=== PATIENT | female | born 1965 | race Caucasian/White ===

== ENCOUNTER 2019-09-25 13:43 | Outpatient (CLI) | payer OTHER, SELFPAY ==
--- NOTE | ~2019-09-25 | XR_ITS ---
EXAMINATION: XR chest 2V 09/25/2019 14:07 INDICATION: Chest pain PROCEDURE: 2 view chest COMPARISON: 12/23/2015 FINDINGS: The lungs are clear. The cardiomediastinal silhouette is within normal limits. There are no pleural effusions. There is no pneumothorax suspected. IMPRESSION: 1: NO ACUTE CARDIOPULMONARY DISEASE. Reviewed, dictated and finalized at location A.
== END 2019-09-25 13:44 | disposition home or self-care (01) ==
PROVIDERS: PCP Family Medicine; Visit Provider Family Medicine
DX: R07.9 Chest pain, unspecified (principal)
CPT/HCPCS: 71046

== ENCOUNTER 2019-10-08 12:46 | Outpatient (CLI) | payer OTHER, SELFPAY ==
--- NOTE | ~2019-10-08 | CT_ITS ---
EXAMINATION: CT chest wo con EXAM DATE: 10/08/2019 13:09 INDICATION: Right anterior chest pain under right breast. TECHNIQUE: Spiral CT of the chest without contrast. Axial, coronal and sagittal images were reviewe d. Coronal maximum intensity pixel images of chest reviewed. The dose-length product (DLP) for this examination was 345.56 mGy-cm. The exposure was tailored according to patient size (auto mA exposur e control), and iterative reconstruction (ASIR) was used as additional dose reduction technique. The re is no prior study for comparison. Correlation was made with chest x-ray 09/25/2019. FINDINGS: The lungs are clear. There are no pleural or pericardial effusions. Tracheobronchial t ree is patent. There is no mediastinal, hilar or axillary lymphadenopathy. There is no pneumothor ax. Heart normal in size. There is mild coronary arterial calcification, arterial sclerosis. Sma ll liver cyst. There is a 5 mm sclerotic focus in T7 and a 3 mm sclerotic focus in T8. Vague 4 mm sc lerotic focus in the left humeral head. Probably bone islands, but can't totally exclude osteoblastic disease. No acute rib fractures identified. IMPRESSION: 1. No acute cardiac pulmonary findings. 2. Several small bone sclerotic foci most likely bone islands in absence of known primary malignancy . Can't totally exclude osteoblastic disease. Could obtain bone scan or 3-six-month follow-up chest C T. Reviewed, dictated and finalized at location A. IMPRESSION: 1. No acute cardiac pulmonary findings. 2. Several small bone sclerotic foci most likely bone islands in absence of kn own primary malignancy. Can't totally exclude osteoblastic disease. Could obtai n bone scan or 3-six-month follow-up chest CT.
== END 2019-10-08 12:47 | disposition home or self-care (01) ==
PROVIDERS: PCP Family Medicine; Visit Provider Nurse Practitioner Family
DX: R07.9 Chest pain, unspecified (principal); M89.9 Disorder of bone, unspecified
CPT/HCPCS: 71250

== ENCOUNTER 2019-11-13 09:05 | Emergency (ER) | payer OTHER, SELFPAY ==
[2019-11-13] VITALS (18 sets, daily range): BP systolic 114–160; BP diastolic 71–99; PULSE 79–107; RESP 20; TEMP 36.8; O2SAT 99–100
--- NOTE | ~2019-11-13 | XR_ITS ---
EXAMINATION: XR chest 1V portable INDICATION: Weakness and vomiting TECHNIQUE: Portable AP chest at 0928 hours COMPARISON: 09/25/2019 FINDINGS: The lungs are free of acute opacities. There is no pleural effusion or pneumothorax. The ca rdiomediastinal silhouette is normal. The visualized osseous structures are unremarkable. IMPRESSION: 1. No acute cardiopulmonary abnormality. Reviewed, dictated and finalized at location A.
--- NOTE | ~2019-11-13 | CT_ITS ---
EXAMINATION: CT brain wo con DATE: 11/13/2019 10:03 INDICATION: Headache. TECHNIQUE: Computed tomography (CT) of the head was performed without intravenous contrast. The mA wa s adjusted according to patient size. Iterative reconstruction technique was employed. The dose-lengt h product was 605.33 mGy-cm. COMPARISON: Head CT 03/28/2017 FINDINGS: There is an old infarct in the left frontal lobe. There are scattered areas of low attenuat ion in the cerebral white matter. There is no intracranial hemorrhage, acute infarction, or abnormal intracranial mass lesion. The ventricles are normal in size. The paranasal sinuses are clear. The orb its are normal. There is a left-sided cochlear implant. IMPRESSION: 1. 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 2. Stable mild nonspecific cerebral white matter disease, which likely represents chronic small vesse l ischemic disease. Reviewed, dictated and finalized at location A. IMPRESSION: 1. 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 2. Stable mild nonspecific cerebral white matter disease, which likely represen ts chronic small vessel ischemic disease.
--- NOTE | 2019-11-13 09:23 | ED.NAVMDI ---
HPI - Nausea/Vomiting/Diarrhea General Chief complaint: Nausea/Vomiting/Diarrhea Stated complaint: sick Time Seen by Provider: 11/13/19 09:06 Source: patient Mode of arrival: ambulatory Limitations: other (hard of hearing) History of Present Illness HPI Narrative: This patient is a 54 year old female with history migraine headaches who presents for evaluation of headache, nausea and vomiting. She states starting on Tuesday she developed diffuse headache. She take hydrocodone for her headaches but she states her pain medication made her headache worse this time. She has not taken her medications in 2 days. She reports nausea , vomiting and diarrhea for 3 days. She denies fever or chills. She also has diffuse abdominal pain. She denies cough or shortness of breath. MD elicited complaint: nausea, vomiting and abdominal pain Pertinent past history: other (migrained) Onset (ago): day(s) (3) Associated nausea: Yes Associated abdominal pain: Yes Location of pain: diffuse Associated symptoms: nausea/vomiting and weakness Related Data Home Medications Medication Instructions Recorded Confirmed alprazolam 1 mg tablet 1 mg PO TID PRN 04/23/19 aspirin 81 mg chewable tablet 81 mg PO DAILY 04/23/19 atorvastatin 80 mg tablet 80 mg PO DAILY 04/23/19 cetirizine 10 mg tablet 10 mg PO DAILY 04/23/19 clopidogrel 75 mg tablet 75 mg PO DAILY 04/23/19 hydrocodone 5 mg-acetaminophen 325 1 tablet PO Q8H PRN 04/23/19 mg tablet metoprolol tartrate 25 mg tablet 25 mg PO BID tablet 04/23/19 pantoprazole 40 mg tablet,delayed 40 mg PO QAM 04/23/19 release Allergies Allergy/AdvReac Type Severity Reaction Status Date / Time fluoxetine Allergy Unknown Unknown Verified 11/13/19 09:14 [id number] Antimigraine Allergy Unknown Unknown Verified 11/13/19 09:14 Agents morphine Allergy Unknown Verified 11/13/19 09:14 ibuprofen AdvReac Intermediate ON BLOOD Verified 02/24/19 08:13 THINNERS tramadol AdvReac Intermediate VOMITING 4 Verified 02/24/19 08:13 DAYS Yppfhkm-Olg-Rkm Reductase AdvReac Unknown makes me Verified 02/24/19 08:13 Inhibitor feel like I'm having a heart attack Review of Systems Review of Systems: All systems reviewed & are unremarkable except as noted in HPI and below Constitutional: Constitutional: Denies chills, Reports fatigue, Denies fever(s) and Reports weakness Eyes: Eyes: Reports no additional eye complaints ENT: Reports nasal congestion Cardiovascular: Cardiovascular: Denies chest pain Respiratory: Respiratory: Denies cough and Denies dyspnea Gastrointestinal: Gastrointestinal: Reports abdominal pain, Reports diarrhea, Reports nausea and Reports vomiting Neurologic: Denies dizziness, Denies focal weakness, Denies numbness and Denies weakness PMFSH Past Medical History Medical History Anxiety Arthritis CAD (coronary artery disease) Cataract Depression GERD (gastroesophageal reflux disease) Hyperlipidemia Hypertension Migraines Uterine fibroid Surgical History Surgical History H/O cardiac catheterization H/O section H/O right wrist surgery H/O: hysterectomy Partial History of bladder suspension procedure Social History Social History (Updated 04/23/19 @ 15:16 by Britt Carrizales) Smoking status: Former smoker Smoking end date: 12/29/11 Exam Narrative: Exam Narrative: GENERAL: Well-appearing, well-nourished, and in no acute distress. HEAD: Normocephalic, atraumatic EYES: PERRLA and EOMI, conjunctiva clear without discharge NOSE: Nares clear, no rhinorrhea or epistaxis THROAT:Mucous membranes moist, Oropharynx normal without erythema, exudate, peritonsillar swelling or fluctuance NECK: Supple, without lymphadenopathy or mass RESPIRATORY: No respiratory distress, Airway patent, Respirations non-labored, Clear
[2019-11-13 09:33] LABS: Basophils Absolute Auto 0.1 K/mm3 (0.0-0.1); Eosinophils Absolute Auto 0.1 K/mm3 (0-0.3); Eosinophils Percent Auto 1.7 % (0-4.4); Hematocrit 49.4 % (37.0-47.0); Hemoglobin 16.3 g/dL (12.0-15.0); Immature Granulocyte Absolute 0.03 K/mm3 (0.00-0.031); Immature Granulocyte Percent A 0.4 % (0-0.5); Lymphocytes Absolute Auto 2.41 K/mm3 (0.9-3.2); Lymphocytes Percent Auto 28.7 % (18.3-44.2); Mean Corpuscular Volume 90.8 fl (80-100); Mean Platelet Volume 9.6 fl (7.4-10.4); Monocytes Absolute Auto 0.6 K/mm3 (0.1-0.6); Monocytes Percent Auto 7.4 % (2.6-8.5); Neutrophils Absolute Auto 5.1 K/mm3 (1.3-6.7); Neutrophils Percent Auto 60.8 % (45.5-73.1); Platelet Count Result 317 k/mm3 (150-375); Red Blood Count 5.44 M/mm3 (4.2-5.4); White Blood Count 8.4 K/mm3 (4.5-10.0)
[2019-11-13] MEDS: SODIUM CHLORIDE 0.9% IV 1,000 ML 999 ML IV CONT (09:33)
[2019-11-13] MEDS: METOCLOPRAMIDE HCL INJ 10 MG/2 ML VIAL IV PUSH (09:33)
[2019-11-13 09:45] LABS: Alanine Aminotransferase 39 U/L (4-35); Albumin Level 4.7 g/dL (3.5-5.1); Alkaline Phosphatase 61 U/L (38-126); Aspartate Amino Transferase 33 U/L (14-36); Bilirubin,Total 1.1 mg/dL (0.2-1.3); Blood Urea Nitrogen 13 mg/dL (7-17); Calcium 9.5 mg/dL (8.4-10.2); Carbon Dioxide 29 mmol/L (22-30); Chloride 102 mmol/L (98-107); Estimated CRCL calculation 86 ml/min; Estimated Glomerular Filt Rate > 60; Glucose 140 mg/dL (65-105); Lipase 41 U/L (23-300); Potassium 3.3 mmol/L (3.4-5.0); Sodium 139 mmol/L (137-145)
[2019-11-13 10:00] LABS: Add Urine Microscopic? YES; Appearance Urine Clear (Clear); Bilirubin Urine Negative (Negative); Blood Urine 2+ (Negative); Color Urine Yellow (Yellow); Glucose Urine UA Negative (Negative); Ketones Urine 1+ mg/dL (Negative); Leukocyte Esterase Ur Negative LEU/UL (Negative); Mucus Urine Heavy /lpf; Nitrate Urine Negative (Negative); Protein Urine 1+ mg/dL (Negative); Specific Grav Ur 1.028 (1.001-1.035)
[2019-11-13] MEDS: POTASSIUM CHLORIDE 20 MEQ TABLET PO (10:31)
[2019-11-13] MEDS: LACTATED RINGERS 1,000 ML 999 ML IV CONT (10:31)
--- NOTE | 2019-11-13 11:50 | PC.NURSE ---
Tolerating crackers and white soda without emesis.
== END 2019-11-13 11:51 | disposition home or self-care (01) ==
PROVIDERS: Emergency Provider General Practice; PCP Family Medicine
DX: R11.2 Nausea with vomiting, unspecified (principal); E86.0 Dehydration; R51 Headache; F41.9 Anxiety disorder, unspecified; M19.90 Unspecified osteoarthritis, unspecified site; I25.10 Atherosclerotic heart disease of native coronary artery without angina pectoris; F32.9 Major depressive disorder, single episode, unspecified; K21.9 Gastro-esophageal reflux disease without esophagitis; E78.5 Hyperlipidemia, unspecified; I10 Essential (primary) hypertension
CPT/HCPCS: 36415; 51701; 70450; 71045; 80053; 81001; 83690; 85025; 96361; 96374; 96375; 99284; A9270; J0131; J1200; J2765; J7030; J7120

== ENCOUNTER 2020-02-15 15:24 | Outpatient (CLI) | payer OTHER, SELFPAY ==
--- NOTE | ~2020-02-15 | XR_ITS ---
XR cervical spine 4-5V 02/15/2020 15:53 Indication: Cervicalgia. Procedure: 4 view cervical spine Comparison: CT dated 11/08/2018. Findings: Normal cervical alignment. Vertebral body heights are maintained. There is mild disc narrow ing at C5-6 and C6-7. No prevertebral soft tissue abnormality. There is mild multilevel uncinate and facet hypertrophy. Lung apices are normal. Odontoid process within normal limits. Lung apices are nor mal. Impression: 1: Mild cervical spondylosis. Reviewed, dictated and finalized at location B. Impression: 1: Mild cervical spondylosis.
== END 2020-02-15 15:25 | disposition home or self-care (01) ==
PROVIDERS: PCP Family Medicine; Visit Provider Psychiatry & Neurology Neurology
DX: M47.892 Other spondylosis, cervical region (principal)
CPT/HCPCS: 72050

== ENCOUNTER 2020-03-17 10:12 | Outpatient (CLI) | payer OTHER, SELFPAY ==
--- NOTE | ~2020-03-17 | XR_ITS ---
EXAMINATION: XR knee LT min 4V DATE: 03/17/2020 11:24 INDICATION: Left knee pain. TECHNIQUE: 4 views of left knee were obtained. COMPARISON: None. FINDINGS: Bone alignment is normal. No fracture. There is mild tricompartmental osteoarthritis. No kn ee joint effusion. IMPRESSION: 1. Mild left knee osteoarthritis. Reviewed, dictated and finalized at location A.
--- NOTE | ~2020-03-17 | CT_ITS ---
EXAMINATION: CT chest wo con DATE: 03/17/2020 11:06 INDICATION: ABN CT FINDINGS TECHNIQUE: Computed tomography (CT) of the chest was performed without intravenous contrast. Addition al 3D reconstructions utilizing coronal maximum intensity projection (MIP) were performed. Automated exposure control and iterative reconstruction technique were employed. The dose-length product was 26 4.03 mGy-cm. COMPARISON: Chest CT dated 10/08/[address] abdomen and pelvis dated 02/16/2019 FINDINGS: No significant interval change in mild linear discoid atelectasis/scarring at the inferior lingula an d adjacent anterobasilar segment of the left lower lobe. No pneumonia, suspicious pulmonary nodules, pulmonary edema or pleural effusion. Heart size is normal. No pericardial effusion. Atherosclerotic c oronary artery calcification or more likely stenting along the proximal left anterior descending juan diego nary artery. Correlate with clinical history. No pathologically enlarged thoracic lymphadenopathy. Di ffuse hepatic steatosis with focal sparing along the gallbladder fossa. There are a few scattered sma ll low-attenuation hepatic cysts the largest measuring 2 cm maximal diameter in the right hepatic lob e. No interval change in a few small likely bone islands at T6, T7, T8 and at the left humeral head. The lesions at T7 and T8 further are unchanged since 02/16/2019. IMPRESSION: 1. No interval change in a few small likely bone islands at the left humeral head and thoracic spine. 2. No acute cardiopulmonary disease. Reviewed, dictated and finalized at location A. IMPRESSION: 1. No interval change in a few small likely bone islands at the left humeral he ad and thoracic spine. 2. No acute cardiopulmonary disease.
== END 2020-03-17 10:13 | disposition home or self-care (01) ==
PROVIDERS: PCP Family Medicine; Visit Provider Nurse Practitioner Family
DX: R93.89 Abnormal findings on diagnostic imaging of other specified body structures (principal); M17.12 Unilateral primary osteoarthritis, left knee
CPT/HCPCS: 71250; 73564

== ENCOUNTER 2020-04-15 14:56 | Emergency (ER) | payer OTHER, SELFPAY ==
--- NOTE | ~2020-04-15 | XR_ITS ---
EXAMINATION: XR forearm LT 2V DATE: 04/15/2020 18:14 INDICATION: Left forearm injury with swelling and bruising TECHNIQUE: AP an lateral views of the left forearm were obtained. COMPARISON: none FINDINGS: Alignment is normal. No fracture. Mild osteoarthritis at the left elbow and triscaphe joints. Tiny li saige degenerative ossicle at the dorsal aspect of the first metatarsophalangeal joint. Soft tissues a re unremarkable. No left elbow joint effusion. IMPRESSION: 1. No acute osseous abnormality. Reviewed, dictated and finalized at location H. 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
--- NOTE | ~2020-04-15 | US_ITS ---
EXAMINATION: US venous doppler [facility] DATE: 04/15/2020 17:55 INDICATION: Left lower limb pain and swelling TECHNIQUE: Grayscale ultrasound images without and with compression and Doppler ultrasound images of the left lower extremity veins were obtained. COMPARISON: 04/08/2017 FINDINGS: The visualized portions of left common femoral vein, profunda (deep) femoral vein, femoral vein, popl iteal vein, peroneal veins, posterior tibial veins, gastrocnemius vein and greater saphenous vein out flow remain patent. IMPRESSION: 1. No deep venous thrombosis in the left lower limb. Reviewed, dictated and finalized at location H. 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
[2020-04-15 15:03] VITALS: BP 160/107; PULSE 74; RESP 18; TEMP 36.7; O2SAT 100
--- NOTE | 2020-04-15 18:40 | ED.GENADULT ---
HPI - General Adult General Chief complaint: Extremity Problem,Nontraumatic Stated complaint: left leg swelling Time Seen by Provider: 04/15/20 17:33 Source: patient Mode of arrival: ambulatory Limitations: no limitations History of Present Illness HPI narrative: Patient presents with chief complaint of increased swelling to the left leg over the past 2 to 3 days. Patient states she saw her primary care who told her to come to the emergency department to rule out DVT. Patient takes Plavix and states that she has not skipped doses. Patient states that she also dropped her showerhead on her left arm and has significant bruising and swelling to the area. Patient denies any other injuries or concerns. Related Data Home Medications Medication Instructions Recorded Confirmed alprazolam 1 mg tablet 1 mg PO TID PRN 04/23/19 aspirin 81 mg chewable tablet 81 mg PO DAILY 04/23/19 atorvastatin 80 mg tablet 80 mg PO DAILY 04/23/19 cetirizine 10 mg tablet 10 mg PO DAILY 04/23/19 clopidogrel 75 mg tablet 75 mg PO DAILY 04/23/19 hydrocodone 5 mg-acetaminophen 325 1 tablet PO Q8H PRN 04/23/19 mg tablet metoprolol tartrate 25 mg tablet 25 mg PO BID tablet 04/23/19 pantoprazole 40 mg tablet,delayed 40 mg PO QAM 04/23/19 release Allergies Allergy/AdvReac Type Severity Reaction Status Date / Time fluoxetine Allergy Unknown Unknown Verified 11/13/19 09:14 [id number]-[id number] Antimigraine Allergy Unknown Unknown Verified 11/13/19 09:14 Agents morphine Allergy Unknown Verified 11/13/19 09:14 ibuprofen AdvReac Intermediate ON BLOOD Verified 02/24/19 08:13 THINNERS tramadol AdvReac Intermediate VOMITING 4 Verified 02/24/19 08:13 DAYS Wprqtsy-Vuw-Nck Reductase AdvReac Unknown makes me Verified 02/24/19 08:13 Inhibitor feel like I'm having a heart attack Review of Systems Review of Systems: Narrative: CONSTITUTIONAL: Denies fever, chills, or sweats. EYES: Denies visual changes, redness, or discharge. ENT: Denies rhinorrhea, congestion, sore throat, or otalgia. CARDIOVASCULAR: Denies chest pain, palpitations, or edema. RESPIRATORY: Denies cough or dyspnea. GASTROINTESTINAL: Denies abdominal pain, nausea, vomiting, or diarrhea. GENITOURINARY: Denies dysuria or hematuria. SKIN: Ecchymosis to left forearm denies rash or itching. MUSCULOSKELETAL: Reports left forearm and leg swelling and discomfort NEUROLOGIC: Denies headache, numbness, dizziness, or weakness. PSYCHIATRIC: Denies anxiety or depression. [facility] Past Medical History Medical History (Updated 04/15/20 @ 18:45 by Mark Sanchez PA-C) Anxiety Arthritis CAD (coronary artery disease) Cataract Depression GERD (gastroesophageal reflux disease) Hyperlipidemia Hypertension Migraines Uterine fibroid Surgical History Surgical History H/O cardiac catheterization H/O section H/O right wrist surgery H/O: hysterectomy Partial History of bladder suspension procedure Social History Social History (Updated 04/23/19 @ 15:16 by Britt Carrizales) Smoking status: Former smoker Smoking end date: 12/29/11 Exam Narrative: Exam Narrative: GENERAL: Well-appearing, well-nourished, and in no acute distress. HEAD: Normocephalic, atraumatic. EYES: PERRLA and EOMI. CHEST: Clear to auscultation. No respiratory distress. No wheezes rales or rhonchi HEART: Regular rate and rhythm. EXTREMITIES: Normal range of motion. Minimal edema noted to left leg in comparison to the right. Patient reports calf tenderness with palpation. Homans' sign negative. There is no erythema, ecchymosis to left leg or calf. SKIN: Ecchymosis to left forearm with swelling.. Warm, dry, no rash. NEURO: No focal deficits. Alert and oriented x3. PSYCH: Normal mood and affect. Course Vital Signs Vital signs: Vital Signs Temperature 98.1 F 04/15/20 15:03 Pulse Rate 74 04/15/20 15:03 Respirator
[2020-04-15 19:10] VITALS: BP 156/86; PULSE 75; RESP 18; O2SAT 100
== END 2020-04-15 19:11 | disposition home or self-care (01) ==
PROVIDERS: Emergency Provider Emergency Medicine; PCP Family Medicine
DX: R60.0 Localized edema (principal); S50.12XA Contusion of left forearm, initial encounter; M19.90 Unspecified osteoarthritis, unspecified site; I25.10 Atherosclerotic heart disease of native coronary artery without angina pectoris; F41.9 Anxiety disorder, unspecified; F32.9 Major depressive disorder, single episode, unspecified; K21.9 Gastro-esophageal reflux disease without esophagitis; E78.5 Hyperlipidemia, unspecified; I10 Essential (primary) hypertension; Z79.82 Long term (current) use of aspirin; Z79.02 Long term (current) use of antithrombotics/antiplatelets; W20.8XXA Other cause of strike by thrown, projected or falling object, initial encounter
CPT/HCPCS: 73090; 93971; 99284

== ENCOUNTER 2020-06-03 08:49 | Outpatient (CLI) | payer OTHER, SELFPAY ==
--- NOTE | ~2020-06-03 | CT_ITS ---
EXAMINATION: CTA brain EXAM DATE: 06/03/2020 09:26 INDICATION: Migraine headaches. Cochlear implant. TECHNIQUE: Noncontrast head CT. Spiral CT angiogram cerebral arteries performed with intravenous in jection of 100 mL Omnipaque 350. Axial, coronal and sagittal images reviewed. Additional reformatted images created on dedicated 3-D workstation. The dose-length product (DLP) for this examination was 924.39 mGy-cm. The exposure was tailored according to patient size, and iterative reconstruction ( ASIR) was used as additional dose reduction technique. Comparison is made to prior examination from . FINDINGS: There is 0% carotid siphon stenosis bilaterally. The right vertebral artery is dominant. There is no distal carotid or vertebral basilar arterial dissection or fibromuscular dysplasia. Ther e are no cerebral artery aneurysms. There is symmetric cerebral artery arborization. The sagittal, tr ansverse and sigmoid sinuses enhance normally, no venous sinus thrombosis. Internal cerebral veins al so enhance normally. There is moderate-sized old left frontal lobe infarction. Surgical changes from left cochlear implant , mastoidectomy. There is no acute intraparenchymal hemorrhage. No evidence of intraparenchymal brai n mass lesion. No evidence of acute infarction. There is no mass effect or midline shift. There is n o obstructive hydrocephalus suspected. There are no extra-axial collections. There are no calvarial acute fractures. IMPRESSION: 1. No acute intracranial findings or cerebral artery aneurysm. 2. Left frontal lobe old moderate infarction. 3. Left cochlear implant. Reviewed, dictated and finalized at location A. 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
[2020-06-03 09:15] LABS: Estimated Glomerular Filt Rate > 60
== END 2020-06-03 08:50 | disposition home or self-care (01) ==
PROVIDERS: PCP Family Medicine; Visit Provider Psychiatry & Neurology Neurology
DX: G43.909 Migraine, unspecified, not intractable, without status migrainosus (principal); Z86.73 Personal history of transient ischemic attack (TIA), and cerebral infarction without residual deficits; Z96.21 Cochlear implant status
CPT/HCPCS: 70496; Q9967

== ENCOUNTER 2020-08-31 10:33 | Emergency (ER) | payer OTHER, SELFPAY ==
--- NOTE | ~2020-08-31 | CT_ITS ---
EXAMINATION: CT abdomen pelvis w con DATE: 08/31/2020 12:03 INDICATION: Generalized abdominal pain. Nausea and vomiting TECHNIQUE: Computed tomography (CT) of the abdomen and pelvis was performed with 100 cc Omnipaque 350 intravenous contrast. Automated exposure control and iterative reconstruction technique were employe d. Exam dose: 604.96 mGy-cm total exam DLP. COMPARISON: 02/24/2019 CT abdomen pelvis FINDINGS: No infiltrate or consolidation is evident at the lung bases. Cardiomegaly. No pericardial o r pleural effusion. Scattered hepatic cysts, measuring up to approximately 1.4 cm maximal dimension. The gallbladder is present. No bile duct dilatation. Normal splenic size. No pancreatic mass lesion, calcification or ductal dilatation. Normal morphology of the adrenal glands. Several small renal cysts are noted. No urinary tract calculus or hydroureteronephrosis. Normal caliber of the abdominal aorta. No intraperitoneal or retroperitoneal or pelvic mass lesion or adenopathy or ascites. Diverticulosis of left and right colon; no CT evidence of diverticulitis. Normal appendix. No evidence of appendicitis. No bowel obstruction, bowel wall thickening, pneumatosis or intraperitoneal free air. Small fat-containing umbilical hernia. Included skeletal structures are unremarkable. IMPRESSION: Hepatic and renal cysts Diverticulosis of left and right colon; no CT evidence of diverticulitis Normal appendix No bowel obstruction or free air Reviewed, dictated and finalized at Location A. Reviewed, dictated and finalized at location A.
[2020-08-31 10:39] VITALS: BP 115/73; PULSE 82; RESP 20; TEMP 36.6; O2SAT 100
[2020-08-31] MEDS: LACTATED RINGERS 1,000 ML 999 ML IV CONT (11:14)
[2020-08-31] MEDS: PANTOPRAZOLE SODIUM IV 40 MG VIAL IV PUSH (11:14)
[2020-08-31 11:22] LABS: Basophils Absolute Auto 0.1 K/mm3 (0.0-0.1); Eosinophils Absolute Auto 0.2 K/mm3 (0-0.3); Eosinophils Percent Auto 1.8 % (0-4.4); Hematocrit 44.9 % (37.0-47.0); Hemoglobin 15.1 g/dL (12.0-15.0); Immature Granulocyte Absolute 0.02 K/mm3 (0.00-0.031); Immature Granulocyte Percent A 0.2 % (0-0.5); Lymphocytes Percent Auto 28.2 % (18.3-44.2); Mean Corpuscular HGB Conc 33.6 g/dl (32-36); Mean Corpuscular Hemoglobin 29.3 pg (26-34); Mean Platelet Volume 9.7 fl (7.4-10.4); Monocytes Absolute Auto 0.7 K/mm3 (0.1-0.6); Monocytes Percent Auto 8.1 % (2.6-8.5); Neutrophils Absolute Auto 5.4 K/mm3 (1.3-6.7); Neutrophils Percent Auto 60.7 % (45.5-73.1); Platelet Count Result 338 k/mm3 (150-375); Red Blood Count 5.16 M/mm3 (4.2-5.4); Red Cell Distribution Width 13.9 % (11.5-14.5); White Blood Count 8.9 K/mm3 (4.5-10.0)
[2020-08-31 11:27] LABS: Add Urine Microscopic? YES; Amorphous Sediment Urine Few; Appearance Urine Cloudy (Clear); Bacteria Urine Trace /hpf; Bilirubin Urine Negative (Negative); Blood Urine 1+ (Negative); Color Urine Amber (Yellow); Glucose Urine UA Negative (Negative); Hyaline Casts Urine 15-19 /lpf; Ketones Urine 1+ mg/dL (Negative); Leukocyte Esterase Ur 1+ LEU/UL (Negative); Mucus Urine Heavy /lpf; Nitrate Urine Negative (Negative); Protein Urine 2+ mg/dL (Negative); Specific Grav Ur 1.027 (1.001-1.035); Squamous Epithelial Cell Urine Occasional /hpf (Few); WBC Urine 16-20 /hpf
[2020-08-31 11:34] LABS: Alanine Aminotransferase 35 U/L (4-35); Albumin Level 4.5 g/dL (3.5-5.1); Alkaline Phosphatase 72 U/L (38-126); Anion Gap 9 mmol/L (8-16); Aspartate Amino Transferase 33 U/L (14-36); Bilirubin,Total 0.9 mg/dL (0.2-1.3); Blood Urea Nitrogen 14 mg/dL (7-17); Calcium 9.4 mg/dL (8.4-10.2); Carbon Dioxide 26 mmol/L (22-30); Chloride 106 mmol/L (98-107); Estimated CRCL calculation 72 ml/min; Estimated Glomerular Filt Rate > 60; Glucose 91 mg/dL (65-105); Lipase 47 U/L (23-300); Potassium 3.5 mmol/L (3.4-5.0); Sodium 141 mmol/L (137-145)
[2020-08-31] MEDS: ONDANSETRON INJ 4 MG/2 ML VIAL IV PUSH (12:51)
[2020-08-31 13:09] VITALS: BP 140/86; PULSE 64; RESP 13; O2SAT 100
--- NOTE | 2020-08-31 14:21 | ED.GENADULT ---
HPI - General Adult General Chief complaint: Abdominal Pain Stated complaint: n/v, headache Time Seen by Provider: 08/31/20 10:44 Source: patient Mode of arrival: ambulatory Limitations: no limitations History of Present Illness HPI narrative: Patient is a 55-year-old female who presents to emergency department for evaluation of vomiting for the last 3 days off and on patient notes mild discomfort of the abdomen patient notes she had initially had headache thought she may be getting one of her migraines but that resolved patient on arrival does not appear uncomfortable or in distress patient has not taken anything for her symptoms Related Data Home Medications Medication Instructions Recorded Confirmed alprazolam 1 mg tablet 1 mg PO TID PRN 04/23/19 aspirin 81 mg chewable tablet 81 mg PO DAILY 04/23/19 atorvastatin 80 mg tablet 80 mg PO DAILY 04/23/19 cetirizine 10 mg tablet 10 mg PO DAILY 04/23/19 clopidogrel 75 mg tablet 75 mg PO DAILY 04/23/19 hydrocodone 5 mg-acetaminophen 325 1 tablet PO Q8H PRN 04/23/19 mg tablet metoprolol tartrate 25 mg tablet 25 mg PO BID tablet 04/23/19 pantoprazole 40 mg tablet,delayed 40 mg PO QAM 04/23/19 release Allergies Allergy/AdvReac Type Severity Reaction Status Date / Time fluoxetine Allergy Unknown Unknown Verified 08/31/20 10:41 [id number] Antimigraine Allergy Unknown Unknown Verified 08/31/20 10:41 Agents morphine Allergy Unknown Verified 08/31/20 10:41 ibuprofen AdvReac Intermediate ON BLOOD Verified 08/31/20 10:41 THINNERS tramadol AdvReac Intermediate VOMITING 4 Verified 08/31/20 10:41 DAYS Melncjn-Mrw-Nsc Reductase AdvReac Unknown makes me Verified 08/31/20 10:41 Inhibitor feel like I'm having a heart attack Review of Systems Review of Systems: All systems reviewed & are unremarkable except as noted in HPI and below PMFSH Past Medical History Medical History (Updated 08/31/20 @ 14:24 by Ronni Cameron PA-C) Anxiety Arthritis CAD (coronary artery disease) Cataract Depression GERD (gastroesophageal reflux disease) Hyperlipidemia Hypertension Migraines Uterine fibroid Surgical History Surgical History H/O cardiac catheterization H/O section H/O right wrist surgery H/O: hysterectomy Partial History of bladder suspension procedure Social History Social History Smoking status: Former smoker Smoking end date: 12/29/11 Gender identity (if verbalized by the patient): Female Exam Narrative: Exam Narrative: GENERAL: Well-appearing, well-nourished, and in no acute distress. HEAD: Normocephalic, atraumatic. EYES: PERRLA and EOMI. ENT: Nares clear, no rhinorrhea or epistaxis. Mucous membranes moist. CHEST: Clear to auscultation. No respiratory distress. No wheezes rales or rhonchi HEART: Regular rate and rhythm. No murmur heard. Normal peripheral pulses. ABDOMEN: Soft, tenderness throughout the abdomen without rebound or guarding, nondistended EXTREMITIES: Normal range of motion. No edema. SKIN: Warm, dry, no rash. NEURO: No focal deficits. Alert and oriented x3. PSYCH: Normal mood and affect. Course Course Emergency Course: Patient in the room in no distress aware of case findings treatment plan and diagnosis. Patient hydrated given medications felt appropriate for outpatient reevaluation tolerating p.o. intake provided with reasons to return ABCs and vital signs intact and stable Vital Signs Vital signs: Vital Signs Temperature 97.9 F 08/31/20 10:39 Pulse Rate 82 08/31/20 10:39 Respiratory Rate 20 08/31/20 10:39 Blood Pressure 115/73 08/31/20 10:39 Pulse Oximetry 100 08/31/20 10:39 Temperature 97.9 F 08/31/20 10:39 Pulse Rate 64 08/31/20 13:09 Respiratory Rate 13 08/31/20 13:09 Blood Pressure 140/86 08/31/20 13:09 Pulse Oximetry 10
[2020-08-31] MEDS: METOCLOPRAMIDE HCL INJ 10 MG/2 ML VIAL IV PUSH (14:23)
[2020-08-31] MEDS: KETOROLAC 15 MG/ML VIAL (*BKC) 10 MG IV PUSH (14:23)
[2020-08-31 14:37] VITALS: BP 142/89; PULSE 70; RESP 12; O2SAT 97
[2020-08-31 14:55] VITALS: BP 135/83; PULSE 72; RESP 18; O2SAT 99
== END 2020-08-31 14:56 | disposition home or self-care (01) ==
PROVIDERS: Emergency Provider Family Medicine; PCP Family Medicine
DX: N39.0 Urinary tract infection, site not specified (principal); R11.10 Vomiting, unspecified; M19.90 Unspecified osteoarthritis, unspecified site; I25.10 Atherosclerotic heart disease of native coronary artery without angina pectoris; K21.9 Gastro-esophageal reflux disease without esophagitis; E78.5 Hyperlipidemia, unspecified; I10 Essential (primary) hypertension; F41.9 Anxiety disorder, unspecified; F32.9 Major depressive disorder, single episode, unspecified; Z79.82 Long term (current) use of aspirin; Z87.891 Personal history of nicotine dependence; K57.90 Diverticulosis of intestine, part unspecified, without perforation or abscess without bleeding; K76.89 Other specified diseases of liver; N28.1 Cyst of kidney, acquired
CPT/HCPCS: 36415; 74177; 80053; 81001; 83690; 85025; 87086; 87088; 96361; 96365; 96375; 99284; C9113; J0131; J0696; J1885; J2405; J2765; J7120; Q9967

== ENCOUNTER 2020-09-29 17:22 | Emergency (ER) | payer OTHER, SELFPAY ==
[2020-09-29 17:54] VITALS: BP 130/85; PULSE 104; RESP 16; TEMP 36.5; O2SAT 100
[2020-09-29 18:12] LABS: Basophils Absolute Auto 0.1 K/mm3 (0.0-0.1); Eosinophils Absolute Auto 0.1 K/mm3 (0-0.3); Eosinophils Percent Auto 1.4 % (0-4.4); Hematocrit 45.2 % (37.0-47.0); Hemoglobin 15.1 g/dL (12.0-15.0); Immature Granulocyte Absolute 0.02 K/mm3 (0.00-0.031); Immature Granulocyte Percent A 0.2 % (0-0.5); Lymphocytes Absolute Auto 2.41 K/mm3 (0.9-3.2); Lymphocytes Percent Auto 27.3 % (18.3-44.2); Mean Corpuscular HGB Conc 33.4 g/dl (32-36); Mean Corpuscular Volume 89.7 fl (80-100); Mean Platelet Volume 9.1 fl (7.4-10.4); Monocytes Absolute Auto 0.7 K/mm3 (0.1-0.6); Monocytes Percent Auto 8.2 % (2.6-8.5); Neutrophils Absolute Auto 5.5 K/mm3 (1.3-6.7); Neutrophils Percent Auto 61.9 % (45.5-73.1); Platelet Count Result 325 k/mm3 (150-375); Red Blood Count 5.04 M/mm3 (4.2-5.4); Red Cell Distribution Width 14.7 % (11.5-14.5); White Blood Count 8.8 K/mm3 (4.5-10.0)
[2020-09-29 18:22] LABS: Alanine Aminotransferase 29 U/L (4-35); Albumin Level 4.5 g/dL (3.5-5.1); Alkaline Phosphatase 75 U/L (38-126); Anion Gap 8 mmol/L (8-16); Aspartate Amino Transferase 34 U/L (14-36); Bilirubin,Total 0.7 mg/dL (0.2-1.3); Blood Urea Nitrogen 12 mg/dL (7-17); Calcium 9.6 mg/dL (8.4-10.2); Carbon Dioxide 29 mmol/L (22-30); Chloride 105 mmol/L (98-107); Estimated CRCL calculation 83 ml/min; Estimated Glomerular Filt Rate > 60; Glucose 97 mg/dL (65-105); Lipase 53 U/L (23-300); Potassium 3.3 mmol/L (3.4-5.0); Sodium 142 mmol/L (137-145)
--- NOTE | 2020-09-29 18:31 | ECG_ITS ---
Measurements Intervals [place] Rate: 73 P: 52 DE: 136 QRS: 4 QRSD: 93 T: 31 QT: 399 QTc: 440 Interpretive Statements SINUS RHYTHM BASELINE WANDER- I, II, AVR, AVL, AVF, V1-V6 BORDERLINE ECG Electronically Signed On 09-29-2020 20:44:13 CDT by Piyush Shanks D.O.
--- NOTE | 2020-09-29 18:31 | ED.NAVMDI ---
HPI - Nausea/Vomiting/Diarrhea General Chief complaint: Nausea/Vomiting/Diarrhea <Urmila Castillo MD - Last Filed: 09/30/20 21:12> Stated complaint: N/V since yesterday <Urmila Castillo MD - Last Filed: 09/30/20 21:12> Time Seen by Provider: 09/29/20 18:02 <Urmila Castillo MD - Last Filed: 09/30/20 21:12> Source: patient <Urmila Castillo MD - Last Filed: 09/30/20 21:12> Mode of arrival: ambulatory <Urmila Castillo MD - Last Filed: 09/30/20 21:12> Limitations: no limitations <Urmila Castillo MD - Last Filed: 09/30/20 21:12> History of Present Illness HPI Narrative: This is a 55 year old female who presents for evaluation of nausea and vomiting. She states 2 days ago she had diarrhea, and she developed nausea and vomiting yesterday. She has been unable to keep any thing down. She reports abdominal discomfort. She denies fever or chills. She was evaluated for similar symptoms 1 month ago and no acute problem was found. She also reports history of migraine headaches in which she takes hydrocodone 10 mg . She threw up her pain medication today. <Urmila Castillo MD - Last Filed: 09/30/20 21:12> Related Data Home medications: Home Medications Medication Instructions Recorded Confirmed alprazolam 1 mg tablet 1 mg PO TID PRN 04/23/19 aspirin 81 mg chewable tablet 81 mg PO DAILY 04/23/19 atorvastatin 80 mg tablet 80 mg PO DAILY 04/23/19 cetirizine 10 mg tablet 10 mg PO DAILY 04/23/19 clopidogrel 75 mg tablet 75 mg PO DAILY 04/23/19 hydrocodone 5 mg-acetaminophen 325 1 tablet PO Q8H PRN 04/23/19 mg tablet metoprolol tartrate 25 mg tablet 25 mg PO BID tablet 04/23/19 pantoprazole 40 mg tablet,delayed 40 mg PO QAM 04/23/19 release <Urmila Castillo MD - Last Filed: 09/30/20 21:12> Allergies/Adverse reactions: Allergies Allergy/AdvReac Type Severity Reaction Status Date / Time fluoxetine Allergy Unknown Unknown Verified 08/31/20 10:41 [id number] Antimigraine Allergy Unknown Unknown Verified 08/31/20 10:41 Agents morphine Allergy Unknown Verified 08/31/20 10:41 ibuprofen AdvReac Intermediate ON BLOOD Verified 08/31/20 10:41 THINNERS tramadol AdvReac Intermediate VOMITING 4 Verified 08/31/20 10:41 DAYS Xjazdlo-Onq-Lgn Reductase AdvReac Unknown makes me Verified 08/31/20 10:41 Inhibitor feel like I'm having a heart attack <Urmila Castillo MD - Last Filed: 09/30/20 21:12> Review of Systems Review of Systems: All systems reviewed & are unremarkable except as noted in HPI and below <Urmila Castillo MD - Last Filed: 09/30/20 21:12> Constitutional: Constitutional: Denies chills and Denies fever(s) <Urmila Castillo MD - Last Filed: 09/30/20 21:12> Eyes: Eyes: Denies change in vision <Urmila Castillo MD - Last Filed: 09/30/20 21:12> Cardiovascular: Cardiovascular: Denies chest pain <Urmila Castillo MD - Last Filed: 09/30/20 21:12> Respiratory: Respiratory: Denies cough and Denies dyspnea <Urmila Castillo MD - Last Filed: 09/30/20 21:12> Gastrointestinal: Gastrointestinal: Reports abdominal pain, Reports diarrhea, Reports nausea and Reports vomiting <Urmila Castillo MD - Last Filed: 09/30/20 21:12> [facility] Past Medical History Medical History: Medical History (Updated 09/30/20 @ 00:00 by Background Daemon) Anxiety Arthritis CAD (coronary artery disease) Cataract Depression GERD (gastroesophageal reflux disease) Hyperlipidemia Hypertension Migraines Uterine fibroid <Urmila Castillo MD - Last Filed: 09/30/20 21:12> Surgical History Surgical History: Surgical History H/O cardiac catheterization H/O section H/O right wrist surgery H/O: hysterectomy Partial History of bladder suspension procedure <Urmila Castillo MD - Last Filed: 09/30/20 21:12> Social History Social History:
[2020-09-29 19:13] VITALS: BP 131/102; PULSE 110; RESP 20; TEMP 36.6; O2SAT 98
--- NOTE | 2020-09-29 19:32 | PC.NURSE ---
assumed care of pt at this time
[2020-09-29 20:02] LABS: Add Urine Microscopic? YES; Appearance Urine Cloudy (Clear); Bilirubin Urine Negative (Negative); Blood Urine Negative (Negative); Color Urine Yellow (Yellow); Glucose Urine UA Negative (Negative); Ketones Urine Trace mg/dL (Negative); Leukocyte Esterase Ur Trace LEU/UL (Negative); Mucus Urine Few /lpf; Nitrate Urine Negative (Negative); Protein Urine 2+ mg/dL (Negative); Specific Grav Ur 1.025 (1.001-1.035); Squamous Epithelial Cell Urine Moderate /hpf (Few); Urobilinogen Urine Negative mg/dL (<2.0)
[2020-09-29] MEDS: LACTATED RINGERS 1,000 ML 999 ML IV CONT (20:03)
[2020-09-29] MEDS: METOCLOPRAMIDE HCL INJ 10 MG/2 ML VIAL IV PUSH (20:05)
[2020-09-29] MEDS: diphenhydrAMINE HCl INJ 50 MG/ML VIAL 25 MG IV PUSH (20:05)
[2020-09-29] MEDS: ONDANSETRON INJ 4 MG/2 ML VIAL 8 MG IV PUSH (20:46)
[2020-09-29 20:52] VITALS: BP 136/96; PULSE 98; RESP 16; O2SAT 97
[2020-09-29 23:08] VITALS: BP 104/72; PULSE 80; RESP 26; TEMP 36.9; O2SAT 99
== END 2020-09-29 23:10 | disposition home or self-care (01) ==
PROVIDERS: Emergency Medicine; Emergency Provider Emergency Medicine; PCP Family Medicine
DX: R11.2 Nausea with vomiting, unspecified (principal); I25.10 Atherosclerotic heart disease of native coronary artery without angina pectoris; K21.9 Gastro-esophageal reflux disease without esophagitis; E78.5 Hyperlipidemia, unspecified; I10 Essential (primary) hypertension; M19.90 Unspecified osteoarthritis, unspecified site; F41.9 Anxiety disorder, unspecified; F32.9 Major depressive disorder, single episode, unspecified; Z87.891 Personal history of nicotine dependence; R94.31 Abnormal electrocardiogram [ECG] [EKG]
CPT/HCPCS: 36415; 80053; 81001; 83690; 85025; 93005; 96361; 96374; 96375; 96376; 99284; J1200; J2405; J2765; J7120

== ENCOUNTER 2021-02-27 15:33 | Emergency (ER) | payer OTHER, SELFPAY ==
--- NOTE | ~2021-02-27 | CT_ITS ---
EXAMINATION: CT brain wo con INDICATION: Headache COMPARISON: 06/03/2020 TECHNIQUE: Standard unenhanced head CT. The dose-length product (DLP) was 605.33 mGy-cm. The mA was a djusted according to patient size. Iterative reconstruction technique was employed. FINDINGS: There is no intracranial hemorrhage, acute infarction, or abnormal mass lesion. No chronic infarction is noted in the left frontal lobe. The ventricles are normal. There is no abnormal mass ef fect or midline shift. The cárdenas-white matter differentiation is normal. The basal cisterns are patent . The orbits are normal. There is a left cochlear implant. The paranasal sinuses, mastoids and calvar ium are normal. IMPRESSION: 1. Old left frontal lobe infarct without acute intracranial abnormality. Reviewed, dictated and finalized at location A.
[2021-02-27 16:27] VITALS: BP 145/103; PULSE 91; RESP 14; TEMP 36.9; O2SAT 100
[2021-02-27 16:43] VITALS: BP 135/94; PULSE 87; RESP 18; O2SAT 100
--- NOTE | 2021-02-27 16:43 | ED.NEUROSD ---
HPI - Neuro Symptoms/Deficit General Chief Complaint: Neuro Symptoms/Deficit Stated Complaint: FACIAL SPASMS X2 MONTHS Time Seen by Provider: 02/27/21 16:40 Source: patient Mode of arrival: ambulatory Limitations: no limitations History of Present Illness HPI Narrative: Patient is a 55-year-old female with a history of hypertension, hyperlipidemia, deafness with cochlear implant, facial spasm treated with Botox, who presents for evaluation of right-sided facial spasm. Patient reports intermittent facial spasm over the past 2 months. She states that it has occurred despite the Botox therapy provided by her intelligent systems engineer. Patient also follows with neurologist, Dr. Paz, states that she went to the clinic today to be evaluated for breakthrough muscle spasm, and was told to come to the emergency department. Patient reports some tingling in her right face, bilateral hands. She denies any unilateral weakness or numbness. No difficulty with speech or drooling. No expressive aphasia. No significant headache or significant neck pain. No fever or chills. Related Data Home Medications Medication Instructions Recorded Confirmed alprazolam 1 mg tablet 1 mg PO TID PRN 04/23/19 aspirin 81 mg chewable tablet 81 mg PO DAILY 04/23/19 atorvastatin 80 mg tablet 80 mg PO DAILY 04/23/19 cetirizine 10 mg tablet 10 mg PO DAILY 04/23/19 clopidogrel 75 mg tablet 75 mg PO DAILY 04/23/19 metoprolol tartrate 25 mg tablet 25 mg PO BID tablet 04/23/19 pantoprazole 40 mg tablet,delayed 40 mg PO QAM 04/23/19 release Allergies Allergy/AdvReac Type Severity Reaction Status Date / Time fluoxetine Allergy Unknown Unknown Verified 08/31/20 10:41 [id number] Antimigraine Allergy Unknown Unknown Verified 08/31/20 10:41 Agents morphine Allergy Unknown Verified 08/31/20 10:41 ibuprofen AdvReac Intermediate ON BLOOD Verified 08/31/20 10:41 THINNERS tramadol AdvReac Intermediate VOMITING 4 Verified 08/31/20 10:41 DAYS Nnzbiws-Qfo-Hbq Reductase AdvReac Unknown makes me Verified 08/31/20 10:41 Inhibitor feel like I'm having a heart attack Review of Systems Review of Systems: CONSTITUTIONAL: Denies fever, chills, or sweats. EYES: Denies visual changes, redness, or discharge. ENT: Denies rhinorrhea, congestion, sore throat, or otalgia. CARDIOVASCULAR: Denies chest pain, palpitations, or edema. RESPIRATORY: Denies cough or dyspnea. GASTROINTESTINAL: Denies abdominal pain, nausea, vomiting, or diarrhea. GENITOURINARY: Denies dysuria or hematuria. SKIN: Denies rash or itching. MUSCULOSKELETAL: Denies back pain, joint pain, or myalgia. NEUROLOGIC: Denies headache, numbness, or weakness. Reports right-sided facial spasm. [facility] Past Medical History Medical History Anxiety Arthritis CAD (coronary artery disease) Cataract Depression GERD (gastroesophageal reflux disease) Hyperlipidemia Hypertension Migraines Uterine fibroid Surgical History Surgical History H/O cardiac catheterization H/O section H/O right wrist surgery H/O: hysterectomy Partial History of bladder suspension procedure Social History Social History Smoking status: Former smoker Smoking end date: 12/29/11 Gender identity (if verbalized by the patient): Female Exam Narrative: GENERAL: Awake, alert, conversant HEAD: Normocephalic, atraumatic. EYES: PERRLA and EOMI. ENT: Nares clear, no rhinorrhea or epistaxis. Mucous membranes moist. Left cochlear implant. NECK: Supple. CHEST: No respiratory distress, breathing even and non labored HEART: Regular rate, sinus rhythm ABDOMEN:Non distended, non tender EXTREMITIES: Normal range of motion. No edema. SKIN: Warm, dry, no rash. NEURO:No focal deficits. Alert and oriented x3. Finger to nose intact bilaterall
--- NOTE | 2021-02-27 17:10 | ECG_ITS ---
Measurements Intervals [place] Rate: 80 P: 42 [place]: 178 QRS: -11 QRSD: 82 T: 34 QT: 366 QTc: 423 Interpretive Statements SINUS RHYTHM LOW QRS VOLTAGE IN PRECORDIAL LEADS CANNOT RULE OUT SEPTAL INFARCT, AGE INDETERMINATE CONSIDER INFERIOR INFARCT, AGE INDETERMINATE BASELINE ARTIFACT- I, II, AVR, AVL, AVF ABNORMAL ECG Electronically Signed On 02-27-2021 19:13:42 CDT by Piyush Shanks D.O.
[2021-02-27 17:36] LABS: Basophils Absolute Auto 0.1 K/mm3 (0.0-0.1); Basophils Percent Auto 1.2 % (0.2-1.2); Eosinophils Absolute Auto 0.2 K/mm3 (0-0.3); Eosinophils Percent Auto 1.9 % (0-4.4); Hematocrit 43.7 % (37.0-47.0); Hemoglobin 14.5 g/dL (12.0-15.0); Immature Granulocyte Absolute 0.02 K/mm3 (0.00-0.031); Immature Granulocyte Percent A 0.2 % (0-0.5); Lymphocytes Absolute Auto 1.56 K/mm3 (0.9-3.2); Lymphocytes Percent Auto 18.4 % (18.3-44.2); Mean Corpuscular HGB Conc 33.2 g/dl (32-36); Mean Corpuscular Hemoglobin 30.1 pg (26-34); Mean Corpuscular Volume 90.9 fl (80-100); Mean Platelet Volume 9.8 fl (7.4-10.4); Monocytes Absolute Auto 0.6 K/mm3 (0.1-0.6); Monocytes Percent Auto 6.6 % (2.6-8.5); Neutrophils Absolute Auto 6.1 K/mm3 (1.3-6.7); Neutrophils Percent Auto 71.7 % (45.5-73.1); Platelet Count Result 304 k/mm3 (150-375); Red Blood Count 4.81 M/mm3 (4.2-5.4); Red Cell Distribution Width 13.6 % (11.5-14.5); White Blood Count 8.5 K/mm3 (4.5-10.0)
[2021-02-27] MEDS: SODIUM CHLORIDE 0.9% IV 1,000 ML 999 ML IV CONT (18:08)
[2021-02-27 18:31] LABS: Anion Gap 7 mmol/L (8-16); Blood Urea Nitrogen 9 mg/dL (7-17); Calcium 9.2 mg/dL (8.4-10.2); Carbon Dioxide 28 mmol/L (22-30); Chloride 104 mmol/L (98-107); Estimated CRCL calculation 82 ml/min; Estimated Glomerular Filt Rate > 60; Glucose 99 mg/dL (65-110); Potassium 3.7 mmol/L (3.4-5.0); Sodium 139 mmol/L (137-145)
[2021-02-27 19:05] VITALS: BP 138/90; PULSE 78; RESP 18; O2SAT 99
== END 2021-02-27 19:08 | disposition home or self-care (01) ==
PROVIDERS: Emergency Provider Emergency Medicine; PCP Family Medicine
DX: G51.31 Clonic hemifacial spasm, right (principal); I25.10 Atherosclerotic heart disease of native coronary artery without angina pectoris; I10 Essential (primary) hypertension; E78.5 Hyperlipidemia, unspecified; H91.92 Unspecified hearing loss, left ear; M19.90 Unspecified osteoarthritis, unspecified site; K21.9 Gastro-esophageal reflux disease without esophagitis; F41.9 Anxiety disorder, unspecified; F32.A Depression, unspecified; Z96.21 Cochlear implant status; Z79.82 Long term (current) use of aspirin; Z87.891 Personal history of nicotine dependence; R94.31 Abnormal electrocardiogram [ECG] [EKG]
CPT/HCPCS: 36415; 70450; 80048; 85025; 85055; 93005; 96360; 99284; J7030

== ENCOUNTER 2022-01-22 13:21 | Emergency (ER) | payer OTHER, SELFPAY ==
[2022-01-22 13:46] VITALS: BP 148/89; PULSE 109; RESP 20; TEMP 36.4; O2SAT 98
[2022-01-22 16:29] VITALS: BP 169/78; PULSE 85; RESP 18; O2SAT 98
[2022-01-22 17:40] VITALS: BP 127/89; PULSE 96; RESP 18; O2SAT 98
[2022-01-22] MEDS: CYCLOBENZAPRINE HCL 10 MG TABLET PO (17:44)
[2022-01-22 17:52] LABS: Anion Gap 8 mmol/L (8-16); Blood Urea Nitrogen 14 mg/dL (7-17); Calcium 8.8 mg/dL (8.4-10.2); Carbon Dioxide 29 mmol/L (22-30); Chloride 103 mmol/L (98-107); Estimated CRCL calculation 71 ml/min; Estimated Glomerular Filt Rate > 60; Glucose 102 mg/dL (65-110); Magnesium 2.2 mg/dL (1.6-2.3); Potassium 3.7 mmol/L (3.4-5.0); Sodium 140 mmol/L (137-145)
--- NOTE | 2022-01-22 18:24 | ED.GENADULT ---
HPI - General Adult General Chief complaint: Unspecified Stated complaint: muscle spasms Time Seen by Provider: 01/22/22 16:28 History of Present Illness HPI narrative: Patient is a 56-year-old female who presents ER with muscle spasms of the right cheek. Reports she has history of facial spasms and she receives Botox injections. She reports the Botox injections are becoming increasingly less effective. She has never tried muscle relaxers. Unsure if she has any electrolyte abnormalities. No pain but just has spasming that causes her to some closer eye on the right side. Was referred here by her neurologist. Related Data Home Medications Medication Instructions Recorded Confirmed alprazolam 1 mg tablet 1 mg PO TID PRN Anxiety 04/23/19 10/27/21 aspirin 81 mg chewable tablet 81 mg PO DAILY 04/23/19 10/27/21 atorvastatin 80 mg tablet (Lipitor) 80 mg PO DAILY 04/23/19 10/27/21 cetirizine 10 mg tablet 10 mg PO DAILY 04/23/19 10/27/21 clopidogrel 75 mg tablet 75 mg PO DAILY 04/23/19 10/27/21 metoprolol tartrate 25 mg tablet 25 mg PO BID 04/23/19 10/27/21 Allergies Allergy/AdvReac Type Severity Reaction Status Date / Time fluoxetine Allergy Unknown Unknown Verified 01/22/22 16:30 [id number]-[id number] Antimigraine Allergy Unknown Unknown Verified 01/22/22 16:30 Agents morphine Allergy Unknown Verified 01/22/22 16:30 ibuprofen AdvReac Intermediate ON BLOOD Verified 01/22/22 16:30 THINNERS tramadol AdvReac Intermediate VOMITING 4 Verified 01/22/22 16:30 DAYS Ptldyea-CIR-NyF Reductase AdvReac Unknown makes me Verified 01/22/22 16:30 Inhibitor feel like [Nqulujm-Mmj-Kvy Reductase I'm having Inhibitor] a heart attack Review of Systems Review of Systems: All systems reviewed & are unremarkable except as noted in HPI and below Musculoskeletal: Musculoskeletal: Reports muscle cramps and Denies muscle weakness Integumentary/Breasts: Skin/Breast: Denies erythema and Denies rash Neurologic: Denies headache(s), Denies focal weakness, Denies numbness and Denies tingling PMFSH Past Medical History Medical History Anxiety Arthritis CAD (coronary artery disease) Cataract Depression GERD (gastroesophageal reflux disease) Hyperlipidemia Hypertension Migraines Uterine fibroid Surgical History Surgical History H/O cardiac catheterization H/O section H/O right wrist surgery H/O: hysterectomy Partial History of bladder suspension procedure Social History Social History (Updated 10/27/21 @ 14:12 by Marsha Bains MA) Smoking status: Former smoker Smoking end date: 12/29/11 Alcohol intake: never Substance use: never Substance use type: does not use Gender identity (if verbalized by the patient): Female Exam Narrative: GENERAL: Well-appearing, well-nourished, and in no acute distress. HEAD: Normocephalic, atraumatic. CHEST: Clear to auscultation. No respiratory distress. HEART: Regular rate and rhythm. Normal peripheral pulses.. EXTREMITIES: Normal range of motion. No edema. SKIN: Warm, dry, no rash. NEURO: No focal deficits. Intermittent twitching of the right cheek. It is not rhythmic. and oriented x3. PSYCH: Normal mood and affect. Course Course Emergency Course: Patient resting comfortably with fewer spasms since having Flexeril. Discharged with same medications. Recommend follow-up with her neurologist. Vital Signs Vital signs: Vital Signs Temperature 97.6 F 01/22/22 13:46 Pulse Rate 109 H 01/22/22 13:46 Respiratory Rate 20 01/22/22 13:46 Blood Pressure 148/89 H 01/22/22 13:46 Pulse Oximetry 98 01/22/22 13:46 Oxygen Delivery Room Air 01/22/22 13:46 Temperature 97.6 F 01/22/22 13:46 Pulse Rate 96 01/22/22 17:40 Respiratory Rate 18 01/22/22 17:40 Blood Pressure 127/89 01/22/22 17:40 Pulse Oximetry 98 01/22/22 17:
[2022-01-22 18:35] VITALS: BP 136/86; PULSE 83; RESP 16; O2SAT 99
== END 2022-01-22 18:42 | disposition home or self-care (01) ==
PROVIDERS: Emergency Provider Emergency Medicine; PCP Family Medicine
DX: G51.31 Clonic hemifacial spasm, right (principal); I25.10 Atherosclerotic heart disease of native coronary artery without angina pectoris; E78.5 Hyperlipidemia, unspecified; I10 Essential (primary) hypertension; K21.9 Gastro-esophageal reflux disease without esophagitis; M19.90 Unspecified osteoarthritis, unspecified site; F32.A Depression, unspecified; F41.9 Anxiety disorder, unspecified; Z79.82 Long term (current) use of aspirin; Z90.711 Acquired absence of uterus with remaining cervical stump; Z87.891 Personal history of nicotine dependence
CPT/HCPCS: 36415; 80048; 83735; 99283; A9270

== ENCOUNTER 2022-02-22 12:45 | Outpatient (CLI) | payer OTHER, SELFPAY ==
--- NOTE | ~2022-02-22 | CT_ITS ---
EXAMINATION: CT brain wo con DATE: 02/22/2022 13:06 INDICATION: TECHNIQUE: Computed tomography (CT) of the head was performed without intravenous contrast. The dose- length product was 605.33 mGy-cm. Automated exposure control and iterative reconstruction technique w ere employed. COMPARISON: CT dated 02/27/2021 FINDINGS: There is a chronic left frontal lobe infarction. No ventriculomegaly or midline shift. Ther e is a left cochlear implant creating streak artifact limiting evaluation of the left parietal lobe. Basilar cisterns are patent. Paranasal sinuses are pneumatized. No depressed skull fractures. No acut e hemorrhage, infarction or mass. There are scattered mild periventricular and subcortical white matilde er changes, most likely related to small vessel ischemic disease (microangiopathy). IMPRESSION: 1. No acute intracranial abnormality. 2: Chronic left frontal lobe infarction. Reviewed, dictated and finalized at location B.
== END 2022-02-22 12:46 | disposition home or self-care (01) ==
PROVIDERS: PCP Family Medicine; Visit Provider Psychiatry & Neurology Neurology
DX: G51.39 Clonic hemifacial spasm, unspecified (principal); Z86.73 Personal history of transient ischemic attack (TIA), and cerebral infarction without residual deficits
CPT/HCPCS: 70450

== ENCOUNTER 2022-07-26 12:32 | Emergency (ER) | payer OTHER, SELFPAY ==
[2022-07-26 12:38] VITALS: BP 133/100; PULSE 97; RESP 16; TEMP 36.9; O2SAT 96
--- NOTE | 2022-07-26 14:12 | ED.SKABFB ---
HPI - Skin/Abscess/Foreign Bdy General Chief complaint: Skin/Abscess/Foreign Body Stated complaint: external hemorrhoid Time Seen by Provider: 07/26/22 13:32 History of Present Illness HPI narrative: This is a 57-year-old female with past medical history of hemorrhoids, GERD and anxiety who presents to the emergency department with a painful hemorrhoid. The patient states she had a hard bowel movement 2 to 3 days ago, and since then has had a painful hemorrhoid. She denies associated abdominal pain, nausea, vomiting, fevers or chills. Related Data Home Medications Medication Instructions Recorded Confirmed alprazolam 1 mg tablet 1 mg PO TID PRN Anxiety 04/23/19 10/27/21 aspirin 81 mg chewable tablet 81 mg PO DAILY 04/23/19 10/27/21 atorvastatin 80 mg tablet (Lipitor) 80 mg PO DAILY 04/23/19 10/27/21 cetirizine 10 mg tablet 10 mg PO DAILY 04/23/19 10/27/21 clopidogrel 75 mg tablet 75 mg PO DAILY 04/23/19 10/27/21 metoprolol tartrate 25 mg tablet 25 mg PO BID 04/23/19 10/27/21 Allergies Allergy/AdvReac Type Severity Reaction Status Date / Time fluoxetine Allergy Unknown Unknown Verified 07/26/22 13:01 [id number]-[id number] Antimigraine Allergy Unknown Unknown Verified 07/26/22 13:01 Agents morphine Allergy Unknown Verified 07/26/22 13:01 ibuprofen AdvReac Intermediate ON BLOOD Verified 07/26/22 13:01 THINNERS tramadol AdvReac Intermediate VOMITING 4 Verified 07/26/22 13:01 DAYS Llnpxoo-PHN-OuX Reductase AdvReac Unknown makes me Verified 07/26/22 13:01 Inhibitor feel like [Vzowycg-Ejw-Gof Reductase I'm having Inhibitor] a heart attack Review of Systems Review of Systems: CONSTITUTIONAL: Denies fever, chills, or sweats. GASTROINTESTINAL: Rectal pain denies abdominal pain, nausea, vomiting, or diarrhea. GENITOURINARY: Denies dysuria or hematuria. SKIN: Denies rash or itching. MUSCULOSKELETAL: Denies back pain, joint pain, or myalgia. [facility] Past Medical History Medical History Anxiety Arthritis CAD (coronary artery disease) Cataract Depression GERD (gastroesophageal reflux disease) Hyperlipidemia Hypertension Migraines Uterine fibroid Surgical History Surgical History H/O cardiac catheterization H/O section H/O right wrist surgery H/O: hysterectomy Partial History of bladder suspension procedure Social History Social History Smoking status: Former smoker Smoking end date: 12/29/11 Alcohol intake: never Substance use: never Substance use type: does not use Living arrangements: with family Gender identity (if verbalized by the patient): Female Exam Narrative: GENERAL: Well-developed, well-nourished, and in no acute distress. HEAD: Normocephalic, atraumatic. EYES: PERRLA and EOMI. CHEST: Clear to auscultation. No respiratory distress. No wheezes rales or rhonchi HEART: Regular rate and rhythm. No murmur heard. Normal peripheral pulses. ABDOMEN: Soft, nontender, nondistended, normal active bowel sounds. RECTAL: (Exam chaperoned by female nurse Lacy) there is a external hemorrhoid at 10:00 without erythema or induration, no noted thrombosis or tear EXTREMITIES: Normal range of motion. No edema. SKIN: Warm, dry, no rash. NEURO: No focal deficits. Alert and oriented x3. PSYCH: Normal mood and affect. Course Course Emergency Course: 14:20 - Exam not concerning for thrombosed hemorrhoid or rectal abscess. Will discharge with topical pain medication and steroids. Discussed return and emergency precautions including signs/symptoms of thrombosed hemorrhoid and rectabl abscess. The patient voiced understanding and is comfortable with the plan. All questions answered to her satisfaction. Vital Signs Vital signs: Vital Signs Temperature 98.4 F 07/26/22 12:38 Pulse Rate 97
[2022-07-26] MEDS: LIDOCAINE HCL 2% JELLY 5 ML TUBE 1 APPLIC MUCOUS MEM (14:23)
[2022-07-26 14:30] VITALS: BP 144/92; PULSE 77; RESP 16; TEMP 36.7; O2SAT 100
== END 2022-07-26 14:30 | disposition home or self-care (01) ==
PROVIDERS: Emergency Provider Preventive Medicine Aerospace Medicine; PCP Family Medicine
DX: K64.4 Residual hemorrhoidal skin tags (principal); F41.9 Anxiety disorder, unspecified; M19.90 Unspecified osteoarthritis, unspecified site; I25.10 Atherosclerotic heart disease of native coronary artery without angina pectoris; F32.9 Major depressive disorder, single episode, unspecified; K21.9 Gastro-esophageal reflux disease without esophagitis; I10 Essential (primary) hypertension
CPT/HCPCS: 99283

== ENCOUNTER 2022-08-23 19:08 | Emergency (ER) | payer OTHER, SELFPAY ==
--- NOTE | ~2022-08-23 | XR_ITS ---
EXAMINATION: XR wrist RT min 3V INDICATION: Right wrist pain and swelling, initial encounter TECHNIQUE: Four views of the right wrist are obtained. COMPARISON: None available FINDINGS: There is an acute, traumatic, closed, comminuted distal neck fracture of the fifth metacarp al. Soft tissue swelling surrounds the fracture. Plate and screw stabilization is present in a healed distal radius fracture. 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 IMPRESSION: 1. Acute comminuted distal neck fracture of the fifth metacarpal. Reviewed, dictated and finalized at location F.
[2022-08-23 21:30] VITALS: BP 135/101; PULSE 104; RESP 16; TEMP 36.9; O2SAT 100
[2022-08-23 22:23] VITALS: BP 155/95; PULSE 101; RESP 18; O2SAT 98
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
[2022-08-24 00:44] VITALS: BP 137/90; PULSE 96; RESP 18; O2SAT 94
[2022-08-24] MEDS: HYDROcodone/acetaminophen (*CRX) 5-325 MG TABLET 1 TAB PO (00:56)
== END 2022-08-24 03:25 | disposition home or self-care (01) ==
PROVIDERS: Emergency Provider Physician Assistant; PCP Family Medicine
DX: S62.336A Displaced fracture of neck of fifth metacarpal bone, right hand, initial encounter for closed fracture (principal); I25.10 Atherosclerotic heart disease of native coronary artery without angina pectoris; E78.5 Hyperlipidemia, unspecified; M19.90 Unspecified osteoarthritis, unspecified site; K21.9 Gastro-esophageal reflux disease without esophagitis; H26.9 Unspecified cataract; F41.9 Anxiety disorder, unspecified; F32.A Depression, unspecified; Z90.711 Acquired absence of uterus with remaining cervical stump; Z87.891 Personal history of nicotine dependence; Z79.82 Long term (current) use of aspirin; Y04.8XXA Assault by other bodily force, initial encounter
CPT/HCPCS: 29125; 73110; 99284; A9270

== ENCOUNTER 2023-03-23 15:03 | Emergency (ER) | payer OTHER, SELFPAY ==
[2023-03-23] VITALS (7 sets, daily range): BP systolic 104–130; BP diastolic 71–89; PULSE 86–95; RESP 14–24; TEMP 36.3; O2SAT 97–100
--- NOTE | ~2023-03-23 | CT_ITS ---
EXAMINATION: CT abdomen pelvis w con DATE: 03/23/2023 19:34 INDICATION: abdominal pain TECHNIQUE: Computed tomography (CT) of the abdomen and pelvis was performed with 100 mL Omnipaque-350 intravenous contrast. Automated exposure control and iterative reconstruction technique were employe d. The dose-length product was 688.40 mGy-cm. COMPARISON: 08/31/2020. FINDINGS: Lower thorax: Minimal bibasilar scar/atelectasis Liver: Multiple cysts and lesions that are too small to characterize but most likely represent cysts or hemangiomas. Biliary/Gallbladder: Gallbladder is normal. No bile duct dilation. Pancreas: No mass or duct dilation. Spleen: Normal. Adrenals:No mass. Kidneys: No suspicious mass, obstructing stone, or hydronephrosis. Bilateral hypodensities, too small to characterize but most likely represent cysts. GI tract: Mild distal esophageal and gastric wall edema. Diverticulosis. Inflamed mid sigmoid diverti culum with adjacent sigmoid wall thickening. No small or large bowel dilation. Normal appendix. Mesentery/Peritoneum: No ascites, mass, or free air. Retroperitoneum: No mass. Atherosclerotic abdominal aortic and/or arterial calcifications. Pelvis: No bladder wall thickening. Absent uterus.. Soft Tissues: Soft tissues and body wall unremarkable. Bones: No acute osseous finding. IMPRESSION: Mild esophagitis/gastritis. Acute uncomplicated sigmoid diverticulitis. Reviewed, dictated and finalized at location K.
[2023-03-23 15:22] LABS: Basophils Absolute Auto 0.1 K/mm3 (0.0-0.1); Basophils Percent Auto 0.6 % (0.2-1.2); Eosinophils Absolute Auto 0.1 K/mm3 (0-0.3); Hematocrit 44.3 % (37.0-47.0); Hemoglobin 14.2 g/dL (12.0-15.0); Immature Granulocyte Absolute 0.05 K/mm3 (0.00-0.031); Immature Granulocyte Percent A 0.4 % (0-0.5); Lymphocytes Absolute Auto 2.94 K/mm3 (0.9-3.2); Lymphocytes Percent Auto 20.6 % (18.3-44.2); Mean Corpuscular HGB Conc 32.1 g/dl (32-36); Mean Corpuscular Hemoglobin 29.3 pg (26-34); Mean Corpuscular Volume 91.3 fl (80-100); Mean Platelet Volume 9.4 fl (7.4-10.4); Monocytes Absolute Auto 1.5 K/mm3 (0.1-0.6); Monocytes Percent Auto 10.2 % (2.6-8.5); Neutrophils Absolute Auto 9.6 K/mm3 (1.3-6.7); Neutrophils Percent Auto 67.2 % (45.5-73.1); Platelet Count Result 328 k/mm3 (150-375); Red Blood Count 4.85 M/mm3 (4.2-5.4); White Blood Count 14.3 K/mm3 (4.5-10.0)
[2023-03-23 15:32] LABS: Alanine Aminotransferase 41 U/L (6-35); Albumin Level 4.4 g/dL (3.5-5.1); Alkaline Phosphatase 59 U/L (38-126); Anion Gap 5 mmol/L (8-16); Aspartate Amino Transferase 32 U/L (14-36); Bilirubin,Total 0.9 mg/dL (0.2-1.3); Blood Urea Nitrogen 8 mg/dL (7-17); Calcium 9.4 mg/dL (8.4-10.2); Carbon Dioxide 28 mmol/L (22-30); Chloride 103 mmol/L (98-107); Estimated CRCL calculation 74 ml/min; Estimated Glomerular Filt Rate > 60; Glucose 102 mg/dL (65-110); Lipase 28 U/L (23-300); Potassium 3.7 mmol/L (3.4-5.0); Sodium 136 mmol/L (137-145)
[2023-03-23 15:46] LABS: Appearance Urine Clear (Clear); Bacteria Urine None Seen /hpf; Bilirubin Urine Negative (Negative); Blood Urine Negative (Negative); Color Urine Dark Yellow (Yellow); Glucose Urine UA Negative (Negative); Ketones Urine Negative (Negative); Leukocyte Esterase Ur 1+ LEU/UL (Negative); Need Manual Microscopic Reviewed; Nitrate Urine Negative (Negative); Non Pathogenic Casts 0-2; Protein Urine Negative (Negative); RBC Urine 0-2 /hpf (0-2); Squamous Epithelial Cell Urine None seen /hpf (Few); WBC Urine 0-5 /hpf; pH Urine 7.5 (5.0-9.0)
[2023-03-23 15:48] LABS: Add Urine Microscopic? YES
--- NOTE | 2023-03-23 18:54 | ED.ABDPAIN ---
HPI - Abdominal Pain General Chief Complaint: Abdominal Pain Stated Complaint: stomach hurts Time Seen by Provider: 03/23/23 17:13 History of Present Illness HPI narrative: 57-year-old female history of diverticulitis presented to the emergency department for evaluation of left lower quadrant and suprapubic abdominal pain. Patient reports the pain has been ongoing for the last 3 days. Patient does have a prior history of diverticulitis. Related Data Home Medications Medication Instructions Recorded Confirmed alprazolam 1 mg tablet 1 mg PO TID PRN Anxiety 04/23/19 03/23/23 aspirin 81 mg chewable tablet 81 mg PO DAILY 04/23/19 03/23/23 atorvastatin 80 mg tablet (Lipitor) 80 mg PO DAILY 04/23/19 03/23/23 cetirizine 10 mg tablet 10 mg PO DAILY 04/23/19 03/23/23 clopidogrel 75 mg tablet 75 mg PO DAILY 04/23/19 03/23/23 metoprolol tartrate 25 mg tablet 25 mg PO BID 04/23/19 03/23/23 losartan 100 mg tablet 100 mg PO DAILY 09/08/22 03/23/23 Allergies Allergy/AdvReac Type Severity Reaction Status Date / Time fluoxetine Allergy Unknown Unknown Verified 03/23/23 14:24 [id number] Antimigraine Allergy Unknown Unknown Verified 03/23/23 14:24 Agents morphine Allergy Unknown Verified 03/23/23 14:24 Sulfa (Sulfonamide Allergy Hives Verified 03/23/23 14:24 Antibiotics) ibuprofen AdvReac Intermediate ON BLOOD Verified 03/23/23 14:24 THINNERS tramadol AdvReac Intermediate VOMITING 4 Verified 03/23/23 14:24 DAYS Qvylxjc-SUN-HlW Reductase AdvReac Unknown makes me Verified 03/23/23 14:24 Inhibitor feel like [Cgdkbfn-Nzy-Piu Reductase I'm having Inhibitor] a heart attack Review of Systems Review of Systems: All systems reviewed & are unremarkable except as noted in HPI and below PMFSH Past Medical History Medical History Anxiety Arthritis CAD (coronary artery disease) Cataract Depression GERD (gastroesophageal reflux disease) Hyperlipidemia Hypertension Migraines Uterine fibroid Surgical History Surgical History H/O cardiac catheterization H/O section H/O right wrist surgery H/O: hysterectomy Partial History of bladder suspension procedure Social History Social History Smoking status: Former smoker Tobacco type: cigarettes Smoking end date: 12/29/11 Alcohol intake: current Alcohol use details: wine cooler sometimes Substance use: never Substance use type: does not use Lack of Transportation: No Lack of Food: Never True Current Housing: I Have Housing Concerned About Future Housing: No Difficulty Paying Gas/Electric Bills: No Difficulty Paying for Meds: No Currently Unemployed: No Education: High School Diploma/GED Difficulty w/ Childcare or Family Care: No Living arrangements: with family Gender identity (if verbalized by the patient): Female Exam Narrative: APPEARANCE: Well appearing, no pain, no distress, well-nourished. HEAD: normocephalic, atraumatic. EYES: PERRLA/EOMI, conjunctivae clear. NOSE: Normal no drainage NECK: Supple. No adenopathy, no masses. RESPIRATORY: Airway patent, respirations nonlabored. Clear to auscultation bilaterally, no rales, rhonchi, wheezing. CARDIOVASCULAR: Regular rate and rhythm without murmurs rubs or gallops. ABDOMINAL: Left lower quadrant tenderness to palpation MUSCULOSKELETAL: Moves all extremities. Strength/ROM intact, No edema, No calf tenderness. NEURO: Alert. Cranial nerves II through XII intact. Grossly intact SKIN: Warm, dry. Normal Color Course Course Emergency Course: 57-year-old female presented the ED for evaluation of left lower quadrant and suprapubic abdominal pain. CT was concerning for uncomplicated sigmoid diverticulitis. No evidence of abscess or perforation. Patient is afebrile but does have a l
[2023-03-23] MEDS: AMOXICILLIN/CLAVULANATE K 875-125 MG TAB 1 TABLET PO (19:56)
[2023-03-23] MEDS: ONDANSETRON INJ 4 MG/2 ML VIAL IV PUSH (19:56)
== END 2023-03-23 20:10 | disposition home or self-care (01) ==
PROVIDERS: Emergency Medicine; Emergency Provider Emergency Medicine; PCP Family Medicine
DX: K57.32 Diverticulitis of large intestine without perforation or abscess without bleeding (principal); I25.10 Atherosclerotic heart disease of native coronary artery without angina pectoris; I10 Essential (primary) hypertension; E78.5 Hyperlipidemia, unspecified; K21.9 Gastro-esophageal reflux disease without esophagitis; F41.9 Anxiety disorder, unspecified; F32.A Depression, unspecified; Z87.891 Personal history of nicotine dependence; Z90.711 Acquired absence of uterus with remaining cervical stump; Z79.82 Long term (current) use of aspirin; K20.90 Esophagitis, unspecified without bleeding; K29.70 Gastritis, unspecified, without bleeding
CPT/HCPCS: 36415; 74177; 80053; 81001; 81025; 83690; 85025; 96374; 99284; A9270; J2405; Q9967

== ENCOUNTER 2023-07-05 13:42 | Emergency (ER) | payer OTHER, SELFPAY ==
--- NOTE | ~2023-07-05 | XR_ITS ---
EXAMINATION: XR ribs RT 2V INDICATION: Right-sided rib pain TECHNIQUE: 3 views of the right ribs were obtained. COMPARISON: 11/13/2019 FINDINGS: No displaced rib fracture is identified. The visualized lungs are clear. The heart size is normal. No pleural effusion or pneumothorax. IMPRESSION: 1. No acute cardiopulmonary abnormality or evidence of displaced rib fracture. Reviewed, dictated and finalized at location L. [employer]
[2023-07-05 13:52] VITALS: BP 123/108; PULSE 96; RESP 16; TEMP 37.2; O2SAT 99
--- NOTE | 2023-07-05 15:44 | ED.BACK ---
HPI - Back Pain/Injury General Chief Complaint: Back Pain/Injury Stated Complaint: Rib FX Time Seen by Provider: 07/05/23 15:16 History of Present Illness HPI Narrative: 58-year-old female presenting to the emergency department for evaluation for bruising and some right-sided rib pain that has been ongoing for the last week. Patient reports last week she was trying to find her house cat and she was franticly throwing the furniture. Patient does have bruising to bilateral forearms and did have tenderness to right lateral ribs. Patient denies any other pain or injury. Patient denies any anterior chest pain or shortness of breath. Related Data Home Medications Medication Instructions Recorded Confirmed alprazolam 1 mg tablet 1 mg PO TID PRN Anxiety 04/23/19 03/23/23 aspirin 81 mg chewable tablet 81 mg PO DAILY 04/23/19 03/23/23 atorvastatin 80 mg tablet (Lipitor) 80 mg PO DAILY 04/23/19 03/23/23 cetirizine 10 mg tablet 10 mg PO DAILY 04/23/19 03/23/23 clopidogrel 75 mg tablet 75 mg PO DAILY 04/23/19 03/23/23 metoprolol tartrate 25 mg tablet 25 mg PO BID 04/23/19 03/23/23 losartan 100 mg tablet 100 mg PO DAILY 09/08/22 03/23/23 Allergies Allergy/AdvReac Type Severity Reaction Status Date / Time fluoxetine Allergy Unknown Unknown Verified 07/05/23 15:09 [id number] Antimigraine Allergy Unknown Unknown Verified 07/05/23 15:09 Agents morphine Allergy Unknown Verified 07/05/23 15:09 Sulfa (Sulfonamide Allergy Hives Verified 07/05/23 15:09 Antibiotics) ibuprofen AdvReac Intermediate ON BLOOD Verified 07/05/23 15:09 THINNERS tramadol AdvReac Intermediate VOMITING 4 Verified 07/05/23 15:09 DAYS Wlkufpw-SPY-OqD Reductase AdvReac Unknown makes me Verified 07/05/23 15:09 Inhibitor feel like [Dzzucoc-Olu-Iad Reductase I'm having Inhibitor] a heart attack Review of Systems Review of Systems: All systems reviewed & are unremarkable except as noted in HPI and below PMFSH Past Medical History Medical History Anxiety Arthritis CAD (coronary artery disease) Cataract Depression GERD (gastroesophageal reflux disease) Hyperlipidemia Hypertension Migraines Uterine fibroid Surgical History Surgical History H/O cardiac catheterization H/O section H/O right wrist surgery H/O: hysterectomy Partial History of bladder suspension procedure Social History Social History Smoking status: Former smoker Tobacco type: cigarettes Smoking end date: 12/29/11 Alcohol intake: current Alcohol use details: wine cooler sometimes Substance use: never Substance use type: does not use Lack of Transportation: No Lack of Food: Never True Current Housing: I Have Housing Concerned About Future Housing: No Difficulty Paying Gas/Electric Bills: No Difficulty Paying for Meds: No Currently Unemployed: No Education: High School Diploma/GED Difficulty w/ Childcare or Family Care: No Living arrangements: with family Gender identity (if verbalized by the patient): Female Exam Narrative: APPEARANCE: Well appearing, no pain, no distress, well-nourished. HEAD: normocephalic, atraumatic. EYES: PERRLA/EOMI, conjunctivae clear. NOSE: Normal no drainage EARS:TMS clear with good light reflex. THROAT: Pharynx clear, no exudate. NECK: Supple. No adenopathy, no masses. RESPIRATORY: Airway patent, respirations nonlabored. Clear to auscultation bilaterally, no rales, rhonchi, wheezing. CARDIOVASCULAR: Regular rate and rhythm without murmurs rubs or gallops. ABDOMINAL: Soft, nontender, nondistended, normal bowel sounds MUSCULOSKELETAL: Right-sided chest wall tenderness without crepitus or ecchymosis NEURO: Alert. Cranial nerves II through XII intact. Good gait. Good coordination SKIN: Ecchymosis to bilateral arms
== END 2023-07-05 16:04 | disposition home or self-care (01) ==
PROVIDERS: Emergency Provider Emergency Medicine; PCP Family Medicine
DX: S29.011A Strain of muscle and tendon of front wall of thorax, initial encounter (principal); R07.81 Pleurodynia; Z87.891 Personal history of nicotine dependence; F41.9 Anxiety disorder, unspecified; M19.90 Unspecified osteoarthritis, unspecified site; I25.10 Atherosclerotic heart disease of native coronary artery without angina pectoris; F32.A Depression, unspecified; K21.9 Gastro-esophageal reflux disease without esophagitis; E78.5 Hyperlipidemia, unspecified; I10 Essential (primary) hypertension; X50.0XXA Overexertion from strenuous movement or load, initial encounter
CPT/HCPCS: 71100; 99283

== ENCOUNTER 2023-11-08 14:38 | Emergency (ER) | payer OTHER, SELFPAY ==
[2023-11-08 14:53] VITALS: BP 129/92; PULSE 91; RESP 16; TEMP 37; O2SAT 98
--- NOTE | 2023-11-08 14:55 | ED.SKABFB ---
HPI - Skin/Abscess/Foreign Bdy General Chief complaint: Skin/Abscess/Foreign Body Stated complaint: bite Time Seen by Provider: 11/08/23 14:55 Focused HPI: This is a 58-year-old female that presents to the emergency department for a possible bug bite. Reports she woke up about a week ago with an area of redness and swelling lateral to her right eye. The area is mildly itchy. She thought maybe she was bitten by something. The area has persisted to be red and a little swollen which prompted her to be seen. Denies any visual changes or problems with her eye. GENERAL: Well-appearing, well-nourished, and in no acute distress. HEAD: Normocephalic, atraumatic. CHEST: Clear to auscultation. ?No respiratory distress. HEART: Regular rate and rhythm.? NEURO: ?Alert and oriented x3. Patient screened in triage and initial orders placed.? ?Additional care and disposition to be based upon?diagnostic testing and treatment. Related Data Home Medications Medication Instructions Recorded Confirmed alprazolam 1 mg tablet 1 mg PO TID PRN Anxiety 04/23/19 03/23/23 aspirin 81 mg chewable tablet 81 mg PO DAILY 04/23/19 03/23/23 atorvastatin 80 mg tablet (Lipitor) 80 mg PO DAILY 04/23/19 03/23/23 cetirizine 10 mg tablet 10 mg PO DAILY 04/23/19 03/23/23 clopidogrel 75 mg tablet 75 mg PO DAILY 04/23/19 03/23/23 metoprolol tartrate 25 mg tablet 25 mg PO BID 04/23/19 03/23/23 losartan 100 mg tablet 100 mg PO DAILY 09/08/22 03/23/23 Allergies Allergy/AdvReac Type Severity Reaction Status Date / Time fluoxetine Allergy Unknown Unknown Verified 07/05/23 15:09 [id number] Antimigraine Allergy Unknown Unknown Verified 07/05/23 15:09 Agents morphine Allergy Unknown Verified 07/05/23 15:09 Sulfa (Sulfonamide Allergy Hives Verified 07/05/23 15:09 Antibiotics) ibuprofen AdvReac Intermediate ON BLOOD Verified 07/05/23 15:09 THINNERS tramadol AdvReac Intermediate VOMITING 4 Verified 07/05/23 15:09 DAYS Xbgenbp-ALM-MiY Reductase AdvReac Unknown makes me Verified 07/05/23 15:09 Inhibitor feel like [Wmpgymo-Spc-Ylk Reductase I'm having Inhibitor] a heart attack Review of Systems Review of Systems: CONSTITUTIONAL: Denies fever EYES: Denies visual changes, redness, or discharge. SKIN: Reports redness and itching. All systems reviewed & are unremarkable except as noted in HPI and below PMFSH Past Medical History Medical History Anxiety Arthritis CAD (coronary artery disease) Cataract Depression GERD (gastroesophageal reflux disease) Hyperlipidemia Hypertension Migraines Uterine fibroid Surgical History Surgical History H/O cardiac catheterization H/O section H/O right wrist surgery H/O: hysterectomy Partial History of bladder suspension procedure Social History Social History Smoking status: Former smoker Tobacco type: cigarettes Smoking end date: 12/29/11 Alcohol intake: current Alcohol use details: wine cooler sometimes Substance use: never Substance use type: does not use Lack of Transportation: No Lack of Food: Never True Current Housing: I Have Housing Concerned About Future Housing: No Difficulty Paying Gas/Electric Bills: No Difficulty Paying for Meds: No Currently Unemployed: No Education: High School Diploma/GED Difficulty w/ Childcare or Family Care: No Living arrangements: with family Gender identity (if verbalized by the patient): Female Exam Narrative: GENERAL: Well-appearing, well-nourished, and in no acute distress. HEAD: Normocephalic, atraumatic. Small area of redness and swelling to the right temporal region, no fluctuance, nontender EYES: EOMI. No conjunctival injection or redness of the eyelid. No abnormal drainage. EXTREMITIES: Normal range of motion. No
== END 2023-11-08 15:37 | disposition home or self-care (01) ==
LOC: ANHED 15:10
PROVIDERS: Emergency Provider Physician Assistant; PCP Family Medicine
DX: S00.86XA Insect bite (nonvenomous) of other part of head, initial encounter (principal); Z79.82 Long term (current) use of aspirin; F41.8 Other specified anxiety disorders; I25.10 Atherosclerotic heart disease of native coronary artery without angina pectoris; K21.9 Gastro-esophageal reflux disease without esophagitis; E78.5 Hyperlipidemia, unspecified; I10 Essential (primary) hypertension; Z87.891 Personal history of nicotine dependence
CPT/HCPCS: 99283

== ENCOUNTER 2024-03-01 15:54 | Emergency (ER) | payer OTHER, SELFPAY ==
--- NOTE | ~2024-03-01 | CT_ITS ---
EXAMINATION: CT cervical spine wo con DATE: 03/01/2024 19:09 INDICATION: Left neck pain. TECHNIQUE: Computed tomography (CT) of the cervical spine was performed without intravenous contrast. Automated exposure control and iterative reconstruction technique were employed. The dose-length pro duct was 298.60 mGy-cm. COMPARISON: None FINDINGS: There is a left-sided cochlear implant. There is cervical kyphosis and 6 degrees levocurvat ure. Vertebral body heights are normal. There is mildly decreased disc height at C4-C5, moderately de creased disc height at C5-C6, and mildly decreased disc height at C6-C7. The following disc levels ar e specifically discussed: C2-C3: There is mild bilateral uncovertebral joint osteoarthritis. There is mild bilateral facet join t osteoarthritis. There is no neural foraminal stenosis. There is no central canal stenosis. C3-C4: There is mild bilateral uncovertebral joint osteoarthritis. There is mild bilateral facet join t osteoarthritis. There is no neural foraminal stenosis. There is no central canal stenosis. C4-C5: There is no uncovertebral joint osteoarthritis. There is no facet joint osteoarthritis. There is no neural foraminal stenosis. There is no central canal stenosis. C5-C6: There is severe bilateral uncovertebral joint osteoarthritis. There is mild bilateral facet crystal int osteoarthritis. There is mild bilateral neural foraminal stenosis. There is mild central canal st enosis. C6-C7: There is mild bilateral uncovertebral joint osteoarthritis. There is no facet joint osteoarthr itis. There is no neural foraminal stenosis. There is mild central canal stenosis. C7-T1: There is no uncovertebral joint osteoarthritis. There is mild bilateral facet joint osteoarthr itis. There is no neural foraminal stenosis. There is no central canal stenosis. IMPRESSION: 1. Moderate cervical spondylosis. Reviewed, dictated and finalized at location A.
[2024-03-01 16:04] VITALS: BP 134/82; PULSE 85; RESP 16; TEMP 36.8; O2SAT 97
--- NOTE | 2024-03-01 18:44 | ED.NECK ---
HPI - Neck Pain/Injury General Chief Complaint: Neck Pain/Injury <JB Smith Last Filed: 03/01/24 18:50> Stated Complaint: neck pain x2 days <JB Smith Last Filed: 03/01/24 18:50> Time Seen by Provider: 03/01/24 18:44 <JB Smith Last Filed: 03/01/24 18:50> Focused HPI: Patient is a 58 y/o female who presents to the ED with c/o L sided neck pain. Patient reports having pain in her L sided neck for the past 2 days. States she woke up with the pain. Reports intermittent spasms in the neck. Worse with movement. Has tried heat/ice. Has not taken anything else for pain. Reports pain intermittent radiates into arm. Reports intermittent tingling down to her L elbow. Denies numbness. Denies weakness of arm. Denies CP, SOB. Denies direct injury. GENERAL: Well-appearing, well-nourished, and in no acute distress. HEAD: Normocephalic, atraumatic. NECK: No midline spinal tenderness. TTP throughout L sided paraspinal musculature with palpable muscle tension. CHEST: Clear to auscultation. ?No respiratory distress. HEART: Regular rate and rhythm.? NEURO: ?Alert and oriented x3. Patient screened in triage and initial orders placed.? ?Additional care and disposition to be based upon?diagnostic testing and treatment. <JB Smith Last Filed: 03/01/24 18:50> Source: patient <JB Smith Last Filed: 03/01/24 18:50> Mode of arrival: ambulatory <JB Smith Last Filed: 03/01/24 18:50> Limitations: no limitations <JB Smith Last Filed: 03/01/24 18:50> Related Data Home Medications: Home Medications Medication Instructions Recorded Confirmed alprazolam 1 mg tablet 1 mg PO TID PRN Anxiety 04/23/19 03/23/23 aspirin 81 mg chewable tablet 81 mg PO DAILY 04/23/19 03/23/23 atorvastatin 80 mg tablet (Lipitor) 80 mg PO DAILY 04/23/19 03/23/23 cetirizine 10 mg tablet 10 mg PO DAILY 04/23/19 03/23/23 clopidogrel 75 mg tablet 75 mg PO DAILY 04/23/19 03/23/23 metoprolol tartrate 25 mg tablet 25 mg PO BID 04/23/19 03/23/23 losartan 100 mg tablet 100 mg PO DAILY 09/08/22 03/23/23 <Elyssa Vale PA-C - Last Filed: 03/01/24 18:50> Allergies/Adverse Reactions: Allergies Allergy/AdvReac Type Severity Reaction Status Date / Time fluoxetine Allergy Unknown Unknown Verified 03/01/24 15:55 [id number] Antimigraine Allergy Unknown Unknown Verified 03/01/24 15:55 Agents morphine Allergy Unknown Verified 03/01/24 15:55 Sulfa (Sulfonamide Allergy Hives Verified 03/01/24 15:55 Antibiotics) ibuprofen AdvReac Intermediate ON BLOOD Verified 03/01/24 15:55 THINNERS tramadol AdvReac Intermediate VOMITING 4 Verified 03/01/24 15:55 DAYS Llsvbgn-IAC-MoI Reductase AdvReac Unknown makes me Verified 03/01/24 15:55 Inhibitor feel like [Dmcgkto-Sko-Ofi Reductase I'm having Inhibitor] a heart attack <JB Smith Last Filed: 03/01/24 18:50> Review of Systems Review of Systems: All systems as dictated in HPI <Wiley Causey PA-C - Last Filed: 03/02/24 03:39> [facility] Past Medical History Medical History: Medical History Anxiety Arthritis CAD (coronary artery disease) Cataract Depression GERD (gastroesophageal reflux disease) Hyperlipidemia Hypertension Migraines Uterine fibroid <JB Smith Last Filed: 03/01/24 18:50> Surgical History Surgical History: Surgical History H/O cardiac catheterization H/O section H/O right wrist surgery H/O: hysterectomy Partial History of bladder suspension procedure <Elyssa Vale PA-C - Last Filed: 03/01/24 18:50> Social History Social History: Social History Smoking statu
[2024-03-01] MEDS: HYDROcodone/acetaminophen (*CRX) 5-325 MG TABLET 1 TAB PO (18:51)
[2024-03-01] MEDS: methylPREDNISolone SOD SUCC 125 MG VIAL IM (18:51)
[2024-03-01] MEDS: CYCLOBENZAPRINE HCL 5 MG TABLET PO (18:52)
[2024-03-01 20:37] VITALS: BP 173/95; PULSE 89; RESP 18; O2SAT 100
[2024-03-01 23:12] VITALS: BP 138/78; PULSE 72; RESP 18; TEMP 36.7; O2SAT 100
== END 2024-03-01 22:56 | disposition home or self-care (01) ==
LOC: ANHED 22:43
PROVIDERS: Emergency Provider Physician Assistant; PCP Nurse Practitioner Family
DX: S16.1XXA Strain of muscle, fascia and tendon at neck level, initial encounter (principal); I25.10 Atherosclerotic heart disease of native coronary artery without angina pectoris; I10 Essential (primary) hypertension; E78.5 Hyperlipidemia, unspecified; M19.90 Unspecified osteoarthritis, unspecified site; K21.9 Gastro-esophageal reflux disease without esophagitis; Z87.891 Personal history of nicotine dependence; Z90.711 Acquired absence of uterus with remaining cervical stump; M47.812 Spondylosis without myelopathy or radiculopathy, cervical region; Z79.899 Other long term (current) drug therapy; Z79.82 Long term (current) use of aspirin; Z79.02 Long term (current) use of antithrombotics/antiplatelets; X58.XXXA Exposure to other specified factors, initial encounter
CPT/HCPCS: 72125; 96372; 99284; A9270; J2919

== ENCOUNTER 2024-06-19 12:49 | Outpatient (CLI) | payer OTHER, SELFPAY ==
--- NOTE | 2024-06-19 14:45 | NEURO_ITS ---
Impression: # Complains of left upper extremity pain. ? # Normal Nerve Conduction Study. # No Carpal Tunnel Syndrome or ulnar neuropathy. ? # Normal needle/EMG exam. Nerve Conduction Studies Anti Sensory Summary Table ?Stim Site NR Peak (ms) P-T Amp (?V) Site1 Site2 Delta-P (ms) Dist (cm) Ion (m/s) Left Median Anti Sensory (2-3nd Digit) Wrist ? 2.4 59.7 Wrist 2-3nd Digit 2.4 14.0 58 Wrist ? 2.5 56.1 Wrist 2-3nd Digit 2.4 14.0 58 Left Radial Anti Sensory (Base 1st Digit) Wrist ? 2.2 33.3 Wrist Base 1st Digit 2.2 0.0 Left Ulnar Anti Sensory (5th Digit) Wrist ? 2.1 56.9 Wrist 5th Digit 2.1 14.0 67 Motor Summary Table ?Stim Site NR Onset (ms) O-P Amp (mV) Site1 Site2 Delta-0 (ms) Dist (cm) Ion (m/s) Left Median Motor (Abd Poll Brev) Wrist ? 2.9 1.4 Elbow Wrist 3.7 26.0 70 Elbow ? 6.6 2.8 Left Ulnar Motor (Abd Dig Minimi) Wrist ? 2.3 3.8 A Elbow Wrist 4.4 30.0 68 A Elbow ? 6.7 3.5 F Wave Studies ?NR F-Lat (ms) L-R F-Lat (ms) Left Median (Mrkrs) (Abd Poll Brev) ? 25.02 Left Ulnar (Mrkrs) (Abd Dig Min) ? 25.33 EMG ?Side Muscle Nerve Root Ins Act Fibs Amp Dur Recrt Comment Left 1stDorInt Ulnar C8-T1 Nml Nml Nml Nml Nml Left Ext Indicis Radial (Post Int) C7-8 Nml Nml Nml Nml Nml Left Ext Digitorum Radial (Post Int) C7-8 Nml Nml Nml Nml Nml Left BrachioRad Radial C5-6 Nml Nml Nml Nml Nml Left PronatorTeres Median C6-7 Nml Nml Nml Nml Nml Left Abd Poll Brev Median C8-T1 Nml Nml Nml Nml Nml Left ABD Dig Min Ulnar C8-T1 Nml Nml Nml Nml Nml MTDD
--- OUTSIDE RECORDS SUMMARY | 2024-06-21 18:24 | XMS_ITS | Data Portability ---
Author Organization [place] - [facility] Crude Area, Main Office Address [address] [place] [address] Assessment Encounter Date Assessment Date Assessment LastModified by Organization Details LastModified Time 03/21/2024 03/21/2024 58yo patient presents today with left hand pain, swelling, numbness, and tingling that has been going on for a few months. She states that she hit her arm on a cart and it has been painful since then. The main source of her pain is at the base of the thumb. She has pain with gripping objects. She also experiences numbness and tingling in the ring and small fingers when she wakes up in the morning. She has not tried any treatments. She rates her pain 5/10. Review of systems on patient questionnaire Imaging: Xrays reviewd of the left wrist and hand show no acute bony abnormality or fracture. Mild degenerative osteoarthritic changes at the base of the CMC. Physical exam: Pain with palpitation around the base of the thumb. Negative CMC grind. Good drip pumper strength. Negative phalens. Negative tinels at wrist and elbow. Sensation intact throughout We discussed that she is likely experiencing cubital tunnel and some arthritic pain in the thumb. She should try to keep the arm straight when she sleeps at night, and that braces for this are available online. For the thumb we can provide her with a thumb spica for immobilization if she is doing a lot. She should start taking anti-inflammatori es over the counter consistently. We can see her back as needed if she does not see improvement. [email or web address] Not available 03/22/2024 09:38:55 04/24/2024 04/24/2024 The patient has what sounds like cubital tunnel syndrome left elbow and possibly some mild medial epicondylitis. 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 We talked about treatment options for all the above she can not take oral anti-inflammatory medication due to the fact that she is on blood thinners. I did offer her shots of cortisone for her elbow and thumb she declined she states she has too much anxiety does not think she would handle that well. She did want to try a round of oral prednisone. We also talked about getting a nerve conduction velocity EMG study, she states she had 1 about 10 years ago or more and was told that time she had cubital tunnel syndrome we will see if this has progressed and see where it stands now. Once that study is done she will see Dr. Reilly for follow up results to talk about possible options including possible surgical release. She voiced understanding agrees above plan she will continue with current conservative measures and call for any further problems difficulties or questions. [email or web address] Not available 04/24/2024 14:23:31 Plan of Treatment Reminders Order Date Submit Date Provider Last Modified By Organization Details Last Modified Time Details Appointments Any 5 2024 02:05P Charissa Reilly MD Not available Not available Not available Lab None recorded. Referral None recorded. Procedures None recorded. Surgeries None recorded. Imaging XR, hand, 3 or more view 2023 024 [email or web address] [facility], [address], [place], [address], 03/22/2024 09:31:33 electromy ogram + nerve conductio n study 2023 024 [facility] ([facility]), [address], [place], [address], 06/20/2024 10:34:28 Medication Orders prednison e 10 mg tablets in a dose pack 2023 024 [email or web address] [id number], [address] [place], [address], 04/24/2024 14:25:44 Patient TargetsNo targets recorded. Patient InstructionsNo instructions recorded. Reason for Referral None Reported. Results Created Date Observation Date Name Description Value Unit Range Abnormal Flag Note LastModifiedBy Organization Detail LastModifiedTime 03/16/20 24 03/17/2024 UA WITH CULTU RE REFLE X specific gravity 1.009 1.005- 1.030 normal Not Available [facility] ([facility]) [address], [place], [address], 03/18/2024 07:07:45 03/16/2003/17/2024 UA WITH CULTU RE REFLE X pH 5.5 5.0-7. 5 normal Not Available [facility] ([facility]) [address], [place], [address], 03/18/2024 07:07:45 03/16/2003/17/2024 UA WITH CULTU RE REFLE X urine-color YELLOW yellow Not Available [facility] ([facility]) [address], [place], [address], 03/18/2024 07:07:45 03/16/2003/17/2024 UA WITH CULTU RE REFLE X appearance CLEAR clear Not Available [facility] ([facility]) [address], [place], [address], 03/18/2024 07:07:45 03/16/20 24 03/17/2024 UA WITH CULTU RE REFLE X WBC esterase 2+ negati ve abnormal Not Available [facility] ([facility]) [address], [place], [address], 03/18/2024 07:07:45 03/16/2003/17/2024 UA WITH CULTU RE REFLE X protein NEGATI VE negati ve/tra ce Not Available [facility] ([facility]) [address] [place], [address], 03/18/2024 07:07:45 03/16/20 24 03/17/2024 UA WITH CULTU RE REFLE X glucose NEGATI VE negati ve Not Available [facility] ([facility]) [address] [facility] [address], [place], [address], 03/18/2024 07:07:45 03/16/2003/17/2024 UA WITH CULTU RE REFLE X ketones NEGATI VE negati ve Not Available [facility] ([facility]) [address], [place], [address], 03/18/2024 07:07:45 03/16/2003/17/2024 UA WITH CULTU RE REFLE X occult blood NEGATI VE negati ve Not Available [facility] ([facility]) [address], [place], [address], 03/18/2024 07:07:45 03/16/2003/17/2024 UA WITH CULTU RE REFLE X bilirubin NEGATI VE negati ve Not Available [facility] ([facility]) [address], [place], [address], 03/18/2024 07:07:45 03/16/2003/17/2024 UA WITH CULTU RE REFLE X urobilinogen ,semi-qn 0.2 mg/dL 0.2-1. 0 normal Not Available [facility] ([facility]) [address], [place], [address], 03/18/2024 07:07:45 03/16/20 24 03/17/2024 UA WITH CULTU RE REFLE X nitrite, urine NEGATI VE negati ve Not Available [facility] ([facility]) [address], [place], [address], 03/18/2024 07:07:45 03/16/2003/17/2024 UA WITH CULTU RE REFLE X microscopic examination SEE BELOW: Micro scopi c was indic ated and was perfo rmed. Not Available [facility] ([facility]) [address], [place], [address], 03/18/2024 07:07:45 10/18/20 24 03/17/2024 UA WITH CULTU RE REFLE X WBC >30 /hpf 0 - 5 abnormal Not Available [facility] ([facility]) [address], [place], [address], 03/18/2024 07:07:45 03/16/20 24 03/17/2024 UA WITH CULTU RE REFLE X RBC 0-2 /hpf 0 - 2 Not Available [facility] ([facility]) [address], [place], [address], 03/18/2024 07:07:45 03/16/2003/17/2024 UA WITH CULTU RE REFLE X epithelial cells (non renal) 0-10 /hpf 0 - 10 Not Available [facility] ([facility]) [address], [place], [address], 03/18/2024 07:07:45 03/16/20 24 03/17/2024 UA WITH CULTU RE REFLE X epithelial cells (renal) 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 Not Available [facility] ([facility]) [address], [place], [address], 03/18/2024 07:07:45 03/16/20 24 03/17/2024 UA WITH CULTU RE REFLE X casts NONE SEEN /lpf none seen Not Available [facility] ([facility]) [address] [facility] [address], [place], [address], 03/18/2024 07:07:45 03/16/2003/17/2024 UA WITH CULTU RE REFLE X cast type 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 Not Available [facility] ([facility]) [address] [facility] [address], [place], [address], 03/18/2024 07:07:45 03/16/20 24 03/17/2024 UA WITH CULTU RE REFLE X crystals 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 Not Available [facility] ([facility]) [address], [place], [address], 03/18/2024 07:07:45 03/16/20 24 03/17/2024 UA WITH CULTU RE REFLE X crystal type 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 Not Available [facility] ([facility]) [address] [facility] [address], [place], [address], 03/18/2024 07:07:45 03/16/20 24 03/17/2024 UA WITH CULTU RE REFLE X mucus threads 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 Not Available [facility] ([facility]) [address] [facility] [address], [place], [address], 03/18/2024 07:07:45 03/16/2003/17/2024 UA WITH CULTU RE REFLE X bacteria NONE SEEN none seen/f ew Not Available [facility] ([facility]) [address], [place], [address], 03/18/2024 07:07:45 03/16/20 24 03/17/2024 UA WITH CULTU RE REFLE X yeast 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 Not Available [facility] ([facility]) [address] [facility] [address], [place], [address], 03/18/2024 07:07:45 03/16/20 24 03/17/2024 UA WITH CULTU RE REFLE X trichomonas 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 Not Available [facility] ([facility]) [address] [place], [address], 03/18/2024 07:07:45 03/16/2003/18/2024 UA WITH CULTU RE REFLE X urine culture, routine FINAL REPORT Not Available [facility] ([facility]) [address] [facility] [address], [place], [address], 03/18/2024 07:07:45 03/16/20 24 03/18/2024 UA WITH CULTU RE REFLE X result 1 COMMEN T Mixed uroge nital kyaw 25,00 0-50, 000 colon y formi ng units per mL Not Available [facility] ([facility]) [address], [place], [address], 03/18/2024 07:07:45 03/16/20 24 03/16/2024 urina lysis , dipst ick Leukocytes (reference range: negative angelique/??l) Small Not Available [address], [place], [address], 03/16/2024 14:09:25 03/16/2003/16/2024 urina lysis , dipst ick Nitrite (reference rage: negative mg/dl) negati ve Not Available [address], [place], [address], 03/16/2024 14:09:25 03/16/20 24 03/16/2024 urina lysis , dipst ick Urobilinogen (reference range: 0.2-1 mg/dl) 0.2 Not Available [address], [place], [address], 03/16/2024 14:09:25 03/16/20 24 03/16/2024 urina lysis , dipst ick Protein (reference range: negative mg/dl) Negati ve Not Available [address], [place], [address], 03/16/2024 14:09:25 03/16/20 24 03/16/2024 urina lysis , dipst ick pH (reference range: 5-7) 6.0 Not Available [address], [place], [address], 03/16/2024 14:09:25 03/16/2003/16/2024 urina lysis , dipst ick Blood (reference range: negative Richard/??l) Non-He molyze d: Trace Not Available [address], [place], [address], 03/16/2024 14:09:25 03/16/2003/16/2024 urina lysis , dipst ick Specific [place] (reference range: 1.005-1.030) 1.015 Not Available [address], [place], [address], 03/16/2024 14:09:25 03/16/2003/16/2024 urina lysis , dipst ick Ketone (reference range: negative mg/dl) Negati ve Not Available [address], [place], [address], 03/16/2024 14:09:25 03/16/2003/16/2024 urina lysis , dipst ick Bilirubin (reference range: negative mg/dl) Negati ve Not Available [address], [place], [address], 03/16/2024 14:09:25 03/16/2003/16/2024 urina lysis , dipst ick Glucose (reference range: negative mg/dl) Negati ve Not Available [address], [place], [address], 03/16/2024 14:09:25 03/16/20 24 03/16/2024 urina lysis , dipst ick Appearance Slight ly Cloudy Not Available [facility] [address], [place], [address], 03/16/2024 14:09:25 03/16/20 24 03/16/2024 urina lysis , dipst ick Color Yellow Not Available [facility] [address], [place], [address], 03/16/2024 14:09:25 03/21/20 XR, hand, 3 or more view No observ ation record ed. [email or web address] [facility] [place] [address], [place], [address], 03/22/2024 09:31:32 06/20/19 25 06/19/2024 elect romyo gram + nerve condu ction study No observ ation record ed. [email or web address] [facility] [address], [place], [address], 06/20/2024 13:44:23 06/20/19 25 06/20/2024 MAMMO , scree tonio, digit al, bilat eral No observ ation record ed. [email or web address] Rodas [facility] [address] [facility], [place], [address], 06/21/2024 09:48:38 Result Notes None recorded. Problems Name Problem SNOMED Code Status Onset Date Resolution Date Notes Provider Name and Address Organization Details Recorded Time Difficul ty passing urine 602236301 Active Not Available [facility] 3 12:08:48 Rupture of left Achilles tendon 75590802433 052595 Completed 201911/07/2019 Not Available [facility] 3 07:42:20 Plantar fasciiti s of left foot 58983629563 223739 Active 2019 Not Available [facility] 3 12:08:48 Plantar fasciiti s of right foot 20470220978 483955 Completed 201912/05/2019 Not Available [facility] 3 07:42:20 Neoplasm of skin of eyelid 154274978 Active Not Available [facility] 3 12:08:48 Lumbar radiculo josé miguel 927687757 Active Not Available [facility] 3 12:08:48 Hypercho lesterol emia 21820859 Active 2019 Not Available [facility] 3 12:08:48 External hordeolu m 6271635 Completed resolved Not Available [facility] 3 07:42:20 Seborrhe ic dermatit is of scalp 032612523 Active Not Available [facility] 3 12:08:48 Dry eyes 770929180 Active Not Available [facility] 3 12:08:48 Pain in throat 099703812 Active Not Available [facility] 3 12:08:48 Heartbur n 33307065 Active 2019 Not Available [facility] 3 12:08:48 Swelling of eyelid 505603206 Completed resolved Not Available [facility] 3 07:42:21 Anxiety disorder 341904710 Active 2019 Not Available [facility] 3 12:08:48 Recurren t urinary tract infectio n 058382011 Active Not Available [facility] 3 12:08:48 Anxiety state 113271423 Completed resolved Not Available [facility] 3 07:42:21 Menopaus al flushing 541070726 Active Not Available [facility] 3 12:08:48 Elbow joint pain 576613878 Completed resolved Not Available [facility] 3 07:42:21 Plantar fasciiti s 195511785 Completed 201912/05/2019 Not Available [facility] 3 07:42:21 Abdomina l pain 53100050 Completed resolved Not Available [facility] 3 07:42:21 Cerebrov ascular accident 894584053 Active Not Available [facility] 3 12:08:48 Seasonal allergic conjunct ivitis 026317945 Completed resolved Not Available [facility] 3 07:42:21 Gastroes ophageal reflux disease 636502025 Active Not Available [facility] 3 12:08:48 Fluid level behind tympanic membrane Completed resolved Not Available [facility] 3 07:42:22 Headache 25773690 Active Not Available [facility] 3 12:08:48 Sprain of ligament of elbow 455606068 Active Not Available [facility] 3 12:08:48 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 568752419 Active Not Available [facility] 3 12:08:48 Malaise and fatigue 592439903 Active Not Available [facility] 3 12:08:49 Vaginal discharg e 535735995 Completed resolved Not Available [facility] 3 07:42:22 Chronic low back pain 442644817 Active Not Available [facility] 3 12:08:49 Excessiv e growth of facial hair 445479304 Active Not Available [facility] 3 12:08:49 Left Achilles tendinit is 46614735851 9102 Active 2019 Not Available [facility] 3 12:08:49 Left Achilles tendinit is 90524404749 9102 Completed 201912/05/2019 Not Available [facility] 3 07:42:22 Right Achilles tendinit is 47245117382 9102 Active 2020 Not Available [facility] 3 12:08:49 Blood in urine 29084555 Completed resolved Not Available [facility] 3 07:42:23 Depressi ve disorder 75204263 Active Not Available [facility] 3 12:08:49 Ulnar neuropat hy 700574249 Active Not Available [facility] 3 12:08:49 Disorder of endocrin e system 485998902 Active Not Available [facility] 3 12:08:49 Sinusiti s 61356749 Completed resolved Not Available [facility] 3 07:42:23 Arthriti s 7943725 Active Not Available [facility] 3 12:08:49 Migraine 77978105 Active Not Available [facility] 3 12:08:49 Hyperten sive disorder 11589375 Active Not Available [facility] 3 12:08:49 Osteoart hritis 883893166 Active Not Available [facility] 3 12:08:49 Animal bite wound 349907794 Completed resolved Not Available [facility] 3 07:42:24 Cat scratch injury 870242886 Completed resolved Not Available [facility] 3 07:42:24 Pharyngi tis 485963738 Completed resolved Not Available [facility] 3 07:42:24 Obesity 493758702 Active 2019 Not Available [facility] 3 12:08:49 Carotid bruit 152661870 Active Not Available [facility] 3 12:08:49 Cervical disc disorder 781027556 Active Not Available [facility] 3 12:08:49 Acute urinary tract infectio n 611296783 Completed resolved Not Available [facility] 3 07:42:24 Hypokale olivia 45692887 Completed resolved Not Available [facility] 3 07:42:25 Arthriti s of hand 100822358 Active Not Available [facility] 3 12:08:49 Swelling of upper arm 835151254 Completed resolved Not Available [facility] 3 07:42:25 Shoulder pain 02784954 Completed resolved Not Available [facility] 3 07:42:25 Anxiety 34397140 Active Not Available [facility] 3 12:08:49 Dysuria 85495142 Active Not Available [facility] 3 12:08:49 Coronary arterios clerosis 01926418 Active Not Available [facility] 3 12:08:49 Upper respirat ory infectio n 67292840 Completed resolved Not Available [facility] 3 07:42:26 Hyperlip idemia 37045948 Active Not Available [facility] 3 12:08:49 Heart disease 57263827 Active 2019 Not Available [facility] 3 12:08:49 Allergic rhinitis 89848146 Active Not Available [facility] 3 12:08:49 Carotid artery stenosis 90657689 Active Not Available [facility] 3 12:08:49 Swelling 35773020 Completed resolved Not Available [facility] 3 07:42:26 Nasal congesti on 31129533 Active Not Available [facility] 3 12:08:49 Urinary tract infectio us disease 69823768 Completed resolved Not Available [facility] 3 07:42:27 Eustachi an tube disorder 25444254 Active Not Available [facility] 3 12:08:49 Candidia sis of vagina 02770050 Completed resolved Not Available [facility] 3 07:42:27 Pain in elbow 84277513 Active Not Available [facility] 3 12:08:49 Urgent desire to urinate 41492184 Completed resolved Not Available [facility] 3 07:42:27 Spinal stenosis 53127201 Active Not Available [facility] 3 12:08:49 Serous otitis media 34840630 Completed resolved Not Available [facility] 3 07:42:28 Dystroph ia unguium 13416873 Active 2020 Not Available [facility] 3 12:08:49 Bilatera l hearing loss 31728893 Active Not Available [facility] 3 12:08:49 Hemorrho ids 87923807 Active 2022 Not Available [facility] 3 12:08:49 Fracture of metacarp al bone 689506642 Active 2022 Not Available [facility] 3 12:08:48 Essentia l hyperten sohail 93580509 Active 2022 Not Available [facility] 3 12:08:49 Hypergly cemia 35946572 Active 2022 Not Available [facility] 3 12:08:49 Vitamin D deficien cy 35456816 Active 2022 Not Available [facility] 3 12:08:49 Liver enzymes level above referenc e range 452333209 Active 2022 Not Available [facility] 3 12:08:49 Seasonal allergy 577219506 Active 2022 Not Available [facility] 3 12:08:49 Closed fracture of neck of fifth metacarp al bone of right hand 22142151850 455115 Active 2022 Not Available [facility] 3 12:08:48 Increase d liver function 53827169 Active 2022 Not Available [facility] 3 12:08:49 Skin lesion 62534228 Active 2022 Not Available [facility] 3 12:08:49 Divertic ulitis 946362533 Active 2022 Not Available [facility] 3 12:08:49 Acute conjunct ivitis 29474006 Active 2023 Amber Schwab MD [address], [address] , [facility] 4 15:37:24 Bronchit is 10447616 Active 2023 Amber Schwab MD [address], [address], [address] , [facility] 4 16:25:30 Rib pain 960580325 Active 2023 Amber Schwab MD [address] [address], [place], [address] , [facility] 4 17:55:53 Prediabe conor 036212235 Active 2023 Amber Schwab MD [address] [address], [place], [address] , [facility] 4 16:34:59 Pain of left hand 76929054581 9103 Active 2023 THOMAS Truong null, [facility] 4 14:59:41 Ulnar nerve entrapme nt at elbow 877290456 Active 2023 Adelaida girard, [facility] 4 14:16:03 Ulnar nerve entrapme nt at elbow 497370645 Active 2023 Adelaida girard, [facility] 4 14:16:36 Medial epicondy litis of left elbow joint 97896419759 9107 Active 2023 MABEL Christianson [address], [place], [address] , [facility] 4 14:24:04 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 06519952 Active 2023 MABEL Christianson [address], [place], [address] , [facility] 4 14:24:22 Notes:allergies, back/neck p roblems, coronary artery disease, ear problems, stroke, use of blood thinners Problem Notes None recorded. Procedures Surgical History Date Name Laterality Status Provider Name and Address Organization Details Recorded Time 3 Most Recent Mammogram completed Lyubov Zapata LPN [facility] 07/12/2023 15:40:32 6 colonoscopy completed Amber Schwab MD [address], [place], [address], [facility] 10/02/2023 08:58:00 Imaging Results Imaging Date Name Status LastModified by Organization Details LastModified Time 03/21/2024 XR, hand, 3 or more view completed [email or web address] [facility] Shawn Salazar [address], [place], [address], 03/22/2024 09:31:32 06/19/2024 electromyogram + nerve conduction study completed [place] [address], [place], [address], 06/20/2024 13:44:23 06/20/2024 MAMMO, screening, digital, bilateral active llalor [facility] [address] [facility], [place], [address], 06/21/2024 09:48:38 Procedure Notes None recorded. Medical Equipment None Reported. Allergies Allergen ID Allergen Name Allergen Category Reaction Reaction Severity Criticality Documentation Date Start Date Code Code System Note Provider Name and Address Organization Details Recorded Time 92503 Substance with sulfonami de structure and antibacte rial mechanism of action (substanc e) medicatio n hives moderate Not available 07/28/2022 17815 8003 SNOMED Not Available [facility] 3 07:48:37 81084 Product containin g 3-hydroxy -3-methyl glutaryl- coenzyme A reductase inhibitor (product) medicatio n Not available Not available Not available 07/28/2022 49952 009 SNOMED Not Available [facility] 3 07:48:37 66218 Prozac medicatio n vomiting Not available Not available 07/28/2022 79628 RxNorm Not Available [facility] 3 07:48:37 12778 Non-stero idal anti-infl ammatory agent (product) medicatio n lighthead edness severe Not available 07/28/2022 34712 005 SNOMED Not Available [facility] 3 07:48:37 24056 morphine medicatio n Not available Not available Not available 07/28/2022 7052 RxNorm Not Available [facility] 3 07:48:37 57942 tramadol medicatio n Not available Not available Not available 08/25/2022 36566 RxNorm Amber Schwab MD [address] [place] [address], [place], [address] , [facility] 3 10:03:27 Medications Name Sig Start Date Stop Date Status Note LastModified by Organization Details LastModified Time carisopro dol 350 mg tablet active Not Available Not Available No t Available celecoxib 200 mg capsule Take 1 capsule twice a day by oral route as needed. 08/25 completed Not Available Not Available Not Available fluoxetin e 40 mg capsule Take 1 capsule every day by oral route for 30 days. 03/19 completed made pt. sick Not Available Not Available Not Available cyclobenz aprine 10 mg tablet TAKE 1 TABLET BY MOUTH EVERY DAY AT BEDTIME NEEDED FOR MUSCLE SPASM active Not Available Not Available No t Available amoxicill in 500 mg capsule TAKE 1 TABLET(S ) TWICE A DAY BY ORAL ROUTE FOR 14 DAYS. 10/15 completed Not Available Not Available Not Available atorvasta tin 40 mg tablet Take 1 tablet by oral route for 90 days. active Not Available Not Available No t Available hydrocodo ne 7.5 mg-ibupro fen 200 mg tablet 12/07 completed Not Available Not Available Not Available atorvasta tin 80 mg tablet TAKE 1 TABLET BY MOUTH EVERY DAY 12/06 completed Not Available Not Available Not Available azelastin e 0.05 % eye drops 03/20 completed Not Available Not Available Not Available nystatin 100,000 unit/mL oral suspensio n Take 10 mL 4 times a day by oral route as directed for 10 days. active Not Available Not Available No t Available acetamino phen 325 mg tablet TAKE 1 TABLET BY MOUTH EVERY 4 HOURS NEEDED FOR FEVER OR PAIN 10/12 completed Not Available Not Available Not Available prednison e 10 mg tablet PLEASE SEE ATTACHED FOR DETAILED DIRECTIO NS active Not Available Not Available No t Available doxycycli ne hyclate 100 mg capsule Take 1 capsule twice a day by oral route for 10 days. active Not Available Not Available No t Available paroxetin e 10 mg tablet 01/30 completed Not Available Not Available Not Available cetirizin e 10 mg tablet TAKE 1 TABLET BY MOUTH EVERY DAY 10/12 completed Not Available Not Available Not Available azithromy rocio 250 mg tablet active Not Available Not Available No t Available aspirin 325 mg tablet Take 1 tablet every day by oral route. 08/20 completed Not Available Not Available Not Available ibuprofen 800 mg tablet 12/07 completed Not Available Not Available Not Available alprazola m 1 mg tablet TAKE 1/2 TABLET BY MOUTH TWICE DAILY AND 2 TABLETS BY MOUTH AT BEDTIME 12/06 completed Not Available Not Available Not Available Lidocaine Viscous 2 % mucosal solution Take 15 mL every 3 hours by oral route as needed. active Not Available Not Available No t Available tizanidin e 4 mg tablet TAKE 1 TABLET BY MOUTH EVERY 8 HOURS NEEDED FOR 30 DAYS. active Not Available Not Available No t Available fluconazo le 150 mg tablet Take 1 tablet every day by oral route for 3 days. active Not Available Not Available No t Available clarithro mycin 500 mg tablet 06/10 completed Not Available Not Available Not Available hydrocodo ne 5 mg-acetam inophen 325 mg tablet TAKE 1 TABLET BY MOUTH EVERY 6 HOURS NEEDED FOR PAIN 03/20 completed Not Available Not Available Not Available Celestone Soluspan 6 mg/mL suspensio n for injection Take 1 mL by injectio n route. 08/20 completed Not Available Not Available Not Available ondansetr on HCl 8 mg tablet Take 1 tablet every 8 hours by oral route as needed. 10/12 completed Not Available Not Available Not Available phenazopy ridine 200 mg tablet TAKE 1 TABLET BY MOUTH 3 TIMES A DAY NEEDED FOR PAIN 10/12 completed Not Available Not Available Not Available metronida zole 0.75 % (37.5 mg/5 gram) vaginal gel INSERT 1 APPLICAT ORFUL EVERY DAY BY VAGINAL ROUTE AT BEDTIME FOR 5 DAYS. 09/30 completed Not Available Not Available Not Available ondansetr on HCl 4 mg tablet TAKE 1 TO 2 TABLETS BY MOUTH EVERY 8 HOURS NEEDED FOR NAUSEA 09/30 completed Not Available Not Available Not Available prednison e 20 mg tablet 3 po qday x 3 days then 2 po qday x 3 days then 1 po qday x 3 days then 1/2 tab po qday x 3 days then stop active Not Available Not Available No t Available metronida zole 250 mg tablet 03/22 completed Not Available Not Available Not Available Rocephin 1 gram solution for injection 08/20 completed Not Available Not Available Not Available cromolyn 4 % eye drops INSTILL 1 DROP INTO AFFECTED EYE(S) BY OPHTHALM IC ROUTE 4 TIMES PER DAY NEEDED active Not Available Not Available No t Available topiramat e 25 mg tablet 1 po qhs x 7 days then 1 po bid x 7 days then 1 po qAM and 2 po qhs x 7 days then 2 po bid there after 10/12 completed Not Available Not Available Not Available acetamino phen 300 mg-codein e 30 mg tablet TAKE 1 TABLET BY MOUTH EVERY 6 HOURS NEEDED 12/06 completed Not Available Not Available Not Available clopidogr el 75 mg tablet TAKE 1 TABLET BY MOUTH EVERY DAY active Not Available Not Available No t Available ciproflox acin 250 mg tablet Take 1 tablet every 12 hours by oral route for 7 days. active Not Available Not Available No t Available ciproflox acin 500 mg tablet Take 1 tablet every 12 hours by oral route for 7 days. active Not Available Not Available No t Available sulfameth oxazole 800 mg-trimet hoprim 160 mg tablet Take 1 tablet every 12 hours by oral route for 7 days. 08/21 completed Not Available Not Available Not Available hydrocodo ne 10 mg-acetam inophen 325 mg tablet TAKE 1 TABLET BY MOUTH EVERY 12 HOURS NEEDED FOR PAIN (SCALE RATED 7 10) 10/12 completed Not Available Not Available Not Available peg-elect rolyte solution 420 gram oral solution USE DIRECTED 09/07 completed Not Available Not Available Not Available aspirin 81 mg tablet,de layed release TAKE 1 TABLET BY MOUTH EVERY DAY active Not Available Not Available No t Available tramadol 50 mg tablet TAKE 1 TABLET 3 TIMES A DAY NEEDED 10/05 completed Not Available Not Available Not Available amoxicill in 500 mg tablet Take 1 tablet twice a day by oral route for 14 days. 10/15 completed Not Available Not Available Not Available ondansetr on 8 mg disintegr ating tablet TAKE 1 TABLET BY MOUTH EVERY 8 HOURS NEEDED FOR NAUSEA 03/20 completed Not Available Not Available Not Available lidocaine -prilocai ne 2.5 %-2.5 % topical cream 09/07 completed Not Available Not Available Not Available prednison e 10 mg tablets in a dose pack Take 1 tab by mouth, 3 times a day for 3 daysTake 1 tab by mouth 2 times a day for 2 daysTake 1 tab by mouth once a day for 1 day 2024 active Not Available Not Available Not Avai lable alprazola m 0.5 mg tablet TAKE 1 TABLET BY MOUTH TWICE A DAY AND 2 AT BEDTIME active Not Available Not Available No t Available amoxicill in 875 mg tablet TAKE 1 TABLET NOW THEN 1 TABLET BY MOUTH TWICE DAILY UNTIL GONE 09/22 completed Not Available Not Available Not Available alprazola m 0.25 mg tablet Take 1 tablet 3 times a day by oral route for 30 days. 03/21 completed Not Available Not Available Not Available famotidin e 20 mg tablet TAKE 1 TABLET BY MOUTH TWICE A DAY 10/12 completed Not Available Not Available Not Available dicyclomi ne 20 mg tablet TAKE 1 TABLET BY MOUTH FOUR TIMES A DAY NEEDED active Not Available Not Available No t Available amitripty line 10 mg tablet 09/07 completed Not Available Not Available Not Available phenazopy ridine 100 mg tablet Take 1 tablet 3 times a day by oral route as directed for 2 days. 10/12 completed Not Available Not Available Not Available benzonata te 100 mg capsule Take 2 capsule( s) 3 TIMES A DAY by oral route. as needed for cough active Not Available Not Available No t Available triamcino lone acetonide 40 mg/mL suspensio n for injection 1 ml IM x 1 03/20 completed Not Available Not Available Not Available hydrocodo ne 7.5 mg-acetam inophen 325 mg tablet TAKE 1 TABLET BY MOUTH EVERY 4 TO 6 HOURS NEEDED FOR PAIN 09/30 completed Not Available Not Available Not Available cephalexi n 500 mg capsule 500 MG ORALLY EVERY 6 HOURS FOR 5 DAYS 12/06 completed Not Available Not Available Not Available paroxetin e 20 mg tablet 01/30 completed Not Available Not Available Not Available pantopraz ole 40 mg tablet,de layed release TAKE 1 TABLET BY MOUTH EVERY DAY active Not Available Not Available No t Available erythromy rocio 5 mg/gram (0.5 %) eye ointment INSTILL INTO BOTH EYES 4 TIMES DAILY 03/20 completed Not Available Not Available Not Available neomycin- polymyxin -dexameth 3.5 mg/mL-10, 000 unit/mL-0 .1% eye drops INSTILL 1 DROP INTO AFFECTED EYE(S) BY OPHTHALM IC ROUTE EVERY 4 HOURS WHILE AWAKE X 7 DAYS 03/20 completed Not Available Not Available Not Available nitrofura ntoin macrocrys brenda 100 mg capsule Take 1 capsule twice a day by oral route for 7 days. active Not Available Not Available No t Available triamcino lone acetonide 0.1 % topical ointment APPLY TO AFFECTED AREA TWICE A DAY NEEDED 10/12 completed Not Available Not Available Not Available nystatin 100,000 unit/gram topical cream APPLY TO AFFECTED AREA TWICE A DAY NEEDED 09/22 completed Not Available Not Available Not Available butalbita l 50 mg-acetam inophen 325 mg-caffei ne 40 mg-codein e 30 mg cap active Not Available Not Available Not Available prednison e 50 mg tablet TAKE 1 TABLET BY MOUTH EVERY DAY FOR 5 DAYS 04/11 completed Not Available Not Available Not Available divalproe x ER 500 mg tablet,ex tended release [address] ROXY VARGAS ED Not Available Not Available Not Available carbamaze pine 100 mg chewable tablet 09/30 completed Not Available Not Available Not Available promethaz ine 25 mg tablet TAKE 1 TABLET BY MOUTH EVERY 6 - 8 HOURS NEEDED FOR NAUSEA 03/20 completed Not Available Not Available Not Available polymyxin B sulfate 10,000 unit-trim ethoprim 1 mg/mL eye drops INSTILL 1 DROP INTO AFFECTED EYE(S) BY OPHTHALM IC ROUTE EVERY 6 HOURS x 7 days active Not Available Not Available No t Available brimonidi ne 0.2 % eye drops INSTILL 1 (ONE) DROP INTO LEFT EYE 3 TIMES DAILY 03/20 completed Not Available Not Available Not Available benztropi ne 1 mg tablet PLEASE SEE ATTACHED FOR DETAILED DIRECTIO NS active Not Available Not Available No t Available nitroglyc alma 400 mcg/spray transling ual SPRAY 1 SPRAY ONTO OR UNDER THE TONGUE AT THE FIRST SIGN OF ATTACK NO MORE THAN 3 SPRAYS IN 15 MIN 03/19 completed Not Available Not Available Not Available nitroglyc alma 0.4 mg sublingua l tablet PLACE 1 TABLET UNDER THE TONGUE EVERY 5 MINUTES NEEDED FOR CHEST PAIN. active Not Available Not Available No t Available gabapenti n 300 mg capsule 1 po qhs 01/27 completed Not Available Not Available Not Available buspirone 7.5 mg tablet 01/30 completed Not Available Not Available Not Available Banophen 25 mg capsule TAKE 1 CAPSULE BY MOUTH EVERY 6 HOURS NEEDED FOR ITCHING 03/19 completed Not Available Not Available Not Available Xylocaine with Epinephri ne 1 %-1:100,0 00 injection solution 2 ml injected at base of skin tags 09/22 completed Not Available Not Available Not Available aspirin 81 mg chewable tablet Chew 1 tablet every day by oral route. 01/30 completed Not Available Not Available Not Available diclofena c sodium 75 mg tablet,de layed release TAKE 1 TABLET BY MOUTH TWICE A DAY NEEDED 08/25 completed Not Available Not Available Not Available monteluka st 10 mg tablet TAKE 1 TABLET BY MOUTH DAILY 03/22 completed Not Available Not Available Not Available furosemid e 20 mg tablet TAKE 1 TABLET DAILY NEEDED FOR SWELLING active Not Available Not Available No t Available gabapenti n 100 mg capsule Take 1 capsule 3 times a day by oral route. active Not Available Not Available No t Available ergocalci ferol (vitamin D2) 1,250 mcg (50,000 unit) capsule TAKE 1 CAPSULE EVERY WEEK BY ORAL ROUTE. active Not Available Not Available No t Available azelastin e 137 mcg (0.1 %) nasal spray 04/15 completed Not Available Not Available Not Available diazepam 10 mg tablet TAKE 1 TABLET BY MOUTH 30 60 MINUTES BEFORE PROCEDUR E active Not Available Not Available No t Available triamcino lone acetonide 0.1 % lotion APPLY A THIN LAYER TO THE AFFECTED AREA(S) OF SCALP BY TOPICAL ROUTE AT NIGHT active Not Available Not Available No t Available ibuprofen 600 mg tablet Take 1 tablet every 8 hours by oral route as needed for 15 days. 07/28 completed With food. Not Available Not Available Not Available levofloxa rocio 500 mg tablet 03/22 completed Not Available Not Available Not Available Anusol-HC 25 mg rectal supposito ry INSERT 1 SUPPOSIT ORY PER RECTUM 2 - 3 TIMES DAILY NEEDED FOR 7 DAYS 10/12 completed Not Available Not Available Not Available scopolami ne 1 mg over 3 days transderm al patch APPLY 1 PATCH BEHIND THE EAR FOR 3 DAYS 09/30 completed Not Available Not Available Not Available methylpre dnisolone 4 mg tablets in a dose pack TAKE 6 TABLETS ON DAY 1 DIRECTED ON PACKAGE AND DECREASE BY 1 TAB EACH DAY FOR A TOTAL OF 6 DAYS 01/27 completed Not Available Not Available Not Available albuterol sulfate HFA 90 mcg/actua tion aerosol inhaler INHALE 2 PUFFS BY MOUTH EVERY 4 HOURS 03/20 completed Not Available Not Available Not Available ondansetr on 4 mg disintegr ating tablet TAKE 1 TABLET BY MOUTH EVERY 8 HOURS NEEDED FOR NAUSEA AND VOMITING 03/20 completed Not Available Not Available Not Available cefdinir 300 mg capsule active Not Available Not Available Not Available losartan 100 mg tablet TAKE 1 TABLET BY MOUTH EVERY DAY active Not Available Not Available No t Available fluoxetin e 20 mg capsule Take 1 capsule every day by oral route. 01/30 completed Not Available Not Available Not Available fluticaso ne propionat e 50 mcg/actua tion nasal spray,dolly pension USE 2 SPRAYS IN EACH NOSTRIL ONCE DAILY active Not Available Not Available No t Available sertralin e 50 mg tablet 01/30 completed Not Available Not Available Not Available doxycycli ne hyclate 100 mg tablet 01/30 completed Not Available Not Available Not Available loratadin e 10 mg tablet Take 1 tablet every day by oral route for 90 days. 10/12 completed Not Available Not Available Not Available amoxicill in 875 mg-potass ium clavulana te 125 mg tablet TAKE 1 TABLET BY MOUTH EVERY 12 HOURS WITH MEALS FOR 10 DAYS 12/06 completed Not Available Not Available Not Available buspirone 15 mg tablet 01/30 completed Not Available Not Available Not Available tobramyci n 0.3 %-dexamet hasone 0.1 % eye drops,dolly pension 10/12 completed Not Available Not Available Not Available Botox 100 unit injection 09/30 completed Not Available Not Available Not Available neomycin 3.5 mg/g-poly myxin B 10,000 unit/g-de xameth 0.1 % eye oint INSTILL INTO RIGHT EYE 4 TIMES DAILY 03/21 completed Not Available Not Available Not Available escitalop jenifer 10 mg tablet TAKE 1 TABLET BY MOUTH EVERY DAY WITH FOOD 05/06 completed Not Available Not Available Not Available ezetimibe 10 mg tablet TAKE 1 TABLET BY MOUTH EVERY DAY active Not Available Not Available No t Available cyclobenz aprine 5 mg tablet TAKE 1 TABLET(S ) BY MOUTH AT BEDTIME FOR 15 DAYS. active Not Available Not Available No t Available Restasis 0.05 % eye drops in a dropperet te 03/19 completed Not Available Not Available Not Available Vigamox 0.5 % eye drops INSTILL 1 DROP INTO AFFECTED EYE(S) BY OPHTHALM IC ROUTE 3 TIMES PER DAY 08/20 completed Not Available Not Available Not Available rosuvasta tin 40 mg tablet TAKE 1 TABLET BY MOUTH EVERY DAY active Not Available Not Available No t Available epinastin e 0.05 % eye drops INSTILL 1 DROP INTO BOTH EYES TWICE A DAY 09/30 completed Not Available Not Available Not Available metoprolo l tartrate 25 mg tablet TAKE 1 TABLET BY MOUTH TWICE A DAY active Not Available Not Available No t Available nitrofura ntoin monohydra te/macroc rystals 100 mg capsule TAKE 1 CAPSULE BY MOUTH EVERY 12 HOURS FOR 5 DAYS 03/21 completed Not Available Not Available Not Available levalbute rol HFA 45 mcg/actua tion aerosol inhaler 2 PUFFS EVERY 4 HOURS NEEDED COUGH active Not Available Not Available No t Available Iron (ferrous sulfate) 2013 active 1 tab daily Not Available Not Available Not Available multivita min 1 tab daily 06/22 completed Not Available Not Available Not Available hydrocodo ne 5 mg-acetam inophen 300 mg tablet Take 1 -2 tablet(s ) EVERY 6 HOURS by oral route IF NEEDED. active Not Available Not Available No t Available olopatadi ne 0.2 % eye drops INSTILL 1 DROP INTO BOTH EYES ONCE DAILY 09/30 completed Not Available Not Available Not Available peg 3350-elec trolytes 236 gram-22.7 4 gram-6.74 gram-5.86 gram solution USE DIRECTED 09/07 completed Not Available Not Available Not Available Butalbita l Compound with Codeine 30 mg-50 mg-325 mg-40 mg capsule Take 1 capsule every 4 hours by oral route as needed for 15 days. active Not Available Not Available No t Available prasugrel HCl 10 mg tablet TAKE 1 TABLET BY MOUTH DAILY 03/19 completed Not Available Not Available Not Available ketorolac 30 mg/mL injection solution 1 ml IM x 1 04/15 completed [id number] Not Available Not Available Not Available Vagifem [address] 1 TABLET VAGINALL Y EVERY OTHER DAY FOR 2 WEEKS, THEN CONTINUE USING 1-2/WEEK THEREAFT ER 09/30 completed Not Available Not Available Not Available butalbita l-acetami nophen-ca ffeine 50 mg-300 mg-40 mg capsule Take 1 capsule every day by oral route as needed. active Not Available Not Available No t Available Xeomin 50 unit intramusc ular solution active Not Available Not Available Not Available Monistat 3 4 % (200 mg)-2 %(9 gram)vagi nal pack,pref il appl and cream insert by vaginal route qhs x 3 days active Not Available Not Available No t Available Afluria 7730-4298 45 mcg (15 mcg x 3)/0.5 mL intramusc ular suspensio n TO BE ADMINIST ERED BY PHARMACI ST FOR IMMUNIZA TION active Not Available Not Available No t Available Afluria 8409-9310 (PF) 45 mcg (15 mcg x 3)/0.5 mL IM syringe TO BE ADMINIST ERED BY PHARMACI ST FOR IMMUNIZA TION active Not Available Not Available No t Available Fluarix Quad [id number] (PF) 60 mcg (15 mcg x 4)/0.5 mL IM syringe TO BE ADMINIST ERED BY PHARMACI ST FOR IMMUNIZA TION 06/22 completed Not Available Not Available Not Available Flucelvax Quad (PF) 60 mcg (15 mcg x 4)/0.5 mL IM syringe TO BE ADMINIST ERED BY PHARMACI ST FOR IMMUNIZA TION 10/12 completed Not Available Not Available Not Available Shingrix (PF) 50 mcg/0.5 mL intramusc ular suspensio n, kit TO BE ADMINIST ERED BY PHARMACI ST FOR IMMUNIZA TION 10/12 completed Not Available Not Available Not Available Aimovig Autoinjec tor 140 mg sc qmonth 04/12 completed Not Available Not Available Not Available Fluzone Quad (P F) 60 mcg(15 mcgx4)/0. 5 mL intramusc ular syringe TO BE ADMINIST ERED BY PHARMACI ST FOR IMMUNIZA TION 03/19 completed Not Available Not Available Not Available Emgality Pen 120 mg/mL subcutane ous pen injector INJECT 1 ML SUBCUTAN EOUSLY ONCE MONTHLY DIRECTED active Not Available Not Available No t Available Aimovig Autoinjec tor 140 mg/mL subcutane ous auto-inje ctor Inject 140 mg every month by subcutan eous route. 04/12 completed Not Available Not Available Not Available Flucelvax Quad (PF) 60 mcg (15 mcg x 4)/0.5 mL IM syringe TO BE ADMINIST ERED BY PHARMACI ST FOR IMMUNIZA TION 10/12 completed Not Available Not Available Not Available [facility] 75 mg disintegr ating tablet DISSOLVE 1 TABLET BY MOUTH EVERY DAY NEEDED FOR MIGRAINE active Not Available Not Available No t Available Afluria Qd (36 mos up)(PF)60 mcg (15 mcg x4)/0.5 mL IM syringe PHARMACY ADMINIST ERED 10/12 completed Not Available Not Available Not Available BinaxNOW COVID-19 Ag Self Test kit REFER TO MANUFACT URER INSTRUCT IONS INCLUDED IN PACKAGIN G 10/05 completed Not Available Not Available Not Available Vitals Date Recorded Body height Body mass index (BMI) Body weight Body temperature Heart rate Oxygen saturation Oxygen saturation in Arterial blood by Pulse oximetry Provider Name and Address Organization Details Last Updated DateTime 4 165.1 cm 31.1 kg/m2 24393.7 7 g 97.3 [degF] 89 /min 97 % 97 % Rosa Molina RN [facility] 4 16:18:21 Date Recorded Systolic blood pressure Diastolic blood pressure Provider Name and Address Organization Details Last Updated DateTime 08/31/2023 138 mm[Hg] 88 mm[Hg] Amber Schwab MD [address] [facility] [address], [place], [address], [facility] [employer] [facility] 08/31/2023 16:28:48 Date Recorded Body height Body mass index (BMI) Body weight Body temperature Heart rate Oxygen saturation Oxygen saturation in Arterial blood by Pulse oximetry Systolic blood pressure Diastolic blood pressure Provider Name and Address Organization Details Last Updated DateTime 4 165.1 cm 31 kg/m2 77464.1 8 g 98.2 [degF] 76 /min 98 % 98 % 120 mm[Hg] 80 mm[Hg] Rosa Molina RN [facility] 4 14:53:55 Date Recorded Body height Body mass index (BMI) Body weight Provider Name and Address Organization Details Last Updated DateTime 03/21/2024 165.1 cm 30 kg/m2 34561.63 g Cynthia Santizo, Jennifer [facility] 03/21/2024 14:55:24 Date Recorded Body height Provider Name an d Address Organization Details Last Updated DateTime 04/24/2024 165.1 cm Adelaida Morales [facility] 04/24/2024 14:02:26 Social History Question Answer Notes LastModified by Organizat ion Details LastModified Time Tobacco Smoking Status Never Smoker Shanita Baugh [facility], [facility] 08/10/2022 12:03:29 What Is Your Level Of Alcohol Consumption? Occasional [email or web address] Information not available 03/21/2024 What Was The Date Of Your Most Recent Tobacco Screening? 03/21/2024 [email or web address] Information not available 03/21/2024 Sex: Unknown Functional Status None recorded. Mental Status None recorded. Family History Relationship Description Onset Age of this Age Resolved Age Notes LastModified by Organization Details LastModified Time Maternal Grandmother Diabetes mellitus [email or web address] Not available 07/28 12:03:16 Notes:kenelog Medical History Condition Response HIGH CHOLESTEROL / HYPERLIPIDEMIA Y STROKE/TIA Y CORONARY ARTERY DISEASE (CAD) Y ARTHRITIS Y USE OF BLOOD THINNERS Y HEART DISEASE/HEART PROBLEMS N HYPERTENSION Y Gynecological History Statement/Question Response Most Recent Mammogram 04/05/2023 Obstetrics History GPAL:G 0 P 0 0 0 0 Immunizations Vaccine Type Date Status Note Provider Nam e and Address Organization Details Recorded Time SARS-COV-2 (COVID-19) vaccine, UNSPECIFIED 3 completed Rosa Molina RN null, [facility] 04/04/2023 12:17:16 influenza, unspecified formulation 3 completed Rosa Molina RN null, [facility] 04/04/2023 12:17:38 Tdap 3 completed Joanie Parnell LPN null, [facility] 05/12/2023 16:19:10 COVID-19, mRNA, LNP-S, bivalent, PF, 30 mcg/0.3 mL dose 3 completed Not Available [facility] 07/28/2022 07:48:27 Influenza, MDCK, quadrivalent, PF 2 completed Not Available [facility] 07/28/2022 07:48:27 Influenza, split virus, quadrivalent, preservative 6 completed Not Available [facility] 07/28/2022 07:48:27 Influenza, split virus, trivalent, preservative 5 completed Not Available [facility] 07/28/2022 07:48:27 meningococcal MCV4P 7 completed Not Available [facility] 07/28/2022 07:48:27 meningococcal MCV4P 7 completed Not Available [facility] 07/28/2022 07:48:27 Influenza, split virus, trivalent, preservative 4 completed Not Available [facility] 07/28/2022 07:48:28 Tdap 3 completed Not Available [facility] 07/28/2022 07:48:28 Past Encounters Encounter ID Performer Location Encounter Start Date Encounter Closed Date Diagnosis/Indication Diagnosis SNOMED-CT Code Diagnosis ICD10 Code Diagnosis Note [id number] [facility] [place] [address] [place] [address] [address] [facility] [place] [address] 10/08/2020 00:00:00 10/09/2020 09:27:41 [id number] [facility] [place] [address] [place] [address] [address] [place] [facility] [place] [address] 11/05/2020 00:00:00 11/25/2020 17:07:31 [id number] [facility] [place] [address] [place] [address] [address] [place] [address] 02/12/2021 00:00:00 02/12/2021 18:53:06 [id number] [facility] [place] [address] [facility] 140 [place] [address] 03/10/2021 00:00:00 03/10/2021 14:26:13 [id number] [facility] [place] [address] [facility] [place] [address] 03/12/2021 00:00:00 03/12/2021 12:11:04 [id number] [facility] [place] [address] [place] [address] 04/09/2021 00:00:00 04/09/2021 15:08:00 [id number] [facility] [place] [address] [place] [address] 04/27/2021 00:00:00 04/27/2021 22:03:44 [id number] [facility] [place] [address] [place] [address] 06/10/2021 00:00:00 06/28/2021 21:38:10 [id number] [facility] [place] [address] [place] [address] 09/22/2021 00:00:00 09/22/2021 14:35:50 [id number] [facility] [place] [address] [facility] [address] [place] [address] 10/20/2021 00:00:00 10/20/2021 18:02:16 [id number] [facility] [place] [address] [facility] [address] [place] [address] 12/22/2021 00:00:00 12/25/2021 10:53:01 [id number] _ATHENA_M IGRATION_ DEFAULT_1 _1 , 01/04/2022 00:00:00 01/07/2022 09:57:01 [id number] _ATHENA_M IGRATION_ DEFAULT_1 _1 , 01/11/2022 00:00:00 01/20/2022 10:08:08 [id number] [facility] [place] [address] [place] [address] 01/27/2022 00:00:00 01/27/2022 15:30:32 [id number] [facility] [place] [address] [place] [address] 03/15/2022 00:00:00 03/29/2022 11:15:13 [id number] [facility] [place] [address] [place] [address] 04/12/2022 00:00:00 04/27/2022 21:02:39 [id number] [facility] [place] [address] [place] [address] 07/05/2022 00:00:00 07/25/2022 15:52:44 [id number] Watson kumari MD [facility] General Surgery [address] [place] [address] 08/10/2022 10:36:30 08/10/2022 14:07:13 Hemorrhoids 11976647 K64.9 [id number] MABEL Carrillo [facility] [place] [address] [place] [address] 10/05/2022 11:27:03 10/05/2022 14:14:08 Closed fracture of neck of fifth metacarpal bone of right hand 2017077007 6417369 S62.336D [id number] Amber Schwab MD [facility] [place] [address] [facility] [address] [place] [address] 10/04/2022 15:54:23 10/04/2022 17:15:42 Essential hypertension 73091349 I10 Hyperglycemia 85957821 R 73.9 Liver enzy mes level above reference range 729873545 R74.01 Vitamin D deficiency 347 74137 E55.9 Seasonal allergy 9847097 04 J30.2 [id number] SHANNON Shine [facility] [place] [address] [facility] [address] [place] [address] 12/17/2022 14:45:52 12/17/2022 14:53:31 [id number] Amber Schwab MD [facility] [place] [address] [facility] [address] [place] [address] 01/04/2023 14:42:32 01/04/2023 15:23:18 Seasonal allergy 951331296 J30.2 Increased liver function 93416564 R94.5 improvingr epeat labs in 4 weeks Essential hypertension 98086506 I10 stablecont inue current meds [id number] SHANNON Shine [facility] [place] [address] [facility] [address] [place] [address] 02/04/2023 14:32:14 02/04/2023 15:33:29 [id number] Amber Schwab MD [facility] [place] [address] [facility] [address] [place] [address] 05/12/2023 15:39:18 05/12/2023 16:13:42 [id number] Amber Schwab MD [facility] [place] [address] [facility] [address] [place] [address] 07/11/2023 14:34:35 07/11/2023 15:08:35 Adult health examination 902648444 Z00.00 Mammogram 04/21 normal repeat in 04/22DEXA age 60Shingrix in 2019 and 2020Covid booster 03/2023Tda p 03/2023Flu 03/2023s/p hysterecto my, no pap neededper patient colonoscop y age 50, repeat age 60, will get records for reviewchec k fasting labs Essential hypertension 95380264 I10 stablecont inue current meds Hyperglycemia 04428833 R 73.9 Hyperlipidemia 32737530 E78.5 Z79.899 Vitamin D deficiency 347 49204 E55.9 [id number] Amber Schawb MD [facility] [place] [address] [facility] [address] [place] [address] 08/31/2023 16:13:12 08/31/2023 16:38:18 Prediabetes 006500187 R73.03 a1c was 6.3, has made lifestyle changeswil l recheck a1c in 3 months, plan metformin if no improvemen t Anxiety 65513045 F41.9 stable, no refill needed for alprazolam today [id number] SHANNON Ambriz [facility] [place] [address] [place], [place] [address] 12/07/2023 14:42:39 12/07/2023 15:31:13 Anxiety 73489774 F41.9 patient is doing well, no longer takes alprazolam .Denies SI/HI. [id number] Aris Gaspard, PUBLICITY PERSON-C [facility] [place] [address] [place] [address] 03/16/2024 14:09:00 03/16/2024 14:28:33 [id number] Aimee Gaona NP [facility] [place] [address] [place] [address] 03/21/2024 14:38:54 03/21/2024 15:29:38 Pain of left hand 9192402439 89298 M79.002 [id number] MABEL Christianson [facility] [place] 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 [id number] Mario Kat [id number] Delia Kat 12/07/[address] [facility] [id number] Mario Kat [id number] Delia Al Kat 03/16/[address] [facility] [id number] Mario Kat [id number] Delia Al RamirezKat 03/21/[address] [facility] [id number] Mario Kat [id number] Delia Al RamirezKat 04/24/[address] [facility] [id number] Mario Kat [id number] Delia Kat Notes Date Note Type Note Provider Name and Address Organization Details Recorded Time 08/31/2023 text/html labs showed a1c 6.3, she has been exercising and cutting out sugar. She has lost 2 pounds from her last appt. Amber Schwab MD [address] [facility], [facility] [address], [place], [address], [employer] 08/31/2023 16:38:51 12/07/2023 text/html Patient is a 58 year old female that presents to the office to discuss controlled substance policy to refill Alprazolam. Patient reports she stopped taking this medication and therefor does not need it refilled. Patient denies all medical concerns at this time including chest pain and shortness of breath, nausea vomiting and diarrhea. SHANNON Ambriz [address] [facility], [facility] [address], [place], [address], [employer] 02/06/2024 15:41:21 04/24/2024 text/html Patient returns she is 58 years of age she has pain at the left basilar thumb joint as well as a chronic history of some numbness and tingling in the ulnar nerve distribution. She was seen here about a month ago by another provider, she was told to keep her arm straight when she sleeps at night and was also given a thumb spica brace to help put the joint at rest. Unfortunately she is on blood thinners chronically can not take oral anti-inflammatory medication so treatment options are somewhat limited. We did talk today about possibly doing a shot of cortisone however she states she has high anxiety and can not tolerate that she is afraid she may faint. She states if she sits with her elbow flexed for too long of a time this will cause her 4th and 5th fingers to go to sleep then she has to shake her hand to wake it up. She has been trying to sleep at night with her elbow straight but still tends to wake up with her arm bent. She also has pain in the basilar thumb joint particularly if she tries to do anything heavy with gripping or grasping. 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 She comes in today for follow up and further evaluation. MABEL Christianson [address] [facility], [facility] [address], [place], [address], [facility] [place] 04/24/2024 14:25:38 OBGyn Episode No OBEpisode recorded.
== END 2024-06-19 12:50 | disposition home or self-care (01) ==
PROVIDERS: PCP Nurse Practitioner Family; Visit Provider Physician Assistant Surgical
DX: G56.22 Lesion of ulnar nerve, left upper limb (principal)
CPT/HCPCS: 95886; 95909

== ENCOUNTER 2025-02-23 16:04 | Emergency (ER) | payer OTHER, SELFPAY ==
--- NOTE | ~2025-02-23 | XR_ITS ---
EXAMINATION: XR finger 1st LT min 2V, 02/23/2025 17:41 CDT HISTORY: Trauma COMPARISON: No comparisons available. Findings: No acute fracture or malalignment. No significant degenerative changes. Soft tissues unremarkable. Impression: No acute fracture or malalignment. Reviewed, dictated and finalized at location P. Impression: No acute fracture or malalignment.
[2025-02-23 16:06] VITALS: BP 148/88; PULSE 65; RESP 18; TEMP 36.4; O2SAT 99
--- NOTE | 2025-02-23 17:25 | ED.GENADULT ---
HPI - General Adult General Chief complaint: Unspecified Stated complaint: left thumb pain, its killing me Time Seen by Provider: 02/23/25 17:23 Source: patient Mode of arrival: ambulatory Limitations: no limitations History of Present Illness HPI narrative: Left thumb pain at the base at the palmar side started yesterday. No specific trauma. Patient been doing a lot of cleaning and lifting and pushing at home over the last few days. She denies any fever, chills, nausea, vomiting. Worse with movement, better without movement Related Data Home Medications ?Medication ?Instructions ?Recorded ?Confirmed ?Last Taken ?Type alprazolam 1 mg tablet 1 mg PO TID PRN Anxiety 04/23/19 03/23/23 Unknown History aspirin 81 mg chewable tablet 81 mg PO DAILY 04/23/19 03/23/23 Unknown History atorvastatin 80 mg tablet (Lipitor) 80 mg PO DAILY 04/23/19 03/23/23 Unknown History cetirizine 10 mg tablet 10 mg PO DAILY 04/23/19 03/23/23 Unknown History clopidogrel 75 mg tablet 75 mg PO DAILY 04/23/19 03/23/23 Unknown History metoprolol tartrate 25 mg tablet 25 mg PO BID 04/23/19 03/23/23 Unknown History losartan 100 mg tablet 100 mg PO DAILY 09/08/22 03/23/23 Unknown History Allergies Allergy/AdvReac Type Severity Reaction Status Date / Time fluoxetine Allergy Unknown Unknown Verified 03/01/24 15:55 [id number]-2-QT6 Antimigraine Allergy Unknown Unknown Verified 03/01/24 15:55 Agents morphine Allergy Unknown Verified 03/01/24 15:55 Sulfa (Sulfonamide Allergy Hives Verified 03/01/24 15:55 Antibiotics) ibuprofen AdvReac Intermediate ON BLOOD Verified 03/01/24 15:55 THINNERS tramadol AdvReac Intermediate VOMITING 4 Verified 03/01/24 15:55 DAYS Kazpaqf-BMJ-XmO Reductase AdvReac Unknown makes me Verified 03/01/24 15:55 Inhibitor (Czobvcg-Hay-Wgo feel like Reductase Inhibitor) I'm having a heart attack Review of Systems Review of Systems: All systems reviewed & are unremarkable except as noted in HPI and below PMFSH Past Medical History Medical History Arthritis Depression Anxiety Migraines Uterine fibroid GERD (gastroesophageal reflux disease) Hypertension CAD (coronary artery disease) Hyperlipidemia Cataract Surgical History Surgical History H/O right wrist surgery H/O section History of bladder suspension procedure H/O cardiac catheterization H/O: hysterectomy Partial Social History Social History Smoking status: Former smoker Tobacco type: cigarettes Smoking end date: 12/29/11 Alcohol intake: current Alcohol use details: wine cooler sometimes Substance use: never Substance use type: does not use Lack of Transportation: No Lack of Food: Never True Current Housing: I Have Housing Concerned About Future Housing: No Difficulty Paying Gas/Electric Bills: No Difficulty Paying for Meds: No Currently Unemployed: No Education: High School Diploma/GED Difficulty w/ Childcare or Family Care: No Living arrangements: with family Gender identity (if verbalized by the patient): Female Exam Narrative: General appearance: Well-developed, well-nourished Skin: Normal color Chest and respiratory: Airway patent, no respiratory distress, no accessory muscle use Heart: Regular rate/rhythm Vascular: Normal peripheral pulses, normal capillary refill. Musculoskeletal: Mild diffuse tenderness at the base of the left thumb at the palmar side, no bruises, no swelling, no rash Neurologic: Alert and oriented ?3 Course Course Emergency Course: Left thumb been nontraumatic pain, differential diagnosis sprain, strain, less likely fracture, less likely arthritis X-ray of the left thumb showed no acute osseous abnormality Vital Signs Vital signs: Vital Signs Temperature 36.4 C 02/23/25 16:06 Pulse Rate 65 02/23/25 16:06 Respiratory Rate 18 02/23/25 16:06 Blood Pressure 148/88 H 02/23/25 16:06 Pulse Oximetry 99 02/23/25 16:06 Oxygen Delivery Room Air 02/23/25 16:06 Temperature 36.4 C 02/23/25 16:06 Pulse Rate 65 02/23/25 16:06 Respiratory Rate 18 02/23/25 16:06 Blood Pressure 148/88 H 02/23/25 16:06 Pulse Oximetry 99 02/23/25 16:06 Oxygen Delivery Room Air 02/23/25 16:06 Medical Decision Making Vital Signs Vital Signs: Vital Signs Temperature 36.4 C 02/23/25 16:06 Pulse Rate 65 02/23/25 16:06 Respiratory Rate 18 02/23/25 16:06 Blood Pressure 148/88 H 02/23/25 16:06 Pulse Oximetry 99 02/23/25 16:06 Oxygen Delivery Room Air 02/23/25 16:06 Temperature 36.4 C 02/23/25 16:06 Pulse Rate 65 02/23/25 16:06 Respiratory Rate 18 02/23/25 16:06 Blood Pressure 148/88 H 02/23/25 16:06 Pulse Oximetry 99 02/23/25 16:06 Oxygen Delivery Room Air 02/23/25 16:06 Imaging Data Radiologist's impression: Impressions Finger X-Ray 02/23/25 17:51 Impression: No acute fracture or malalignment. Critical Care Time Critical Care Time Critical Care Time: No Discharge Plan Discharge Clinical Impression: Pain of left thumb Patient Disposition: Home Condition: Stable Instructions: Finger Sprain (ED) Additional Instructions: Return if symptoms are worsening , call your family physician for appointment, take T as as needed for aches and pain, continue home medications. Keep hand elevated Take Tylenol, ibuprofen as needed Patient Language: Andorran Prescriptions: No Action alprazolam 1 mg tablet 1 mg PO TID PRN (Reason: Anxiety) aspirin 81 mg tablet,chewable 81 mg PO DAILY atorvastatin [Lipitor] 80 mg tablet 80 mg PO DAILY cetirizine 10 mg tablet 10 mg PO DAILY clopidogrel 75 mg tablet 75 mg PO DAILY metoprolol tartrate 25 mg tablet 25 mg PO BID estradiol [Yuvafem] 10 mcg tablet 10 mcg vaginal .see comments 14 Days Qty: 30 6RF Rx Instructions: place 1 tablet vaginally every other day for 2 weeks, then continue using 1-2/week thereafter losartan 100 mg tablet 100 mg PO DAILY lidocaine HCl-hydrocortison ac 3-0.5 % cream 1 applic RECTAL BID PRN (Reason: hemorrhoids) Qty: 98 0RF cephalexin 500 mg capsule 500 mg PO Q6H 5 Days Qty: 20 0RF cyclobenzaprine 10 mg tablet 10 mg PO HS PRN (Reason: muscle spasm) Qty: 10 0RF ondansetron HCl [Zofran] 8 mg tablet 8 mg PO Q8H PRN (Reason: nausea and vomiting) Qty: 14 0RF cephalexin 500 mg capsule 500 mg PO Q8H 10 Days Qty: 30 0RF famotidine [Pepcid] 20 mg tablet 20 mg PO BID Qty: 14 0RF ondansetron HCl [Zofran] 4 mg tablet 4 mg PO Q6H PRN (Reason: nausea and vomiting) Qty: 10 0RF carbamazepine 100 mg tablet,chewable 100 mg PO TID 7 Days Qty: 21 0RF cyclobenzaprine 10 mg tablet 10 mg PO TID PRN (Reason: muscle spasm) Qty: 20 0RF hydrocodone-acetaminophen 5-325 mg tablet 1 tablet PO Q6H PRN (Reason: pain) 3 Days Qty: 12 0RF amoxicillin-pot clavulanate 875-125 mg tablet 1 tablet PO Q12H Qty: 14 0RF ondansetron 4 mg tablet,disintegrating 4 mg PO Q8H PRN (Reason: nausea and vomiting) Qty: 14 0RF Follow-up/Referrals: Rafael,Joseline Montes NP [Primary Care Provider, Unknown]
[2025-02-23] MEDS: ACETAMINOPHEN 325 MG TABLET 650 MG PO (17:51)
== END 2025-02-23 18:20 | disposition home or self-care (01) ==
PROVIDERS: Emergency Provider Emergency Medicine; PCP Nurse Practitioner Family
DX: M79.645 Pain in left finger(s) (principal); M19.90 Unspecified osteoarthritis, unspecified site; F32.A Depression, unspecified; F41.9 Anxiety disorder, unspecified; K21.9 Gastro-esophageal reflux disease without esophagitis; I10 Essential (primary) hypertension; I25.10 Atherosclerotic heart disease of native coronary artery without angina pectoris; E78.5 Hyperlipidemia, unspecified; Z79.82 Long term (current) use of aspirin
CPT/HCPCS: 73140; 99283; A9270

== ENCOUNTER 2025-04-25 16:51 | Emergency (ER) | payer OTHER, SELFPAY ==
--- NOTE | ~2025-04-25 | CT_ITS ---
PROCEDURE: [Procedure] INDICATION: Pain which feels like her diverticulitis, N/V/D COMPARISON(S): March 23, 2023 TECHNIQUE: Multiplanar images of the abdomen and pelvis were obtained with intravenous contrast solution.. Diagnostic sensitivity is limited due to lack of oral contrast. Dose lowering technique and dose optimization was utilized. FINDINGS: Inferior thorax: Strandy density at the left lung base is unchanged and thought to be chronic, consistent with scarring. Liver: Scattered small probable cysts, too small to characterize, unchanged. Gallbladder: The gallbladder is present. There are no radiopaque gallstones. The gallbladder is distended. Pancreas: Within normal limits. Spleen: Normal in size and appearance. Adrenal glands: There are no masses seen. Kidneys: There is no hydronephrosis seen on either side. No urinary tract stones are seen. There are no suspicious masses seen. GI tract: There is no evidence of bowel obstruction. There is a small hiatal hernia. Nearly the entire colon, except for the cecum, is either collapsed or contains some degree of fluid. Bowel wall thickening is seen in the sigmoid with inflammatory change in the surrounding fat. This consistent with diverticulitis. There is no evidence of rupture or abscess formation.. The appendix is seen and is nearly entirely filled by air. There is a linear density in the mid appendix which may represent retained barium from previous contrast study. This was not seen on the prior study. Air is seen distal to this, and the appendix wall thickening. It is not thought to be inflamed. Major vessels: The major vessels are normal in caliber. Sex specific pelvic organs: The uterus is not seen. Bladder: The bladder appers normal. Bones: Within normal limits for the patient's age. There are injection granulomata in both gluteal regions. There is a tiny umbilical hernia containing only fat. IMPRESSION: Findings consistent with diverticulitis and possible colitis in the more proximal portions of the colon. No complicating process is seen. Reviewed, dictated and finalized at location A. COPER IMPRESSION: Findings consistent with diverticulitis and possible colitis in the more proxim al portions of the colon. No complicating process is seen.
[2025-04-25 16:51] VITALS: RESP 16; O2SAT 98
[2025-04-25 16:59] VITALS: BP 152/87; PULSE 80; RESP 12; O2SAT 100
[2025-04-25 17:28] LABS: Hematocrit 41.6 % (37.0-47.0); Hemoglobin 13.9 g/dL (12.0-15.0); Immature Granulocyte Percent A 0.2 % (0-0.5); Lymphocytes Absolute Auto 0.96 K/mm3 (0.9-3.2); Mean Corpuscular HGB Conc 33.4 g/dl (32-36); Mean Corpuscular Hemoglobin 29.3 pg (26-34); Mean Corpuscular Volume 87.6 fl (80-100); Nucleated Red Blood Cells Absolute Auto 0.000 K/mm3 (0.0-0.012); Nucleated Red Blood Cells Perc 0.0 % (0.0-0.2); Platelet Count Result 390 k/mm3 (150-375); Red Blood Count 4.75 M/mm3 (4.2-5.4); White Blood Count 12.9 K/mm3 (4.5-10.0)
[2025-04-25] MEDS: oxyCODONE HCL (*CRX) 5 MG TAB IR PO (17:30)
[2025-04-25 17:36] LABS: Alanine Aminotransferase 39 U/L (6-35); Albumin Level 4.1 g/dL (3.5-5.1); Alkaline Phosphatase 115 U/L (38-126); Anion Gap 6 mmol/L (4-12); Aspartate Amino Transferase 38 U/L (14-36); Bilirubin,Total 0.8 mg/dL (0.2-1.3); Blood Urea Nitrogen 11 mg/dL (7-17); Calcium 9.4 mg/dL (8.4-10.2); Carbon Dioxide 24 mmol/L (22-30); Chloride 110 mmol/L (98-107); Estimated CRCL calculation 66 ml/min; Estimated Glomerular Filt Rate > 60; Glucose 110 mg/dL (65-110); Lipase 50 U/L (23-300); Potassium 3.3 mmol/L (3.4-5.0); Sodium 140 mmol/L (137-145); Total Protein 6.7 g/dL (6.3-8.2)
--- NOTE | 2025-04-25 17:54 | PC.NURSE ---
patient to radiology at this time
[2025-04-25] MEDS: KCL 20 MEQ/SW 100 ML 100 ML 50 MEQ IVPB (18:32)
[2025-04-25] MEDS: LACTATED RINGERS 1,000 ML 999 ML IV CONT (18:32)
--- NOTE | 2025-04-25 18:32 | ED.ABDPAIN ---
HPI - Abdominal Pain General Chief Complaint: Abdominal Pain Stated Complaint: abd pain Time Seen by Provider: 04/25/25 17:01 History of Present Illness HPI narrative: Patient started having nausea, vomiting, diarrhea, and abdominal pain today; it feels like when she had diverticulitis. Related Data Home Medications ?Medication ?Instructions ?Recorded ?Confirmed ?Last Taken ?Type alprazolam 1 mg tablet 1 mg PO TID PRN Anxiety 04/23/19 03/23/23 Unknown History aspirin 81 mg chewable tablet 81 mg PO DAILY 04/23/19 03/23/23 Unknown History atorvastatin 80 mg tablet (Lipitor) 80 mg PO DAILY 04/23/19 03/23/23 Unknown History cetirizine 10 mg tablet 10 mg PO DAILY 04/23/19 03/23/23 Unknown History clopidogrel 75 mg tablet 75 mg PO DAILY 04/23/19 03/23/23 Unknown History metoprolol tartrate 25 mg tablet 25 mg PO BID 04/23/19 03/23/23 Unknown History losartan 100 mg tablet 100 mg PO DAILY 09/08/22 03/23/23 Unknown History Allergies Allergy/AdvReac Type Severity Reaction Status Date / Time fluoxetine Allergy Unknown Unknown Verified 03/01/24 15:55 [id number] Antimigraine Allergy Unknown Unknown Verified 03/01/24 15:55 Agents morphine Allergy Unknown Verified 03/01/24 15:55 Sulfa (Sulfonamide Allergy Hives Verified 03/01/24 15:55 Antibiotics) ibuprofen AdvReac Intermediate ON BLOOD Verified 03/01/24 15:55 THINNERS tramadol AdvReac Intermediate VOMITING 4 Verified 03/01/24 15:55 DAYS [id number]-[id number] Reductase AdvReac Unknown makes me Verified 03/01/24 15:55 Inhibitor (Urboijd-Whw-Fvm feel like Reductase Inhibitor) I'm having a heart attack Review of Systems Review of Systems: All systems reviewed & are unremarkable except as noted in HPI and below PMFSH Past Medical History Medical History Arthritis Depression Anxiety Migraines Uterine fibroid GERD (gastroesophageal reflux disease) Hypertension CAD (coronary artery disease) Hyperlipidemia Cataract Surgical History Surgical History H/O right wrist surgery H/O section History of bladder suspension procedure H/O cardiac catheterization H/O: hysterectomy Partial Social History Social History Smoking status: Former smoker Tobacco type: cigarettes Smoking end date: 12/29/11 Alcohol intake: current Alcohol use details: wine cooler sometimes Substance use: never Substance use type: does not use Lack of Transportation: No Lack of Food: Never True Current Housing: I Have Housing Concerned About Future Housing: No Difficulty Paying Gas/Electric Bills: No Difficulty Paying for Meds: No Currently Unemployed: No Education: High School Diploma/GED Difficulty w/ Childcare or Family Care: No Living arrangements: with family Gender identity (if verbalized by the patient): Female Exam Narrative: EXAMINATION OF ORGAN SYSTEMS/BODY AREAS: Constitutional: Vital signs per nursing GENERAL: Appears slightly uncomfortable HEAD: Normal with no signs of head trauma. EYES: EOMI, conjunctiva normal ENT: Hearing grossly intact LUNGS: Nonlabored breathing. HEART: [Regular rate and rhythm] ABD: [Soft], slightly tender to palpation without any focal tenderness EXT: Normal range of motion SKIN: [No rashes or lesions.] NEURO: [Alert and oriented x 3. No gross focal sensory or strength deficits.] PSYCH: Normal affect Course Vital Signs Vital signs: Vital Signs Respiratory Rate 16 04/25/25 16:51 Pulse Oximetry 98 04/25/25 16:51 Oxygen Delivery Room Air 04/25/25 16:51 Pulse Rate 80 04/25/25 16:59 Respiratory Rate 12 04/25/25 16:59 Blood Pressure 152/87 H 04/25/25 16:59 Pulse Oximetry 100 04/25/25 16:59 Oxygen Delivery Room Air 04/25/25 16:51 MDM - Abdominal Pain MDM Narrative Medical decision making narrative: Electronic medical record was reviewed. Patient presented to the ED with complaint of [abdominal pain and vomiting]. Vitals [were within acceptable limits]. Physical exam revealed some tenderness to palpation diffusely of her abdomen.. Based on the patient's history and physical exam, my differential includes but is not limited to [gastritis, gastroenteritis, cholecystitis, diverticulitis]. [IV access was established by nursing staff. Patient already received Zofran with improvement in her nausea, she is allergic to morphine but does well with oxycodone so this is ordered]. CBC, BMP, lipase, LFTs, bilirubin and alk phos were obtained. Labs were pertinent for slightly elevated WBCs. [Decision was made to obtain a CT-abdomen to evaluate for acute abdominal process. CT-abdomen per radiology interpretation showing diverticulitis, uncomplicated.] On reevaluation, the patient states that they are feeling much better. There were no witnessed episodes of vomiting in the emergency department. They are not complaining of any new abdominal pain. Repeat examination did not show any significant guarding or rebound. No new tenderness. At this time I do not feel there is any further emergent treatment to be provided. The patient was given strict return precautions, if they are to develop any worsening abdominal pain, vomiting, fevers or chills, they are to return to the emergency department immediately. Patient verbally acknowledges understanding these directions. [The patient was informed of the above diagnostic test findings.] No further workup is necessary at this time. They will be discharged home [with prescriptions for antibiotics, 1st dose here]. They were advised to follow-up with [their PCP] in 2 days. The patient feels that this is appropriate medical decision making and verbalizes an understanding of the discharge instructions. Lab Data 04/25/25 17:14 04/25/25 17:14 Labs: Lab Results 04/25/25 Range/Units 17:14 WBC 12.9 H (4.5-10.0) K/mm3 RBC 4.75 (4.2-5.4) M/mm3 Hgb 13.9 (12.0-15.0) g/dL Hct 41.6 (37.0-47.0) % MCV 87.6 (80-100) fl MCH 29.3 (26-34) pg MCHC 33.4 (32-36) g/dl RDW 13.9 (11.5-14.5) % Plt Count 390 H (150-375) k/mm3 MPV 9.1 (7.4-10.4) fl Immature Gran % (Auto) 0.2 (0-0.5) % Neut % (Auto) 84.7 H (45.5-73.1) % Lymph % (Auto) 7.5 L (18.3-44.2) % Crawford % (Auto) 6.9 (2.6-8.5) % Eos % (Auto) 0.2 (0-4.4) % Baso % (Auto) 0.5 (0.2-1.2) % Lymph # (Auto) 0.96 (0.9-3.2) K/mm3 Crawford # (Auto) 0.9 H (0.1-0.6) K/mm3 Eos # (Auto) 0.0 (0-0.3) K/mm3 Baso # (Auto) 0.1 (0.0-0.1) K/mm3 Abs Immat Gran (auto) 0.03 (0.00-0.031) K/mm3 Absolute Neuts (auto) 10.9 H (1.3-6.7) K/mm3 Absolute Nucleated RBC 0.000 (0.0-0.012) K/mm3 Nucleated RBC % 0.0 (0.0-0.2) % Sodium 140 (137-145) mmol/L Potassium 3.3 L (3.4-5.0) mmol/L Chloride 110 H (98-107) mmol/L Carbon Dioxide 24 (22-30) mmol/L Anion Gap 6 (4-12) mmol/L BUN 11 (7-17) mg/dL Creatinine 0.81 (0.7-1.0) mg/dL Estim Creat Clear Calc 66 ml/min Estimated GFR > 60 (59 - ) Glucose 110 (65-110) mg/dL Lactic Acid 1.9 (0.7-2.0) mmol/L Calcium 9.4 (8.4-10.2) mg/dL Total Bilirubin 0.8 (0.2-1.3) mg/dL AST 38 H (14-36) U/L ALT 39 H (6-35) U/L Alkaline Phosphatase 115 (38-126) U/L Total Protein 6.7 (6.3-8.2) g/dL Albumin 4.1 (3.5-5.1) g/dL Lipase 50 (23-300) U/L Imaging Data Radiologist's impression: ITS Impressions Abdomen/Pelvis CT 04/25/25 19:12 IMPRESSION: Findings consistent with diverticulitis and possible colitis in the more proximal portions of the colon. No complicating process is seen. Discharge Plan Discharge Clinical Impression: Diverticulitis Patient Disposition: Home Condition: Stable Instructions: Antibiotic Form, Diverticulitis (ED) Additional Instructions: Please follow-up with primary care doctor or with your GI specialist. Take the medications as prescribed come back to the ER if your symptoms worsen or if you cannot keep anything down. Patient Language: Arabic Prescriptions: New dicyclomine 20 mg tablet 20 mg PO TID PRN (Reason: abdominal pain) Qty: 30 0RF ondansetron 4 mg tablet,disintegrating 4 mg PO Q8H PRN (Reason: nausea and vomiting) Qty: 10 0RF amoxicillin-pot clavulanate 875-125 mg tablet 1 tablet PO Q12H Qty: 10 0RF No Action alprazolam 1 mg tablet 1 mg PO TID PRN (Reason: Anxiety) aspirin 81 mg tablet,chewable 81 mg PO DAILY atorvastatin [Lipitor] 80 mg tablet 80 mg PO DAILY cetirizine 10 mg tablet 10 mg PO DAILY clopidogrel 75 mg tablet 75 mg PO DAILY metoprolol tartrate 25 mg tablet 25 mg PO BID estradiol [Yuvafem] 10 mcg tablet 10 mcg vaginal .see comments 14 Days Qty: 30 6RF Rx Instructions: place 1 tablet vaginally every other day for 2 weeks, then continue using 1-2/week thereafter losartan 100 mg tablet 100 mg PO DAILY lidocaine HCl-hydrocortison ac 3-0.5 % cream 1 applic RECTAL BID PRN (Reason: hemorrhoids) Qty: 98 0RF cephalexin 500 mg capsule 500 mg PO Q6H 5 Days Qty: 20 0RF cyclobenzaprine 10 mg tablet 10 mg PO HS PRN (Reason: muscle spasm) Qty: 10 0RF ondansetron HCl [Zofran] 8 mg tablet 8 mg PO Q8H PRN (Reason: nausea and vomiting) Qty: 14 0RF cephalexin 500 mg capsule 500 mg PO Q8H 10 Days Qty: 30 0RF famotidine [Pepcid] 20 mg tablet 20 mg PO BID Qty: 14 0RF ondansetron HCl [Zofran] 4 mg tablet 4 mg PO Q6H PRN (Reason: nausea and vomiting) Qty: 10 0RF carbamazepine 100 mg tablet,chewable 100 mg PO TID 7 Days Qty: 21 0RF cyclobenzaprine 10 mg tablet 10 mg PO TID PRN (Reason: muscle spasm) Qty: 20 0RF hydrocodone-acetaminophen 5-325 mg tablet 1 tablet PO Q6H PRN (Reason: pain) 3 Days Qty: 12 0RF amoxicillin-pot clavulanate 875-125 mg tablet 1 tablet PO Q12H Qty: 14 0RF ondansetron 4 mg tablet,disintegrating 4 mg PO Q8H PRN (Reason: nausea and vomiting) Qty: 14 0RF Follow-up/Referrals: Rafael,Joseline Montes TECHNICAL LEAD [Primary Care Provider, Unknown]
[2025-04-25] MEDS: POTASSIUM CHLORIDE 20 MEQ ER TABLET PO (20:04)
[2025-04-25 20:09] VITALS: BP 143/85; PULSE 66; RESP 16; O2SAT 99
== END 2025-04-25 20:10 | disposition home or self-care (01) ==
PROVIDERS: Emergency Provider Emergency Medicine; PCP Nurse Practitioner Family
DX: K57.32 Diverticulitis of large intestine without perforation or abscess without bleeding (principal); I25.10 Atherosclerotic heart disease of native coronary artery without angina pectoris; I10 Essential (primary) hypertension; E78.5 Hyperlipidemia, unspecified; K21.9 Gastro-esophageal reflux disease without esophagitis; F32.A Depression, unspecified; F41.9 Anxiety disorder, unspecified; Z87.891 Personal history of nicotine dependence; Z90.711 Acquired absence of uterus with remaining cervical stump
CPT/HCPCS: 36415; 74177; 80053; 83605; 83690; 85025; 96365; 96366; 99284; A9270; J3480; J7120; Q9967

== ENCOUNTER 2025-05-15 12:50 | Outpatient (CLI) | payer OTHER, SELFPAY ==
--- NOTE | 2025-05-15 13:10 | NEURO_ITS ---
Impression: # Complains of left-hand discomfort. ? # No Carpal Tunnel Syndrome. ? 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 ? # Normal needle/ EMG exam. Nerve Conduction Studies ?Stim Site NR Peak (ms) P-T Amp (?V) Site1 Site2 Delta-P (ms) Dist (cm) Ion (m/s) Left Median Anti Sensory (2-3nd Digit) Wrist ? 2.5 39.5 Wrist 2-3nd Digit 2.5 14.0 56 Wrist ? 2.5 37.6 Wrist 2-3nd Digit 2.5 14.0 56 Right Median Anti Sensory (2-3nd Digit) Wrist ? 2.5 37.3 Wrist 2-3nd Digit 2.5 14.0 56 Wrist ? 2.4 40.7 Wrist 2-3nd Digit 2.5 14.0 56 Left Radial Anti Sensory (Base 1st Digit) Wrist ? 1.8 26.5 Wrist Base 1st Digit 1.8 0.0 Right Radial Anti Sensory (Base 1st Digit) Wrist ? 2.2 18.0 Wrist Base 1st Digit 2.2 0.0 Left Ulnar Anti Sensory (5th Digit) Wrist ? 2.3 37.3 Wrist 5th Digit 2.3 14.0 61 Right Ulnar Anti Sensory (5th Digit) Wrist ? 2.4 39.0 Wrist 5th Digit 2.4 14.0 58 ?Stim Site NR Onset (ms) O-P Amp (mV) Site1 Site2 Delta-0 (ms) Dist (cm) Ion (m/s) Left Median Motor (Abd Poll Brev) Wrist ? 3.0 4.1 Elbow Wrist 5.0 28.0 56 Elbow ? 8.0 4.0 Right Median Motor (Abd Poll Brev) Wrist ? 2.3 3.7 Elbow Wrist 4.9 28.0 57 Elbow ? 7.2 4.7 Left Ulnar Motor (Abd Dig Minimi) Wrist ? 2.6 6.9 A Elbow Wrist 4.7 29.0 62 A Elbow ? 7.3 2.8 B Elbow Wrist 3.5 21.0 60 B Elbow ? 6.1 3.1 Right Ulnar Motor (Abd Dig Minimi) Wrist ? 2.7 4.5 A Elbow Wrist 4.9 27.0 55 A Elbow ? 7.6 3.5 B Elbow Wrist 3.6 20.0 56 B Elbow ? 6.3 3.3 F Wave Studies ?NR F-Lat (ms) L-R F-Lat (ms) Left Median (Mrkrs) (Abd Poll Brev) ? 26.67 1.35 Right Median (Mrkrs) (Abd Poll Brev) ? 25.33 1.35 Left Ulnar (Mrkrs) (Abd Dig Min) ? 24.38 0.55 Right Ulnar (Mrkrs) (Abd Dig Min) ? 23.83 0.55 Electromyography ?Side Muscle Nerve Root Ins Act Fibs Amp Dur Recrt Comment Right 1stDorInt Ulnar C8-T1 Nml Nml Nml Nml Nml Right Ext Indicis Radial (Post Int) C7-8 Nml Nml Nml Nml Nml Right Ext Digitorum Radial (Post Int) C7-8 Nml Nml Nml Nml Nml Right BrachioRad Radial C5-6 Nml Nml Nml Nml Nml Right PronatorTeres Median C6-7 Nml Nml Nml Nml Nml Right Abd Poll Brev Median C8-T1 Nml Nml Nml Nml Nml Right ABD Dig Min Ulnar C8-T1 Nml Nml Nml Nml Nml Right FlexPolLong Median (Ant Int) C7-8 Nml Nml Nml Nml Nml Right Abd Poll Long Radial (Post Int) C7-8 Nml Nml Nml Nml Nml Left 1stDorInt Ulnar C8-T1 Nml Nml Nml Nml Nml Left Ext Indicis Radial (Post Int) C7-8 Nml Nml Nml Nml Nml Left Ext Digitorum Radial (Post Int) C7-8 Nml Nml Nml Nml Nml Left BrachioRad Radial C5-6 Nml Nml Nml Nml Nml Left PronatorTeres Median C6-7 Nml Nml Nml Nml Nml Left Abd Poll Brev Median C8-T1 Nml Nml Nml Nml Nml Left ABD Dig Min Ulnar C8-T1 Nml Nml Nml Nml Nml Left FlexPolLong Median (Ant Int) C7-8 Nml Nml Nml Nml Nml Left Abd Poll Long Radial (Post Int) C7-8 Nml Nml Nml Nml Nml
--- OUTSIDE RECORDS SUMMARY | 2025-05-15 14:49 | XMS_ITS | Clinical Summary ---
Author Organization [facility] Address [address] [place] [address] Care Team Providers Care [employer] Repairer Name Role Phone Amber Schwab MD Primary Care Provider [phone] Allergies Active Allergy Reactions Criticality Noted Date Comments Sulfa Antibiotics Rash Low 03/24/2018 Social History Tobacco Use Types Packs/Day Years Used Date Smoking Tobacco: Never Smokeless Tobacco: Never Alcohol Use Standard Drinks/Week Comments No 0 (1 standard drink = 0.6 oz pur e alcohol) AUDIT-C Answer Date Recorded Frequency of Alcohol Consumption Never 05/18/2019 Average Number of Drinks Not on file 019 Frequency of Binge Drinking Not on file 04/30 Comments No Sex and Gender Information Value Date Recorded Sex Assigned at Female 06/20/2024 1:47 PM VETERINARY LIVESTOCK INSPECTOR Legal Sex Female 5:31 PM CDT Gender Identity Not on file Sexual Orientation Not on file Last Filed Vital Signs Vital Sign Reading Time Taken Comments Blood Pressure 149/88 05/18/2019 8:56 PM VETERINARY LIVESTOCK INSPECTOR Pulse 88 05/18/2019 8:56 PM VETERINARY LIVESTOCK INSPECTOR Temperature 36.3 C (97.4 F) 05/18/2019 6:57 PM VETERINARY LIVESTOCK INSPECTOR Respiratory Rate 20 05/18/2019 8:56 PM VETERINARY LIVESTOCK INSPECTOR Oxygen Saturation 98% 05/18/2019 8:56 PM VETERINARY LIVESTOCK INSPECTOR Inhaled Oxygen Concentration - - Weight 83.5 kg (184 lb) 05/18/2019 6:57 PM VETERINARY LIVESTOCK INSPECTOR Height 160 cm (5' 3) 05/18/2019 6:57 PM VETERINARY LIVESTOCK INSPECTOR Body Mass Index 32.59 05/18/2019 6:57 PM VETERINARY LIVESTOCK INSPECTOR Plan of Treatment Health Maintenance Due Date Last Done Comments Cervical Cancer Screening Pap Smear (Age 30 to 64) Every 3 Years 1965 Colorectal Cancer Screening Colonoscopy (10 Years) 1965 Annual Physical 1968 Hepatitis C 1983 Cervical Cancer Screening Pap with HPV Testing (Age 30 to 64) Every 5 Years 1995 Cervical Cancer Screening with HPV 1995 Pneumococcal Vaccine: 50+ Years (1 of 1 - PCV) 2015 PHQ-2 (Physician [facility]) 05/30/2024 COVID-19 Vaccine ( season) 2025 02/07/2024, 04/01/2023, 04/01/2023, Additional history exists Influenza Adult (#1) 2025 01/20/2024, 04/01/2023, 03/03/2022, Additional history exists Mammogram Screening 06/20/2026 06/20/2024 DTaP, Tdap and Td Vaccines (3 - Td or Tdap) 05/12/2033 05/12/2023, 04/02/2013 Meningococcal Vaccine Aged Out 02/11/2017, 017 No longer eligible based on patient's age to complete this topic Zoster Vaccines Completed 08/08/2019, 03/01, 03/15/2019 Hepatitis A Vaccines Aged Out No long er eligible based on patient's age to complete this topic Meningococcal B Vaccine Aged Out No l onger eligible based on patient's age to complete this topic RSV Immunizations Under 20 Months Aged Out No longer eligible based on patient's age to complete this topic Procedures Procedure Name Priority Date/Time Associated Diagnosis Comments MG SCREENING W HASMUKH ROGERS DIGI Routine 06/20/2024 2:09 PM VETERINARY LIVESTOCK INSPECTOR Encounter for other screening for malignant neoplasm of breast from Last 3 Months or Most Recently Relevant to Health Maintenance Results * MG SCREENING W HASMUKH ROGERS DIGI (06/20/2024 2:09 PM VETERINARY LIVESTOCK INSPECTOR) Anatomical Region Laterality Modality Breast Bilateral Mammography 06/20/2024 3:02 PM VETERINARY LIVESTOCK INSPECTOR Impressions 06/20/2024 3:03 PM VETERINARY LIVESTOCK INSPECTOR IMPRESSION: No suspicious mammographic findings. Recommendation: 1. Routine Screening, Bilateral Assessment: ACR BI-RADS 2 - BENIGN FINDING(S) Ordered By: ADDY HALL Interpreted By: Osmani Aguila, 06/20/2024 3:02 PM Narrative 06/20/2024 3:03 PM VETERINARY LIVESTOCK INSPECTOR [facility] [address] [facility] [place] [address] Examination: Screening bilateral mammogram Exam Date/Time: 06/20/2024 1:51 PM Clinical history: No current complaints. Comparison: 04/05/2023 Technique: Digital screening mammography of both breasts was performed. Breast tomosynthesis acquisitions were obtained and reviewed. This study was read with the assistance of a computer-aided detection system. Tissue density: There are scattered areas of fibroglandular density. Findings: No suspicious masses, malignant appearing calcifications, skin thickening or other abnormalities are present. No significant change from the prior exam. Addy Hall MANAGING DIRECTOR ATLAS MAMMO Final Result from Last 3 Months or Most Recently Relevant to Health Maintenance Insurance Care Teams [employer] Rep[employer]r Relationship Specialty Start Date End Date Amber Schwab MD [address] [place] [address] [place] [address] PCP - General FAMILY PRACTICE 03/24/18
--- OUTSIDE RECORDS SUMMARY | 2025-05-15 14:49 | XMS_ITS | Encounter Summary ---
Author Organization [facility] Address [address] [facility] [address] [place] [address] Care Team Providers Care Supervisor Cell Operation Name Role Phone Amber Schwab MD Primary Care Provider + Aris Garzon NP Primary Care Provider [phone] Joseline Hall LABOR RELATIONS CONSULTANT Primary Care Provider [phone] Encounter Details Date Type Department Care Team (Late st Contact Info) Description 09/09/2016 Orders Only [facility] ProviderRuth MD [address] [place], [place] [id number] Social History Tobacco Use Types Packs/Day Years Used Date Smoking Tobacco: Some Days Cigarettes Last attempted to quit: 05/30/2011 Alcohol Use Standard Drinks/Week Comments Yes 0 (1 standard drink = 0.6 oz pur e alcohol) Comments Unknown Sex and Gender Information Value Date Recorded Sex Assigned at Not on file Legal Sex Female 10:29 AM RUG SETTER VELVET Gender Identity Not on file Sexual Orientation Not on file documented as of this encounter Plan of Treatment Not on file documented as of this encounter Procedures Procedure Name Priority Date/Time Associated Diagnosis Comments CARDIOLOGY REPORT 09/09/2016 documented in this encounter Results * CARDIOLOGY REPORT (09/09/2016) Anatomical Region Laterality Modality Other Narrative 09/09/2016 Ordered by an unspecified provider. Historical Provider [facility] Final Result documented in this encounter Visit Diagnoses Not on filedocumented in this encounter Care Teams Supervisor Cell Operation Relationship Specialty Start Date End Date Amber Schwab MD [address] [place] [address] PCP - General 08/27/16 11/27/23 Aris Garzon NP [address] [place] [address] PCP - General Family Medicine 11/28/23 02/20/24 Joseline Hall NP [address] [place] [address] PCP - General Family Medicine 02/21/24 documented as of this encounter
--- OUTSIDE RECORDS SUMMARY | 2025-05-15 14:49 | XMS_ITS | Encounter Summary ---
Author Organization [facility] Address [address] [facility] [address] [place] [address] Care Team Providers Care Rn Home Health Name Role Phone Amber Schwab MD Primary Care Provider + Amber Schwab MD Primary Care Provider + Aris Garzon HOSPITAL ADMITTING CLERK Primary Care Provider [phone] Joseline Hall HOSPITAL ADMITTING CLERK Primary Care Provider [phone] Encounter Details Date Type Department Care Team (Late st Contact Info) Description 08/02/2016 Orders Only [facility] ProviderRuth MD [address] [place] [id number] Social History Tobacco Use Types Packs/Day Years Used Date Smoking Tobacco: Some Days Cigarettes Last attempted to quit: 05/30/2011 Alcohol Use Standard Drinks/Week Comments Yes 0 (1 standard drink = 0.6 oz pur e alcohol) Comments Unknown Sex and Gender Information Value Date Recorded Sex Assigned at Not on file Legal Sex Female 10:29 AM GAS SPECIALIST Gender Identity Not on file Sexual Orientation Not on file documented as of this encounter Plan of Treatment Not on file documented as of this encounter Procedures Procedure Name Priority Date/Time Associated Diagnosis Comments CARDIOLOGY REPORT 08/02/2016 documented in this encounter Results * CARDIOLOGY REPORT (08/02/2016) Anatomical Region Laterality Modality Other Narrative 08/02/2016 Ordered by an unspecified provider. Historical Provider [facility] S[facility] Final Result documented in this encounter Visit Diagnoses Not on filedocumented in this encounter Care Teams Rn Home Health Relationship Specialty Start Date End Date Amber Schwab MD [address] [place] [address] [place] [address] PCP - General 08/27/16 11/27/23 Amber Schwab MD [address] [place] [address] [place] [address] PCP - General 02/23/12 08/26/16 Aris Garzon NP [address] [place] [address] PCP - General Family Medicine 11/28/23 02/20/24 Joseline Hall NP [address] [place] [address] PCP - General Family Medicine 02/21/24 documented as of this encounter
--- OUTSIDE RECORDS SUMMARY | 2025-05-15 14:49 | XMS_ITS | Encounter Summary ---
Author Organization [facility] Address [address] [place] [id number] Care Team Providers Care Plasma Processing Technician Name Role Phone Amber Schwab MD Primary Care Provider + Amber Schwab MD Primary Care Provider + Aris Garzon [employer] Primary Care Provider [phone] Joseline Hall [employer] Primary Care Provider [phone] Encounter Details Date Type Department Care Team (Late st Contact Info) Description 06/24/2016 Orders Only [facility] ProviderRuth MD [address] [place] [id number] Social History Tobacco Use Types Packs/Day Years Used Date Smoking Tobacco: Some Days Cigarettes Last attempted to quit: 05/30/2011 Alcohol Use Standard Drinks/Week Comments Yes 0 (1 standard drink = 0.6 oz pur e alcohol) Comments Unknown Sex and Gender Information Value Date Recorded Sex Assigned at Not on file Legal Sex Female 10:29 AM PROCESS SAFETY MANAGER Gender Identity Not on file Sexual Orientation Not on file documented as of this encounter Plan of Treatment Not on file documented as of this encounter Procedures Procedure Name Priority Date/Time Associated Diagnosis Comments CARDIOLOGY REPORT 06/24/2016 documented in this encounter Results * CARDIOLOGY REPORT (06/24/2016) Anatomical Region Laterality Modality Other Narrative 06/24/2016 Ordered by an unspecified provider. Historical Provider [facility] Final Result documented in this encounter Visit Diagnoses Not on filedocumented in this encounter Care Teams Plasma Processing Technician Relationship Specialty Start Date End Date Amber Schwab MD [address] [place] [address] [place] [id number] PCP - General 08/27/16 11/27/23 Amber Schwab MD [address] [place] [address] [place] [address] PCP - General 02/23/12 08/26/16 Aris Garzon NP [address] [place] [address] PCP - General Family Medicine 11/28/23 02/20/24 Joseline Hall NP [address] [place] [address] PCP - General Family Medicine 02/21/24 documented as of this encounter
--- OUTSIDE RECORDS SUMMARY | 2025-05-15 14:49 | XMS_ITS | Patient Health Record ---
Author Organization [facility], Address [address] [place] [address] Care Team Providers Care Non Destructive Evaluation Specialist Name Role Phone StephenjacquimiguelAmber Primary Care Provider Unavailab Darren Scott Unavailable [phone] Alec Bryant Unavailable Unavailable Allergies Allergen (clinical drug ingredient) Drug/Non Drug Allergy documented on EMR Reaction Allergy Type Onset Date Status Substance with serotonin 0-ftavwyaozyiyounbf-8 receptor agonist mechanism of action (substance) Triptans for migraine (uncoded) Unknown Allergy Active tramadol Tramadol HCl Unknown Drug Allergy Acti ve fluoxetine Prozac Unknown Drug Allergy Active Reason For Referral No Information Medications Medication SIG (Take, Route, Frequency, Duration) Notes Start Date End Date Status ALPRAZolam Active Acid Overseer Kosher Kitchen Active Soma Active HYDROcodone-Acetaminophen Active Atorvastatin Calcium Active Metoprolol Tartrate Active Effient Active Aspirin Active Social History Social History Additional Details Category Social Info Options Details Household: Does someone live at home with you yes Section Notes: She is a non-smoker. She never consumes alcohol. She does not use an assist device to ambulate. She lives at home with someone who can help her. Plan Of Treatment No Information Insurance Providers Payer Name Payer Address Payer Phone Subscriber Number Group Number Insured Name Patient Relationship to Insured Coverage Start Date Coverage End Date [facility] [address] [place] [phone] [id number] Shey Mario Spouse - patient is the spouse of the insured Medical (General) History Medical History History ICD Code Angina CAD Stroke Arthritis Gastritis Neck pain Back pain Spinal stenosis Anxiety Denies h/o drug/chemical dependency Surgical History Surgery Date(Month/Year) 1985 1989 R. wrist 2006 Cardiac stents 2011 Hysterectomy 2012
--- OUTSIDE RECORDS SUMMARY | 2025-05-15 14:49 | XMS_ITS | Clinical Summary ---
Author Organization [facility] Address [address] [place] [address] Care Team Providers Care Chief Lock Tender Operator Name Role Phone Amber Schwab MD Primary Care Provider [phone] Rodrigo Knutson MD Unavailable [phone] Source Comments [facility],non-owned Affiliates and Associated Physician Practices is amultiple site organization consisting of ambulatory clinics and hospital sitesin [place], [place], [place] and [place]. This disclosure is being madepursuant to the Care Everywhere program and may not contain all information available regarding this patient. Last updated 18.[facility] Allergies Active Allergy Reactions Criticality Noted Date Comments Fluoxetine Nausea and/or Vomiting,Unknown Low 11/19 Hmg-Coa-R Inhibitors Palpitations 07/05/2023 Morphine Other,Unknown 03/28/2019 ... ... Nsaids Vomiting 11/02/2018 Sulfa Antibiotics Rash Medium 03/24/2018 Sulfa Drugs Urticaria,Rash Medium 03/24/2018 Tramadol Nausea and/or Vomiting,Unknown,Vomiting High 11/20/2015 Medications * Be aware that medications may not be up to date on this document. Alwaysverify current medications with the patient. Aspirin 81 MG Take 1 (one) tablet by mouth DAILY 4 6 Active pantoprazole EC (PROTONIX) 40 MG tablet Take 1 (one) tablet by mouth once daily 6 Active metoprolol tartrate (LOPRESSOR) 25 MG tablet Take 1 (one) tablet by mouth once daily 6 Active [place]-3 Fatty Acids (FISH OIL) 1000 MG capsuleIndicat ions:Blepharos pasm Take 3 (three) capsules by mouth once daily Active Cetirizine HCl (ZYRTEC ALLERGY PO) Take 1 tablet by mouth once daily Active dicyclomine (BENTYL) 20 MG tablet TAKE 1 TABLET BY MOUTH FOUR TIMES A DAY NEEDED 1 Active ezetimibe (ZETIA) 10 MG tablet 1 Active rosuvastatin (Crestor) 40 MG tablet Take 1 (one) tablet by mouth once daily 2 Active losartan (Cozaar) 100 MG tablet Take 1 (one) tablet by mouth once daily 2 Active nitroGLYCERIN (Nitrostat) 0.[address] 1 TABLET UNDER THE TONGUE EVERY 5 MINUTES NEEDED FOR CHEST PAIN. Active incobotulinumt oxin A (Xeomin) 50 units injectionIndic ations:Blephar ospasm,right hemifacial spasm Inject 50 (fifty) Units into muscle Every 90 days Reasons: Eyelid Twitch, right hemifacial spasm 50 Units 3 4 Active vitamin D, ergocalciferol , (Drisdol) 1.25 MG (56937 UT) capsule TAKE 1 CAPSULE EVERY WEEK BY ORAL ROUTE. 5 Active fexofenadine (Latasha) 180 MG tablet Take 1 (one) tablet by mouth once daily 5 Active Emgality 120 MG/ML auto-injector pen INJECT 1 ML SUBCUTANEOUSLY ONCE MONTHLY DIRECTED 5 Active Nurtec 75 MG tablet DISSOLVE 1 TABLET BY MOUTH EVERY DAY NEEDED FOR MIGRAINE 5 Active oxyCODONE, immediate release, (Roxicodone) 5 MG tabletIndicati ons:Blepharosp asm Take 1 (one) tablet by mouth every 6 hours as needed 30 tablet 5 Active acetaminophen (Tylenol) 325 MG tablet Take 2 (two) tablets by mouth every 6 hours as needed Maximum allowable Acetaminophen amount = 4 Grams (4000 mg) / 24 hours. 5 Active methocarbamol (Robaxin) 500 MG tablet Take 1 (one) tablet by mouth every 8 hours as needed for Muscle Spasms 30 tablet 5 Active lidocaine (Lidoderm) 5 % patch Apply 1 (one) patch to skin once daily Apply patch to most painful area and remove after 12 hours. May reapply a new patch 12 hours later. 20 patch 5 Active ondansetron, disintegrating , (Zofran ODT) 4 MG tabletIndicati ons:Nausea Take 1 (one) tablet by mouth every 6 hours as needed for nausea/vomiting Allow tablet to dissolve on the tongue 16 tablet 5 Active clopidogrel (plaVIX) 75 MG tablet Take 1 (one) tablet by mouth once daily 5 Active nystatin (Mycostatin) 293195 UNIT/GM cream 5 Active ondansetron (Zofran) 4 MG tabletIndicati ons:Nausea and Vomiting Take 1 (one) tablet by mouth every 6 hours as needed for nausea/vomiting Reasons: Nausea and Vomiting 20 tablet 5 Active Hospital, Clinic, or Other Facility Administered Medication Ordered Dose Route Frequency Start Date End Date Status abobotulinumtoxin-A (Dysport) injection 28.5 UnitsIndications:Benign essential blepharospasm 28.5 Units IM ONCE 05/08/2025 05/08/2025 E nded Active Problems Problem Noted Date Diagnosed Date Leukocytosis 04/04/2025 Assessment & Plan (04/05/2025 1:39 PM JUMP ROLL OPERATOR): 12.5 immediately postop, 13.8 today Patient without signs of infection, including no tachycardia, afebrile, no tachypnea, no dysuria, no dyspnea, no rash or signs of cellulitis on skin exam Likely reactive leukocytosis Plan: Patient instructed to return to ED for any signs of shortness of breath, redness/drainage from scalp incision site, very bad headache, vision changes, confusion, new weakness, difficulty speaking, loss of consciousness or seizure Assessment & Plan (04/04/2025 6:07 PM JUMP ROLL OPERATOR): 12.5 immediately postop Patient without signs of infection, including no tachycardia, afebrile, no tachypnea, Likely reactive leukocytosis Plan: Daily CBC Continue to monitor for fevers, signs of infection Brow ptosis, bilateral 09/21/2024 Achilles tendinitis of right lower extremity 03/2021 Dystrophia unguium 04/09/2021 Sensory hearing loss, bilateral 12/31/2020 Plantar fasciitis of left foot 09/12/2019 Ptosis, bilateral 01/04/2019 Ptosis of left eyelid 11/02/2018 Status post placement of implantable loop record er 09/22/2016 Overview (05/11/2018): Overview: Medtronic Reveal Loop Recorder. Dx; Cryptogenic Stroke. DOI 05/12/2016. ILR Explanted 04/24/2018. Blepharospasm 11/20/2015 Assessment & Plan (04/05/2025 1:39 PM JUMP ROLL OPERATOR): S/p R craniotomy for microvascular decompression for hemifacial spasm Patient transferred to floor, hemodynamically stable. Likely discharge early tomorrow Plan: -order placed for Home health PT/OT and wheeled walker (DME order placed) -NSGY appointment 04/18 for pos-op visit and staple removal. Assessment & Plan (04/04/2025 6:07 PM JUMP ROLL OPERATOR): S/p R craniotomy for microvascular decompression for hemifacial spasm Patient transferred to floor, hemodynamically stable. Likely discharge early tomorrow Plan: - Multimodal pain control - Stat CT head for any change in neurological examination - confirm with NSGY about follow up appointment, for post-op f/u and removal of galindo -PT/OT recommending home health PT/OT and wheeled walker. DME order placed. Unknown and unspecified causes of morbidity 12/2014 Overview (10/05/2017): Overview: S/P coronary artery stent placement Benign hypertension 05/06/2015 Overview (08/14/2020): HTN (hypertension), benign Assessment & Plan (04/05/2025 1:39 PM JUMP ROLL OPERATOR): Continue home losartan 100 mg daily, metoprolol tartrate 25 mg bid Assessment & Plan (04/04/2025 6:07 PM JUMP ROLL OPERATOR): Continue home losartan 100 mg daily, metoprolol tartrate 25 mg bid Coronary artery disease invo lving re[place] coronary artery of [place] heart without angina pectoris 05/06/2015 Overview (08/14/2020): Coronary artery disease involving [place] coronary artery of [place] heart without angina pectoris Assessment & Plan (04/05/2025 1:39 PM JUMP ROLL OPERATOR): History of NSTEMI s/p high risk PCI with implantation of bare metal stent to ostial LAD in January 2012. , on lifelong ASA, and is still taking Plavix Hx of cryptogenic stroke in 2014. Previous loop recorder did not reveal any arrhythmias Per cardiology report, no history of TN or stenting since this episode in 2011, however, has remained on DAPT since then. Patient also endorses the same history, and denies any cardiac events since DAPT is not appear to be indicated Plan: OK to resume single anti-platelet therapy, 81 mg ASA per NSGY notes Plan to discontinue Plavix as not indicated Encouraged patient f/u with PCP and/or budget record clerk about this change and further medication adjustment Assessment & Plan (04/04/2025 6:36 PM JUMP ROLL OPERATOR): History of NSTEMI s/p high risk PCI with implantation of bare metal stent to ostial LAD in January 2012. , on lifelong ASA, and is still taking Plavix Hx of cryptogenic stroke in 2015. Previous loop recorder did not reveal any arrhythmias Per cardiology report, no history of TN or stenting since this episode in 2011, however, has remained on DAPT since then. Patient also endorses the same history, and denies any cardiac events since DAPT is not appear to be indicated Plan: OK to resume single anti-platelet therapy, 81 mg ASA per NSGY notes Plan to discontinue Plavix as not indicated Encouraged patient f/u with PCP and/or budget record clerk about this change Dyslipidemia 05/06/2015 Overview (08/14/2020): Mixed dyslipidemia Assessment & Plan (04/05/2025 1:39 PM JUMP ROLL OPERATOR): Continue home rosuvastatin 40 Zetia not on formulary, continue at discharge Assessment & Plan (04/04/2025 6:36 PM JUMP ROLL OPERATOR): Continue home rosuvastatin 40 Zetia not on formulary, continue at discharge Old myocardial infarction 05/06/2015 Overview (08/14/2020): Myocardial infarction greater than 8 weeks ago Headache 12/31/2014 Overview (08/14/2020): Frequent headaches Cryptogenic stroke 10/08/2014 Overview (08/14/2020): Cryptogenic stroke Cerebral infarction 08/12/2014 Overview (08/02/2018): Overview: CVA (cerebral infarction) Encounters Date Type Department Care Team Description 05/08/2025 3:00 PM JUMP ROLL OPERATOR Procedure visit [facility] - Ophthalmology [address] [place] [phone] Geetha Anne MD Benign essential blepharospasm 05/08/2025 Travel 04/18/2025 3:15 PM JUMP ROLL OPERATOR [facility] [address] [place] [phone] Mckay Benson MD Walsh, Jodi, APRN-CNP Nausea (Primary Dx) 04/18/2025 Travel 04/16/2025 Refill [facility] - Neurosurgery [address] [place] [phone] Miriam Root APRN-CELL REPAIRER Refill Request 04/14/2025 Orders Only [facility] - Neurology [address] [place] [address] [place] [phone] Mahogany Chinchilla MD Cerebrovascular accident (CVA), unspecified mechanism (HCC) ; Snoring 04/09/2025 Orders Only [facility] - Neurosurgery [address] [place] [phone] Miriam Root, MEDICAL ASSISTANT CARDIOLOGY-CELL REPAIRER Nausea 04/03/2025 9:19 AM JUMP ROLL OPERATOR Anesthesia Event [facility] [address] [place] [address] Alen Carrizales MD Singh, Jaganjot, DO 04/03/2025 8:50 AM JUMP ROLL OPERATOR - 04/03/2025 12:35 PM JUMP ROLL OPERATOR Surgery [facility] [address] [place] [address] Mckay Benson MD Right Craniotomy for Microvascular Decompression 04/03/2025 7:17 AM JUMP ROLL OPERATOR - 04/05/2025 3:18 PM JUMP ROLL OPERATOR Hospital Encounter [facility] [address] [place] [phone] Mckay Benson MD Surgery General Discharge Disposition: Home or Self Care 04/03/2025 Travel 04/02/2025 Telephone [facility] - Neurosurgery [address] [place] [phone] Tosin Haines Follow-up 04/01/2025 Travel 03/25/2025 3:00 PM CDT Office Visit [facility] - Neurology [address] [place] [phone] Mahogany Chinchilla MD H/O: stroke (Primary Dx) 03/25/2025 Travel 03/08/2025 Results Follow-Up [facility] Neurology [address] [place] [phone] Kiya Zeng MD 03/07/2025 Travel 03/06/2025 Telephone [facility] - Neurosurgery [address] [place] [phone] Tosin Haines Follow-up 03/06/2025 Telephone [facility] - Neurosurgery [address] [place] [phone] Tosin Haines Follow-up 02/27/2025 3:00 PM CDT Office Visit [facility] - Neurology [address] [place] [phone] Jorge Bernal APRN-NATALYA Cryptogenic stroke (HCC) (Primary Dx) 02/27/2025 Travel 02/26/2025 2:50 PM CDT - 02/26/2025 11:59 PM CDT Hospital Encounter [facility] LAB OP DRAW STATION [address] [place] [address] Mckay Benson MD Discharge Disposition: Home or Self Care 02/26/2025 2:45 PM CDT - 02/26/2025 2:49 PM CDT Hospital Encounter [facility] DIAGNOSTIC RAD OP [address] [place] [phone] Mckay Benson MD Discharge Disposition: Home or Self Care 02/26/2025 2:30 PM CDT - 02/26/2025 2:44 PM CDT Hospital Encounter [facility] EKG/HOLTER [address] [place] [phone] Mckay Benson MD Discharge Disposition: Home or Self Care 02/26/2025 2:00 PM CDT - 02/26/2025 2:29 PM CDT Hospital Encounter [facility] PAT [address] [place] [address] Mckay Benson MD Discharge Disposition: Home or Self Care 02/26/2025 1:30 PM CDT Office Visit [facility] - Neurosurgery [address] [place] [phone] Mckay Benson MD Hemifacial spasm of right side of face (Primary Dx); Pre-op testing 02/26/2025 Travel 02/25/2025 1:59 PM CDT - 02/25/2025 11:59 PM CDT Hospital Encounter [facility] CAT SCAN [address] [place] [phone] Kiya Zeng MD Discharge Disposition: Home or Self Care 02/25/2025 Travel 02/18/2025 Travel 02/13/2025 Telephone [facility] - Centralized Scheduling [address] [place] [phone] Mckay Benson MD Appointment 02/13/2025 Telephone [facility] - Neurosurgery [address] [place] [phone] Mckay Benson MD Appointment (Reached out to pt to leave ,VM box was full will attempt 2 more calls to schedule for Blepharospasm /Per tosin pearson with MRI imaging done prior.) 02/13/2025 Telephone [facility] - Ophthalmology [address] [place] [phone] Geetha Anne MD Medication Issue from Last 3 Months Immunizations Immunization Administration Dates Next Due INFLUENZA VACCINE, TRIV. (AF LURIA, FLUZONE TRIVALENT; 6MO+) (IIV3) 02/27/2015,03/19/2014 FLU VACCINE QUAD IIV4 SPLIT 0.25 ML IM 6 INFLUENZA VACCINE 01/11/2018 INFLUENZA VACCINE, CELL CULT URE, QUADR. (FLUCELVAX QUADRIVALENT; 6MO+) (CCIIV4) 01/20/2019 INFLUENZA VACCINE, QUADR. (F LUZONE; FLULAVAL; FLUARIX; AFLURIA QUADRIVALENT; 6MO+), 0.5 ML (IIV4) 02/05/2020,01/20/2018 MENINGOCOCCAL ACWY (MCV4P) VAC IM 02/11/2017, TDAP (7yrs+) 04/02/2013 Zoster Hzv Vacc Recombinant Inj Im 08/08/2019, Social History Tobacco Use Types Packs/Day Years Used Date Smoking Tobacco: Former Cigarettes 0 Q uit: 05/30/2014 Smokeless Tobacco: Never Tobacco Cessation:Counseling Given: No Alcohol Use Standard Drinks/Week Comments Yes 0 (1 standard drink = 0.6 oz pur e alcohol) one drink a month PHQ-2 Answer Date Recorded Patient Health Questionnaire-2 Score 0 10/31/2024 AUDIT-C Answer Date Recorded Q1: How often do you have a drink containing alc ohol? Monthly or less 04/03/2025 Q2: How many drinks containi ng alcohol do you have on a typical day when you are drinking? 1 or 2 04/03/2025 Q3: How often do you have si x or more drinks on one occasion? Never 04/03/2025 Overall Financial Resource Strain (CARDIA) Answe r Date Recorded How hard is it for you to pa y for the very basics like food, housing, medical care, and heating? Not hard at all 04/04/2025 [facility] [place] [facility] - Occupational Stress Questionnaire Answer Date Recorded Do you feel stress - tense, restless, nervous, or anxious, or unable to sleep at night because your mind is troubled all the time - these days? Not at all 04/04/2025 Hunger Vital Sign Answer Date Recorded Within the past 12 months, y ou worried that your food would run out before you got the money to buy more. Never true 04/04/20 25 Within the past 12 months, t he food you bought just didn't last and you didn't have money to get more. Never true 04/04/2025 PRAPARE - Transportation Answer Date Re corded In the past 12 months, has l ack of transportation kept you from medical appointments or from getting medications? No 10/2024 In the past 12 months, has l ack of transportation kept you from meetings, work, or from getting things needed for daily living? No 04/04/2025 Housing Stability Vital Sign Answer Christiano e Recorded In the last 12 months, was t here a time when you were not able to pay the mortgage or rent on time? No 04/04/2025 In the past 12 months, how m any times have you moved where you were living? 0 04/04/2025 At any time in the past 12 m [facility], were you homeless or living in a assisted (including now)? No 04/04/2025 Comments No Sex and Gender Information Value Date Recorded Sex Assigned at Not on file Legal Sex Female 5:25 PM JUMP ROLL OPERATOR Gender Identity Not on file Sexual Orientation Not on file Last Filed Vital Signs Vital Sign Reading Time Taken Comments Blood Pressure 125/82 04/18/2025 3:04 PM JUMP ROLL OPERATOR Pulse 64 04/18/2025 3:04 PM JUMP ROLL OPERATOR Temperature 36.6 C (97.8 F) 04/18/2025 3:04 PM JUMP ROLL OPERATOR Respiratory Rate 18 04/05/2025 11:53 AM JUMP ROLL OPERATOR Oxygen Saturation 95% 04/18/2025 3:04 PM JUMP ROLL OPERATOR Inhaled Oxygen Concentration - - Weight 74.8 kg (165 lb) 04/18/2025 3:04 PM JUMP ROLL OPERATOR Height 165.1 cm (5' 5) 04/18/2025 3:04 PM JUMP ROLL OPERATOR Body Mass Index 27.46 04/18/2025 3:04 PM JUMP ROLL OPERATOR Plan of Treatment Upcoming Encounters Date Type Department Care Team (Late st Contact Info) Description 05/21/2025 2:00 PM JUMP ROLL OPERATOR Appointment [facility] ECHO [facility] [place] [phone] Mahogany Chinchilla MD [facility] [place] [address] 05/28/2025 3:15 PM JUMP ROLL OPERATOR [facility] [address] [place] [phone] Mckay Benson MD [address] [place] [address] [address] [place] [address] 08/07/2025 2:15 PM CDT Procedure visit [facility] - Ophthalmology [address] [place] [phone] Geetha Anne MD [address] [place] [address] [place] [phone] 09/10/2025 1:40 PM CDT Office Visit [facility] - Sleep Services [address] [phone] Ambika Butterfield MD [address] [phone] Health Maintenance Due Date Last Done Comments COLOGUARD (AGES 45-75) - COLON CA SCREENING 1965 COLON MONITORING 1965 COLONOSCOPY - COLON CA SCREENING 1965 CT COLONOGRAPHY - COLON CA SCREENING 1965 Colorectal Cancer Screening 1965 FIT - COLON CA SCREENING 1965 FLEX SIG - COLON CA SCREENING 1965 Opioid Medication Agreement - Annual 1965 HIV SCREENING 1980 HEPATITIS C SCREENING 05/27/1983 HEPATITIS B VACCINE (1 of 3 - 19+ 3-dose series) 1984 PAP with HPV 1995 PNEUMOCOCCAL VACCINE 50+ (1 of 1 - PCV) 2015 DTAP/TDAP/TD VACCINES (2 - Td or Tdap) 04/02/2023 04/02/2013 COVID-19 VACCINE ( - 2024- season) 2025 06/12/2022, 02/26/2021, 08/24/2020, Additional history exists INFLUENZA VACCINE (#1) 2025 3, 03/04/2022, 02/03/2021, Additional history exists MAMMOGRAM 06/20/2026 06/20/2024, 06/20/2024 SCREENING FOR DIABETES 04/05/2028 5, 04/04/2025, 04/03/2025, Additional history exists MENINGOCOCCAL GROUPS A/C/Y/W VACCINE Aged Out 02/11/2017, 12/17/2016 No longer eligibl e based on patient's age to complete this topic ZOSTER VACCINE Completed 08/08/2019, 03/29/2019 DEPRESSION SCREENING Completed 10/31/2024 HIB VACCINE Aged Out No longer eligi ble based on patient's age to complete this topic HPV VACCINE Aged Out No longer eligi ble based on patient's age to complete this topic MENINGOCOCCAL (Group B) VACCINE SHARED DECISION-MAKING Aged Out No longer eligible based on patient's age to complete this topic Medical Devices Implanted Type Area Cement Truck Driver Device Identifier Shelf Expiration Date Model / Serial / Lot Duramatrix Suturable Collagen Dura Membrane Implanted:Qty : 1 on 04/03/2025 by Mckay Benson MD at [facility] Right: Brain COLLAGEN MATRIX 02/26/2027 DMS22 / / [id number] Seal Dural Adherus Auto Spr - Sn/A Implanted:Qty : 1 on 04/03/2025 by Mckay Benson MD at [facility] Right: Cranial Khang Craniomaxillofacial 12/27/2026 NUS-106 / N/A / [id number] Pldgt Cv Wht 9.5x4.8mm Thk1.5mm Y Tfe Implanted:Qty : 1 on 04/03/2025 by Mckay Benson MD at [facility] Right: Cranial [employer] PCP40 / / Description:Implanted 06/04 [place] 1.5mm 4mm Slf Drl Ax Stab Crnl - Sn/A Implanted:Qty : 7 on 04/03/2025 by Rocío Murillo MD at [facility] Right: Cranial Khang Craniomaxillofacial [id number] BILL ONLY / N/A / N/A Plate Cls Outr Frm Crnmxf .3mm Sm Rnd - Sn/A Implanted:Qty : 1 on 04/03/2025 by Rocío Murillo MD at [facility] Right: Cranial Khang Craniomaxillofacial [id number] / N/A / N/A Procedures Procedure Name Priority Date/Time Associated Diagnosis Comments DENERVATION FACE MUSCLE LEFT Routine 05/08/2025 10:03 PM JUMP ROLL OPERATOR Benign essential blepharospasm CBC W/O DIFFERENTIAL AM Draw 04/05/2025 4:52 AM JUMP ROLL OPERATOR BASIC METABOLIC PANEL (CALCIUM TOTAL) Routine 04/05/2025 4:52 AM JUMP ROLL O[address] CT HEAD WO CONTRAST Routine 04/04/2025 5:48 AM JUMP ROLL OPERATOR Blepharospasm CBC W AUTO DIFFERENTIAL Routine 04/04/2025 4:37 AM JUMP ROLL OPERATOR BASIC METABOLIC PANEL (CALCIUM TOTAL) Routine 04/04/2025 4:37 AM JUMP ROLL OPERATOR CBC W/O DIFFERENTIAL Routine 04/03/2025 8:21 PM JUMP ROLL OPERATOR BASIC METABOLIC PANEL (CALCIUM TOTAL) Routine 04/03/2025 8:21 PM JUMP ROLL OPERATOR MAGNESIUM BLOOD Routine 04/03/2025 8:21 PM JUMP ROLL OPERATOR PHOSPHORUS BLOOD Routine 04/03/2025 8:21 PM JUMP ROLL OPERATOR ARTERIAL LINE NOTE Routine 04/03/2025 10:39 AM JUMP ROLL OPERATOR PERIPHERAL IV NOTE Routine 04/03/2025 10:37 AM JUMP ROLL OPERATOR ENDOTRACHEAL TUBE NOTE Routine 04/03/2025 10:36 AM JUMP ROLL OPERATOR PERIPHERAL BLOCK Routine 04/03/2025 9:51 AM JUMP ROLL OPERATOR NV CRNEC SOPL EXPLORATION/DECOM PRESSION CRANIAL NRV 04/03/2025 8:54 AM JUMP ROLL OPERATOR Hemifacial spasm, unspecified laterality Case Notes Stealth CT on arrival Special Needs Supine, CT head on arrivalStealth, Kinevo microscopeFacial and Hearing Monitoring--[id number] 04/02 TYPE + SCREEN PANEL STAT 04/03/2025 7:52 AM JUMP ROLL OPERATOR Dystrophia unguium TYPE + SCREEN PANEL Routine 02/26/2025 3:32 PM CDT Dystrophia unguium PT-INR Routine 02/26/2025 3:32 PM CDT Hemifacial spasm of right side of face Pre-op testing PTT Routine 02/26/2025 3:32 PM CDT Hemifacial spasm of right side of face Pre-op testing CBC W AUTO DIFFERENTIAL Routine 02/26/2025 3:32 PM CDT Hemifacial spasm of right side of face Pre-op testing BASIC METABOLIC PANEL (CALCIUM TOTAL) Routine 02/26/2025 3:32 PM CDT Hemifacial spasm of right side of face Pre-op testing XR CHEST 2VW Routine 02/26/2025 3:24 PM CDT Hemifacial spasm of right side of face Pre-op testing EKG 12-LEAD Routine 02/26/2025 2:00 PM CDT Hemifacial spasm of right side of face Pre-op testing CT ANGIO BRAIN AND NECK Routine 02/25/2025 2:25 PM CDT Facial nerve disease ISTAT CREATININE Routine 02/25/2025 2:13 PM CDT from Last 3 Months Results * DENERVATION FACE MUSCLE LEFT (05/08/2025 10:03 PM JUMP ROLL OPERATOR) Anatomical Region Laterality Modality Head Other Narrative 05/08/2025 10:03 PM JUMP ROLL OPERATOR Table formatting from the original result was not included. Images from the original result were not included. Botulinum Toxin Operative Note Date of Procedure: 05/08/2025 Patient here for f/u Benign Essential Blepharospasm. The patient continues with botulinum toxin treatments which have worked well for her and she is resistant to other treatments such as ptosis repair and myectomy. She did have improvement on the right side following neurosurgical neurovascular decompression 05/03/25. Alternative treatment options for hemifacial spasm and or blepharospasm were considered, including carbamazepine, clonazepam, phenytoin, gabapentin, and baclofen or cyclobenzaprine. However, due to side-effect burden and variable efficacy, botulinum toxin injection was elected as the safest and most effective treatment for this patient's facial spasm which results in functional impairment and or emotional distress. Clinical effectiveness of injections: fair Site injected: left orbicularis oculi Last visit: 01/30/25 Units: 41 Xeomin. Switching to Dysport this time to improve effect, and adjusted to left side only due to recent surgery on the right side Frequency of injections: q3m History/physical Delia Mathis is a 59 year old female here for botox injections. Pt presents in the exam room alone. Last Visit :01/30/2025 Units: 41 Xeomin Pt notes that things are much better since her surgery, she notes that the right side is much better and notes that OS seems to want to stay closed. She notes that its the lower lid. Drops: AFT 1-2 times a day OU Past Medical History: Diagnosis Date Anxiety Atherosclerosis of coronary artery Benign essential blepharospasm CVA (cerebral vascular accident) ([facility]) Diverticulitis sepsis 2018 Dry eye syndrome Essential hypertension GERD (gastroesophageal reflux disease) TN (myocardial infarction) ([facility]) Migraines PONV (postoperative nausea and vomiting) Pure hypercholesterolemia Past Surgical History: Procedure Laterality Date Blepharoplasty Bilateral 04/15/2023 Bilateral; Bilateral upper eyelid blepharoplasty with myectomy; anesthesia general with local HX CARDIAC STENT PLACEMENT 2011 Hysterectomy PLASTIC SURGERY PROCEDURE Bilateral 04/09/2019 Bilateral; Bilateral ptosis repair by muellerectomy NV [id number] MUSC MUSC INNERVATED FACIAL NRV UNIL 01/20/2016 NV DESTROY NERVE FACE MUSCLE, UNILAT 09/29/2018 TRIGEMINAL NERVE PROCEDURE Right 04/03/2025 Right; Right Craniotomy for Microvascular Decompression No family history on file. Physical Exam: Base Eye Exam Visual Acuity (Snellen - Linear) Right Left Dist cc 20/30 20/30 Correction: Glasses Pupils Pupils Right PERRL Left PERRL Neuro/Psych Oriented x3: Yes Mood/Affect: Normal Additional Notes Jankovic Rating Scale Blepharospasm Severity: 2 - Mild, but spontaneous eyelid fluttering (without actual spasm), definitely noticeable, possibly embarrassing, but not functionally disabling) Blepharospasm Frequency: 3 - Eyelid spasm lasting more than 1 second, but eyes open more than 50% of the waking time Dianaer Blepharospasm Disability Index Items: Reading - 1 - mild impairment Driving a vehicle - 0 - no impairment Watching television - Not applicable Shopping - 1 - mild impairment Doing everyday activities - 1 - mild impairment Getting about on foot (walking) - 0 - no impairment Slit Lamp and Fundus Exam External Exam Right Left External Mild brow ptosis + blepharospasm, minimal brow ptosis Slit Lamp Exam Right Left Lids/Lashes well-healed lid crease incision well-healed lid crease incision Conjunctiva/Sclera White and quiet White and quiet Cornea Trace haze of inferior cornea, 1.3 mm pannus <1 mm inferior corneal haze Anterior Chamber Deep and quiet Deep and quiet Iris Round and reactive Round and reactive Procedure: Betacaine applied: yes Product Used: Dysport Impression: Benign Essential Blepharospasm Surgeon: Geetha Anne M.D. Procedure: Botulinum toxin injection for chemical neurolysis, facial muscles After informed consent was obtained, a time out was performed. A total of 28.5 units of toxin was then administered subcutaneously via a 30-gauge needle to the muscles surrounding the left eye. 28.5 units to the left orbicularis oculi muscle At the conclusion, pressure was applied briefly with a gauze dressing. The patient was then given postoperative instructions and released. Amount wasted: 271.5 units Estimated blood loss: None. F/U 3 mo Geetha Anne MD 05/08/2025 10:00 PM Geetha Anne MD OPHTHALMOLOGY SERVICES OR DERABLES Final Result * (ABNORMAL) CBC W/O DIFFERENTIAL (04/05/2025 4:52 AM JUMP ROLL OPERATOR) Only the most recent of2 resultswithin the time period is included. WBC 13.8(H) 4.0 - 10.7 x10E9/L 04/05/2025 6:53 AM [facility] RBC Count 4.20 3.90 - 5.20 x10E12/L 04/05/2025 6:53 AM [facility] Hemoglobin 12.1 11.9 - 15.8 g/dL 04/05/2025 6:53 AM [facility] Hematocrit 36.7 34.8 - 46.1 % 04/05/2025 6:53 AM [facility] MCV 87.4 80.0 - 98.0 fL 04/05/2025 6:53 AM [facility] MCH 28.8 26.7 - 33.6 pg 04/05/2025 6:53 AM [facility] MCHC 33.0 31.7 - 36.3 g/dL 04/05/2025 6:53 AM [facility] RDW-CV 13.7 11.3 - 14.8 % 04/05/2025 6:53 AM [facility] Platelet Count 266 150 - 420 x10E9/L 04/05/2025 6:53 AM [facility] MPV 10.2 7.8 - 11.4 fL 04/05/2025 6:53 AM [facility] Blood BLOOD SPECIMEN / Unknown Lab Venipuncture / Unknown 04/05/2025 4:52 AM [facility] 04/05/2025 6:28 AM JUMP ROLL OPERATOR us Mckay Benson MD LAB - HEMATOLOGY ORDERABLES Final Result [address] [address], [facility] [phone] * (ABNORMAL) BASIC METABOLIC PANEL (CALCIUM TOTAL) (04/05/2025 4:52 AM [facility]) Only the most recent of4 resultswithin the time period is included. BUN 11 7 - 26 mg/dL 04/05/2025 6:58 AM [facility] Creatinine 0.79 0.56 - 0.96 mg/dL 04/05/2025 6:58 AM [facility] Sodium 143 136 - 145 mmol/L 04/05/2025 6:58 AM [facility] Potassium 3.4(L) 3.5 - 4.5 mmol/L 04/05/2025 6:58 AM [facility] Chloride 110(H) 98 - 107 mmol/L 04/05/2025 6:58 AM [facility] CO2 26 22 - 29 mmol/L 04/05/2025 6:58 AM [facility] Glucose 88 70 - 99 mg/dL 04/05/2025 6:58 AM [facility] Calcium 8.7 8.4 - 10.2 mg/dL 04/05/2025 6:58 AM [facility] Anion Gap 7 6 - 16 04/05/2025 6:58 AM [facility] BUN/Creatinine Ratio 14 7 - 23 04/05/2025 6:58 AM [facility] Osmolality Calculated 295 275 - 295 mOsm/kg 04/05/2025 6:58 AM JUMP ROLL OPERATOR [facility] eGFR by CKD-EPI 86(L) >=90 mL/min/1.7 3 m2 04/05/2025 6:58 AM JUMP ROLL OPERATOR [facility] Comment:Estimated Glomerular Filtration Rate (eGFR) calculated using the CKD-EPI Creatinine Equation (2020), per the National Kidney Foundation and [place] Society [employer] Neph[employer] recommendations. Blood BLOOD SPECIMEN / Unknown Lab Venipuncture / Unknown 04/05/2025 4:52 AM JUMP ROLL OPERATOR 04/05/2025 6:28 AM JUMP ROLL OPERATOR us Mckay Benson MD LAB - CHEMISTRY ORDERABLES F inal Result [facility] [address] [place] [address], [facility] [phone] * CT HEAD NON CONTRAST (04/04/2025 5:48 AM JUMP ROLL OPERATOR) Anatomical Region Laterality Modality Head Computed Tomogra phy 04/04/2025 5:58 AM JUMP ROLL OPERATOR Impressions 04/04/2025 8:37 AM JUMP ROLL OPERATOR IMPRESSION: 1. Postsurgical changes of a right retrosigmoid craniectomy/cranioplasty for microvascular decompression, with expected postsurgical changes as outlined above. 2. No significant acute intracranial hemorrhage or significant midline shift. > Dictated by Magda Cohen MD, (residential case manager). > Dictated by Ski Patrol I, Paris Bowles MD have personally reviewed and interpreted this examination/study. > Interpreting Provider: Paris Bowles MD on 04/04/2025 8:37 AM Narrative 04/04/2025 8:37 AM JUMP ROLL OPERATOR PROCEDURE: CT HEAD WO CONTRAST, DATE/TIME OF EXAM: 04/04/2025 5:48 AM, LOCATION [facility] INDICATION: G24.5: Blepharospasm ADDITIONAL CLINICAL INFORMATION: Ordering Provider Reason For Exam: f/u MVD Technologist Note: None. Additional: None. EXAMINATION: Computed tomography (CT) of the head without contrast TECHNIQUE: CT of the head was performed without contrast according to standard protocol. CT dose reduction technique was used, including Automated Exposure Control. COMPARISON: Head CT from 02/25/2025 FINDINGS: Interval postsurgical changes of right retrosigmoid craniotomy for microvascular decompression. Pledgets are present in the right anterior posterior fossa causing mild surrounding streak artifact. Expected postsurgical changes including small volume of extra-axial pneumocephalus, edema, overlying skin changes, and scalp skin galindo. Evaluation of the left temporoparietal lobe is limited due to streak artifact from cochlear implant. Within this limitation, no evidence of acute intracranial hemorrhage. Accounting for the presence of motion artifact which reduces the sensitivity to detect subtle intracranial hemorrhage, no distinct acute intracranial hemorrhage, or intra- or extra-axial fluid collections are identified. The ventricles are of normal size, shape, and morphology. The basal cisterns are patent. No significant midline shift is seen. Encephalomalacia in the left frontal lobe. The cárdenas-white matter differentiation is obscured by motion artifact. Periventricular white matter hypoattenuation is nonspecific, but can be seen in the setting of chronic small vessel ischemic disease. The visualized portions of the orbits and paranasal sinuses appear normal. Left cochlear implant. Procedure Note Paris Bowles MD - 04/04/2025 PROCEDURE: CT HEAD WO CONTRAST, DATE/TIME OF EXAM: 04/04/2025 5:48 AM, LOCATION [facility] INDICATION: G24.5: Blepharospasm ADDITIONAL CLINICAL INFORMATION: Ordering Provider Reason For Exam: f/u MVD Technologist Note: None. Additional: None. EXAMINATION: Computed tomography (CT) of the head without contrast TECHNIQUE: CT of the head was performed without contrast according to standard protocol. CT dose reduction technique was used, including Automated Exposure Control. COMPARISON: Head CT from 02/25/2025 FINDINGS: Interval postsurgical changes of right retrosigmoid craniotomy for microvascular decompression. Pledgets are present in the right anterior posterior fossa causing mild surrounding streak artifact. Expected postsurgical changes including small volume of extra-axialpneumocephalus, edema, overlying skin changes, and scalp skin galindo. Evaluation of the left temporoparietal lobe is limited due to streak artifact from cochlear implant. Within this limitation, no evidence of acute intracranial hemorrhage. Accounting for the presence of motion artifact which reduces the sensitivity to detect subtle intracranial hemorrhage, no distinct acute intracranial hemorrhage, or intra- or extra-axial fluid collections are identified. The ventricles are of normal size, shape, and morphology.The basal cisterns are patent. No significant midline shift is seen. Encephalomalacia in the left frontal lobe. The cárdenas-white matter differentiation is obscured by motion artifact. Periventricular white matter hypoattenuation is nonspecific, but can be seen in the setting of chronic small vessel ischemic disease. The visualized portions of the orbits and paranasal sinuses appearnormal. Left cochlear implant. IMPRESSION: 1. Postsurgical changes of a right retrosigmoid craniectomy/cranioplasty for microvascular decompression, with expected postsurgical changes as outlined above. 2. No significant acute intracranial hemorrhage or significant midline shift. > Dictated by Magda Cohen MD, (residential case manager). > Dictated by Ski Patrol I, Paris Bowles MD have personally reviewed and interpretedthis examination/study. > Interpreting Provider: Paris Bowles MD on 04/04/2025 8:37 AM us Mckay Benson MD CT ORDERABLES Final Result * (ABNORMAL) CBC W AUTO DIFFERENTIAL (04/04/2025 4:37 AM JUMP ROLL OPERATOR) Only the most recent of2 resultswithin the time period is included. WBC 12.5(H) 4.0 - 10.7 x10E9/L 04/04/2025 5:08 AM [facility] RBC Count 4.44 3.90 - 5.20 x10E12/L 04/04/2025 5:08 AM [facility] Hemoglobin 13.0 11.9 - 15.8 g/dL 04/04/2025 5:08 AM [facility] Hematocrit 37.5 34.8 - 46.1 % 04/04/2025 5:08 AM [facility] MCV 84.5 80.0 - 98.0 fL 04/04/2025 5:08 AM [facility] MCH 29.3 26.7 - 33.6 pg 04/04/2025 5:08 AM [facility] MCHC 34.7 31.7 - 36.3 g/dL 04/04/2025 5:08 AM [facility] RDW-CV 13.0 11.3 - 14.8 % 04/04/2025 5:08 AM [facility] Platelet Count 293 150 - 420 x10E9/L 04/04/2025 5:08 AM [facility] MPV 10.0 7.8 - 11.4 fL 04/04/2025 5:08 AM [facility] Neutrophil % 80.1(H) 41.0 - 74.0 % 04/04/2025 5:08 AM [facility] Lymphocyte % 12.1(L) 17.0 - 47.0 % 04/04/2025 5:08 AM [facility] Monocyte % 7.0 3.0 - 11.0 % 04/04/2025 5:08 AM [facility] Eosinophil % 0.0 0.0 - 7.0 % 04/04/2025 5:08 AM [facility] Basophil % 0.2 0.0 - 1.6 % 04/04/2025 5:08 AM [facility] Immature Granulocytes % 0.6 0.0 - 1.0 % 04/04/2025 5:08 AM [facility] Neutrophil Absolute 10.02(H) 1.60 - 7.50 x10E9/L 04/04/2025 5:08 AM [facility] Lymphocyte Absolute 1.51 1.00 - 4.40 x10E9/L 04/04/2025 5:08 AM [facility] Monocyte Absolute 0.88 0.15 - 1.00 x10E9/L 04/04/2025 5:08 AM [facility] Eosinophil Absolute 0.00 0.00 - 0.60 x10E9/L 04/04/2025 5:08 AM [facility] Basophil Absolute 0.02 0.00 - 0.13 x10E9/L 04/04/2025 5:08 AM [facility] Blood BLOOD SPECIMEN / Unknown Venipuncture / Unknown 04/04/2025 4:37 AM JUMP ROLL OPERATOR 04/04/2025 4:52 AM [facility] us Mckay Benson MD LAB - HEMATOLOGY ORDERABLES Final Result Performing Organization Address City/[facility]/ZIP Co de Phone Number [address] [address], [place] [phone] * PHOSPHORUS BLOOD (04/03/2025 8:21 PM JUMP ROLL OPERATOR) Phosphorus 3.5 2.9 - 5.1 mg/dL 04/03/2025 8:59 PM JUMP ROLL OPERATOR [facility] Blood BLOOD SPECIMEN / Unknown Venipuncture / Unknown 04/03/2025 8:21 PM JUMP ROLL OPERATOR 04/03/2025 8:31 PM JUMP ROLL OPERATOR us Emad Koki DO LAB - CHEMISTRY ORDERABLES Final Result Performing Organization Address [facility] Co de Phone Number [address] [address], [place] [phone] * MAGNESIUM BLOOD (04/03/2025 8:21 PM JUMP ROLL OPERATOR) Magnesium 2.1 1.6 - 2.6 mg/dL 04/03/2025 8:59 PM JUMP ROLL OPERATOR [facility] Blood BLOOD SPECIMEN / Unknown Venipuncture / Unknown 04/03/2025 8:21 PM JUMP ROLL OPERATOR 04/03/2025 8:31 PM JUMP ROLL OPERATOR [facility] LAB - CHEMISTRY ORDERABLES Final Result Performing Organization Address [facility] Co de Phone Number [address] [address], [place] [phone] * ARTERIAL LINE PERFORMABLE (04/03/2025 10:39 AM JUMP ROLL OPERATOR) Narrative Aris Garrett DO - 04/03/2025 10:39 AM JUMP ROLL OPERATOR Aris Garrett DO 04/03/2025 10:39 AM Arterial Line Placement Procedure Note Patient Location: OR. Insertion Time: 04/03/2025 9:47 AM Procedure: Arterial Line (96194) Procedure Section Indications: continuous blood pressure monitoring and blood sampling needed. Consent: informed consent was obtained for the procedure. Skin Prep: Chloraprep. Orientation: Left. Site: radial. Site Identification: ultrasound guided with sterile sleeve and gel. Sterile Technique: cap and mask. Gauge: 20. Catheter Length: 1 and 3/4 inch. Catheter Type: Arrow. Number of Attempts: 1. Line Secured with: tape and Tegaderm. Procedure Tolerance: performed while patient under general anesthesia. Events: none. Local Anesthetic Used? No Staff Section Anesthesia Provider: Aris Garrett DO, Performed the procedure Provider #1: Alen Carrizales MD. Alen Carrizales MD GENERAL ANESTHESIA ORDERABLES Final Result * IV PLACEMENT PERFORMABLE (04/03/2025 10:37 AM JUMP ROLL OPERATOR) Narrative Aris Garrett DO - 04/03/2025 10:37 AM JUMP ROLL OPERATOR Aris Garrett DO 04/03/2025 10:39 AM Peripheral IV Line Placement: Patient Location: OR Insertion Time: 04/03/2025 9:47 AM Procedure: IV start ([id number]) Procedure Section: Skin Prep: alcohol. Orientation: right Location: hand Local Anesthetic Used? No Catheter Gauge: 18 Number of Attempts: 2. Procedure Tolerance: performed while patient under general anesthesia. Procedure Start Time: 04/03/2025 9:47 AM. Staff Section Anesthesia Provider: Alen Carrizales MD, Performed the procedure Additional Comments: Performed by [employer] Anesthesiology Medical Student under direct supervision of Dr. Carrizales.. Alen Carrizales MD GENERAL ANESTHESIA ORDERABLES Final Result * ETT LINE PERFORMABLE (04/03/2025 10:36 AM JUMP ROLL OPERATOR) Narrative Aris Garrett DO - 04/03/2025 10:36 AM JUMP ROLL OPERATOR Aris Garrett DO 04/03/2025 10:37 AM Endotracheal Tube Placement: Patient Location: OR. Intubation Event Date/Time: 04/03/2025 9:37 AM Procedure: intubation ([id number]) Procedure Section: Sedation: under general anesthesia. Indications for Airway Management: anesthesia Induction: standard IV Patient Position: sniffing and supine Mask Ventilation: easy. Blade Type: Norman Blade Size: 3 Laryngoscopy View: grade 1 (full cords) Intubation Adjuncts: stylet and cricoid pressure Tube: endotracheal tube Placement: oral Tube type: cuff - inflated Tube Size (MM): 7 Depth of Insertion (CM): 22 Measured From: lips Cuff volume (mL): 8 Cuff Inflated With: air Number of Attempts: 1. Ventilation between attempts: No. Placement Verified By: direct visualization, bilateral breath sounds, CO2 monitor and chest auscultation Tube secured with: adhesive tape. Dentition unchanged? Yes Difficult Airway? No. Procedure Start Time: 04/03/2025 9:37 AM. Staff Section Anesthesia Provider: Aris Garrett DO Provider #1: Alen Carrizales MD, Performed the procedure. Additional Comments: Performed by [employer] Anesthesiology Medical Student under direct supervision of Dr. Carrizales. Atraumatic intubation. Dentition unchanged.. us Alen Carrizales MD GENERAL ANESTHESIA ORDERABLES Final Result * Peripheral Nerve Block (04/03/2025 9:51 AM JUMP ROLL OPERATOR) Narrative Arnoldo Sales MD - 04/03/2025 9:51 AM JUMP ROLL OPERATOR Arnoldo Sales MD 04/03/2025 9:52 AM Peripheral Nerve Block Procedure: Peripheral Nerve Block Patient Location: OR Preprocedure Section: Indications: at surgeon's request, postop pain management and surgical anesthesia. Pre-anesthetic Checklist: Patient identified, IV Checked, Site examined and clear, Risks and benefits discussed, Surgical consent verified, Monitors and equipment, Time-out performed, Informed consent obtained, Pre-op evaluation done, Questions answered/anesthesia questions answered, Allergies reviewed and Removal hand/wrist jewelry Monitors: BP, Pulse Ox, EKG and ETCO2. Patient Condition: general anesthetic Patient Position: supine Patient Sedated? No Procedure Section Laterality: right Block Performed: Other - Comments (Scalp Block) Prep: Chloraprep Strerile Field: gloves, mask and hat/cap Needle Type: short-bevel Needle Gauge: 25 Needle Length: 50 mm Needle Depth: 0.5 cm Catheter? No Injection was made incrementally with constant monitoring and aspirations every 5 mL's Injection Assessment: Slow fractionated injection Block Agents or Additives used? Yes Block agents used: bupivacaine PF (MARCAINE PF) 0.25 % injection - Infiltration 10 mL - 04/03/2025 9:48:00 AM Procedure Tolerance: tolerated well, performed while patient under general anesthesia and no immediate complications Assessment: completed Procedure Start Time: 04/03/2025 9:42 AM. Procedure End Time: 04/03/2025 9:48 AM. Procedure Total Time: 6 minutes. Staff Section Anesthesia Provider: Arnoldo Sales MD, Performed the procedure Provider #1: Darrell Cross DO, Performed the procedure. Additional Comments: Nerves blocked bilaterally: Supraorbital, Trochlear, Zygomaticotemporal, Auriculotemporal, Lesser Occipital, Greater Occipital I was present for the duration of the procedure and was available to assist the resident at critical periods. Arnoldo Sales MD . Alen Carrizales MD GENERAL ANESTHESIA ORDERABLES Final Result * TYPE + SCREEN PANEL (04/03/2025 7:52 AM JUMP ROLL OPERATOR) Only the most recent of2 resultswithin the time period is included. Pathologist [facility] [place] Antibody Screen NEG 9:15 AM JUMP ROLL OPERATOR [facility] BLOOD BANK LAB ABO Rh A POS 04/03/2025 9:15 AM JUMP ROLL OPERATOR [facility] BLOOD [facility] LAB Blood Bank BLOOD SPECIMEN / Unknown Venipuncture / Unknown 04/03/2025 7:52 AM JUMP ROLL OPERATOR 04/03/2025 8:13 AM JUMP ROLL OPERATOR Mckay Benson MD LAB - BLOOD BANK ORDERABLES Final Result [facility] BLOOD BANK LAB [facility] [place] [address], [facility] [phone] * PTT (02/26/2025 3:32 PM CDT) [facility] APTT 26.2 23.0 - 38.4 Seconds 02/26/2025 5:08 PM CDT [facility] Comment:Suggested therapeuti c range for full dose I.V. unfractionated heparin therapy for venous thromboembolism is 71 to 109 seconds. Blood BLOOD SPECIMEN / Unknown Lab Venipuncture / Unknown 02/26/2025 3:32 PM CDT 02/26/2025 4:45 PM CDT Mckay Benson MD LAB - COAGULATION ORDERABLES Final Result [facility] [address] [place] [address], [facility] [phone] * PT-INR (02/26/2025 3:32 PM CDT) PT 13.2 12.1 - 14.8 Seconds 02/26/2025 5:08 PM CDT [facility] INR 1.0 See Comment 02/26/2025 5:08 PM CDT [facility] Comment:The suggested therap eutic range for standard coumadin (warfarin) therapy is an INR of 2.0-3.0. For high-risk patients (Mechanical Mitral Valve Prosthesis, etc.), the suggested prophylactic therapeutic range is an INR of 2.5-3.5. Blood BLOOD SPECIMEN / Unknown Lab Venipuncture / Unknown 02/26/2025 3:32 PM CDT 02/26/2025 4:45 PM CDT Mckay Benson MD LAB - COAGULATION ORDERABLES Final Result [facility] [id number] [place] [address], [facility] [phone] * XR Chest 2Vw (02/26/2025 3:24 PM CDT) Anatomical Region Laterality Modality Chest Digital Radiogra phy 02/27/2025 12:1 3 AM CDT Impressions 02/27/2025 12:14 AM CDT IMPRESSION: No acute cardiopulmonary abnormalities. > Interpreting Provider: Nicholas Garcia MD on 02/27/2025 12:14 AM Narrative 02/27/2025 12:14 AM CDT PROCEDURE: XR CHEST 2VW DATE/TIME OF EXAM: 02/26/2025 3:24 PM CLINICAL INFORMATION: None relevant/not provided if blank. 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 FINDINGS: Frontal and lateral views of the chest demonstrate a normal sized heart and pulmonary vasculature. No focal consolidation, pleural effusion or pneumothorax. No acute osseous abnormalities. Procedure Note Nicholas Garcia MD - 02/27/2025 PROCEDURE: XR CHEST 2VW DATE/TIME OF EXAM: 02/26/2025 3:24 PM CLINICAL INFORMATION: None relevant/not provided if blank. 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 FINDINGS: Frontal and lateral views of the chest demonstrate a normal sized heartand pulmonary vasculature. No focal consolidation, pleural effusion or pneumothorax. No acute osseous abnormalities. IMPRESSION: No acute cardiopulmonary abnormalities. > Interpreting Provider: Nicholas Garcia MD on 02/27/2025 12:14 AM Mckay Benson MD DIAGNOSTIC IMAGING ORDERABLE S Final Result * EKG 12-Lead (02/26/2025 2:00 PM CDT) Pathologist [facility] [place] Ventricular Rate 50 BPM [facility] Atrial Rate 50 BPM [facility] P-R Interval 150 ms [facility] QRS Duration ms 80 ms [facility] Q-T Interval ms 454 ms [facility] MUSE QTC Calculation (Bezet) 413 ms [facility] MUSE Calculated P [place] 27 degrees [facility] MUSE Calculated R [place] -6 degrees [facility] MUSE Calculated T [place] 64 degrees [facility] MUSE Interpretation EKG SINUS BRADYCARDIA LOW VOLTAGE QRS NONSPECIFIC T WAVE ABNORMALITY ABNORMAL ECG NO PREVIOUS ECGS AVAILABLE Confirmed by CHECO DIMAS MD ([id number]) on 03/03/2025 11:38:00 PM Also confirmed by CHECO DIMAS MD ([id number]) on 03/03/2025 11:40:38 PM [facility] MUSE 02/26/2025 2:00 PM CDT 03/03/2025 11:40 PM CDT Mckay Benson MD ECG ORDERABLES Edited Resul t - Final [facility] MUSE * CT Angio Brain And Neck (02/25/2025 2:25 PM CDT) Anatomical Region Laterality Modality Head Computed Tomogra phy 02/25/2025 2:51 PM CDT Impressions 02/25/2025 3:03 PM CDT IMPRESSION: 1. No acute intracranial hemorrhage. 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 2. No large arterial occlusions or significant stenoses identified in the head or neck. 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 Computed tomographic (CT) angiography of the head without and with contrast 2. CT angiography of the neck with contrast TECHNIQUE: CT of the head was performed without contrast according to standard protocol. Then CT angiography of the head and neck was obtained after the uneventful administration of intravenous contrast. Three dimensional postprocessing was performed by the technologist and sent to the workstation for review. CONTRAST: IOPAMIDOL 76 % IV SOLN:75 mL COMPARISON: October 27, 2023. FINDINGS: Non-angiographic findings: Postoperative changes of left mastoidectomy and placement of a left-sided cochlear implant. Streaky and beam hardening artifacts partially obscure the left parietal lobe. Unchanged small area of encephalomalacia in the left frontal lobe may represent a chronic infarct. No acute intracranial hemorrhage or intra- or extra-axial fluid collections are identified. The ventricles are of normal size, shape, and morphology. The basal cisterns are patent. No mass effect or midline shift is seen. The cárdenas-white matter differentiation is normal. Mild periventricular white matter hypoattenuation is nonspecific, but can be seen in the setting of chronic small vessel ischemic disease. The visualized portions of the orbits, paranasal sinuses, and mastoids appear normal. No acute calvarial fracture is identified. No soft tissue abnormalities are identified in the neck. Mild multilevel degenerative disc and joint disease is noted. Angiographic findings: Neck: There is atherosclerotic disease of the aortic arch. There is a common origin of the innominate and left common carotid arteries from the aortic arch. The innominate artery and both subclavian arteries appear normal. There is atherosclerotic disease in the right carotid bifurcation and origin of the right internal carotid artery with less than 50 percent focal stenosis. The right common and internal carotid arteries otherwise appear patent. There is atherosclerotic disease in the left carotid bifurcation and origin of the left internal carotid artery with less than 50 percent focal stenosis. The left common and internal carotid arteries otherwise appear patent. The cervical vertebral arteries are patent. Head: The distal internal carotid arteries are patent. The anterior cerebral arteries are patent. The middle cerebral arteries are patent. The posterior cerebral arteries are patent. The distal vertebral arteries are patent. The basilar artery is patent patent. No aneurysms, spot sign, or signs of a high flow vascular malformation are identified. 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 Computed tomographic (CT) angiography of the head without and with contrast 2. CT angiography of the neck with contrast TECHNIQUE: CT of the head was performed without contrast according to standard protocol. Then CT angiography of the head and neck was obtained after the uneventful administration of intravenous contrast. Three dimensional postprocessing was performed by the technologist and sent to the workstation for review. CONTRAST: IOPAMIDOL 76 % IV SOLN:75 mL COMPARISON: October 27, 2023. FINDINGS: Non-angiographic findings: Postoperative changes of left mastoidectomy and placement of aleft-sided cochlear implant. Streaky and beam hardening artifacts partially obscure the left parietal lobe. Unchanged small area of encephalomalacia in the left frontal lobe may represent a chronic infarct. No acute intracranial hemorrhage or intra- or extra-axial fluidcollections are identified. The ventricles are of normal size, shape, andmorphology. The basal cisterns are patent. No mass effect or midline shift is seen.The cárdenas-white matter differentiation is normal. Mild periventricular white matter hypoattenuation is nonspecific, but can be seen in the setting of chronic small vessel ischemic disease. The visualized portions of the orbits, paranasal sinuses, and mastoids appear normal. No acute calvarial fracture is identified. No soft tissue abnormalities are identified in the neck. Mild multilevel degenerative disc and joint disease is noted. Angiographic findings: Neck: There is atherosclerotic disease of the aortic arch. There is a common origin of the innominate and left common carotid arteries from theaortic arch. The innominate artery and both subclavian arteries appear normal. There is atherosclerotic disease in the right carotid bifurcation and origin of the right internal carotid artery with less than 50 percentfocal stenosis. The right common and internal carotid arteries otherwiseappear patent. There is atherosclerotic disease in the left carotid bifurcation and origin of the left internal carotid artery with less than 50 percent focal stenosis. The left common and internal carotid arteries otherwise appear patent. The cervical vertebral arteries are patent. Head: The distal internal carotid arteries are patent. The anterior cerebral arteries are patent. The middle cerebral arteries are patent. The posterior cerebral arteries are patent. The distal vertebral arteriesare patent. The basilar artery is patent patent. No aneurysms, spot sign, or signs of a high flow vascular malformation are identified. IMPRESSION: 1. No acute intracranial hemorrhage. Redemonstration of a chronicinfarct in the left frontal lobe. 2. No large arterial occlusions or significant stenoses identified inthe head or neck. > Interpreting Provider: Danielle Fallon MD on 02/25/2025 3:03 PM Kiya Zeng MD CT ORDERABLES Final Result * ISTAT CREATININE (02/25/2025 2:13 PM CDT) [facility] Signature Creatinine POCT 0.70 0.60 - 1.30 mg/dL 02/25/2025 2:14 PM CDT [facility] eGFR by CKD-EPI >90 >90 mL/min/1.7 3 m2 02/25/2025 2:14 PM CDT [facility] Sample iSTAT MACO 02/25/2025 2:14 PM CDT [facility] Blood BLOOD SPECIMEN / Unknown 02/25/2025 2:13 PM CDT 02/25/2025 2:14 PM CDT Kiya Zeng MD LAB - POINT OF CARE ORDERABLE S Final Result [facility] [address] [place] [id number], [facility] [phone] from Last 3 Months Insurance [facility] Advance Directives * Full Code (Latest Code Status on File) Date Activated Date Inactivated Comments 04/03/2025 3:37 PM 04/05/2025 4:23 PM * Full Code Date Activated Date Inactivated Comments 04/08/2019 4:20 PM 04/09/2019 5:15 PM Care Teams Chief Lock Tender Operator Relationship Specialty Start Date End Date Amber Schwab MD [address] [place] [address] [place] [address] PCP - General 11/20/15 Rodrigo Knutson MD [address] [place] [address] [id number] Physician Cardiovascular Disease 11/02/18
--- OUTSIDE RECORDS SUMMARY | 2025-05-15 14:49 | XMS_ITS | Clinical Summary ---
Author Organization [facility] Address [address] [place] [address] Care Team Providers Care Newspaper Stuffer Name Role Phone Joseline Hall NP Primary Care Provider [phone] Allergies Active Allergy Reactions Criticality Noted Date Comments Morphine Nausea & Vomiting Low 03/28/2019 ... Nsaids (Non-Steroidal Anti-Inflammatory Drug) Dizziness High 03/19/2025 Tramadol Nausea And Vomiting Low 11/20/2015 Medications fluticasone (FLONASE) 50 mcg/actuation nasal spray spray 1 spray by intranasal route every day in each nostril 0 spray 0 05/05/20 16 Active cetirizine (ZyrTEC) 10 mg tablet Take 1 tablet (10 mg total) by mouth daily Active omega 4-dfy-kkp-fis h oil 300-1,000 mg capsule 1 capsule Active metoprolol (LOPRESSOR) 25 mg tablet Take 1 tablet (25 mg total) by mouth 2 (two) times a day 180 tablet 3 01/24/20 19 Active dicyclomine (BENTYL) 20 mg tablet Take 1 tablet (20 mg total) by mouth every 6 (six) hours Active Emgality Pen 120 mg/mL pen injector INJECT 1 ML SUBCUTANEOUSLY ONCE MONTHLY DIRECTED 01/22/20 21 Active losartan (COZAAR) 100 mg tablet Take 1 tablet (100 mg total) by mouth daily 07/08/19 23 Active albuterol HFA (PROVENTIL HFA,VENTOLIN HFA,PROAIR HFA) 90 mcg/actuation inhaler Inhale 2 puffs Activ e ergocalcifero l (VITAMIN D) 50,000 unit capsule TAKE 1 CAPSULE EVERY WEEK BY ORAL ROUTE. 01/30/20 22 Active nitroglycerin (NITROSTAT) 0.[address] 1 tablet (0.4 mg total) under the tongue every 5 (five) minutes as needed for chest pain 50 tablet 1 05/15/20 24 Active ezetimibe (ZETIA) 10 mg tablet Take 1 tablet (10 mg total) by mouth daily 90 tablet 3 06/28/19 25 Active aspirin 81 mg enteric coated tablet TAKE 1 TABLET BY MOUTH EVERY DAY 90 tablet 3 01/23/20 25 Active clopidogreL (PLAVIX) 75 mg tablet TAKE 1 TABLET BY MOUTH EVERY DAY 90 tablet 3 04/03/20 25 Active rosuvastatin (CRESTOR) 40 mg tablet TAKE 1 TABLET BY MOUTH EVERY DAY 90 tablet 05/10/20 25 Active rosuvastatin (CRESTOR) 40 mg tablet TAKE 1 TABLET BY MOUTH EVERY DAY 90 tablet 1 11/23/19 25 2024 Discontinued Active Problems Problem Noted Date Diagnosed Date Mixed hyperlipidemia 03/19/2022 S/P coronary artery stent placement 12/16/2016 Benign hypertension 05/06/2015 Overview (09/02/2016): HTN (hypertension), benign Coronary artery disease invo lving belkofski coronary artery of belkofski heart without angina pectoris 05/06/2015 Overview (09/02/2016): Coronary artery disease involving belkofski coronary artery of belkofski heart without angina pectoris Old myocardial infarction 05/06/2015 Overview (09/02/2016): Myocardial infarction greater than 8 weeks ago Headache 12/31/2014 Overview (09/02/2016): Frequent headaches Cryptogenic stroke 10/08/2014 Overview (09/02/2016): Cryptogenic stroke Cerebral infarction 08/12/2014 Overview (09/02/2016): CVA (cerebral infarction) Resolved Problems Problem Noted Date Diagnosed Date Resolved Date Status post placement of imp lantable loop recorder 09/22/2016 09/24/2022 Overview (04/24/2018): Medtronic Reveal Loop Recorder. Dx; Cryptogenic Stroke. DOI 05/12/2016. ILR Explanted 04/24/2018. History of placement of sten t for coronary artery disease 05/06/2015 06/28/2024 Overview (09/02/2016): S/P coronary artery stent placement Dyslipidemia 05/06/2015 03/19/2022 Overview (09/02/2016): Mixed dyslipidemia Encounters Date Type Department Care Team Description 03/19/2025 11:00 AM CDT Office Visit [facility] Cardiology [address] [place] [address] Shruti Andino NP Preoperative cardiovascular examination (Primary Dx); Coronary artery disease involving belkofski coronary artery of belkofski heart without angina pectoris; Cryptogenic stroke (HCC); Overweight with body mass index (BMI) of 28 to 28.9 in adult from Last 3 Months Surgical History Surgery Date Site/Laterality Comments OTHER SURGICAL HISTORY 05/30/2011 - 05/29/2012 Coronary Stent Placement ostial LAD 4.0x12 BMS CORONARY ANGIOPLASTY CARDIAC CATHETERIZATION SECTION HYSTERECTOMY Medical History Medical History Date Comments Chronic coronary artery disease Coronary Artery Disease Hypertension Hypertension Hyperlipidemia GERD (gastroesophageal reflux disease) Anxiety Arthritis Heart disease Stroke (HCC) Mixed conductive and sensorineural hearing loss Family History Medical History Relation Name Comments No Known Problems Brother No Known Problems Father No Known Problems Father's Brother No Known Problems Father's Sister No Known Problems Maternal Grandfather No Known Problems Maternal Grandmother No Known Problems Mother No Known Problems Mother's Brother No Known Problems Mother's Sister No Known Problems Other No Known Problems Paternal Grandfather No Known Problems Paternal Grandmother No Known Problems Sister Anemia Neg Hx Arrhythmia Neg Hx Asthma Neg Hx Clotting disorder Neg Hx Fainting Neg Hx Heart attack Neg Hx Heart disease Neg Hx Heart failure Neg Hx Hyperlipidemia Neg Hx Hypertension Neg Hx Hypertrophic cardiomyopathy Neg Hx Stroke Neg Hx Sudden Cardiac Neg Hx Relation Name Status Comments Brother Father Father's Brother Father's Sister Maternal Grandfather Maternal Grandmother Mother Mother's Brother Mother's Sister Other Paternal Grandfather Paternal Grandmother Sister Social History Tobacco Use Types Packs/Day Years Used Date Smoking Tobacco: Former Cigarettes Smokeless Tobacco: Never Alcohol Use Standard Drinks/Week Comments Yes 0 (1 standard drink = 0.6 oz pur e alcohol) Comments Unknown Sex and Gender Information Value Date Recorded Sex Assigned at Not on file 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 Gender Identity Not on file Sexual Orientation Not on file Last Filed Vital Signs Vital Sign Reading Time Taken Comments Blood Pressure 136/86 03/19/2025 11:00 AM CDT Pulse 76 03/19/2025 11:00 AM CDT Temperature - - Respiratory Rate 18 03/19/2025 11:00 AM CDT Oxygen Saturation 99% 03/19/2025 11:00 AM CDT Inhaled Oxygen Concentration - - Weight 76.2 kg (168 lb) 03/19/2025 11:00 AM CDT Height 162.6 cm (5' 4) 03/19/2025 11:00 AM CDT Body Mass Index 28.84 03/19/2025 11:00 AM CDT Plan of Treatment Health Maintenance Due Date Last Done Comments Colon Cancer Screening-Colonoscopy 1965 Hepatitis C Screening 1965 Hepatitis B Screening 1983 Regular Well Visit/Exam 18-64 1983 Depression Screening 12/16/2017 12/16/2016 Covid-19 Vaccine ( season) 2025 02/26/2021, 08/24/2020, 08/01/2020 Breast Cancer Screening-Mammogram 06/20/2025 06/20/2024, 06/20/2024 DTaP/Tdap/Td Vaccine (3 - Td or Tdap) 05/12/2033 05/12/2023, 04/02/2013 Zoster Vaccine Completed 08/08/2019, 03/01, 03/15/2019 Influenza Vaccine Completed 02/08/2025, , 04/01/2023, Additional history exists Pneumococcal vaccine <65 Aged Out No longer eligible based on patient's age to complete this topic Insurance [facility]/PPO Address: [address] [address] [place] [address] [facility] H[facility]/PPO Address: [address] [place] [address] [facility] [place] [address] Care Teams Newspaper Stuffer Relationship Specialty Start Date End Date Joseline Hall NP [address] [place] [address] [place] [address] PCP - General Family Medicine 02/21/24
--- OUTSIDE RECORDS SUMMARY | 2025-05-15 14:49 | XMS_ITS | Encounter Summary ---
Author Organization [facility] Address [address] [facility] [address] [place] [address] Care Team Providers Care Hearing Aide Technician Name Role Phone Amber Schwab MD Primary Care Provider + Amber Schwab MD Primary Care Provider + Aris Garzon MD DO [facility] Primary Care Provider [phone] Joseline Hall MD DO [facility] Primary Care Provider [phone] Encounter Details Date Type Department Care Team (Late st Contact Info) Description 05/12/2016 Orders Only [facility] Provider, MD Ruth [address] [place] [id number] Social History Tobacco Use Types Packs/Day Years Used Date Smoking Tobacco: Some Days Cigarettes Last attempted to quit: 05/30/2011 Alcohol Use Standard Drinks/Week Comments Yes 0 (1 standard drink = 0.6 oz pur e alcohol) Comments Unknown Sex and Gender Information Value Date Recorded Sex Assigned at Not on file 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 us Historical Provider [facility] PROCE DURES Final Result * CARDIOLOGY REPORT (05/12/2016) Anatomical Region Laterality Modality Other Narrative 05/12/2016 Ordered by an unspecified provider. Historical Provider [facility] CARDIAC SERVICES PROCE DURES Final Result documented in this encounter Visit Diagnoses Not on filedocumented in this encounter Care Teams Hearing Aide Technician Relationship Specialty Start Date End Date Amber Schwab MD [address] [place] [address] [place] [address] PCP - General 08/27/16 11/27/23 Amber Schwab MD [address] [place] [address] [place] [address] PCP - General 02/23/12 08/26/16 Aris Garzon NP [address] [place] [address] PCP - General Family Medicine 11/28/23 02/20/24 Joseline Hall NP [address] [place] [address] PCP - General Family Medicine 02/21/24 documented as of this encounter
== END 2025-05-15 12:51 | disposition home or self-care (01) ==
LOC: ANHNEURO 12:51
PROVIDERS: PCP Nurse Practitioner Family; Visit Provider Orthopaedic Surgery
DX: G56.21 Lesion of ulnar nerve, right upper limb (principal)
CPT/HCPCS: 95886; 95911

== ENCOUNTER 2025-05-16 15:08 | Emergency (ER) | payer OTHER, SELFPAY ==
[2025-05-16 15:13] VITALS: BP 151/90; PULSE 87; RESP 16; TEMP 36.6; O2SAT 97
[2025-05-16 15:34] LABS: Add Urine Microscopic? YES; Appearance Urine Cloudy (Clear); Glucose Urine UA Negative (Negative); Leukocyte Esterase Ur 3+ LEU/UL (Negative); Nitrate Urine Negative (Negative); Non Pathogenic Casts 0-2; Specific Grav Ur 1.011 (1.001-1.035)
--- OUTSIDE RECORDS SUMMARY | 2025-05-16 15:58 | XMS_ITS | Encounter Summary ---
Author Organization [facility] Address [address] [facility] [address] [place] [address] Care Team Providers Care Patient Advocate Name Role Phone Amber Schwab MD Primary Care Provider + Amber Schwab MD Primary Care Provider + Aris Garzon MELT ROOM OPERATOR Primary Care Provider [phone] Joseline Hall MELT ROOM OPERATOR Primary Care Provider [phone] Encounter Details Date Type Department Care Team (Late st Contact Info) Description 05/12/2016 Orders Only [facility] Provider, MD Ruth [address] [place] [address] Social History Tobacco Use Types Packs/Day Years Used Date Smoking Tobacco: Some Days Cigarettes Last attempted to quit: 05/30/2011 Alcohol Use Standard Drinks/Week Comments Yes 0 (1 standard drink = 0.6 oz pur e alcohol) Comments Unknown Sex and Gender Information Value Date Recorded Sex Assigned at Not on file 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 Gender Identity Not on file Sexual Orientation [...] on filedocumented in this encounter Care Teams Patient Advocate Relationship Specialty Start Date End Date Amber Schwab MD [address] [place] [address] [place] [address] PCP - General 08/27/16 11/27/23 Amber Schwab MD [address] [place] [address] [place] [address] PCP - General 02/23/12 08/26/16 Aris Garzon NP [address] [place] [address] PCP - General Family Medicine 11/28/23 02/20/24 Joseline Hall NP [address] [place] [address] PCP - General Family Medicine 02/21/24 documented as of this encounter
--- OUTSIDE RECORDS SUMMARY | 2025-05-16 15:58 | XMS_ITS | Clinical Summary ---
Author Organization [facility] Address [address] [place] [address] Care Team Providers Care Prop Setter Name Role Phone Joseline Hall NP Primary Care Provider [phone] Allergies Active Allergy Reactions Criticality Noted Date [...] mg total) by mouth daily Active omega 7-mnm-ute-fis h oil 300-1,000 mg capsule 1 capsule [...] (hypertension), benign Coronary artery disease invo lving poarch coronary artery of poarch heart without angina pectoris 05/06/2015 Overview (09/02/2016): Coronary artery disease involving poarch coronary artery of poarch heart without angina pectoris Old myocardial infarction [...] Description 03/19/2025 11:00 AM CDT Office Visit [facility] Cardiology [address] [place] [address] Shruti Andino NP Preoperative cardiovascular examination (Primary Dx); Coronary artery disease involving poarch coronary artery of poarch heart without angina pectoris; Cryptogenic stroke (HCC); [...] on file 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 Gender Identity Not on file Sexual Orientation [...] to complete this topic Insurance [facility]/PPO Address: [address] [address] [place] [address] [facility]/PPO Address: [address] [place] [address] [facility] CHOICE [facility]/[place] [address] Care Teams Prop Setter Relationship Specialty Start Date End Date Joseline Hall NP [address] [place] [address] [place] [address] PCP - General Family Medicine 02/21/24
--- OUTSIDE RECORDS SUMMARY | 2025-05-16 15:58 | XMS_ITS | Encounter Summary ---
Author Organization [facility] Address [address] [facility] [address] [place] [address] Care Team Providers Care Wax Bleacher Name Role Phone Amber Schwab MD Primary Care Provider + Aris Garzon NP Primary Care Provider [phone] Joseline Hall GEOSPATIAL IMAGERY INTELLIGENCE ANALYST Primary Care Provider [phone] Encounter Details Date Type Department Care Team (Late st Contact Info) Description 09/09/2016 Orders Only [facility] ProviderRuth MD [address] [place], [place] [id number] Social History Tobacco Use Types Packs/Day Years Used Date Smoking Tobacco: Some Days Cigarettes Last attempted to quit: 05/30/2011 Alcohol Use Standard Drinks/Week Comments Yes 0 (1 standard drink = 0.6 oz pur e alcohol) Comments Unknown Sex and Gender Information Value Date Recorded Sex Assigned at Not on file 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
--- OUTSIDE RECORDS SUMMARY | 2025-05-16 15:58 | XMS_ITS | Clinical Summary ---
Author Organization [facility] Address [address] [facility] [place] [address] Care Team Providers Care Dehydrogenation Operator Head Name Role Phone Amber Schwab MD Primary Care Provider [phone] Rodrigo Knutson MD Unavailable [phone] Source Comments [facility],non-owned Affiliates and Associated Physician Practices is amultiple site organization consisting of ambulatory clinics and hospital sitesin [place], [place], [place] and [place]. This disclosure is being madepursuant to the Care Everywhere program and may not contain all information available regarding this patient. Last updated 18.[facility] Allergies Active Allergy Reactions [...] tablet by mouth once daily 6 Active [place]-3 Fatty Acids (FISH OIL) 1000 MG capsuleIndicat [...] vitamin D, ergocalciferol , (Drisdol) 1.25 MG (67709 UT) capsule TAKE 1 CAPSULE EVERY WEEK [...] mouth once daily 5 Active nystatin (Mycostatin) 953423 UNIT/GM cream 5 Active ondansetron (Zofran) 4 [...] 04/04/2025 Assessment & Plan (04/05/2025 1:39 PM DIALYSIS EQUIPMENT TECHNICIAN): 12.5 immediately postop, 13.8 today Patient without [...] seizure Assessment & Plan (04/04/2025 6:07 PM DIALYSIS EQUIPMENT TECHNICIAN): 12.5 immediately postop Patient without signs of [...] 11/20/2015 Assessment & Plan (04/05/2025 1:39 PM DIALYSIS EQUIPMENT TECHNICIAN): S/p R craniotomy for microvascular decompression for hemifacial spasm Patient transferred to floor, hemodynamically stable. Likely discharge early tomorrow Plan: -order placed for Home health PT/OT and wheeled walker (DME order placed) -NSGY appointment 04/18 for pos-op visit and staple removal. Assessment & Plan (04/04/2025 6:07 PM DIALYSIS EQUIPMENT TECHNICIAN): S/p R craniotomy for microvascular decompression for [...] benign Assessment & Plan (04/05/2025 1:39 PM DIALYSIS EQUIPMENT TECHNICIAN): Continue home losartan 100 mg daily, metoprolol tartrate 25 mg bid Assessment & Plan (04/04/2025 6:07 PM DIALYSIS EQUIPMENT TECHNICIAN): Continue home losartan 100 mg daily, metoprolol tartrate 25 mg bid Coronary artery disease invo lving [place] coronary artery of [place] heart without angina pectoris 05/06/2015 Overview (08/14/2020): Coronary artery disease involving [place] coronary artery of [place] heart without angina pectoris Assessment & Plan (04/05/2025 1:39 PM DIALYSIS EQUIPMENT TECHNICIAN): History of NSTEMI s/p high risk PCI with implantation of bare metal stent to ostial LAD in January 2012. , on lifelong ASA, and is still taking Plavix Hx of cryptogenic stroke in 2014. Previous loop recorder did not reveal any arrhythmias Per cardiology report, no history of IA or stenting since this episode in 2011, however, has remained on DAPT since then. Patient also endorses the same history, and denies any cardiac events since DAPT is not appear to be indicated Plan: OK to resume single anti-platelet therapy, 81 mg ASA per NSGY notes Plan to discontinue Plavix as not indicated Encouraged patient f/u with PCP and/or heritage consultant about this change and further medication adjustment Assessment & Plan (04/04/2025 6:36 PM DIALYSIS EQUIPMENT TECHNICIAN): History of NSTEMI s/p high risk PCI with implantation of bare metal stent to ostial LAD in January 2012. , on lifelong ASA, and is still taking Plavix Hx of cryptogenic stroke in 2015. Previous loop recorder did not reveal any arrhythmias Per cardiology report, no history of IA or stenting since this episode in 2011, however, has remained on DAPT since then. Patient also endorses the same history, and denies any cardiac events since DAPT is not appear to be indicated Plan: OK to resume single anti-platelet therapy, 81 mg ASA per NSGY notes Plan to discontinue Plavix as not indicated Encouraged patient f/u with PCP and/or heritage consultant about this change Dyslipidemia 05/06/2015 Overview (08/14/2020): Mixed dyslipidemia Assessment & Plan (04/05/2025 1:39 PM DIALYSIS EQUIPMENT TECHNICIAN): Continue home rosuvastatin 40 Zetia not on formulary, continue at discharge Assessment & Plan (04/04/2025 6:36 PM DIALYSIS EQUIPMENT TECHNICIAN): Continue home rosuvastatin 40 Zetia not on formulary, continue at discharge Old myocardial infarction 05/06/2015 Overview (08/14/2020): Myocardial infarction greater than 8 weeks ago Headache 12/31/2014 Overview (08/14/2020): Frequent headaches Cryptogenic stroke 10/08/2014 Overview (08/14/2020): Cryptogenic stroke Cerebral infarction 08/12/2014 Overview (08/02/2018): Overview: CVA (cerebral infarction) Encounters Date Type Department Care Team Description 05/08/2025 3:00 PM DIALYSIS EQUIPMENT TECHNICIAN Procedure visit [facility] - Ophthalmology [address] [place] [phone] Geetha Anne MD Benign essential blepharospasm 05/08/2025 Travel 04/18/2025 3:15 PM DIALYSIS EQUIPMENT TECHNICIAN Office Visit [facility] Neuro[facility] [address] [place] [phone] Mckay Benson MD Walsh, Jodi, APRN-CNP Nausea (Primary Dx) 04/18/2025 Travel 04/16/2025 Refill [facility] Neuro[facility] [address] [place] [phone] Miriam Root APRN-TRANSPORTATION PLANNING TECHNICIAN Refill Request 04/14/2025 Orders Only [facility] - Neurology [address] [place] [address] [place] [phone] Mahogany Chinchilla MD Cerebrovascular accident (CVA), unspecified mechanism (HCC) ; Snoring 04/09/2025 Orders Only [facility] - Neurosurgery [address] [place] [phone] Miriam Root, HOSPICE VOLUNTEER COORDINATOR-TRANSPORTATION PLANNING TECHNICIAN Nausea 04/03/2025 9:19 AM DIALYSIS EQUIPMENT TECHNICIAN Anesthesia Event [facility] [address] [place] [address] Alen Carrizales MD Singh, Jaganjot, DO 04/03/2025 8:50 AM DIALYSIS EQUIPMENT TECHNICIAN - 04/03/2025 12:35 PM DIALYSIS EQUIPMENT TECHNICIAN Surgery [facility] [address] [place] [address] Mckay Benson MD Right Craniotomy for Microvascular Decompression 04/03/2025 7:17 AM DIALYSIS EQUIPMENT TECHNICIAN - 04/05/2025 3:18 PM DIALYSIS EQUIPMENT TECHNICIAN Hospital Encounter [facility] AC[facility] [address] [place] [address] Mckay Benson MD Surgery General Discharge Disposition: Home or Self Care 04/03/2025 Travel 04/02/2025 Telephone [facility] [address] [place] [phone] Carey Haines Follow-up 04/01/2025 Travel 03/25/2025 3:00 PM CDT Office Visit [facility] - Neurology [address] [place] [phone] Mahogany Chinchilla MD H/O: stroke (Primary Dx) 03/25/2025 Travel 03/08/2025 Results Follow-Up [facility] [address] [place] [phone] Kiya Zeng MD 03/07/2025 Travel 03/06/2025 Telephone [facility] [address] [place] [phone] Carey Haines Follow-up 03/06/2025 Telephone [facility] [address] [place] [phone] Carey Haines Follow-up 02/27/2025 3:00 PM CDT Office Visit [facility] - Neurology [address] [place] [phone] Jorge Bernal APRN-NATALYA Cryptogenic stroke (HCC) (Primary Dx) 02/27/2025 Travel 02/26/2025 2:50 PM CDT - 02/26/2025 11:59 PM CDT Hospital Encounter [facility] LAB OP DRAW STATION [address] [place] [address] Mckay Benson MD Discharge Disposition: Home or Self Care 02/26/2025 2:45 PM CDT - 02/26/2025 2:49 PM CDT Hospital Encounter [facility] DIAGNOSTIC RAD OP [address] [place] [address] Mckay Benson MD Discharge Disposition: Home or Self Care 02/26/2025 2:30 PM CDT - 02/26/2025 2:44 PM CDT Hospital Encounter [facility] EKG/HOLTER [address] [place] [address] Mckay Benson MD Discharge Disposition: Home or Self Care 02/26/2025 2:00 PM CDT - 02/26/2025 2:29 PM CDT Hospital Encounter [facility] PAT [address] [place] [address] Mckay Benson MD Discharge Disposition: Home or Self Care 02/26/2025 1:30 PM CDT Office Visit [facility] Neurosurgery [address] [place] [phone] Mckay Benson MD Hemifacial spasm of right side of face (Primary Dx); Pre-op testing 02/26/2025 Travel 02/25/2025 1:59 PM CDT - 02/25/2025 11:59 PM CDT Hospital Encounter [facility] CAT SCAN [address] [place] [phone] Kiya Zeng MD Discharge Disposition: Home or Self Care 02/25/2025 Travel 02/18/2025 Travel from Last 3 Months Immunizations Immunization Administration [...] and heating? Not hard at all 04/04/2025 [facility] [place] [facility] - Occupational Stress [...] any time in the past [address] [facility], were you homeless or living in a custodial (including now)? No 04/04/2025 Comments No Sex and Gender Information Value Date Recorded Sex Assigned at Not on file Legal Sex Female 5:25 PM DIALYSIS EQUIPMENT TECHNICIAN Gender Identity Not on file Sexual Orientation Not on file Last Filed Vital Signs Vital Sign Reading Time Taken Comments Blood Pressure 125/82 04/18/2025 3:04 PM DIALYSIS EQUIPMENT TECHNICIAN Pulse 64 04/18/2025 3:04 PM DIALYSIS EQUIPMENT TECHNICIAN Temperature 36.6 C (97.8 F) 04/18/2025 3:04 PM DIALYSIS EQUIPMENT TECHNICIAN Respiratory Rate 18 04/05/2025 11:53 AM DIALYSIS EQUIPMENT TECHNICIAN Oxygen Saturation 95% 04/18/2025 3:04 PM DIALYSIS EQUIPMENT TECHNICIAN Inhaled Oxygen Concentration - - Weight 74.8 kg (165 lb) 04/18/2025 3:04 PM DIALYSIS EQUIPMENT TECHNICIAN Height 165.1 cm (5' 5) 04/18/2025 3:04 PM DIALYSIS EQUIPMENT TECHNICIAN Body Mass Index 27.46 04/18/2025 3:04 PM DIALYSIS EQUIPMENT TECHNICIAN Plan of Treatment Upcoming Encounters Date Type Department Care Team (Late st Contact Info) Description 05/21/2025 2:00 PM DIALYSIS EQUIPMENT TECHNICIAN Appointment [facility] ECHO [address] [place] [phone] Mahogany Chinchilla MD [address] [place] [address] 05/28/2025 3:15 PM DIALYSIS EQUIPMENT TECHNICIAN Office Visit [facility] - Neurosurgery [address] [place] [address], [place] [phone] Mckay Benson MD [address] [place] [address] 08/07/2025 2:15 PM CDT Procedure visit [facility] - Ophthalmology [facility] [facility], [place] [phone] Geetha Anne MD [facility] [facility] [place] [phone] 09/10/2025 1:40 PM CDT Office Visit [facility] - Sleep Services [address] [facility] [address] [place] [address] Ambika Butterfield MD [address] [facility] [address] [place] [address] Health Maintenance Due Date Last Done Comments [...] Tdap) 04/02/2023 04/02/2013 COVID-19 VACCINE ( - season) 2025 06/12/2022, 02/26/2021, 08/24/2020, Additional history exists INFLUENZA VACCINE (#1) 2025 3, 03/04/2022, 02/03/2021, Additional history exists MAMMOGRAM 06/20/2026 06/20/2024, 06/20/2024 SCREENING FOR DIABETES 04/05/2028 , 04/04/2025, 04/03/2025, Additional history exists MENINGOCOCCAL GROUPS [...] this topic Medical Devices Implanted Type Area Maple Products Supervisor Device Identifier Shelf Expiration Date Model / Serial / Lot Duramatrix Suturable Collagen Dura Membrane Implanted:Qty : 1 on 04/03/2025 by Mckay Benson MD at [facility] Right: Brain COLLAGEN MATRIX 02/26/2027 DMS22 / / [id number] Seal Dural Adherus Auto Spr - Sn/A Implanted:Qty : 1 on 04/03/2025 by Mckay Benson MD at [facility] Right: Cranial Khang Craniomaxillofacial 12/27/2026 NUS-106 / N/A / [id number] Pldgt Cv Wht 9.5x4.8mm Thk1.5mm Y Tfe Implanted:Qty : 1 on 04/03/2025 by Mckay Benson MD at [facility] Right: Cranial [employer] PCP40 / / Description:Implanted 06/04 [place] 1.5mm 4mm Slf Drl Ax Stab Crnl - Sn/A Implanted:Qty : 7 on 04/03/2025 by Rocío Murillo MD at [facility] Right: Cranial Khang Craniomaxillofacial [id number] BILL ONLY / N/A / N/A Plate Cls Outr Frm Crnmxf .3mm Sm Rnd - Sn/A Implanted:Qty : 1 on 04/03/2025 by Rocío Murillo MD at [facility] Right: Cranial Khang Craniomaxillofacial [id number] / N/A / N/A Procedures Procedure Name Priority Date/Time Associated Diagnosis Comments DENERVATION FACE MUSCLE LEFT Routine 05/08/2025 10:03 PM DIALYSIS EQUIPMENT TECHNICIAN Benign essential blepharospasm CBC W/O DIFFERENTIAL AM Draw 04/05/2025 4:52 AM DIALYSIS EQUIPMENT TECHNICIAN BASIC METABOLIC PANEL (CALCIUM TOTAL) Routine 04/05/2025 4:52 AM [address]YSIS EQUIPMENT TECHNICIAN CT HEAD WO CONTRAST Routine 04/04/2025 5:48 AM DIALYSIS EQUIPMENT TECHNICIAN Blepharospasm CBC W AUTO DIFFERENTIAL Routine 04/04/2025 4:37 AM DIALYSIS EQUIPMENT TECHNICIAN BASIC METABOLIC PANEL (CALCIUM TOTAL) Routine 04/04/2025 4:37 AM DIALYSIS EQUIPMENT TECHNICIAN CBC W/O DIFFERENTIAL Routine 04/03/2025 8:21 PM DIALYSIS EQUIPMENT TECHNICIAN BASIC METABOLIC PANEL (CALCIUM TOTAL) Routine 04/03/2025 8:21 PM DIALYSIS EQUIPMENT TECHNICIAN MAGNESIUM BLOOD Routine 04/03/2025 8:21 PM DIALYSIS EQUIPMENT TECHNICIAN PHOSPHORUS BLOOD Routine 04/03/2025 8:21 PM DIALYSIS EQUIPMENT TECHNICIAN ARTERIAL LINE NOTE Routine 04/03/2025 10:39 AM DIALYSIS EQUIPMENT TECHNICIAN PERIPHERAL IV NOTE Routine 04/03/2025 10:37 AM DIALYSIS EQUIPMENT TECHNICIAN ENDOTRACHEAL TUBE NOTE Routine 04/03/2025 10:36 AM DIALYSIS EQUIPMENT TECHNICIAN PERIPHERAL BLOCK Routine 04/03/2025 9:[address]IS EQUIPMENT TECH[address] CT CRNEC SOPL EXPLORATION/DECOM PRESSION CRANIAL NRV 04/03/2025 8:54 AM DIALYSIS EQUIPMENT TECHNICIAN Hemifacial spasm, unspecified laterality Case Notes Stealth CT on arrival Special Needs Supine, CT head on arrivalStealth, Kinevo microscopeFacial and Hearing Monitoring--[id number] 04/02 TYPE + SCREEN PANEL STAT 04/03/2025 7:52 AM DIALYSIS EQUIPMENT TECHNICIAN Dystrophia unguium TYPE + SCREEN PANEL Routine [...] DENERVATION FACE MUSCLE LEFT (05/08/2025 10:03 PM DIALYSIS EQUIPMENT TECHNICIAN) Anatomical Region Laterality Modality Head Other Narrative 05/08/2025 10:03 PM DIALYSIS EQUIPMENT TECHNICIAN Table formatting from the original result was [...] Benign essential blepharospasm CVA (cerebral vascular accident) ([facility]) Diverticulitis sepsis 2019 Dry eye syndrome Essential hypertension GERD (gastroesophageal reflux disease) IA (myocardial infarction) ([facility]) Migraines PONV (postoperative nausea and vomiting) Pure hypercholesterolemia Past Surgical History: Procedure Laterality Date Blepharoplasty Bilateral 04/15/2023 Bilateral; Bilateral upper eyelid blepharoplasty with myectomy; anesthesia general with local HX CARDIAC STENT PLACEMENT 2011 Hysterectomy PLASTIC SURGERY PROCEDURE Bilateral 04/09/2019 Bilateral; Bilateral ptosis repair by muellerectomy CT CHEMODNRVTJ [facility] INNERVATED FACIAL NRV UNIL 01/20/2016 CT DESTROY NERVE FACE MUSCLE, UNILAT 09/29/2018 TRIGEMINAL [...] more than 50% of the waking time Roggenkamper Blepharospasm Disability Index Items: Reading - 1 [...] mo Geetha Anne MD 05/08/2025 10:00 PM us Geetha Anne MD OPHTHALMOLOGY SERVICES OR DERABLES Final Result * (ABNORMAL) CBC W/O DIFFERENTIAL (04/05/2025 4:52 AM DIALYSIS EQUIPMENT TECHNICIAN) Only the most recent of2 resultswithin the time period is included. WBC 13.8(H) 4.0 - 10.7 x10E9/L 04/05/2025 6:53 AM [facility] RBC Count 4.20 3.90 - 5.20 x10E12/L 04/05/2025 6:53 AM [facility] Hemoglobin 12.1 11.9 - 15.8 g/dL 04/05/2025 6:53 AM [facility] Hematocrit 36.7 34.8 - 46.1 % 04/05/2025 6:53 AM [facility] MCV 87.4 80.0 - 98.0 fL 04/05/2025 6:53 AM [facility] MCH 28.8 26.7 - 33.6 pg 04/05/2025 6:53 AM [facility] MCHC 33.0 31.7 - 36.3 g/dL 04/05/2025 6:53 AM [facility] RDW-CV 13.7 11.3 - 14.8 % 04/05/2025 6:53 AM [facility] Platelet Count 266 150 - 420 x10E9/L 04/05/2025 6:53 AM [facility] MPV 10.2 7.8 - 11.4 fL 04/05/2025 6:53 AM [facility] Blood BLOOD SPECIMEN / Unknown Lab Venipuncture / Unknown 04/05/2025 4:52 AM DIALYSIS EQUIPMENT TECHNICIAN 04/05/2025 6:28 AM DIALYSIS EQUIPMENT TECHNICIAN us Mckay Benson MD LAB - HEMATOLOGY ORDERABLES Final Result [facility] [address] [place] [address] [phone] * (ABNORMAL) BASIC METABOLIC PANEL (CALCIUM TOTAL) (04/05/2025 4:52 AM DIALYSIS EQUIPMENT TECHNICIAN) Only the most recent of4 resultswithin the time period is included. BUN 11 7 - 26 mg/dL 04/05/2025 6:58 AM [facility] Creatinine 0.79 0.56 - 0.96 mg/dL 04/05/2025 6:58 AM [facility] Sodium 143 136 - 145 mmol/L 04/05/2025 6:58 AM [facility] Potassium 3.4(L) 3.5 - 4.5 mmol/L 04/05/2025 6:58 AM [facility] Chloride 110(H) 98 - 107 mmol/L 04/05/2025 6:58 AM [facility] CO2 26 22 - 29 mmol/L 04/05/2025 6:58 AM [facility] Glucose 88 70 - 99 mg/dL 04/05/2025 6:58 AM [facility] Calcium 8.7 8.4 - 10.2 mg/dL 04/05/2025 6:58 AM [facility] Anion Gap 7 6 - 16 04/05/2025 6:58 AM [facility] BUN/Creatinine Ratio 14 7 - 23 04/05/2025 6:58 AM [facility] Osmolality Calculated 295 275 - 295 mOsm/kg 04/05/2025 6:58 AM [facility] eGFR by CKD-EPI 86(L) >=90 mL/min/1.7 3 m2 04/05/2025 6:58 AM [facility] Comment:Estimated Glomerular Filtration Rate (eGFR) calculated using the CKD-EPI Creatinine Equation (2020), per the National Kidney Foundation and [place] [employer] of Nephrology recommendations. Blood BLOOD SPECIMEN / Unknown Lab Venipuncture / Unknown 04/05/2025 4:52 AM DIALYSIS EQUIPMENT TECHNICIAN 04/05/2025 6:28 AM [facility] us Mckay Benson MD LAB - CHEMISTRY ORDERABLES F inal Result [facility] [address] [place] [address] [phone] * CT HEAD NON CONTRAST (04/04/2025 5:48 AM DIALYSIS EQUIPMENT TECHNICIAN) Anatomical Region Laterality Modality Head Computed Tomogra phy 04/04/2025 5:58 AM DIALYSIS EQUIPMENT TECHNICIAN Impressions 04/04/2025 8:37 AM DIALYSIS EQUIPMENT TECHNICIAN IMPRESSION: 1. Postsurgical changes of a right retrosigmoid craniectomy/cranioplasty for microvascular decompression, with expected postsurgical changes as outlined above. 2. No significant acute intracranial hemorrhage or significant midline shift. > Dictated by Magda Cohen MD, (cath lab radiology technician). > Dictated by Statistician Applied I, Paris Bowles MD have personally reviewed and interpreted this examination/study. > Interpreting Provider: Paris Bowles MD on 04/04/2025 8:37 AM Narrative 04/04/2025 8:37 AM DIALYSIS EQUIPMENT TECHNICIAN PROCEDURE: CT HEAD WO CONTRAST, DATE/TIME OF EXAM: 04/04/2025 5:48 AM, LOCATION [facility] INDICATION: G24.5: Blepharospasm ADDITIONAL CLINICAL INFORMATION: Ordering [...] DATE/TIME OF EXAM: 04/04/2025 5:48 AM, LOCATION [facility] INDICATION: G24.5: Blepharospasm ADDITIONAL CLINICAL INFORMATION: Ordering [...] shift. > Dictated by Magda Cohen MD, (cath lab radiology technician). > Dictated by Statistician Applied IParis MD have personally reviewed and interpretedthis examination/study. > Interpreting Provider: Paris Bowles MD on 04/04/2025 8:37 AM us Mckay Benson MD CT ORDERABLES Final Result * (ABNORMAL) CBC W AUTO DIFFERENTIAL (04/04/2025 4:37 AM DIALYSIS EQUIPMENT TECHNICIAN) Only the most recent of2 resultswithin the time period is included. WBC 12.5(H) 4.0 - 10.7 x10E9/L 04/04/2025 5:08 AM [facility] RBC Count 4.44 3.90 - 5.20 x10E12/L 04/04/2025 5:08 AM [facility] Hemoglobin 13.0 11.9 - 15.8 g/dL 04/04/2025 5:08 AM [facility] Hematocrit 37.5 34.8 - 46.1 % 04/04/2025 5:08 AM [facility] MCV 84.5 80.0 - 98.0 fL 04/04/2025 5:08 AM [facility] MCH 29.3 26.7 - 33.6 pg 04/04/2025 5:08 AM [facility] MCHC 34.7 31.7 - 36.3 g/dL 04/04/2025 5:08 AM [facility] RDW-CV 13.0 11.3 - 14.8 % 04/04/2025 5:08 AM [facility] Platelet Count 293 150 - 420 x10E9/L 04/04/2025 5:08 AM [facility] MPV 10.0 7.8 - 11.4 fL 04/04/2025 5:08 AM [facility] Neutrophil % 80.1(H) 41.0 - 74.0 % 04/04/2025 5:08 AM [facility] Lymphocyte % 12.1(L) 17.0 - 47.0 % 04/04/2025 5:08 AM [facility] Monocyte % 7.0 3.0 - 11.0 % 04/04/2025 5:08 AM [facility] Eosinophil % 0.0 0.0 - 7.0 % 04/04/2025 5:08 AM [facility] Basophil % 0.2 0.0 - 1.6 % 04/04/2025 5:08 AM [facility] Immature Granulocytes % 0.6 0.0 - 1.0 % 04/04/2025 5:08 AM [facility] Neutrophil Absolute 10.02(H) 1.60 - 7.50 x10E9/L 04/04/2025 5:08 AM [facility] Lymphocyte Absolute 1.51 1.00 - 4.40 x10E9/L 04/04/2025 5:08 AM [facility] Monocyte Absolute 0.88 0.15 - 1.00 x10E9/L 04/04/2025 5:08 AM [facility] Eosinophil Absolute 0.00 0.00 - 0.60 x10E9/L 04/04/2025 5:08 AM [facility] Basophil Absolute 0.02 0.00 - 0.13 x10E9/L 04/04/2025 5:08 AM [facility] Blood BLOOD SPECIMEN / Unknown Venipuncture / Unknown 04/04/2025 4:37 AM DIALYSIS EQUIPMENT TECHNICIAN 04/04/2025 4:52 AM DIALYSIS EQUIPMENT TECHNICIAN us Mckay Benson MD LAB - HEMATOLOGY ORDERABLES Final Result [address] [address], [facility] [phone] * PHOSPHORUS BLOOD (04/03/2025 8:21 PM DIALYSIS EQUIPMENT TECHNICIAN) Phosphorus 3.5 2.9 - 5.1 mg/dL 04/03/2025 8:59 PM DIALYSIS EQUIPMENT TECHNICIAN [facility] Blood BLOOD SPECIMEN / Unknown Venipuncture / Unknown 04/03/2025 8:21 PM DIALYSIS EQUIPMENT TECHNICIAN 04/03/2025 8:31 PM DIALYSIS EQUIPMENT TECHNICIAN Evy Telles DO LAB - CHEMISTRY ORDERABLES Final Result [address] [place] [address], [facility] [phone] * MAGNESIUM BLOOD (04/03/2025 8:21 PM DIALYSIS EQUIPMENT TECHNICIAN) Magnesium 2.1 1.6 - 2.6 mg/dL 04/03/2025 8:59 PM DIALYSIS EQUIPMENT TECHNICIAN [facility] Blood BLOOD SPECIMEN / Unknown Venipuncture / Unknown 04/03/2025 8:21 PM DIALYSIS EQUIPMENT TECHNICIAN 04/03/2025 8:31 PM DIALYSIS EQUIPMENT TECHNICIAN Emad Koki LAB - CHEMISTRY ORDERABLES Final Result [address] [address], [facility] [phone] * ARTERIAL LINE PERFORMABLE (04/03/2025 10:39 AM DIALYSIS EQUIPMENT TECHNICIAN) Narrative Aris Garrett DO - 04/03/2025 10:39 AM DIALYSIS EQUIPMENT TECHNICIAN Aris Garrett DO 04/03/2025 10:39 AM Arterial Line Placement Procedure Note Patient Location: OR. Insertion Time: 04/03/2025 9:47 AM Procedure: Arterial Line ([id number]) Procedure Section Indications: continuous blood pressure monitoring [...] the procedure Provider #1: Alen Carrizales MD. us Alen Carrizales MD GENERAL ANESTHESIA ORDERABLES Final Result * IV PLACEMENT PERFORMABLE (04/03/2025 10:37 AM DIALYSIS EQUIPMENT TECHNICIAN) Narrative Aris Garrett DO - 04/03/2025 10:37 AM DIALYSIS EQUIPMENT TECHNICIAN Aris Garrett DO 04/03/2025 10:39 AM Peripheral IV Line Placement: Patient Location: OR Insertion Time: 04/03/2025 9:47 AM Procedure: IV start ([id number]) Procedure Section: Skin Prep: alcohol. Orientation: right [...] * ETT LINE PERFORMABLE (04/03/2025 10:36 AM DIALYSIS EQUIPMENT TECHNICIAN) Narrative Aris Garrett DO - 04/03/2025 10:36 AM DIALYSIS EQUIPMENT TECHNICIAN Aris Garrett DO 04/03/2025 10:37 AM Endotracheal Tube Placement: Patient Location: OR. Intubation Event Date/Time: 04/03/2025 9:37 AM Procedure: intubation ([id number]) Procedure Section: Sedation: under general anesthesia. Indications [...] of Dr. Carrizales. Atraumatic intubation. Dentition unchanged.. Alen Carrizales MD GENERAL ANESTHESIA ORDERABLES Final Result * Peripheral Nerve Block (04/03/2025 9:51 AM DIALYSIS EQUIPMENT TECHNICIAN) Narrative Arnoldo Sales MD - 04/03/2025 9:51 AM DIALYSIS EQUIPMENT TECHNICIAN Arnoldo Sales MD 04/03/2025 9:52 AM Peripheral [...] TYPE + SCREEN PANEL (04/03/2025 7:52 AM DIALYSIS EQUIPMENT TECHNICIAN) Only the most recent of2 resultswithin the time period is included. Antibody Screen NEG 9:15 AM DIALYSIS EQUIPMENT TECHNICIAN [facility] BLOOD BANK LAB ABO Rh A POS 04/03/2025 9:15 AM [facility] BLOOD BANK LAB Blood Bank BLOOD SPECIMEN / Unknown Venipuncture / Unknown 04/03/2025 7:52 AM DIALYSIS EQUIPMENT TECHNICIAN 04/03/2025 8:13 AM DIALYSIS EQUIPMENT TECHNICIAN Mckay Benson MD LAB - BLOOD BANK ORDERABLES Final Result Performing Organization Address [facility]/ZIP Co de Phone Number [facility] BLOOD BANK LAB [address] [place] [address], [facility] [phone] * PTT (02/26/2025 3:32 PM CDT) APTT 26.2 23.0 - 38.4 Seconds 02/26/2025 5:08 PM CDT [facility] Comment:Suggested therapeuti c range for full dose I.V. unfractionated heparin therapy for venous thromboembolism is 71 to 109 seconds. Blood BLOOD SPECIMEN / Unknown Lab Venipuncture / Unknown 02/26/2025 3:32 PM CDT 02/26/2025 4:45 PM CDT Mckay Benson MD LAB - COAGULATION ORDERABLES Final Result Performing Organization Address [facility] Co de Phone Number [facility] LABORAT[facility] [address] [place] [address], [facility] [phone] * PT-INR (02/26/2025 3:32 PM CDT) PT 13.2 12.1 - 14.8 Seconds 02/26/2025 5:08 PM CDT [facility] INR 1.0 See Comment 02/26/2025 5:08 PM CDT [facility] Comment:The suggested therap eutic range for standard coumadin (warfarin) therapy is an INR of 2.0-3.0. For high-risk patients (Mechanical Mitral Valve Prosthesis, etc.), the suggested prophylactic therapeutic range is an INR of 2.5-3.5. Blood BLOOD SPECIMEN / Unknown Lab Venipuncture / Unknown 02/26/2025 3:32 PM CDT 02/26/2025 4:45 PM CDT Mckay Benson MD LAB - COAGULATION ORDERABLES Final Result [facility] [address] [place] [address], [facility] [phone] * XR Chest 2Vw (02/26/2025 3:24 PM [...] * EKG 12-Lead (02/26/2025 2:00 PM CDT) Ventricular Rate 50 BPM [facility] MUSE Atrial Rate 50 BPM [facility] MUSE P-R Interval 150 ms [facility] MUSE QRS Duration ms 80 ms [facility] MUSE Q-T Interval ms 454 ms [facility] MUSE QTC Calculation (Bezet) 413 ms [facility] MUSE Calculated P [place] 27 degrees SL MUSE Calculated R [place] -6 degrees SLH MUSE Calculated T [place] 64 degrees SL MUSE Interpretation EKG SINUS BRADYCARDIA LOW VOLTAGE QRS NONSPECIFIC T WAVE ABNORMALITY ABNORMAL ECG NO PREVIOUS ECGS AVAILABLE Confirmed by CHECO DIMAS MD ([id number]) on 03/03/2025 11:38:00 PM Also confirmed by CHECO DIMAS MD ([id number]) on 03/03/2025 11:40:38 PM [facility] MUSE 02/26/2025 2:00 PM CDT 03/03/2025 11:40 PM CDT us Mckay Benson MD ECG ORDERABLES Edited Resul t - Final [facility] MUSE * CT Angio Brain And [...] DATE/TIME OF EXAM: 02/25/2025 2:26 PM, LOCATION [facility] 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 ADDITIONAL CLINICAL [...] NECK, DATE/TIME OF EXAM: 02/25/2025 2:26PM, LOCATION [facility] 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 ADDITIONAL CLINICAL [...] * ISTAT CREATININE (02/25/2025 2:13 PM CDT) [facility] Creatinine POCT 0.70 0.60 - 1.30 mg/dL 02/25/2025 2:14 PM CDT [facility] HOSPITAL eGFR by CKD-EPI >90 >90 mL/min/1.7 3 m2 02/25/2025 2:14 PM CDT [facility] Sample iSTAT MACO 02/25/2025 2:14 PM CDT [facility] Blood BLOOD SPECIMEN / Unknown 02/25/2025 2:13 PM CDT 02/25/2025 2:14 PM CDT Kiya Zeng MD LAB - POINT OF CARE ORDERABLE S Final Result [facility] [address] [place] [address], [facility] [phone] from Last 3 Months Insurance [facility] Address: [address] [address] [place] [address] Advance Directives * Full Code (Latest Code Status on File) Date Activated Date Inactivated Comments 04/03/2025 3:37 PM 04/05/2025 4:23 PM * Full Code Date Activated Date Inactivated Comments 04/08/2019 4:20 PM 04/09/2019 5:15 PM Care Teams Dehydrogenation Operator Head Relationship Specialty Start Date End Date Amber Schwab MD [address] [place] [address] PCP - General 11/20/15 Rodrigo Knutson MD [address] [place] [address] [place] [address] Physician Cardiovascular Disease 11/02/18
--- OUTSIDE RECORDS SUMMARY | 2025-05-16 15:58 | XMS_ITS | Encounter Summary ---
Author Organization [facility] Address [address] [facility] [address] [place] [address] Care Team Providers Care Cadd Manager Name Role Phone Amber Schwab MD Primary Care Provider + Amber Schwab MD Primary Care Provider + Aris Garzon LIQUOR STORES AND AGENCIES SUPERVISOR Primary Care Provider [phone] Joseline Hall LIQUOR STORES AND AGENCIES SUPERVISOR Primary Care Provider [phone] Encounter Details Date Type Department Care Team (Late st Contact Info) Description 06/24/2016 Orders Only [facility] ProviderRuth MD [address] [place] [address] Social History Tobacco Use Types Packs/Day Years Used Date Smoking Tobacco: Some Days Cigarettes Last attempted to quit: 05/30/2011 Alcohol Use Standard Drinks/Week Comments Yes 0 (1 standard drink = 0.6 oz pur e alcohol) Comments Unknown Sex and Gender Information Value Date Recorded Sex Assigned at Not on file Legal Sex Female 10:29 AM BOAT DECKHAND Gender Identity Not on file Sexual Orientation [...] on filedocumented in this encounter Care Teams Cadd Manager Relationship Specialty Start Date End Date Amber Schwab MD [address] [place] [place] [address] PCP - General 08/27/16 11/27/23 Amber Schwab MD [address] [place] [place] [address] PCP - General 02/23/12 08/26/16 Aris Garzon NP [address] [place] [address] PCP - General Family Medicine 11/28/23 02/20/24 Joseline Hall NP [address] [place] [address] PCP - General Family Medicine 02/21/24 documented as of this encounter
--- OUTSIDE RECORDS SUMMARY | 2025-05-16 15:58 | XMS_ITS | Encounter Summary ---
Author Organization [facility] Medical [facility] Address [address] [facility] [address] [place] [address] Care Team Providers Care Pole Frame Construction Worker Name Role Phone Amber Schwab MD Primary Care Provider + Amber Schwab MD Primary Care Provider + Aris Garzon MISSION SYSTEMS ENGINEER Primary Care Provider [phone] Joseline Hall MISSION SYSTEMS ENGINEER Primary Care Provider [phone] Encounter Details Date Type Department Care Team (Late st Contact Info) Description 08/02/2016 Orders Only [facility] ProviderRuth MD [address] [place] [address] Social History Tobacco Use Types Packs/Day Years Used Date Smoking Tobacco: Some Days Cigarettes Last attempted to quit: 05/30/2011 Alcohol Use Standard Drinks/Week Comments Yes 0 (1 standard drink = 0.6 oz pur e alcohol) Comments Unknown Sex and Gender Information Value Date Recorded Sex Assigned at Not on file Legal Sex Female 10:29 AM LEAD CARGOMAN Gender Identity Not on file Sexual Orientation [...] on filedocumented in this encounter Care Teams Pole Frame Construction Worker Relationship Specialty Start Date End Date Amber Schwab MD [address] [place] [place] [address] PCP - General 08/27/16 11/27/23 Amber Schwab MD [address] [place] [address] PCP - General 02/23/12 08/26/16 Aris Garzon NP [address] [place] [place] [address] PCP - General Family Medicine 11/28/23 02/20/24 Joseline Hall NP [address] [place] [address] PCP - General Family Medicine 02/21/24 documented as of this encounter
--- OUTSIDE RECORDS SUMMARY | 2025-05-16 15:58 | XMS_ITS | Clinical Summary ---
Author Organization [facility] Address [address] [place] [address] Care Team Providers Care Chorus Dancer Name Role Phone Amber Schwab MD Primary Care Provider [phone] Allergies Active Allergy Reactions Criticality Noted Date [...] Sex Assigned at Female 06/20/2024 1:47 PM SECURITY CONTROL ASSESSOR Legal Sex Female 5:31 PM CDT Gender Identity Not on file Sexual Orientation Not on file Last Filed Vital Signs Vital Sign Reading Time Taken Comments Blood Pressure 149/88 05/18/2019 8:56 PM SECURITY CONTROL ASSESSOR Pulse 88 05/18/2019 8:56 PM SECURITY CONTROL ASSESSOR Temperature 36.3 C (97.4 F) 05/18/2019 6:57 PM SECURITY CONTROL ASSESSOR Respiratory Rate 20 05/18/2019 8:56 PM SECURITY CONTROL ASSESSOR Oxygen Saturation 98% 05/18/2019 8:56 PM SECURITY CONTROL ASSESSOR Inhaled Oxygen Concentration - - Weight 83.5 kg (184 lb) 05/18/2019 6:57 PM SECURITY CONTROL ASSESSOR Height 160 cm (5' 3) 05/18/2019 6:57 PM SECURITY CONTROL ASSESSOR Body Mass Index 32.59 05/18/2019 6:57 PM SECURITY CONTROL ASSESSOR Plan of Treatment Health Maintenance Due Date [...] of 1 - PCV) 2015 PHQ-2 (Physician [place]) 05/30/2024 COVID-19 Vaccine ( season) 2025 02/07/2024, [...] HASMUKH ROGERS DIGI Routine 06/20/2024 2:09 PM SECURITY CONTROL ASSESSOR Encounter for other screening for malignant neoplasm of breast from Last 3 Months or Most Recently Relevant to Health Maintenance Results * MG SCREENING W HASMUKH ROGERS DIGI (06/20/2024 2:09 PM SECURITY CONTROL ASSESSOR) Anatomical Region Laterality Modality Breast Bilateral Mammography 06/20/2024 3:02 PM SECURITY CONTROL ASSESSOR Impressions 06/20/2024 3:03 PM SECURITY CONTROL ASSESSOR IMPRESSION: No suspicious mammographic findings. Recommendation: 1. Routine Screening, Bilateral Assessment: ACR BI-RADS 2 - BENIGN FINDING(S) Ordered By: ADDY HALL Interpreted By: Osmani Aguila, 06/20/2024 3:02 PM Narrative 06/20/2024 3:03 PM SECURITY CONTROL ASSESSOR [facility] [address] [facility] [place] [address] Examination: Screening bilateral mammogram Exam Date/Time: 06/20/2024 [...] change from the prior exam. Addy Hall COUNTER MAKER MAMMO Final Result from Last 3 Months or Most Recently Relevant to Health Maintenance Insurance Care Teams Chorus Dancer Relationship Specialty Start Date End Date Amber Schwab MD [address] [place] [address] [place] [address] PCP - General FAMILY PRACTICE 03/24/18
--- OUTSIDE RECORDS SUMMARY | 2025-05-16 15:58 | XMS_ITS | Patient Health Record ---
Author Organization [facility] Address [address] [place] [address] Care Team Providers Care Filbert Grower Name Role Phone Zaheer Amber Primary Care Provider Unavailab Darren Scott Unavailable [phone] Alec Bryant Unavailable Unavailable Allergies Allergen (clinical drug ingredient) Drug/Non Drug Allergy documented on EMR Reaction Allergy Type Onset Date Status tramadol Tramadol HCl Unknown Drug Allergy Acti ve fluoxetine Prozac Unknown Drug Allergy Active Substance with serotonin 3-zkoxrpcxbrylberfb-9 receptor agonist mechanism of action (substance) Triptans for migraine (uncoded) Unknown Allergy Active Reason For Referral No Information Medications Medication SIG (Take, Route, Frequency, Duration) Notes Start Date End Date Status ALPRAZolam Active Acid Ios Software Engineer Active Soma Active HYDROcodone-Acetaminophen Active Atorvastatin Calcium [...] Insured Coverage Start Date Coverage End Date [facility] [employer] [address] [place] [address] [id number] Shey Mario Spouse - patient is the spouse of the insured Medical (General) History Medical History History ICD Code Angina CAD Stroke Arthritis Gastritis Neck pain Back pain Spinal stenosis Anxiety Denies h/o drug/chemical dependency Surgical History Surgery Date(Month/Year) 1985 1989 R. wrist 2006 Cardiac stents 2011 Hysterectomy 2012
--- NOTE | 2025-05-16 16:10 | ED.FEMALEGU ---
HPI - Female Genitourinary General Chief complaint: Urogenital-Female Stated complaint: hematuria Time Seen by Provider: 05/16/25 15:54 Source: patient Mode of arrival: ambulatory Limitations: no limitations History of Present Illness HPI Narrative: This is a 59-year-old female who presents the ED for urinary frequency, foul smell, and suprapubic abdominal pain. Patient states for the past week, she has been dealing with the symptoms. She has been seen by her PCP multiple times for this with negative urines but was told to come to the ED if persistent. She denies fevers, chills, flank pain, nausea vomiting. Related Data Home Medications ?Medication ?Instructions ?Recorded ?Confirmed ?Last Taken ?Type alprazolam 1 mg tablet 1 mg PO TID PRN Anxiety 04/23/19 03/23/23 Unknown History aspirin 81 mg chewable tablet 81 mg PO DAILY 04/23/19 03/23/23 Unknown History atorvastatin 80 mg tablet (Lipitor) 80 mg PO DAILY 04/23/19 03/23/23 Unknown History cetirizine 10 mg tablet 10 mg PO DAILY 04/23/19 03/23/23 Unknown History clopidogrel 75 mg tablet 75 mg PO DAILY 04/23/19 03/23/23 Unknown History metoprolol tartrate 25 mg tablet 25 mg PO BID 04/23/19 03/23/23 Unknown History losartan 100 mg tablet 100 mg PO DAILY 09/08/22 03/23/23 Unknown History Allergies Allergy/AdvReac Type Severity Reaction Status Date / Time fluoxetine Allergy Unknown Unknown Verified 03/01/24 15:55 [id number] Antimigraine Allergy Unknown Unknown Verified 03/01/24 15:55 Agents morphine Allergy Unknown Verified 03/01/24 15:55 Sulfa (Sulfonamide Allergy Hives Verified 03/01/24 15:55 Antibiotics) ibuprofen AdvReac Intermediate ON BLOOD Verified 03/01/24 15:55 THINNERS tramadol AdvReac Intermediate VOMITING 4 Verified 03/01/24 15:55 DAYS Midfafo-CQR-KfA Reductase AdvReac Unknown makes me Verified 03/01/24 15:55 Inhibitor (Scrpwrg-Zcv-Yro feel like Reductase Inhibitor) I'm having a heart attack Review of Systems Review of Systems: All systems reviewed & are unremarkable except as noted in HPI and below PMFSH Past Medical History Medical History Arthritis Depression Anxiety Migraines Uterine fibroid GERD (gastroesophageal reflux disease) Hypertension CAD (coronary artery disease) Hyperlipidemia Cataract Surgical History Surgical History H/O right wrist surgery H/O section History of bladder suspension procedure H/O cardiac catheterization H/O: hysterectomy Partial Social History Social History Smoking status: Former smoker Tobacco type: cigarettes Smoking end date: 12/29/11 Alcohol intake: current Alcohol use details: wine cooler sometimes Substance use: never Substance use type: does not use Lack of Transportation: No Lack of Food: Never True Current Housing: I Have Housing Concerned About Future Housing: No Difficulty Paying Gas/Electric Bills: No Difficulty Paying for Meds: No Currently Unemployed: No Education: High School Diploma/GED Difficulty w/ Childcare or Family Care: No Living arrangements: with family Gender identity (if verbalized by the patient): Female Exam Narrative: APPEARANCE: No acute distress, nontoxic, resting in bed EYES: EOMI HEENT: Normocephalic, atraumatic, OMM RESPIRATORY: No respiratory distress Clear to auscultation bilaterally with no rhonchi wheezing or rales. CARDIOVASCULAR: Regular rate and rhythm without murmurs rubs or gallops. ABDOMINAL: Soft, mild suprapubic tenderness to palpation but no CVA tenderness bilaterally MUSCULOSKELETAl: Moves all extremities. No clubbing, cyanosis or edema. NEURO: Awake and alert. Following commands, speech normal, no focal deficits SKIN:: Warm, dry. No rashes lesions or abrasions PSYCHIATRIC: Normal affect/mood, Course Vital Signs Vital signs: Vital Signs Temperature 97.8 F 05/16/25 15:13 Pulse Rate 87 05/16/25 15:13 Respiratory Rate 16 05/16/25 15:13 Blood Pressure 151/90 H 05/16/25 15:13 Pulse Oximetry 97 05/16/25 15:13 Oxygen Delivery Room Air 05/16/25 15:13 Temperature 97.8 F 05/16/25 15:13 Pulse Rate 72 05/16/25 16:25 Respiratory Rate 16 05/16/25 16:25 Blood Pressure 124/83 05/16/25 16:25 Pulse Oximetry 98 05/16/25 16:25 Oxygen Delivery Room Air 05/16/25 15:13 MDM MDM Narrative Medical decision making narrative: 59-year-old female Presenting for urinary frequency and suprapubic abdominal pain. On initial evaluation patient was in no acute distress afebrile, hemodynamic stable. Differentials include but are not limited to: UTI, urinary retention, ureterolithiasis, constipation, appendicitis, enterocolitis, colitis, cancer Notable exam findings: Suprapubic abdominal tenderness to palpation, no CVA tenderness I personally reviewed the patient's lab result. Notable lab findings: UA consistent with a UTI Advanced imaging is not indicated given the patient's history and UA positive for a UTI. She will be given a prescription for Keflex, azo. She was advised follow-up with her PCP in the next week for re-evaluation. Patient was agreeable to this plan. Given strict return precautions. Differential Diagnosis Differential Diagnosis: UTI, urinary retention, ureterolithiasis, constipation, appendicitis, enterocolitis, colitis, cancer Lab Data Labs: Lab Results 05/16/25 Range/Units 15:21 Urine Color Yellow (Yellow) Urine Appearance Cloudy H (Clear) Urine pH 6.5 (5.0-9.0) Ur Specific [place] 1.011 (1.001-1.035) Urine Protein 1+ H (Negative) mg/dL Urine Glucose (UA) Negative (Negative) mg/dL Urine Ketones Negative (Negative) mg/dL Ur Blood (Man) 1+ H (Negative) Urine Nitrate Negative (Negative) Urine Bilirubin Negative (Negative) Urine Urobilinogen 1.0 (<2.0) mg/dL Leukocyte Esterase Rfl 3+ H (Negative) VLADISLAV/UL Urine RBC 3-5 H (0-2) /hpf Urine WBC >100 H (0-3) /hpf Ur Squamous Epith Cells None seen (Few) /hpf Urine Bacteria 4+ /hpf Urine Casts 0-2 Discharge Plan Discharge Clinical Impression: Urinary tract infection Qualifiers: Urinary tract infection type: acute cystitis Hematuria presence: with hematuria Qualified Code(s): N30.01 - Acute cystitis with hematuria Patient Disposition: Home Condition: Stable Instructions: Antibiotic Form, Urinary Tract Infection in Women (ED) Additional Instructions: Take Keflex and azo as prescribed. You may take Tylenol for additional pain relief. Follow-up with your PCP in the next week for re-evaluation. Return to the ED for any new or worsening symptoms. Patient Language: Serbian Prescriptions: New cephalexin 500 mg capsule 500 mg PO Q12H Qty: 10 0RF phenazopyridine 200 mg tablet 200 mg PO TID PRN (Reason: pain) Qty: 6 0RF No Action alprazolam 1 mg tablet 1 mg PO TID PRN (Reason: Anxiety) aspirin 81 mg tablet,chewable 81 mg PO DAILY atorvastatin [Lipitor] 80 mg tablet 80 mg PO DAILY cetirizine 10 mg tablet 10 mg PO DAILY clopidogrel 75 mg tablet 75 mg PO DAILY metoprolol tartrate 25 mg tablet 25 mg PO BID estradiol [Yuvafem] 10 mcg tablet 10 mcg vaginal .see comments 14 Days Qty: 30 6RF Rx Instructions: place 1 tablet vaginally every other day for 2 weeks, then continue using 1-2/week thereafter losartan 100 mg tablet 100 mg PO DAILY lidocaine HCl-hydrocortison ac 3-0.5 % cream 1 applic RECTAL BID PRN (Reason: hemorrhoids) Qty: 98 0RF cephalexin 500 mg capsule 500 mg PO Q6H 5 Days Qty: 20 0RF cyclobenzaprine 10 mg tablet 10 mg PO HS PRN (Reason: muscle spasm) Qty: 10 0RF dicyclomine 20 mg tablet 20 mg PO TID PRN (Reason: abdominal pain) Qty: 30 0RF ondansetron 4 mg tablet,disintegrating 4 mg PO Q8H PRN (Reason: nausea and vomiting) Qty: 10 0RF amoxicillin-pot clavulanate 875-125 mg tablet 1 tablet PO Q12H Qty: 10 0RF ondansetron HCl [Zofran] 8 mg tablet 8 mg PO Q8H PRN (Reason: nausea and vomiting) Qty: 14 0RF cephalexin 500 mg capsule 500 mg PO Q8H 10 Days Qty: 30 0RF famotidine [Pepcid] 20 mg tablet 20 mg PO BID Qty: 14 0RF ondansetron HCl [Zofran] 4 mg tablet 4 mg PO Q6H PRN (Reason: nausea and vomiting) Qty: 10 0RF carbamazepine 100 mg tablet,chewable 100 mg PO TID 7 Days Qty: 21 0RF cyclobenzaprine 10 mg tablet 10 mg PO TID PRN (Reason: muscle spasm) Qty: 20 0RF hydrocodone-acetaminophen 5-325 mg tablet 1 tablet PO Q6H PRN (Reason: pain) 3 Days Qty: 12 0RF amoxicillin-pot clavulanate 875-125 mg tablet 1 tablet PO Q12H Qty: 14 0RF ondansetron 4 mg tablet,disintegrating 4 mg PO Q8H PRN (Reason: nausea and vomiting) Qty: 14 0RF Follow-up/Referrals: Rafael,Joseline Montes SENIOR WINDOWS SYSTEMS ENGINEER [Primary Care Provider, Unknown]
--- OUTSIDE RECORDS SUMMARY | 2025-05-16 16:13 | XMS_ITS | Continuity of Care Document ---
Author Organization [place] [facility] [employer], [facility] Ortho Shawn Salazar Address [address] [place] [address] Assessment Encounter Date Assessment Date Assessment LastModified by Organization Details LastModified Time 03/04/2025 03/04/2025 59-year-old female presents for follow-up of her left hand. 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 She reports new complaint of pain in the wrist that radiates down into her fingers particularly the index and middle fingers. She also has numbness and tingling. This has been bothering her for 2 weeks. She reports pain with gripping as well as weakness, she currently rates her pain as 10/10. It got to the point where she presented the emergency department and she was told this may be a sprain. She previous had a brace but she says this made her hand swell. . She does report having to shake out her hand frequently throughout the day. She has positive Tinel's and Phalen's at the wrist. Negative Tinel's at the elbow. She still has tenderness over the thumb CMC and positive grind. She has new symptoms of carpal tunnel. 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 Her carpal tunnel symptoms are affecting her the most right now. We will send her for an EMG to confirm the diagnosis she can also use topical Voltaren in the meantime. We will see her back after the EMG to discuss treatment options. [email or web address] Not available 03/04/2025 17:18:50 Plan of Treatment Reminders Order Date Submit Date Provider Last Modified By Organization Details Last Modified Time Details Appointments None recorded. Lab None recorded. Referral None recorded. Procedures None recorded. Surgeries None recorded. Imaging electromyog jenifer + nerve conduction study 2024 025 [email or web address] [facility] (Cardiology & Em[facility]), [facility] [address], [address], 17:21:15 Medication Orders None recorded. Patient TargetsNo targets recorded. Patient InstructionsNo instructions recorded. Reason for Referral None Reported. Results Created Date Observation Date Name Description Value Unit Range Abnormal Flag Note LastModifiedBy Organization Detail LastModifiedTime 02/25/2002/23/2025 XR, finge r(s), 2 or more view No observ ation record ed. [email or web address], [address], 02/26/2025 10:36:51 04/26/2004/25/2025 CT, abdom en + pelvi s, w/o contr ast No observ ation record ed. [address] [address], [place], [address], 04/29/2025 09:35:12 Result Notes None recorded. 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 3 12:08:48 External hordeolu m 0392367 Completed resolved Not Available [facility] 3 07:42:20 Seborrhe ic dermatit is of scalp 666225210 Active Not Available [facility] 3 12:08:48 Dry eyes 199794910 Active Not Available [facility] 3 12:08:48 Pain in throat 134493953 Active Not Available [facility] 3 12:08:48 Swelling of eyelid 882884984 Completed resolved Not Available [facility] 3 07:42:21 Recurren t urinary tract infectio n 934514212 Active Not Available [facility] 3 12:08:48 Anxiety state 058253050 Completed resolved Not Available [facility] 3 07:42:21 Menopaus al flushing 438556847 Active Not Available [facility] 3 12:08:48 Pain of joint of elbow 695951556 Completed resolved Not Available [facility] 3 07:42:21 Abdomina l pain 21000301 Completed resolved Not Available [facility] 3 07:42:21 Cerebrov ascular accident 616304094 Active Not Available [facility] 3 12:08:48 Seasonal allergic conjunct ivitis 087298826 Completed resolved Not Available [facility] 3 07:42:21 Gastroes ophageal reflux disease 538330160 Active Not Available [facility] 3 12:08:48 Fluid level behind tympanic membrane Completed resolved Not Available [facility] 3 07:42:22 Headache 30267100 Active Not Available [facility] 3 12:08:48 Sprain of ligament of elbow 301739072 Active Not Available [facility] 3 12:08:48 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 014394157 Active Not Available [facility] 3 12:08:48 Malaise and fatigue 984838651 Active Not Available [facility] 3 12:08:49 Vaginal discharg e 756221290 Completed resolved Not Available [facility] 3 07:42:22 Chronic low back pain 507242276 Active Not Available [facility] 3 12:08:49 Excessiv e growth of facial hair 603347331 Active Not Available [facility] 3 12:08:49 Blood in urine 96206502 Completed resolved Not Available [facility] 3 07:42:23 Depressi ve disorder 94122668 Active Not Available [facility] 3 12:08:49 Ulnar neuropat hy 130183175 Active Not Available [facility] 3 12:08:49 Disorder of endocrin e system 721549809 Active Not Available [facility] 3 12:08:49 Sinusiti s 10420555 Completed resolved Not Available [facility] 3 07:42:23 Arthriti s 8678554 Active Not Available [facility] 3 12:08:49 Migraine 04420783 Active Not Available [facility] 3 12:08:49 Hyperten sive disorder 78747759 Active Not Available [facility] 3 12:08:49 Osteoart hritis 218386308 Active Not Available [facility] 3 12:08:49 Animal bite wound 019295143 Completed resolved Not Available [facility] 3 07:42:24 Cat scratch injury 735052845 Completed resolved Not Available [facility] 3 07:42:24 Pharyngi tis 502195997 Completed resolved Not Available [facility] 3 07:42:24 Carotid bruit 201821034 Active Not Available [facility] 3 12:08:49 Cervical disc disorder 559836090 Active Not Available [facility] 3 12:08:49 Acute urinary tract infectio n 420702846 Completed resolved Not Available [facility] 3 07:42:24 Hypokale olivia 14728406 Completed resolved Not Available [facility] 3 07:42:25 Arthriti s of hand 918827610 Active Not Available [facility] 3 12:08:49 Swelling of upper arm 832065569 Completed resolved Not Available [facility] 3 07:42:25 Pain of shoulder region 18630209 Completed resolved Not Available [facility] 3 07:42:25 Anxiety 89082742 Active Not Available [facility] 3 12:08:49 Dysuria 30798067 Active KRISTIN Ambriz-Juan [address] [place] [address], [address], [address] , [facility] 5 14:38:41 Coronary arterios clerosis 92695178 Active Not Available [facility] 3 12:08:49 Upper respirat ory infectio n 23799691 Completed resolved Not Available [facility] 3 07:42:26 Hyperlip idemia 74187632 Active Not Available [facility] 3 12:08:49 Allergic rhinitis 17493731 Active Not Available [facility] 3 12:08:49 Carotid artery stenosis 73148793 Active Not Available [facility] 3 12:08:49 Swelling 26924840 Completed resolved Not Available [facility] 3 07:42:26 Nasal congesti on 63937034 Active Not Available [facility] 3 12:08:49 Urinary tract infectio us disease 85711703 Completed resolved Joseline Hall, [employer] [address] [facility] [address], [place], [address] , [facility] [employer] [facility] 5 14:51:07 Eustachi an tube disorder 93089647 Active Not Available [facility] 3 12:08:49 Candidia sis of vagina 52010952 Completed resolved Not Available [facility] 3 07:42:27 Pain of elbow region 53173729 Active Not Available [facility] 3 12:08:49 Urgent desire to urinate 48740147 Completed resolved Not Available [facility] 3 07:42:27 Spinal stenosis 84009222 Active Not Available [facility] 3 12:08:49 Serous otitis media 29091070 Completed resolved Not Available [facility] 3 07:42:28 Bilatera l hearing loss 86643548 Active Not Available [facility] 3 12:08:49 Hypercho lesterol emia 18302348 Active 2019 Not Available [facility] 3 12:08:48 Heartbur n 07113198 Active 2019 Not Available [facility] 3 12:08:48 Anxiety disorder 761391403 Active 2019 Not Available [facility] 3 12:08:48 Plantar fasciiti s 587486902 Completed 201912/05/2019 Not Available [facility] 3 07:42:21 Obesity 444530343 Active 2019 Not Available [facility] 3 12:08:49 Heart disease 70794685 Active 2019 Not Available [facility] 3 12:08:49 Plantar fasciiti s of left foot 58124400780 704456 Active 2019 Not Available [facility] 3 12:08:48 Plantar fasciiti s of right foot 04573250091 988371 Completed 201912/05/2019 Not Available [facility] 3 07:42:20 Rupture of left Achilles tendon 01829665047 907083 Completed 201911/07/2019 Not Available [facility] 3 07:42:20 Left Achilles tendinit is 05638572302 9102 Completed 201912/05/2019 Not Available [facility] 3 07:42:22 Left Achilles tendinit is 01415015902 9102 Active 2019 Not Available [facility] 3 12:08:49 Right Achilles tendinit is 97363931107 9102 Active 2020 Not Available [facility] 3 12:08:49 Dystroph ia unguium 25297665 Active 2020 Not Available [facility] 3 12:08:49 Hemorrho ids 33833468 Active 2022 Not Available [facility] 3 12:08:49 Fracture of metacarp al bone 562568321 Active 2022 Not Available [facility] 3 12:08:48 Essentia l hyperten sohail 75303045 Active 2022 Not Available [facility] 3 12:08:49 Hypergly cemia 75193895 Active 2022 Not Available [facility] 3 12:08:49 Vitamin D deficien cy 13985494 Active 2022 Not Available [facility] 3 12:08:49 Liver enzymes level above referenc e range 420137207 Active 2022 Not Available [facility] 3 12:08:49 Seasonal allergy 340508099 Active 2022 Not Available [facility] 3 12:08:49 Closed fracture of neck of fifth metacarp al bone of right hand 37972783314 258902 Active 2022 Not Available [facility] 3 12:08:48 Increase d liver function 34743846 Active 2022 Not Available [facility] 3 12:08:49 Skin lesion 94214897 Active 2022 Not Available [facility] 3 12:08:49 Divertic ulitis 027015033 Active 2022 KRISTIN Ambriz-Juan [address], [place], [address] , [facility] 5 13:20:36 Acute conjunct ivitis 97256575 Active 2023 Amber Schwab MD [address], [place], [address] , [facility] 4 15:37:24 Bronchit is 86121781 Active 2023 Amber Schwab MD [address], [place], [address] , [facility] 4 16:25:30 Rib pain 423483504 Active 2023 Amber Schwab MD [address], [place], [address] , [facility] 4 17:55:53 Prediabe conor 846941337 Active 2023 Amber Schwab MD [address], [place], [address] , [facility] 4 16:34:59 Pain of left hand 72119466954 9103 Active 2023 Tram Nguyen CNA null, [facility] 5 15:10:13 Ulnar nerve entrapme nt at elbow 108369773 Active 2023 Adelaida Morales null, [place] 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 12200896 Active 2023 MABEL Christianson [address], [place], [address] , [facility] 4 14:24:22 Herpes zoster 0100222 Active 2024 SHANNON Ambriz [address] [employer], [place], [address] , [facility] 5 14:32:32 Candidia sis of skin 73816024 Active 2024 SHANNON Ambriz [address] [employer], [place], [address] , [facility] 5 09:07:54 Urinary tract infectio us disease 95568430 Active 2024 resolved SHANNON Ambriz [address] [employer], [place], [address] , [facility] 5 14:51:06 Seasonal allergic rhinitis 942094010 Active 2024 SHANNON Ambriz [address], [place], [address] , [facility] 5 10:22:45 Constipa tion 74208814 Active 2024 Watson kumari MD [address], [place], [address] , [facility] [employer] [facility] 5 16:47:48 Bleeding hemorrho ids 11775557 Active 2024 Watson kumari MD [address], [place], [address] , [facility] [employer] [facility] 5 16:48:02 External hemorrho ids 15849992 Active 2024 Watson kumari MD [address], [place], [address] , [facility] [employer] [facility] 5 16:48:23 Acute cellulit is Active 2024 SHANNON Ambriz [address] [employer], [place], [address] , [facility] [employer] [facility] 5 14:38:28 Body mass index 25-29 - overweig ht 318308086 Active 2024 SHANNON Ambriz [address], [place], [address] , [facility] [employer] [facility] 5 22:47:21 Facial spasm 02463184 Active 2024 SHANNON Ambriz [address], [place], [address] , [facility] [employer] [facility] 5 11:49:15 Numbness and tingling sensatio n of skin 30976889926 2 Active 2024 Lyubov girard [facility] [employer] [facility] 5 15:51:59 Notes:allergies, back/neck p roblems, coronary artery disease, ear problems, stroke, use of blood thinners Problem Notes None recorded. Procedures Surgical History Date Name Laterality Status Provider Name and Address Organization Details Recorded Time 3 Most Recent Mammogram completed Lyubov Zapata LPN [facility] [employer] [facility] 07/12/2023 15:40:32 6 colonoscopy completed Amber Schwab MD [address], [place], [address], [place] [facility] [employer] 10/02/2023 08:58:00 Imaging Results None recorded. Procedure Notes None recorded. Medical Equipment None Reported. Allergies Allergen ID Allergen Name Allergen Category Reaction Reaction Severity Criticality Documentation Date Start Date Code Code System Note Provider Name and Address Organization Details Recorded Time 59653 Substance with sulfonami de structure and antibacte rial mechanism of action (substanc e) medicatio n hives moderate Not available 07/28/2022 01479 8003 SNOMED Not Available [facility] 3 07:48:37 53299 Product containin g 3-hydroxy -3-methyl glutaryl- coenzyme A reductase inhibitor (product) medicatio n Not available Not available Not available 07/28/2022 10512 009 SNOMED Not Available [facility] 3 07:48:37 29570 Prozac medicatio n vomiting Not available Not available 07/28/2022 81492 RxNorm Not Available [facility] 3 07:48:37 69322 Non-stero idal anti-infl ammatory agent (substanc e) medicatio n lighthead edness severe Not available 07/28/2022 68899 5008 SNOMED Not Available [facility] 3 07:48:37 59962 morphine medicatio n Not available Not available Not available 07/28/2022 7052 RxNorm Not Available [facility] 3 07:48:37 04454 tramadol medicatio n Not available Not available Not available 08/25/2022 93820 RxNorm Amber Schwab MD [address] [place] [address], [address] , [facility] [employer] 3 10:03:27 51482 fluoxetin e medicatio n Not available Not available [facility] 04/23/20252015 4493 RxNorm unrec ogniz ed react ion (text : Nause a and/o r Vomit ing, code: 18254 [id number]) (from exter nal sourc e) unrec ogniz ed react ion (text : Unkno wn, code: 01113 5006) (from exter nal sourc e) Not Available bruce - External Data [employer] - prod 5 16:54:51 91338 sumatript an medicatio n Not available Not available Not available 05/15/2025 17991 RxNorm Not Available [place] - External Data Service - prod 5 12:25:37 Medications Name Sig Start Date Stop Date [...] PLEASE SEE ATTACHED FOR DETAILED DIRECTIO NS 10/17 completed Not Available Not Available Not Available doxycycli ne hyclate 100 mg capsule [...] Not Available Not Available No t Available fexofenad ine 180 mg tablet TAKE 1 TABLET BY MOUTH EVERY DAY active Not Available Not Available No t Available ciproflox acin 250 mg tablet Take 1 tablet every 12 hours by oral route for 7 days. active Not Available Not Available No t Available ciproflox acin 500 mg tablet TAKE 1 TABLET BY MOUTH EVERY 12 HOURS FOR 5 DAYS 01/24 completed Not Available Not Available Not Available sulfameth oxazole 800 mg-trimet hoprim 160 [...] completed Not Available Not Available Not Available acyclovir 800 mg tablet TAKE 1 TABLET BY MOUTH 5 TIMES A DAY FOR 7 DAYS 01/24 completed Not Available Not Available Not Available [...] mouth once a day for 1 day 10/17 completed Not Available Not Available Not Available alprazola m 0.5 mg tablet TAKE 1 [...] TO AFFECTED AREA TWICE A DAY NEEDED active Not Available Not Available No t Available clotrimaz ole-betam ethasone 1 %-0.05 % topical cream PLEASE SEE ATTACHED FOR DETAILED DIRECTIO NS active Not Available Not Available No t Available butalbita l 50 mg-acetam inophen 325 [...] 3 times a day by oral route. 2024 active Not Available Not Available Not Avai lable ergocalci ferol (vitamin D2) 1,250 mcg (50,000 [...] mg-potass ium clavulana te 125 mg tablet Take 1 tablet every 12 hours by oral route with meals for 10 days. 02/10 completed Not Available Not Available Not Available [...] 1 ml IM x 1 04/[address] [id number] Not Available Not Available Not Available Vagifem [address] 1 TABLET VAGINALL Y EVERY OTHER DAY FOR 2 WEEKS, THEN CONTINUE USING 1-2/WEEK THEREAFT ER 09/30 completed Not Available Not Available Not Available Solu-Medr ol (PF) 125 mg/2 mL solution for injection Inject 1ml intramus cularly once 2024 active Not Available Not Available Not Avai lable butalbita l-acetami nophen-ca ffeine 50 mg-300 mg-40 [...] Available Not Available No t Available Afluria 3818-4672 45 mcg (15 mcg x 3)/0.5 mL intramusc ular suspensio n TO BE ADMINIST ERED BY PHARMACI ST FOR IMMUNIZA TION active Not Available Not Available No t Available Afluria (PF) 45 mcg (15 mcg x 3)/0.5 mL IM syringe TO BE ADMINIST ERED BY PHARMACI ST FOR IMMUNIZA TION active Not Available Not Available No t Available Fluarix Quad 1611-1718 (PF) 60 mcg (15 mcg x 4)/0.5 mL IM syringe TO BE ADMINIST ERED BY PHARMACI ST FOR IMMUNIZA TION 06/22 completed Not Available Not Available Not Available Flucelvax Quad 9940-8559 (PF) 60 mcg (15 mcg x 4)/0.5 [...] 1 ML SUBCUTAN EOUSLY ONCE MONTHLY DIRECTED 2024 active Not Available Not Available Not Avai lable Emgality 120 mg/mL subcutane ous syringe active Not Available Not Available Not Available [employer]ig Autoinj[employer] tor 140 mg/mL subcutane ous auto-inje ctor Inject 140 mg every month by subcutan eous route. 04/12 completed Not Available Not Available Not Available Flucelvax Quad (PF) 60 mcg (15 mcg x 4)/0.5 mL IM syringe TO BE ADMINIST ERED BY PHARMACI ST FOR IMMUNIZA TION 10/12 completed Not Available Not Available Not Available [facility] 75 mg disintegr ating tablet DISSOLVE [...] completed Not Available Not Available Not Available Klayesta 100,000 unit/gram topical powder APPLY TO AFFECTED AREA TWICE A DAY active Not Available Not Available No t Available Vitals Date Recorded Body height Body mass index (BMI) Body weight Pain severity - 0-10 verbal numeric rating [Score] - Reported Provider Name and Address Organization Details Last Updated DateTime 03/04/2025 165.1 cm 30 kg/m2 35146.63 g 10 Cynthia Santizo Jennifer [facility] [employer] [facility] 03/04/2025 14:54:40 Social History Question Answer Notes LastModified by Net Element Details LastModified Time Tobacco Smoking Status Never Smoker Shanita Amauri girard [facility] [employer] [facility] 08/10/2022 12:03:29 What Was The Date Of Your Most Recent Tobacco Screening? 01/24/2025 Information not available 01/24/2025 Have You Ever Been Counseled For Unhealthy Alcohol Use? No Information not available 01/24/2025 Has Tobacco Cessation Counseling Been Provided? No Information not available 01/24/2025 Sex: Unknown Functional Status Question Answer Note LastModified by [employer] Details LastModified Time Do you use any illicit or recreational drugs? No Information not available 01/24/2025 Do you or have you ever used any other forms of tobacco or nicotine? No Information not available 01/24/2025 What is your level of alcohol consumption? Occasional [id number] Information not available 03/21/2024 Mental Status Question Answer Note LastModified by Organization D etails LastModified Time Do you feel stressed (tense, restless, nervous, or anxious, or unable to sleep at night)? [id number] Information not available 01/24/2025 Family History Relationship Description Onset Age of this Age Resolved Age Notes LastModified by Organization Details LastModified Time Maternal Grandmother Diabetes mellitus [email or web address] Not available 07/28 12:03:16 Notes:kenelog Medical History Condition Response ARTHRITIS Y USE OF BLOOD THINNERS Y HEART DISEASE/HEART PROBLEMS N CORONARY ARTERY DISEASE (CAD) Y HYPERTENSION Y STROKE/TIA Y HIGH CHOLESTEROL / HYPERLIPIDEMIA Y Gynecological History Statement/Question Response Most Recent Mammogram 04/05/2023 Obstetrics History GPAL:G 0 P 0 0 0 0 Immunizations Vaccine Type Date Status Note Provider Nam e and Address Organization Details Recorded Time SARS-COV-2 (COVID-19) vaccine, UNSPECIFIED 3 completed Rosa Molina RN null, [facility] [employer] [facility] [facility] 04[facility]04/2023 12:17:16 influenza, unspecified formulation 3 completed Rosa Molina RN null, [facility] 04/04/2023 12:17:38 Influenza, split virus, quadrivalent, PF 6 completed Not Available [facility] 05/09/2025 14:16:13 Influenza, split virus, quadrivalent, PF 8 completed Not Available [facility] 05/09/2025 14:16:13 Influenza, MDCK, quadrivalent, PF 9 completed Not Available [facility] 05/09/2025 14:16:13 influenza, unspecified formulation 9 completed Not Available [facility] 05/09/2025 14:16:13 zoster recombinant 9 completed Not Available [facility] 05/09/2025 14:16:13 zoster recombinant 0 completed Not Available [facility] 05/09/2025 14:16:13 Influenza, split virus, quadrivalent, PF 0 completed Not Available [facility] 05/09/2025 14:16:13 COVID-19, mRNA, LNP-S, PF, 30 mcg/0.3 mL dose 1 completed Not Available [facility] 05/09/2025 14:16:13 COVID-19, mRNA, LNP-S, PF, 30 mcg/0.3 mL dose 1 completed Not Available [facility] 05/09/2025 14:16:13 Influenza, split virus, quadrivalent, PF 1 completed Not Available [facility] 05/09/2025 14:16:13 COVID-19, mRNA, LNP-S, PF, 30 mcg/0.3 mL dose 1 completed Not Available [facility] 05/09/2025 14:16:13 COVID-19, mRNA, LNP-S, PF, 30 mcg/0.3 mL dose, cam-sucrose 2 completed Not Available [facility] 05/09/2025 14:16:13 Influenza, MDCK, trivalent, PF 4 completed Not Available [facility] 05/09/2025 14:16:13 COVID-19, mRNA, LNP-S, PF, cam-sucrose, 30 mcg/0.3 mL 4 completed Not Available [facility] 05/09/2025 14:16:13 influenza, unspecified formulation 5 completed Aimee Carpenter RN null, [facility] 02/11/2025 08:56:57 COVID-19, mRNA, LNP-S, PF, cam-sucrose, 30 mcg/0.3 mL 5 completed Aimee Carpenter RN null, [facility] 02/11/2025 08:57:46 Tdap 3 completed Joanie Parnell LPN null, [facility] 05/12/2023 16:19:10 COVID-19, mRNA, LNP-S, bivalent, PF, 30 mcg/0.3 mL dose 3 completed Not Available [facility] 07/28/2022 07:48:27 Influenza, MDCK, quadrivalent, PF 2 completed Not Available [facility] 07/28/2022 07:48:27 Influenza, split virus, quadrivalent, preservative 6 completed Not Available [facility] 07/28/2022 07:48:27 Influenza, split virus, trivalent, preservative 5 completed Not Available [facility] 07/28/2022 07:48:27 meningococcal MCV4P 7 completed Not Available [facility] 07/28/2022 07:48:27 meningococcal MCV4P 7 completed Not Available [facility] 07/28/2022 07:48:27 Influenza, split virus, trivalent, preservative 4 completed Not Available [facility] 07/28/2022 07:48:28 Tdap 3 completed Not Available [facility] 07/28/2022 07:48:28 Past Encounters Encounter ID Performer Location Encounter Start Date Encounter Closed Date Diagnosis/Indication Diagnosis SNOMED-CT Code Diagnosis ICD10 Code Diagnosis IMO Codes Diagnosis Note [id number] Valeriy Reilly MD [facility] [address] [place] [address] 03/04/2025 14:47:32 03/04/2025 16:12:13 Pain of left hand [id number] M79.265 [id number] Numbness a nd tingling sensation of skin 5305063151 02 R20.0 R20.2 468277 Health Concerns Section Related Observation LastModified by Organization Detai ls LastModified Time None Recorded Concern Status LastModified by Organization Details LastModified Time None Recorded Payers Encounter Date Sequence Insurance Name Policy Number Policy Ojeda Covered Member ID Ojeda Member ID Guarantor Name 03/04/2025 1 [facility] [id number] Mario Kat [id number] Delia Kat OBGyn Episode No OBEpisode recorded.
--- OUTSIDE RECORDS SUMMARY | 2025-05-16 16:14 | XMS_ITS | Data Portability ---
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 Jh Ladd Jennifer [facility] [employer]) 14:26:43 Date Recorded Body height Body mass index (BMI) Body weight Pain severity - 0-10 verbal numeric rating [Score] - Reported Provider Name and Address Organization Details Last Updated DateTime 03/04/2025 165.1 cm 30 kg/m2 18016.63 g 10 Cynthia Santizo Jennifer [facility] [employer] 03/04/2025 14:54:40 Social History Question Answer Notes LastModified by Ph[employer] Details LastModified Time Tobacco Smoking Status Never Smoker Shanita Amauri girard [facility] [employer] 08/10/2022 12:03:29 What Was The Date Of Your Most Recent Tobacco Screening? 01/24/2025 Information not available 01/24/2025 Have You Ever Been Counseled For Unhealthy Alcohol Use? No Information not available 01/24/2025 Has Tobacco Cessation Counseling Been Provided? No Information not available 01/24/2025 Sex: Unknown Functional Status Question Answer Note LastModified by [employer] Details LastModified Time Do you use any illicit or recreational drugs? No Information not available 01/24/2025 Do you or have you ever used any other forms of tobacco or nicotine? No Information not available 01/24/2025 What is your level of alcohol consumption? Occasional Information not available 03/21/2024 Mental Status Question Answer Note LastModified by Organization D etails LastModified Time Do you feel stressed (tense, restless, nervous, or anxious, or unable to sleep at night)? [id number] Information not available 01/24/2025 Family History Relationship Description Onset Age of this Age Resolved Age Notes LastModified by Organization Details LastModified Time Maternal Grandmother Diabetes mellitus Not available 07/28 12:03:16 Notes:nikki Medical History Condition Response HIGH CHOLESTEROL / [...] UNSPECIFIED 3 completed Rosa Molina RN null, [facility] [place] [employer] [facility] 04/04/2023 12:17:16 influenza, unspecified formulation 3 completed Rosa Molina RN null, [facility] [employer] [place] [facility] 04/04/2023 12:17:38 Influenza, split virus, quadrivalent, PF 6 completed Not Available [facility] 05/09/2025 14:16:13 Influenza, split virus, quadrivalent, PF 8 completed Not Available [facility] 05/09/2025 14:16:13 Influenza, MDCK, quadrivalent, PF 9 completed Not Available [facility] 05/09/2025 14:16:13 influenza, unspecified formulation 9 completed Not Available [facility] 05/09/2025 14:16:13 zoster recombinant 9 completed Not Available [facility] 05/09/2025 14:16:13 zoster recombinant 0 completed Not Available [facility] 05/09/2025 14:16:13 Influenza, split virus, quadrivalent, PF 0 completed Not Available [facility] 05/09/2025 14:16:13 COVID-19, mRNA, LNP-S, PF, 30 mcg/0.3 mL dose 1 completed Not Available [facility] 05/09/2025 14:16:13 COVID-19, mRNA, LNP-S, PF, 30 mcg/0.3 mL dose 1 completed Not Available [facility] 05/09/2025 14:16:13 Influenza, split virus, quadrivalent, PF 1 completed Not Available [facility] 05/09/2025 14:16:13 COVID-19, mRNA, LNP-S, PF, 30 mcg/0.3 mL dose 1 completed Not Available [facility] 05/09/2025 14:16:13 COVID-19, mRNA, LNP-S, PF, 30 mcg/0.3 mL dose, cam-sucrose 2 completed Not Available [facility] 05/09/2025 14:16:13 Influenza, MDCK, trivalent, PF 4 completed Not Available [facility] 05/09/2025 14:16:13 COVID-19, mRNA, LNP-S, PF, cam-sucrose, 30 mcg/0.3 mL 4 completed Not Available [facility] 05/09/2025 14:16:13 influenza, unspecified formulation 5 completed Aimee Carpenter RN null, [facility] [place] [facility] 02/11/2025 08:56:57 COVID-19, mRNA, LNP-S, PF, cam-sucrose, 30 mcg/0.3 mL 5 completed Aimee Carpenter RN null, [place] [employer] [facility] [place] [facility] 02/11/2025 08:57:46 Tdap 3 completed Joanie Parnell LPN null, [facility] [place] [facility] 05/12/2023 16:19:10 COVID-19, mRNA, LNP-S, bivalent, PF, 30 mcg/0.3 mL dose 3 completed Not Available [facility] 07/28/2022 07:48:27 Influenza, MDCK, quadrivalent, PF 2 completed Not Available [facility] 07/28/2022 07:48:27 Influenza, split virus, quadrivalent, preservative 6 completed Not Available [facility] 07/28/2022 07:48:27 Influenza, split virus, trivalent, preservative 5 completed Not Available [facility] 07/28/2022 07:48:27 meningococcal MCV4P 7 completed Not Available [facility] 07/28/2022 07:48:27 meningococcal MCV4P 7 completed Not Available [facility] 07/28/2022 07:48:27 Influenza, split virus, trivalent, preservative 4 completed Not Available [employer] 07/28/2022 07:48:28 Tdap 3 completed Not Available [facility] 07/28/2022 07:48:28 Past Encounters Encounter ID Performer Location Encounter Start Date Encounter Closed Date Diagnosis/Indication Diagnosis SNOMED-CT Code Diagnosis ICD10 Code Diagnosis IMO Codes Diagnosis Note [id number] Amber Schwab MD [facility] Primary [place] [address] [place] [address] 10/08/2020 00:00:00 10/09/2020 09:27:41 [id number] Amber Schwab MD [facility] [place] [address] [facility] [address] [place] [address] 11/05/2020 00:00:00 11/25/2020 17:07:31 [id number] Amber Schwab MD [facility] [place] [address] [facility] [address] [place] [address] 02/12/2021 00:00:00 02/12/2021 18:53:06 [id number] Amber Schwab MD [facility] [place] [address] [facility] [address] [place] [address] 03/10/2021 00:00:00 03/10/2021 14:26:13 [id number] George Hanna DPM [facility] Pod[facility] [address] [address] 03/12/2021 00:00:00 03/12/2021 12:11:04 [id number] George Hanna DPM [facility] [address] [address] 04/09/2021 00:00:00 04/09/2021 15:08:00 [id number] Amber Schwab MD [facility] Primary [place] [address] [facility] [address] [place] [address] 04/27/2021 00:00:00 04/27/2021 22:03:44 [id number] Amber Schwab MD [facility] Primary [facility] [place] [address] [place] [address] 06/10/2021 00:00:00 06/28/2021 21:38:10 [id number] Amber Schwab MD [facility] Primary Care [place] [address] [place] [address] 09/22/2021 00:00:00 09/22/2021 14:35:50 [id number] Ian Spears MD [facility] [place] [address] [facility] [address] [place] [address] 10/20/2021 00:00:00 10/20/2021 18:02:16 [id number] Amber Schwab MD [facility] Primary [place] [address] [place] [address] 12/22/2021 00:00:00 12/25/2021 10:53:01 [id number] SUSHILA Shah [employer]GR[employer]_ DEFAULT_1 _1 , 01/04/2022 00:00:00 01/07/2022 09:57:01 [id number] SUSHILA Shah IGRATION_ DEFAULT_1 _1 , 01/11/2022 00:00:00 01/20/2022 10:08:08 [id number] Amber Schwab MD [facility] Primary [place] [address] [place] [address] 01/27/2022 00:00:00 01/27/2022 15:30:32 [id number] Amber Schwab MD [facility] Primary [place] [address] [place] [address] 03/15/2022 00:00:00 03/29/2022 11:15:13 [id number] Amber Schwab MD [facility] Primary Care [place] [address] [place] [address] 04/12/2022 00:00:00 04/27/2022 21:02:[id number] [facility] Primary [place] [address] [facility] [address] [place] [address] 07/05/2022 00:00:00 07/25/2022 15:52:44 [id number] [facility] General Surgery [address] [place] [address] 08/10/2022 10:36:30 08/10/2022 14:07:13 Hemorrhoids 88245338 K64.[id number] [facility] [place] [address] [place] [address] 10/05/2022 11:27:03 10/05/2022 14:14:08 Closed fracture of neck of fifth metacarpal bone of right hand 4952908186 2551262 S62.336D [id number] Amber Schwab MD [facility] Primary [place] [address] [facility] [address] [place] [address] 10/04/2022 15:54:23 10/04/2022 17:15:42 Essential hypertension 20805673 I10 Hyperglycemia 00718910 R 73.9 Liver enzy mes level above reference range 156221646 R74.01 Vitamin D deficiency 347 11056 E55.9 Seasonal allergy 3758219 04 J30.[id number] [facility] Primary Care [place] [address] [facility] [address] [place] [address] 12/17/2022 14:45:52 12/17/2022 14:53:[id number] [facility] Primary Care [place] [address] [facility] [address] [place] [address] 01/04/2023 14:42:32 01/04/2023 15:23:18 Seasonal allergy 273625459 J30.2 Increased liver function 80572739 R94.5 improvingr epeat labs in 4 weeks Essential hypertension 24302639 I10 stablecont inue current meds [id number] Amber Schwab MD [facility] Primary [place] [address] [place] [address] 02/04/2023 14:32:14 02/04/2023 15:33:[id number] [facility] [place] [address] [place] [address] 05/12/2023 15:39:18 05/12/2023 16:13:[id number] [facility] [address] [place] [address] 07/11/2023 14:34:35 07/11/2023 15:08:35 Adult health examination 532746832 Z00.00 Mammogram 04/21 normal repeat in 04/22DEXA age 60Shingrix in 2019 and 2019Covid booster 03/2023Tda p 03/2023Flu 03/2023s/p hysterecto my, no pap neededper patient colonoscop y age 50, repeat age 60, will get records for reviewchec k fasting labs Essential hypertension 25853344 I10 stablecont inue current meds Hyperglycemia 99820119 R 73.9 Hyperlipidemia 29291594 E78.5 Z79.899 Vitamin D deficiency 347 61274 E55.[id number] [facility] [place] [address] [facility] [address] [place] [address] 08/31/2023 16:13:12 08/31/2023 16:38:18 Prediabetes 054738594 R73.03 a1c was 6.3, has made lifestyle changeswil l recheck a1c in 3 months, plan metformin if no improvemen t Anxiety 15857072 F41.9 stable, no refill needed for alprazolam today [id number] KRISTIN Ambriz-Juan [facility] Primary Care [place] [address] [place] [address] 12/07/2023 14:42:39 12/07/2023 15:31:13 Anxiety 09548128 F41.9 patient is doing well, no longer takes alprazolam .Denies SI/HI. [id number] MABEL Moreno [facility] Primary [place] [address] [facility] [address] [place] [address] 03/16/2024 14:09:00 03/16/2024 14:28:33 [id number] [address] [facility] [place] [address] [place] [address] 03/21/2024 14:38:54 03/21/2024 15:29:38 Pain of left hand 1401696210 82643 M79.429 [id number] Val[address]iy [address] [facility] 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 [address] [place] [address] 06/27/2024 14:35:10 06/27/2024 15:30:40 Closed fracture of neck of fifth metacarpal bone of right hand 8812859221 2306570 S62.336D [id number] SHANNON Ambriz [facility] [place] [address] [facility] [address] [place] [address] 10/17/2024 14:11:12 10/17/2024 14:35:34 Herpes zoster 8462649 B02.9 [id number] Will treat as listed below. Discussed use of Tylenol and Ibuprofen for pain. Patient to follow up as needed. [id number] SHANNON Ambriz [facility] Primary Care [place] [address] [facility] [address] [place] [address] 12/03/2024 14:36:27 12/03/2024 15:16:[id number] [facility] Primary Care [facility] [address] [facility] [address] [place] [address] 12/13/2024 09:55:35 12/13/2024 10:37:49 Urinary tract infectious disease 72924227 N39.0 71434985 Will continue treatment as listed below. Patient to follow up as needed. Seasonal a llergic rhinitis 983043443 J30.2 2097511973 [id number] Watson kumari MD [facility] General Surgery [address] [place] [address] 01/10/2025 11:18:33 01/21/2025 14:45:25 Constipation 28654944 K59.00 121043055 External hemorrhoids 239 19904 K64.[id number] [facility] Primary Care [facility] [address] [facility] [address] [place] [address] 01/24/2025 14:00:43 01/24/2025 14:51:02 Adult health examination 400759172 Z00.00 [id number] Discussed medication compliance and routine follow up.Discuss ed healthy diet and routine exercise.Nessa stahlwed vaccine records and made recommenda tions as needed.Enc ouraged annual eye and dental exams, as well as twice yearly dental cleanings. Will check screening labs as listed below. Dysuria 83676804 R30.0 29811 Migraine 91626911 G43.90 9 Acute cellulitis 6102194 009 L03.90 5503332137 Body mass index 25-29 - overweight 498044767 E66.3 994557 Weight: 170 poundsBMI: 28.3 [id number] Valeriy Reilly MD [facility] [place] [address] [place] [address] 03/04/2025 14:47:32 03/04/2025 16:12:13 Pain of left hand 5739493156 29209 M79.105 6114920 Numbness a nd tingling sensation of skin 0716736464 02 R20.0 R20.2 627986 [id number] SHANNON Ambriz [facility] Primary [place] [address] [place] [address] 05/09/2025 14:15:19 05/09/2025 15:02:00 [id number] SHANNON Ambriz [facility] Primary Care [place] [address] [place] [address] 05/13/2025 16:09:21 05/13/2025 16:28:34 Health Concerns Section Related Observation LastModified by Organization Detai ls LastModified Time None Recorded Concern Status LastModified by Organization Details LastModified Time None Recorded Advance Directives Directive None Recorded Payers Insurance Date Sequence Insurance Name Policy Number Policy Ojeda Covered Member ID Ojeda Member ID Guarantor Name 05/16/2025 1 [facility] [id number] Mario Kat [id number] Delia Kat 07/11/2023 1 [facility] [id number] Mario Kat [id number] Delia Kat Notes Date Note Type Note Provider Name and Address Organization Details Recorded Time 01/10/2025 text/html patient complains of feeling and lumpy area In her anal area after bowel movements and wiping. She complains of constipation and she sometimes does not have bowel movement for a whole week. Had 1 episode of some mild bleeding approximately a month ago. Denies pain, itching or burning. Watson Nicole MD [address] [address], [place], [address], [facility] [employer] [facility] 01/10/2025 16:48:39 01/24/2025 text/html ROS as noted in the HPI Patient is a 59 year old female that presents to the office for annual wellness. Patient reports she is doing well overall. Patient reports burning with urination for a couple days Patient reports scare is red and painful. Patient has been applying topical creams and neosporin however they burn when applied. labs- UTDWWE- UTDMammogram- UTDColonoscopy- UTD (2023)Flu- recommendedCovid- recommendedTdap- UTD (2022)Shingles- UTD SHANNON Ambriz [address] [facility] [address], [place], [address], [place] [facility] 01/29/2025 22:47:56 OBGyn Episode No OBEpisode recorded.
--- OUTSIDE RECORDS SUMMARY | 2025-05-16 16:14 | XMS_ITS | Continuity of Care Document ---
Author Organization [facility], [facility] Address [address] [facility] [address] [place] [address] Assessment No assessment recorded. Plan of Treatment Reminders Order Date Submit Date Provider Last Modified By Organization Details Last Modified Time Details Appointments None record ed. Lab None record ed. Referral None record ed. Procedures None record ed. Surgeries None record ed. Imaging None record ed. Medication Orders None record ed. Patient TargetsNo targets recorded. Patient InstructionsNo instructions recorded. Reason for Referral None Reported. Results Created Date Observation Date Name Description Value Unit Range Abnormal Flag Note LastModifiedBy Organization Detail LastModifiedTime 05/09/20 25 05/09/2025 urina lysis , dipst ick Leukocytes (reference range: negative angelique/ l) Small Not Available [address], [place], [address], 05/09/2025 14:15:54 05/09/20 25 05/09/2025 urina lysis , dipst ick Nitrite (reference rage: negative mg/dl) negati ve Not Available [address], [place], [address], 05/09/2025 14:15:54 05/09/20 25 05/09/2025 urina lysis , dipst ick Urobilinogen (reference range: 0.2-1 mg/dl) 1 Not Available [address], [place], [address], 05/09/2025 14:15:54 05/09/20 25 05/09/2025 urina lysis , dipst ick Protein (reference range: negative mg/dl) Negati ve Not Available [address], [place], [address], 05/09/2025 14:15:54 05/09/20 25 05/09/2025 urina lysis , dipst ick pH (reference range: 5-7) 6.0 Not Available [address], [place], [address], 05/09/2025 14:15:54 05/09/2005/09/2025 urina lysis , dipst ick Blood (reference range: negative Richard/ l) Non-He molyze d: Trace Not Available [address], [place], [address], 05/09/2025 14:15:54 05/09/20 25 05/09/2025 urina lysis , dipst ick Specific Fowler (reference range: 1.005-1.030) 1.015 Not Available [address], [place], [address], 05/09/2025 14:15:54 05/09/20 25 05/09/2025 urina lysis , dipst ick Ketone (reference range: negative mg/dl) Negati ve Not Available [address], [place], [address], 05/09/2025 14:15:54 05/09/20 25 05/09/2025 urina lysis , dipst ick Bilirubin (reference range: negative mg/dl) Negati ve Not Available [address], [place], [address], 05/09/2025 14:15:54 05/09/20 25 05/09/2025 urina lysis , dipst ick Glucose (reference range: negative mg/dl) Negati ve Not Available [address], [place], [address], 05/09/2025 14:15:54 05/09/20 25 05/09/2025 urina lysis , dipst ick Appearance Clear Not Available [address], [place], [address], 05/09/2025 14:15:54 05/09/20 25 05/09/2025 urina lysis , dipst ick Color Yellow Not Available [address], [place], [address], 05/09/2025 14:15:54 05/13/20 25 05/13/2025 urina lysis , dipst ick Leukocytes (reference range: negative angelique/ l) Small Not Available [address], [place], [address], 05/13/2025 16:30:38 05/13/20 25 05/13/2025 urina lysis , dipst ick Nitrite (reference rage: negative mg/dl) negati ve Not Available [address], [place], [address], 05/13/2025 16:30:38 05/13/20 25 05/13/2025 urina lysis , dipst ick Urobilinogen (reference range: 0.2-1 mg/dl) 2 Not Available [address], [place], [address], 05/13/2025 16:30:38 05/13/20 25 05/13/2025 urina lysis , dipst ick Protein (reference range: negative mg/dl) Modera te Not Available [address], [place], [address], 05/13/2025 16:30:38 05/13/20 25 05/13/2025 urina lysis , dipst ick pH (reference range: 5-7) 6.0 Not Available [address], [place], [address], 05/13/2025 16:30:38 05/13/20 25 05/13/2025 urina lysis , dipst ick Blood (reference range: negative Richard/ l) Modera te Not Available [address], [place], [address], 05/13/2025 16:30:38 05/13/20 25 05/13/2025 urina lysis , dipst ick Specific Fowler (reference range: 1.005-1.030) 1.025 Not Available [address], [place], [address], 05/13/2025 16:30:38 05/13/20 25 05/13/2025 urina lysis , dipst ick Ketone (reference range: negative mg/dl) Negati ve Not Available [address], [place], [address], 05/13/2025 16:30:38 05/13/20 25 05/13/2025 urina lysis , dipst ick Bilirubin (reference range: negative mg/dl) Small Not Available [address], [place], [address], 05/13/2025 16:30:38 05/13/20 25 05/13/2025 urina lysis , dipst ick Glucose (reference range: negative mg/dl) Negati ve Not Available [address], [place], [address], 05/13/2025 16:30:38 05/13/20 25 05/13/2025 urina lysis , dipst ick Appearance Cloudy Not Available [address], [place], [address], 05/13/2025 16:30:38 05/13/20 25 05/13/2025 urina lysis , dipst ick Color Dark Yellow Not Available [facility] [address], [place], [address], 05/13/2025 16:30:38 04/26/20 25 04/25/2025 CT, abdom en + pelvi s, w/o contr ast No observ ation record ed. [email or web address] [facility] [address], [place], [address], 04/29/2025 09:35:12 Result Notes None recorded. Problems Name Problem SNOMED Code Status Onset Date Resolution Date Notes Provider Name and Address Organization Details Recorded Time Difficul ty passing urine 366688353 Active Not Available [facility] 3 12:08:48 Neoplasm of skin of eyelid 091881081 Active Not Available [facility] 3 12:08:48 Lumbar radiculo josé miguel 431459857 Active Not Available [facility] 3 12:08:48 External hordeolu m 5977201 Completed resolved Not Available [facility] 3 07:42:20 Seborrhe ic dermatit is of scalp 206705897 Active Not Available [facility] 3 12:08:48 Dry eyes 529577648 Active Not Available [facility] 3 12:08:48 Pain in throat 177535849 Active Not Available [facility] 3 12:08:48 Swelling of eyelid 478052268 Completed resolved Not Available [facility] 3 07:42:21 Recurren t urinary tract infectio n 702770168 Active Not Available [facility] 3 12:08:48 Anxiety state 199481719 Completed resolved Not Available [facility] 3 07:42:21 Menopaus al flushing 919708486 Active Not Available [facility] 3 12:08:48 Pain of joint of elbow 233910119 Completed resolved Not Available [facility] 3 07:42:21 Abdomina l pain 84442722 Completed resolved Not Available [facility] 3 07:42:21 Cerebrov ascular accident 185033007 Active Not Available [facility] 3 12:08:48 Seasonal allergic conjunct ivitis 027480558 Completed resolved Not Available [facility] 3 07:42:21 Gastroes ophageal reflux disease 949649262 Active Not Available [facility] 3 12:08:48 Fluid level behind tympanic membrane Completed resolved Not Available [facility] 3 07:42:22 Headache 66782509 Active Not Available [facility] 3 12:08:48 Sprain of ligament of elbow 414779123 Active Not Available [facility] 3 12:08:48 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 937146545 Active Not Available [facility] 3 12:08:48 Malaise and fatigue 010413163 Active Not Available [facility] 3 12:08:49 Vaginal discharg e 224285432 Completed resolved Not Available [facility] 3 07:42:22 Chronic low back pain 399027705 Active Not Available [facility] 3 12:08:49 Excessiv e growth of facial hair 589637549 Active Not Available [facility] 3 12:08:49 Blood in urine 67285895 Completed resolved Not Available [facility] 3 07:42:23 Depressi ve disorder 14761756 Active Not Available [facility] 3 12:08:49 Ulnar neuropat hy 905237363 Active Not Available [facility] 3 12:08:49 Disorder of endocrin e system 909515914 Active Not Available [facility] 3 12:08:49 Sinusiti s 26956231 Completed resolved Not Available [facility] 3 07:42:23 Arthriti s 4393507 Active Not Available [facility] 3 12:08:49 Migraine 56340272 Active Not Available [facility] 3 12:08:49 Hyperten sive disorder 55721586 Active Not Available [facility] 3 12:08:49 Osteoart hritis 263076956 Active Not Available [facility] 3 12:08:49 Animal bite wound 923653042 Completed resolved Not Available [facility] 3 07:42:24 Cat scratch injury 760255019 Completed resolved Not Available [facility] 3 07:42:24 Pharyngi tis 292286067 Completed resolved Not Available [facility] 3 07:42:24 Carotid bruit 683604232 Active Not Available [facility] 3 12:08:49 Cervical disc disorder 526852325 Active Not Available [facility] 3 12:08:49 Acute urinary tract infectio n 434934840 Completed resolved Not Available [facility] 3 07:42:24 Hypokale olivia 98659588 Completed resolved Not Available [facility] 3 07:42:25 Arthriti s of hand 738009560 Active Not Available [facility] 3 12:08:49 Swelling of upper arm 192329676 Completed resolved Not Available [facility] 3 07:42:25 Pain of shoulder region 21687874 Completed resolved Not Available [facility] 3 07:42:25 Anxiety 32545439 Active Not Available [facility] 3 12:08:49 Dysuria 88521639 Active SHANNON Ambriz [address] [place] [address], [place] [address], [place], [address] , [facility] 5 14:38:41 Coronary arterios clerosis 89172626 Active Not Available [facility] 3 12:08:49 Upper respirat ory infectio n 30798380 Completed resolved Not Available [facility] 3 07:42:26 Hyperlip idemia 66413166 Active Not Available [facility] 3 12:08:49 Allergic rhinitis 83473595 Active Not Available [facility] 3 12:08:49 Carotid artery stenosis 85683949 Active Not Available 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, [facility] [address], [place], [address] , [facility] [employer] [facility] 5 14:51:07 Eustachi an tube disorder 06631819 Active Not Available [facility] 3 12:08:49 Candidia sis of vagina 13122905 Completed resolved Not Available [facility] 3 07:42:27 Pain of elbow region 51372688 Active Not Available [facility] 3 12:08:49 Urgent desire to urinate 07882837 Completed resolved Not Available [facility] 3 07:42:27 Spinal stenosis 85738381 Active Not Available [facility] 3 12:08:49 Serous otitis media 46513018 Completed resolved Not Available [facility] 3 07:42:28 Bilatera l hearing loss 38684196 Active Not Available [facility] 3 12:08:49 Hypercho lesterol emia 17752987 Active 2019 Not Available [facility] 3 12:08:48 Heartbur n 72790492 Active 2019 Not Available [facility] 3 12:08:48 Anxiety disorder 813584574 Active 2019 Not Available [facility] 3 12:08:48 Plantar fasciiti s 029196836 Completed 201912/05/2019 Not Available [facility] 3 07:42:21 Obesity 667454813 Active 2019 Not Available [facility] 3 12:08:49 Heart disease 08666896 Active 2019 Not Available [facility] 3 12:08:49 Plantar fasciiti s of left foot 84366257547 735869 Active 2019 Not Available [facility] 3 12:08:48 Plantar fasciiti s of right foot 49410491637 006447 Completed 201912/05/2019 Not Available [facility] 3 07:42:20 Rupture of left Achilles tendon 12850914478 374464 Completed 201911/07/2019 Not Available [facility] 3 07:42:20 Left Achilles tendinit is 30637256451 9102 Completed 201912/05/2019 Not Available [facility] 3 07:42:22 Left Achilles tendinit is 41720002664 9102 Active 2019 Not Available [facility] 3 12:08:49 Right Achilles tendinit is 74959075302 9102 Active 2020 Not Available [facility] 3 12:08:49 Dystroph ia unguium 73694525 Active 2020 Not Available [facility] 3 12:08:49 Hemorrho ids 16806952 Active 2022 Not Available [facility] 3 12:08:49 Fracture of metacarp al bone 350174727 Active 2022 Not Available [facility] 3 12:08:48 Essentia l hyperten sohail 56256310 Active 2022 Not Available [facility] 3 12:08:49 Hypergly cemia 12076726 Active 2022 Not Available [facility] 3 12:08:49 Vitamin D deficien cy 75999675 Active 2022 Not Available [facility] 3 12:08:49 Liver enzymes level above referenc e range 065366141 Active 2022 Not Available [facility] 3 12:08:49 Seasonal allergy 266886001 Active 2022 Not Available [facility] 3 12:08:49 Closed fracture of neck of fifth metacarp al bone of right hand 24670020471 842032 Active 2022 Not Available [facility] 3 12:08:48 Increase d liver function 16991972 Active 2022 Not Available [facility] 3 12:08:49 Skin lesion 49376010 Active 2022 Not Available [facility] 3 12:08:49 Divertic ulitis 443834344 Active 2022 KRISTIN Ambriz-Juan [address], [place], [address] , [facility] 5 13:20:36 Acute conjunct ivitis 28312286 Active 2023 Amber Schwab MD [address], [place], [address] , [facility] 4 15:37:24 Bronchit is 48288509 Active 2023 Amber Schwab MD [address], [place], [address] , [facility] 4 16:25:30 Rib pain 192087943 Active 2023 Amber Schwab MD [address], [place], [address] , [facility] 4 17:55:53 Prediabe conor 378808872 Active 2023 Amber Schwab MD [address], [place], [address] , [facility] 4 16:34:59 Pain of left hand 04268785738 9103 Active 2023 Tram Nguyen CNA null, [place] - [facility] 5 15:10:13 Ulnar nerve entrapme nt at elbow 057064081 Active 2023 Adelaida Morales null, [place] [facility] 4 14:16:03 Ulnar nerve entrapme nt at elbow 381490555 Active 2023 Adelaida Morales era, [facility] 4 14:16:36 Left medial elbow tendinop athy 67692556980 9107 Active 2023 MABEL Christianson [address], [place], [address] , [facility] 4 14:24:04 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 70558680 Active 2023 MABEL Christianson [address], [place], [address] , [facility] 4 14:24:22 Herpes zoster 7018091 Active 2024 SHANNON Ambriz [address], [place], [address] , [facility] 5 14:32:32 Candidia sis of skin 86222828 Active 2024 SHANNON Ambriz [address], [place], [address] , [facility] 5 09:07:54 Urinary tract infectio us disease 41943092 Active 2024 resolved SHANNON Ambriz [address], [place], [address] , [facility] 5 14:51:06 Seasonal allergic rhinitis 441024180 Active 2024 SHANNON Ambriz [address], [place], [address] , [facility] 5 10:22:45 Constipa tion 19341647 Active 2024 Watson kumari MD [address], [place], [address] , [facility] 5 16:47:48 Bleeding hemorrho ids 72969786 Active 2024 Watson kumari MD [address], [place], [address] , [employer] [facility] 5 16:48:02 External hemorrho ids 79911003 Active 2024 Watson kumari MD [address], [place], [address] , [employer] 5 16:48:23 Acute cellulit is Active 2024 SHANNON Ambriz [address], [place], [address] , [employer] 5 14:38:28 Body mass index 25-29 - overweig ht 275421034 Active 2024 SHANNON Ambriz [address], [place], [address] , [employer] 5 22:47:21 Facial spasm 35747584 Active 2024 SHANNON Ambriz [address], [place], [address] , [employer] 5 11:49:15 Numbness and tingling sensatio n of skin 16248761669 2 Active 2024 Lyubov girard [employer] [facility] 5 15:51:59 Notes:allergies, back/neck p roblems, coronary artery disease, ear problems, stroke, use of blood thinners Problem Notes None recorded. Procedures Surgical History Date Name Laterality Status Provider Name and Address Organization Details Recorded Time 3 Most Recent Mammogram completed Lyubov Zapata LPN [employer] [facility] 07/12/2023 15:40:32 6 colonoscopy completed Amber Schwab MD [address], [place], [address], [employer] [facility] 10/02/2023 08:58:00 Imaging Results None recorded. Procedure Notes None recorded. Medical Equipment None Reported. Allergies Allergen ID Allergen Name Allergen Category Reaction Reaction Severity Criticality Documentation Date Start Date Code Code System Note Provider Name and Address Organization Details Recorded Time 36737 Substance with sulfonami de structure and antibacte rial mechanism of action (substanc e) medicatio n hives moderate Not available 07/28/2022 87836 8003 SNOMED Not Available [facility] 3 07:48:37 20612 Product containin g 3-hydroxy -3-methyl glutaryl- coenzyme A reductase inhibitor (product) medicatio n Not available Not available Not available 07/28/2022 15569 009 SNOMED Not Available [facility] 3 07:48:37 31006 Prozac medicatio n vomiting Not available Not available 07/28/2022 55282 RxNorm Not Available [facility] 3 07:48:37 48085 Non-stero idal anti-infl ammatory agent (substanc e) medicatio n lighthead edness severe Not available 07/28/2022 58966 5008 SNOMED Not Available [facility] 3 07:48:37 21719 morphine medicatio n Not available Not available Not available 07/28/2022 7052 RxNorm Not Available [facility] 3 07:48:37 68702 tramadol medicatio n Not available Not available Not available 08/25/2022 98672 RxNorm Amber Schwab MD [address] [place] [address], [address] [place] [address] [facility] 3 10:03:27 03725 fluoxetin e medicatio n Not available Not available [facility] 04/23/20252015 4493 RxNorm unrec ogniz ed react ion (text : Nause a and/o r Vomit ing, code: 62603 000) (from exter nal sourc e) unrec ogniz ed react ion (text : Unkno wn, code: 81786 5006) (from exter nal sourc e) Not Available [facility] 5 16:54:51 12424 sumatript an medicatio n Not available Not available Not available 05/15/2025 23108 RxNorm Not Available [facility] - prod 12:25:37 Medications Name Sig Start Date Stop [...] 1 ml IM x 1 04/15 completed [facility]-4019 92e Not Available Not Available Not Available [...] Available Not Available No t Available Afluria 0180-0657 45 mcg (15 mcg x 3)/0.5 mL intramusc ular suspensio n TO BE ADMINIST ERED BY PHARMACI ST FOR IMMUNIZA TION active Not Available Not Available No t Available Afluria (PF) 45 mcg (15 mcg x 3)/0.5 mL IM syringe TO BE ADMINIST ERED BY PHARMACI ST FOR IMMUNIZA TION active Not Available Not Available No t Available Fluarix Quad 4001-0841 (PF) 60 mcg (15 mcg x 4)/0.5 mL IM syringe TO BE ADMINIST ERED BY PHARMACI ST FOR IMMUNIZA TION 06/22 completed Not Available Not Available Not Available Flucelvax Quad 2743-6618 (PF) 60 mcg (15 mcg x 4)/0.5 [...] completed Not Available Not Available Not Available Nurte ODT 75 mg disintegr ating tablet DISSOLVE 1 TABLET BY MOUTH EVERY DAY NEEDED FOR MIGRAINE active Not Available Not Available No t Available Afluria Qd (36 mos up)(PF)60 mcg (15 mcg x4)/0.5 mL IM syringe PHARMACY ADMINIST ERED 10/12 completed Not Available Not Available Not Available BinaxNOW COVID-19 Ag Self Test kit REFER TO MANUFACT JUDY INSTRUCT IONS INCLUDED IN PACKAGIN G 10/05 completed Not Available Not Available Not Available Klayesta 100,000 unit/gram topical powder APPLY TO AFFECTED AREA TWICE A DAY active Not Available Not Available No t Available Vitals None Recorded Social History Question Answer Notes LastModified by Organizat ion Details LastModified Time Tobacco Smoking Status Never Smoker Shanita Baugh null, [place] [employer] [facility] 08/10/2022 12:03:29 What Was The Date Of Your Most Recent Tobacco Screening? 01/24/2025 Information not available 01/24/2025 Have You Ever Been Counseled For Unhealthy Alcohol Use? No Information not available 01/24/2025 Has Tobacco Cessation Counseling Been Provided? No Information not available 01/24/2025 Sex: Unknown Functional Status Question Answer Note LastModified by Organizat ion Details LastModified Time Do you use any illicit or recreational drugs? No Information not available 01/24/2025 Do you or have you ever used any other forms of tobacco or nicotine? No Information not available 01/24/2025 What is your level of alcohol consumption? Occasional [email or web address] Information not available 03/21/2024 Mental Status Question Answer Note LastModified by Organization D etails LastModified Time Do you feel stressed (tense, restless, nervous, or anxious, or unable to sleep at night)? [id number] Information not available 01/24/2025 Family History Relationship Description Onset Age of this Age Resolved Age Notes LastModified by Organization Details LastModified Time Maternal Grandmother Diabetes mellitus [email or web address] Not available 07/28 12:03:16 Notes:kenelog Medical History Condition Response ARTHRITIS Y USE OF BLOOD THINNERS Y HEART DISEASE/HEART PROBLEMS N CORONARY ARTERY DISEASE (CAD) Y HYPERTENSION Y HIGH CHOLESTEROL / HYPERLIPIDEMIA Y STROKE/TIA Y Gynecological History Statement/Question Response Most Recent Mammogram 04/05/2023 Obstetrics History GPAL:G 0 P 0 0 0 0 Immunizations Vaccine Type Date Status Note Provider Nam e and Address Organization Details Recorded Time SARS-COV-2 (COVID-19) vaccine, UNSPECIFIED 3 completed PIERRE Rodriguez, [facility] [employer] 04/04/2023 12:17:16 influenza, unspecified formulation 3 completed PIERRE Rodriguez, [facility] [employer] 04/04/2023 12:17:38 Influenza, split virus, quadrivalent, PF 6 completed Not Available [facility] 05/09/2025 14:16:13 Influenza, split virus, quadrivalent, PF 8 completed Not Available [facility] 05/09/2025 14:16:13 Influenza, MDCK, quadrivalent, PF 9 completed Not Available [facility] 05/09/2025 14:16:13 influenza, unspecified formulation 9 completed Not Available [facility] 05/09/2025 14:16:13 zoster recombinant 9 completed Not Available [facility] [facility] 14:16:13 zoster recombinant 0 completed Not Available [facility] 05/09/2025 14:16:13 Influenza, split virus, quadrivalent, PF 0 completed Not Available [facility] 05/09/2025 14:16:13 COVID-19, mRNA, LNP-S, PF, 30 mcg/0.3 mL dose 1 completed Not Available [facility] 05/09/2025 14:16:13 COVID-19, mRNA, LNP-S, PF, 30 mcg/0.3 mL dose 1 completed Not Available [facility] 05/09/2025 14:16:13 Influenza, split virus, quadrivalent, PF 1 completed Not Available [facility] 05/09/2025 14:16:13 COVID-19, mRNA, LNP-S, PF, 30 mcg/0.3 mL dose 1 completed Not Available [facility] 05/09/2025 14:16:13 COVID-19, mRNA, LNP-S, PF, 30 mcg/0.3 mL dose, cam-sucrose 2 completed Not Available [facility] 05/09/2025 14:16:13 Influenza, MDCK, trivalent, PF 4 completed Not Available [facility] 05/09/2025 14:16:13 COVID-19, mRNA, LNP-S, PF, cam-sucrose, 30 mcg/0.3 mL 4 completed Not Available [facility] 05/09/2025 14:16:13 influenza, unspecified formulation 5 completed Aimee Carpenter RN null, [facility] 02/11/2025 08:56:57 COVID-19, mRNA, LNP-S, PF, cam-sucrose, 30 mcg/0.3 mL 5 completed Aimee Carpenter RN null, [facility] 02/11/2025 08:57:46 Tdap 3 completed Joanie Parnell LPN null, [facility] 05/12/2023 16:19:10 COVID-19, mRNA, LNP-S, bivalent, PF, 30 mcg/0.3 mL dose 3 completed Not Available [facility] 07/28/2022 07:48:27 Influenza, MDCK, quadrivalent, PF 2 completed Not Available [facility] 07/28/2022 07:48:27 Influenza, split virus, quadrivalent, preservative 6 completed Not Available [facility] 07/28/2022 07:48:27 Influenza, split virus, trivalent, preservative 5 completed Not Available [facility] 07/28/2022 07:48:27 meningococcal MCV4P 7 completed Not Available [facility] 07/28/2022 07:48:27 meningococcal MCV4P 7 completed Not Available [facility] 07/28/2022 07:48:27 Influenza, split virus, trivalent, preservative 4 completed Not Available [facility] 07/28/2022 07:48:28 Tdap 3 completed Not Available [facility] 07/28/2022 07:48:28 Past Encounters Encounter ID Performer Location Encounter Start Date Encounter Closed Date Diagnosis/Indication Diagnosis SNOMED-CT Code Diagnosis ICD10 Code Diagnosis IMO Codes Diagnosis Note [id number] [facility] [address] [place] [address] 05/09/2025 14:15:19 05/09/2025 15:02:00 [id number] [facility] [address] [place] [address] 05/13/2025 16:09:21 05/13/2025 16:28:34 Health Concerns Section Related Observation LastModified by Organization Detai ls LastModified Time None Recorded Concern Status LastModified by Organization Details LastModified Time None Recorded Payers Encounter Date Sequence Insurance Name Policy Number Policy Ojeda Covered Member ID Ojeda Member ID Guarantor Name 05/13/2025 1 [facility] [id number] Mario Kat [id number] Delia Kat OBGyn Episode No OBEpisode recorded.
--- OUTSIDE RECORDS SUMMARY | 2025-05-16 16:14 | XMS_ITS | Continuity of Care Document ---
Author Organization [facility], [facility] Address [address] [facility] [place] [address] Assessment No assessment recorded. Plan of Treatment [...] range: negative angelique/ l) Small Not Available [address], [place], [address], 05/09/2025 14:15:54 05/09/20 25 05/09/2025 urina lysis , dipst ick Nitrite (reference rage: negative mg/dl) negati ve Not Available [address], [place], [address], 05/09/2025 14:15:54 05/09/20 25 05/09/2025 urina lysis , dipst ick Urobilinogen (reference range: 0.2-1 mg/dl) 1 Not Available [address], [place], [address], 05/09/2025 14:15:54 05/09/20 25 05/09/2025 urina lysis , dipst ick Protein (reference range: negative mg/dl) Negati ve Not Available [address], [place], [address], 05/09/2025 14:15:54 05/09/20 25 05/09/2025 urina lysis , dipst ick pH (reference range: 5-7) 6.0 Not Available [address], [place], [address], 05/09/2025 14:15:54 05/09/2005/09/2025 urina lysis , dipst ick Blood (reference range: negative Richard/ l) Non-He molyze d: Trace Not Available [address], [place], [address], 05/09/2025 14:15:54 05/09/20 25 05/09/2025 urina lysis , dipst ick Specific Sidell (reference range: 1.005-1.030) 1.015 Not Available [address], [place], [address], 05/09/2025 14:15:54 05/09/20 25 05/09/2025 urina lysis , dipst ick Ketone (reference range: negative mg/dl) Negati ve Not Available [address], [place], [address], 05/09/2025 14:15:54 05/09/20 25 05/09/2025 urina lysis , dipst ick Bilirubin (reference range: negative mg/dl) Negati ve Not Available [address], [place], [address], 05/09/2025 14:15:54 05/09/20 25 05/09/2025 urina lysis , dipst ick Glucose (reference range: negative mg/dl) Negati ve Not Available [address], [place], [address], 05/09/2025 14:15:54 05/09/20 25 05/09/2025 urina lysis , dipst ick Appearance Clear Not Available [address], [place], [address], 05/09/2025 14:15:54 05/09/20 25 05/09/2025 urina lysis , dipst ick Color Yellow Not Available [address], [place], [address], 05/09/2025 14:15:54 04/26/2004/25/2025 CT, abdom en + pelvi s, w/o contr ast No observ ation record ed. [email or web address] [facility] [address], [place], [address], 04/29/2025 09:35:12 Result Notes None recorded. Problems Name Problem SNOMED Code Status Onset Date Resolution Date Notes Provider Name and Address Organization Details Recorded Time Difficul ty passing urine 967912097 Active Not Available [facility] 3 12:08:48 Neoplasm of skin of eyelid 634223397 Active Not Available [facility] 3 12:08:48 Lumbar radiculo josé miguel 982848735 Active Not Available [facility] 3 12:08:48 External hordeolu m 5612832 Completed resolved Not Available [facility] 3 07:42:20 Seborrhe ic dermatit is of scalp 148369003 Active Not Available [facility] 3 12:08:48 Dry eyes 428297167 Active Not Available [facility] 3 12:08:48 Pain in throat 768626280 Active Not Available [facility] 3 12:08:48 Swelling of eyelid 322413316 Completed resolved Not Available [facility] 3 07:42:21 Recurren t urinary tract infectio n 774824478 Active Not Available [facility] 3 12:08:48 Anxiety state 100213772 Completed resolved Not Available [facility] 3 07:42:21 Menopaus al flushing 949686769 Active Not Available [facility] 3 12:08:48 Pain of joint of elbow 372340150 Completed resolved Not Available [facility] 3 07:42:21 Abdomina l pain 49320876 Completed resolved Not Available [facility] 3 07:42:21 Cerebrov ascular accident 290202103 Active Not Available [facility] 3 12:08:48 Seasonal allergic conjunct ivitis 700118594 Completed resolved Not Available [facility] 3 07:42:21 Gastroes ophageal reflux disease 979766466 Active Not Available [facility] 3 12:08:48 Fluid level behind tympanic membrane Completed resolved Not Available [facility] 3 07:42:22 Headache 02290919 Active Not Available [facility] 3 12:08:48 Sprain of ligament of elbow 855227211 Active Not Available [facility] 3 12:08:48 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 3 12:08:49 Excessiv e growth of facial hair 028019239 Active Not Available [facility] 3 12:08:49 Blood in urine 93670299 Completed resolved Not Available [facility] 3 07:42:23 Depressi ve disorder 69697669 Active Not Available [facility] 3 12:08:49 Ulnar neuropat hy 491360465 Active Not Available [facility] 3 12:08:49 Disorder of endocrin e system 473400125 Active Not Available [facility] 3 12:08:49 Sinusiti s 37949614 Completed resolved Not Available [facility] 3 07:42:23 Arthriti s 1092491 Active Not Available [facility] 3 12:08:49 Migraine 39915702 Active Not Available [facility] 3 12:08:49 Hyperten sive disorder 20255971 Active Not Available [facility] 3 12:08:49 Osteoart hritis 410189200 Active Not Available [facility] 3 12:08:49 Animal bite wound 034009392 Completed resolved Not Available [facility] 3 07:42:24 Cat scratch injury 827446110 Completed resolved Not Available [facility] 3 07:42:24 Pharyngi tis 466064516 Completed resolved Not Available [facility] 3 07:42:24 Carotid bruit 155809435 Active Not Available [facility] 3 12:08:49 Cervical disc disorder 862405254 Active Not Available [facility] 3 12:08:49 Acute urinary tract infectio n 927869099 Completed resolved Not Available [facility] 3 07:42:24 Hypokale olivia 27788258 Completed resolved Not Available [facility] 3 07:42:25 Arthriti s of hand 985760008 Active Not Available [facility] 3 12:08:49 Swelling of upper arm 362476602 Completed resolved Not Available [facility] 3 07:42:25 Pain of shoulder region 23217561 Completed resolved Not Available [facility] 3 07:42:25 Anxiety 26208624 Active Not Available [facility] 3 12:08:49 Dysuria 57446890 Active SHANNON Ambriz [address] [place] [address], [address], [place], [address] , [facility] 5 14:38:41 Coronary arterios clerosis 94505218 Active Not Available [facility] 3 12:08:49 Upper respirat ory infectio n 71930147 Completed resolved Not Available [facility] 3 07:42:26 Hyperlip idemia 94612875 Active Not Available [facility] 3 12:08:49 Allergic rhinitis 46179062 Active Not Available [facility] 3 12:08:49 Carotid artery stenosis 18212035 Active Not Available [facility] 3 12:08:49 Swelling 88335509 Completed resolved Not Available [facility] 3 07:42:26 Nasal congesti on 91128855 Active Not Available [facility] 3 12:08:49 Urinary tract infectio us disease 56186995 Completed resolved Joseline Hall, [employer] [address] [facility], [facility] [address], [place], [address] , [facility] [employer] [facility] 5 14:51:07 Eustachi an tube disorder 30473688 Active Not Available [facility] 3 12:08:49 Candidia sis of vagina 42076180 Completed resolved Not Available [facility] 3 07:42:27 Pain of elbow region 99686765 Active Not Available [facility] 3 12:08:49 Urgent desire to urinate 08980544 Completed resolved Not Available [facility] 3 07:42:27 Spinal stenosis 68957216 Active Not Available [facility] 3 12:08:49 Serous otitis media 86587448 Completed resolved Not Available [facility] 3 07:42:28 Bilatera l hearing loss 11729334 Active Not Available [facility] 3 12:08:49 Hypercho lesterol emia 77871511 Active 2019 Not Available [facility] 3 12:08:48 Heartbur n 65120671 Active 2019 Not Available [facility] 3 12:08:48 Anxiety disorder 636588458 Active 2019 Not Available [facility] 3 12:08:48 Plantar fasciiti s 486027949 Completed 201912/05/2019 Not Available [facility] 3 07:42:21 Obesity 194318866 Active 2019 Not Available [facility] 3 12:08:49 Heart disease 43400351 Active 2019 Not Available [facility] 3 12:08:49 Plantar fasciiti s of left foot 42991716252 331165 Active 2019 Not Available [facility] 3 12:08:48 Plantar fasciiti s of right foot 13934814653 451023 Completed 201912/05/2019 Not Available [facility] 3 07:42:20 Rupture of left Achilles tendon 67431987215 189124 Completed 201911/07/2019 Not Available [facility] 3 07:42:20 Left Achilles tendinit is 89187374669 9102 Completed 201912/05/2019 Not Available [facility] 3 07:42:22 Left Achilles tendinit is 26430141788 9102 Active 2019 Not Available [facility] 3 12:08:49 Right Achilles tendinit is 97423751862 9102 Active 2020 Not Available [facility] 3 12:08:49 Dystroph ia unguium 42565941 Active 2020 Not Available [facility] 3 12:08:49 Hemorrho ids 51114431 Active 2022 Not Available [facility] 3 12:08:49 Fracture of metacarp al bone 151446399 Active 2022 Not Available [facility] 3 12:08:48 Essentia l hyperten sohail 51575776 Active 2022 Not Available [facility] 3 12:08:49 Hypergly cemia 73604574 Active 2022 Not Available [facility] 3 12:08:49 Vitamin D deficien cy 08345849 Active 2022 Not Available [facility] 3 12:08:49 Liver enzymes level above referenc e range 740364993 Active 2022 Not Available [facility] 3 12:08:49 Seasonal allergy 543150503 Active 2022 Not Available [facility] 3 12:08:49 Closed fracture of neck of fifth metacarp al bone of right hand 95645614607 855810 Active 2022 Not Available [facility] 3 12:08:48 Increase d liver function 43788434 Active 2022 Not Available [facility] 3 12:08:49 Skin lesion 84065486 Active 2022 Not Available [facility] 3 12:08:49 Divertic ulitis 062855345 Active 2022 SHANONN Ambriz [address], [place], [address] , [facility] 5 13:20:36 Acute conjunct ivitis 89478234 Active 2023 Amber Schwab MD [address], [address], [place], [address] , [facility] 4 15:37:24 Bronchit is 11407016 Active 2023 Amber Schwab MD [address], [place], [address] , [facility] 4 16:25:30 Rib pain 455024733 Active 2023 Amber Schwab MD [address], [place], [address] , [facility] 4 17:55:53 Prediabe conor 118678410 Active 2023 Amber Schwab MD [address], [place], [address] , [facility] 4 16:34:59 Pain of left hand 40293012899 9103 Active 2023 OLIVER Estes, [place] - [facility] 5 15:10:13 Ulnar nerve entrapme nt at elbow 084706122 Active 2023 Adelaida girard, [place] [facility] 4 14:16:03 Ulnar nerve entrapme nt at elbow 952012366 Active 2023 Adelaida girard, [place] [facility] 4 14:16:36 Left medial elbow tendinop athy 59130237173 9107 Active 2023 MABEL Christianson [address], [place], [address] , [facility] 4 14:24:04 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 44641817 Active 2023 MABEL Christianson [address], [place], [address] , [facility] 4 14:24:22 Herpes zoster 2352048 Active 2024 SHANNON Ambriz [address], [place], [address] , [facility] 5 14:32:32 Candidia sis of skin 33745440 Active 2024 SHANNON Ambriz [address], [address], [place], [address] , [facility] 5 09:07:54 Urinary tract infectio us disease 00312295 Active 2024 resolved SHANNON Ambriz [address], [place], [address] , [facility] 5 14:51:06 Seasonal allergic rhinitis 806745385 Active 2024 SHANNON Ambriz [address], [place], [address] , [facility] 5 10:22:45 Constipa tion 50131987 Active 2024 Watson kumari MD [address], [place], [address] , [employer] [facility] [employer] 5 16:47:48 Bleeding hemorrho ids 63508534 Active 2024 Watson kumari MD [address], [place], [address] , [employer] [facility] [employer] [facility] 5 16:48:02 External hemorrho ids 35825155 Active 2024 Watson kumari MD [address], [place], [address] , [employer] [facility] 5 16:48:23 Acute cellulit is Active 2024 SHANNON Ambriz [address], [place], [address] , [employer] [facility] [employer] 5 14:38:28 Body mass index 25-29 - overweig ht 022012148 Active 2024 SHANNON Ambriz [address], [place], [address] , [employer] 5 22:47:21 Facial spasm 17123540 Active 2024 SHANNON Ambriz [address], [place], [address] , [employer] [facility] [employer] 5 11:49:15 Numbness and tingling sensatio n of skin 77625153769 2 Active 2024 Lyubov girard, [employer] [facility] 5 15:51:59 Notes:allergies, back/neck p roblems, coronary artery disease, ear problems, stroke, use of blood thinners Problem Notes None recorded. Procedures Surgical History Date Name Laterality Status Provider Name and Address Organization Details Recorded Time 3 Most Recent Mammogram completed Lyubov Zapata LPN [employer] [facility] [employer] [facility] 07/12/2023 15:40:32 6 colonoscopy completed Amber Schwab MD [address] [facility], [facility] [address], [place], [address], [employer] 10/02/2023 08:58:00 Imaging Results None recorded. Procedure Notes None recorded. Medical Equipment None Reported. Allergies Allergen ID Allergen Name Allergen Category Reaction Reaction Severity Criticality Documentation Date Start Date Code Code System Note Provider Name and Address Organization Details Recorded Time 74606 Substance with sulfonami de structure and antibacte rial mechanism of action (substanc e) medicatio n hives moderate Not available 07/28/2022 77916 8003 SNOMED Not Available [facility] 3 07:48:37 46777 Product containin g 3-hydroxy -3-methyl glutaryl- coenzyme A reductase inhibitor (product) medicatio n Not available Not available Not available 07/28/2022 48700 009 SNOMED Not Available [facility] 3 07:48:37 66151 Prozac medicatio n vomiting Not available Not available 07/28/2022 05541 RxNorm Not Available [facility] 3 07:48:37 02686 Non-stero idal anti-infl ammatory agent (substanc e) medicatio n lighthead edness severe Not available 07/28/2022 20342 5008 SNOMED Not Available [facility] 3 07:48:37 35534 morphine medicatio n Not available Not available Not available 07/28/2022 7052 RxNorm Not Available [facility] 3 07:48:37 84722 tramadol medicatio n Not available Not available Not available 08/25/2022 23759 RxNorm Amber Schwab MD [address] [facility], [facility] [address], [place], [address], [employer] [facility] [employer] 3 10:03:27 11492 fluoxetin e medicatio n Not available Not available [facility] 04/23/20252015 4493 RxNorm unrec ogniz ed react ion (text : Nause a and/o r Vomit ing, code: 39460 000) (from exter nal sourc e) unrec ogniz ed react ion (text : Unkno wn, code: 75640 5006) [facility] Not Available [facility] External Data Service - prod 5 16:54:51 56981 sumatript an medicatio n Not available Not available Not available 05/15/2025 76131 RxNorm Not Available [facility] - External Data [...] 1 ml IM x 1 04/15 completed [facility]-[id number] 92e Not Available Not Available Not Available [...] Available Not Available No t Available Afluria 3284-4916 45 mcg (15 mcg x 3)/0.5 mL intramusc ular suspensio n TO BE ADMINIST ERED BY PHARMACI ST FOR IMMUNIZA TION active Not Available Not Available No t Available Afluria 1167-8637 (PF) 45 mcg (15 mcg x 3)/0.5 mL IM syringe TO BE ADMINIST ERED BY PHARMACI ST FOR IMMUNIZA TION active Not Available Not Available No t Available Fluarix Quad 3377-2285 (PF) 60 mcg (15 mcg x 4)/0.5 mL IM syringe TO BE ADMINIST ERED BY PHARMACI ST FOR IMMUNIZA TION 06/22 completed Not Available Not Available Not Available Flucelvax Quad (PF) 60 mcg (15 mcg x 4)/0.5 mL IM syringe TO BE ADMINIST ERED BY PHARMACI FOR IMMUNIZA TION 10/12 completed Not Available Not Available Not Available Shingrix (PF) 50 mcg/0.5 mL intramusc ular suspensio n, kit TO BE ADMINIST ERED BY PHARMACI FOR IMMUNIZA TION 10/12 completed Not Available Not Available Not Available Aimovig Autoinj[employer] tor 140 mg sc qmonth 04/12 completed Not Available Not Available Not Available Fluzone Quad (P F) 60 mcg(15 mcgx4)/0. 5 mL intramusc ular syringe TO BE ADMINIST ERED BY PHARMACI FOR IMMUNIZA TION 03/19 completed Not Available [...] syringe TO BE ADMINIST ERED BY PHARMACI FOR IMMUNIZA TION 10/12 completed Not Available Not Available Not Available Nurtec ODT 75 mg disintegr ating tablet DISSOLVE [...] Tobacco Smoking Status Never Smoker Shanita Baugh era, [facility] [employer] 08/10/2022 12:03:29 What Was The Date Of [...] is your level of alcohol consumption? Occasional [email or web address] Information not available 03/21/2024 Mental Status Question Answer Note LastModified by Organization D etails LastModified Time Do you feel stressed (tense, restless, nervous, or anxious, or unable to sleep at night)? [id number] Information not available 01/24/2025 Family History Relationship Description Onset Age of this Age Resolved Age Notes LastModified by Organization Details LastModified Time Maternal Grandmother Diabetes mellitus [email or web address] Not available 07/28 12:03:16 Notes:kenelog Medical History [...] (COVID-19) vaccine, UNSPECIFIED 3 completed PIERRE Rodriguez, [facility] [employer] 04/04/2023 12:17:16 influenza, unspecified formulation 3 completed Rosa Molina RN null, [place] [facility] 04/04/2023 12:17:38 Influenza, split virus, quadrivalent, PF 6 completed Not Available [facility] 05/09/2025 14:16:13 Influenza, split virus, quadrivalent, PF 8 completed Not Available [facility] 05/09/2025 14:16:13 Influenza, MDCK, quadrivalent, PF 9 completed Not Available [facility] 05/09/2025 14:16:13 influenza, unspecified formulation 9 completed Not Available [facility] 05/09/2025 14:16:13 zoster recombinant 9 completed Not Available [facility] 05/09/2025 14:16:13 zoster recombinant 0 completed Not Available [facility] 05/09/2025 14:16:13 Influenza, split virus, quadrivalent, PF 0 completed Not Available [facility] 05/09/2025 14:16:13 COVID-19, mRNA, LNP-S, PF, 30 mcg/0.3 mL dose 1 completed Not Available [facility] 05/09/2025 14:16:13 COVID-19, mRNA, LNP-S, PF, 30 mcg/0.3 mL dose 1 completed Not Available [facility] 05/09/2025 14:16:13 Influenza, split virus, quadrivalent, PF 1 completed Not Available [facility] 05/09/2025 14:16:13 COVID-19, mRNA, LNP-S, PF, 30 mcg/0.3 mL dose 1 completed Not Available [facility] 05/09/2025 14:16:13 COVID-19, mRNA, LNP-S, PF, 30 mcg/0.3 mL dose, cam-sucrose 2 completed Not Available [facility] 05/09/2025 14:16:13 Influenza, MDCK, trivalent, PF 4 completed Not Available [facility] 05/09/2025 14:16:13 COVID-19, mRNA, LNP-S, PF, cam-sucrose, 30 mcg/0.3 mL 4 completed Not Available [facility] 05/09/2025 14:16:13 influenza, unspecified formulation 5 completed Aimee Carpenter RN null, [facility] 02/11/2025 08:56:57 COVID-19, mRNA, LNP-S, PF, cam-sucrose, 30 mcg/0.3 mL 5 completed Aimee Carpenter RN null, [facility] 02/11/2025 08:57:46 Tdap 3 completed Joanie Parnell LPN null, [facility] 05/12/2023 16:19:10 COVID-19, mRNA, LNP-S, bivalent, PF, 30 mcg/0.3 mL dose 3 completed Not Available [facility] 07/28/2022 07:48:27 Influenza, MDCK, quadrivalent, PF 2 completed Not Available [facility] 07/28/2022 07:48:27 Influenza, split virus, quadrivalent, preservative 6 completed Not Available [facility] 07/28/2022 07:48:27 Influenza, split virus, trivalent, preservative 5 completed Not Available [facility] 07/28/2022 07:48:27 meningococcal MCV4P 7 completed Not Available [facility] 07/28/2022 07:48:27 meningococcal MCV4P 7 completed Not Available [facility] 07/28/2022 07:48:27 Influenza, split virus, trivalent, preservative 4 completed Not Available [facility] 07/28/2022 07:48:28 Tdap 3 completed Not Available [facility] 07/28/2022 07:48:28 Past Encounters Encounter ID Performer Location Encounter Start Date Encounter Closed Date Diagnosis/Indication Diagnosis SNOMED-CT Code Diagnosis ICD10 Code Diagnosis IMO Codes Diagnosis Note [id number] SHANNON Ambriz [facility] [address] [facility] [address] [facility] [place] [address] 05/09/2025 14:15:19 05/09/2025 15:02:00 Health Concerns Section Related Observation LastModified by Organization Detai ls LastModified Time None Recorded Concern Status LastModified by Organization Details LastModified Time None Recorded Payers Encounter Date Sequence Insurance Name Policy Number Policy Ojeda Covered Member ID Ojeda Member ID Guarantor Name 05/09/2025 1 [facility] [id number] Mario Kat [id number] Delia Kat OBGyn Episode No OBEpisode [id number]
[2025-05-16 16:25] VITALS: BP 124/83; PULSE 72; RESP 16; O2SAT 98
== END 2025-05-16 16:27 | disposition home or self-care (01) ==
PROVIDERS: Emergency Provider Student in an Organized Health Care Education/Training Program; PCP Nurse Practitioner Family
DX: N30.01 Acute cystitis with hematuria (principal); I10 Essential (primary) hypertension; I25.10 Atherosclerotic heart disease of native coronary artery without angina pectoris; E78.5 Hyperlipidemia, unspecified; K21.9 Gastro-esophageal reflux disease without esophagitis; M19.90 Unspecified osteoarthritis, unspecified site; F32.A Depression, unspecified; Z87.891 Personal history of nicotine dependence; Z90.711 Acquired absence of uterus with remaining cervical stump; Z79.82 Long term (current) use of aspirin; Z79.02 Long term (current) use of antithrombotics/antiplatelets; Z79.899 Other long term (current) drug therapy
CPT/HCPCS: 81001; 87077; 87086; 87186; 99283